=== PATIENT | male | born 1955 | race Hispanic/Latino ===

== ENCOUNTER 2018-09-15 19:46 | Inpatient (IN) | payer BC ==
[2018-09-15 20:17] LABS: Urine Appearance CLOUDY; Urine Bilirubin NEGATIVE (NEG); Urine Blood 3+ (NEG); Urine Color RED; Urine Glucose NEGATIVE (NEG); Urine Protein 1+ (NEG); Urine Urobilinogen 0.2 mg/dL (0.2-1.0); Urine pH 6.5 (5.0-7.0)
[2018-09-15 20:27] LABS: Urine Bacteria 20-50 /HPF (NONE SEEN); Urine RBC LOADED /HPF (NONE SEEN)
[2018-09-15 20:28] LABS: Urine Culture Reflex Order NOT NEEDED
[2018-09-15] MEDS ORDERED: MAGNE/ALUM HYDROXD 30 ML UCUP ONE (20:30)
[2018-09-15] MEDS ORDERED: ONDANSETRON 4 MG/2 ML VIAL ONE (20:30)
[2018-09-15] MEDS ORDERED: LIDOCAINE VISCOUS 2% SOLN 15 ML UDC ONE (20:31)
--- NOTE | 2018-09-15 20:45 | RAD REPORT ---
EXAM DESCRIPTION: [place] Single View09/15/2018 8:30 pm CLINICAL HISTORY: Chest pain COMPARISON: none FINDINGS: The lungs appear clear of acute infiltrate. The heart is normal size IMPRESSION: No acute abnormalities displayed
[2018-09-15] MEDS ORDERED: ONDANSETRON 4 MG (ODT) TAB ONE (20:55)
--- NOTE | 2018-09-15 21:02 | RAD REPORT ---
EXAM DESCRIPTION: CT - Stone Protocol - 09/15/2018 8:50 pm CLINICAL HISTORY: Abdominal pain. Right flank pain. Hematuria COMPARISON: None. TECHNIQUE: Computed axial tomography of the abdomen pelvis was obtained without oral or IV contrast. Lack of IV and oral contrast limits evaluation of solid organs, bowel, and vessels. Coronal reformat mt images were obtained and reviewed. All CT scans are performed using dose optimization technique as appropriate and may include automated exposure control or mA/KV adjustment according to patient size. FINDINGS: Multiple, bilateral renal calculi. Mild right hydronephrosis. Right ureter is mildly dilat ed. Right periureteral stranding is present. There are 2 distal right ureteral calculi. Largest measu res 7 millimeters Hounsfield unit of 1395. 3.9 centimeter low-density left renal mass is nonspecific without IV contrast but probably represents a cyst. This should be confirmed with nonemergent ultrasound The liver, spleen, pancreas and adrenals appear grossly normal Prostate gland is mildly to moderately enlarged There is no evidence of diverticulitis. The gallbladder has been removed. Pneumobilia is present IMPRESSION: Distal right ureteral calculi resulting in mild right hydronephrosis
[2018-09-15 21:32] LABS: Absolute Lymphocytes (CBC) 2.1 K/uL (0.7-4.9); Absolute Monocytes 0.5 K/uL (0.1-1.3); Absolute Neutrophil 6.8 K/uL (1.8-8.0); Basophils % 1.3 % (0-1.3); Eosinophils % 2.2 % (0-4.4); Hematocrit 41.4 % (39.6-49.0); Lymphocytes % 21.5 % (15.3-44.8); MPV 9.1 fL (7.6-11.3); Monocytes % 4.9 % (3.3-12.3); RBC Red Blood Cell Count 4.65 M/uL (4.33-5.43)
[2018-09-15 21:36] LABS: Protime INR 1.01
[2018-09-15 21:51] LABS: ALT/SGPT 33 U/L (12-78); AST/SGOT 26 U/L (15-37); Alkaline Phosphatase 139 U/L (45-117); BUN Blood Urea Nitrogen 20 mg/dL (7-18); Bicarbonate 26 mmol/L (21-32); Bilirubin Direct < 0.1 mg/dL (0-0.2); Bilirubin Total 0.3 mg/dL (0.2-1.0); Glucose Level 92 mg/dL (74-106); Lipase 153 U/L (73-393); Potassium 3.9 mmol/L (3.5-5.1); Protein, Total 8.5 g/dL (6.4-8.2); Sodium Level 138 mmol/L (136-145); Troponin (Emerg Dept Use Only) < 0.02 ng/mL (0.0-0.045)
--- NOTE | 2018-09-15 21:59 | ER ---
Nurse's Notes [facility] Name: Fabian Brenner Age: 63 yrs Sex: Male : 1955 Arrival Date: 09/15/2018 Time: 19:47 Bed 28 Private MD: Diagnosis: Chest pain, unspecified;Hydronephrosis with renal and ureteral calculous obstruction Presentation: 09/15 19:51 Presenting complaint: Patient states: started with right back/flank pain on week ago la1 followed by urinating blood with clots and then chest pain, Has been having intermittent chest pain for a little longer than one week. Chest pain is described as pressure "like someone is sitting on it" flank pain is sharp. Transition of care: patient was not received from another setting of care. Onset of symptoms was September 15, 2018. Risk Assessment: Do you want to hurt yourself or someone else? Patient reports no desire to harm self or others. Initial Sepsis Screen: Does the patient meet any 2 criteria? No. Patient's initial sepsis screen is negative. Does the patient have a suspected source of infection? No. Patient's initial sepsis screen is negative. Care prior to arrival: None. 19:51 Method Of Arrival: Ambulatory la1 19:51 Acuity: LIDA 3 la1 Historical: - Allergies: 19:53 Iodine; la1 - Home Meds: 19:53 None [Active]; la1 - PMHx: 19:53 None; la1 - PSHx: 19:53 Cholecystectomy; Appendectomy; Tonsillectomy; la1 - Immunization history:: Adult Immunizations up to date. - Social history:: Smoking status: Patient/guardian denies using tobacco. - Ebola Screening: : No symptoms or risks identified at this time. - Family history:: not pertinent. - Hospitalizations: : No recent hospitalization is reported. Screenin:52 Abuse screen: Denies threats or abuse. Denies injuries from another. Nutritional rv screening: No deficits noted. Tuberculosis screening: No symptoms or risk factors identified. Fall Risk None identified. Assessment: 20:51 General: Appears in no apparent distress. uncomfortable, Behavior is calm, cooperative. rv Pain: Complains of pain in chest Pain does not radiate. Pain began suddenly. Neuro: Level of Consciousness is awake, alert, obeys commands, Oriented to person, place, time, situation. Cardiovascular: Capillary refill < 3 seconds Rhythm is regular. Respiratory: Airway is patent. GI: No signs and/or symptoms were reported involving the gastrointestinal system. : No signs and/or symptoms were reported regarding the genitourinary system. EENT: No signs and/or symptoms were reported regarding the EENT system. Derm: Skin is intact. Vital Signs: 19:53 BP 124 / 81; Pulse 102; Resp 18; Temp 98.3; Pulse Ox 98% on R/A; Weight 62.14 kg; la1 Height 5 ft. 2 in. (157.48 cm); Pain 8/10; 21:30 BP 129 / 81 LA Supine; Pulse 78; Resp 15 S; Pulse Ox 97% on R/A; rv 22:00 BP 129 / 71 LA Supine; Pulse 80; Resp 14 S; Pulse Ox 97% on R/A; rv 23:00 BP 144 / 88 LA Supine; Pulse 84; Resp 26 S; Pulse Ox 99% on R/A; rv 19:53 Body Mass Index 25.06 (62.14 kg, 157.48 cm) la1 ED Course: 19:47 Patient arrived in ED. do 19:52 Triage completed. la1 19:53 Arm band placed on right wrist. la1 19:55 Gianfranco Paredes MD is Attending Physician. rn 20:04 Greg Chua, MOR is Primary Nurse. rv 20:29 XRAY Chest (1 view) In Process Unspecified. EDMS 20:29 Radiology exam delayed due to pt having iv started to give meds. greg to call when bq pts ready. 20:30 Missed attempt(s): 20 gauge in left antecubital area. 22 gauge in right antecubital rv area. 20:39 Urine Culture Sent. jp3 20:[address] mw3 20:50 CT Stone Protocol In Process Unspecified. EDMS 20:52 Patient has correct armband on for positive identification. Bed in low position. Call rv light in reach. Side rails up X 1. Adult w/ patient. secured entrance monitor on. Pulse ox on. NIBP on. 20:52 Patient maintains SpO2 saturation greater than 95% on room air. rv 21:50 Inserted 18 gauge 10 cm midline to right upper basilic vein on first attempt. Line with fc good blood return and flushes well. 21:57 Nixon Hutson MD is Hospitalizing Provider. rn 23:23 No provider procedures requiring assistance completed. Patient admitted, IV remains in rv place. Administered Medications: 20:30 Drug: GI Cocktail without - (Maalox Suspension 30 ml, Lidocaine Liquid 2 % 15 rv ml) Route: PO; 23:14 Follow up: Response: Pain is unchanged, physician notified rv 22:00 Drug: Zofran 4 mg Route: IVP; Site: right upper arm; rv 23:14 Follow up: Response: Nausea unchanged rv 22:00 Drug: morphine 4 mg Route: IVP; Site: right upper arm; rv 23:14 Follow up: Response: Pain is unchanged, physician notified rv 22:05 Drug: NS 0.9% 1000 ml Route: IV; Rate: 1000 ml; Site: right upper arm; rv 23:13 Follow up: IV Status: Completed infusion; IV Intake: 1000ml rv 22:48 Drug: morphine 4 mg Route: IVP; Site: right upper arm; rv 23:13 Follow up: Response: Pain is decreased rv 22:48 Drug: Phenergan 12.5 mg Route: IVP; Site: right upper arm; rv 23:13 Follow up: Response: Nausea is decreased rv Intake: 23:13 IV: 1000ml; Total: 1000ml. rv Outcome: 21:57 Decision to Hospitalize by Provider. rn 23:23 Admitted to Med/surg accompanied by nurse, via wheelchair, room 206, with chart, Report rv called to [place] 23:23 Condition: good 23:23 Instructed on the need for admit, Demonstrated understanding of instructions. 23:23 Patient left the ED. rv Signatures: Dispatcher [employer] EDMS Vannessa Bone Felicia, RN RN fc Nieto, Roman, MD MD rn Attema, Lee, RN RN la1 [place]ree, Danielle do Willis, Michelle mw3 Greg Chua RN RN rv Tank Younger jp3
--- NOTE | 2018-09-15 21:59 | EDPHYS ---
Physician Documentation [facility] Name: Fabian Brenner Age: 63 yrs Sex: Male : 1955 Arrival Date: 09/15/2018 Time: 19:47 Bed 28 Private MD: ED Physician Gianfranco Paredes HPI: 09/15 20:06 This 63 yrs old Male presents to ER via Ambulatory with complaints of Chest rn Pain, Nausea, Blood In Urine. 20:06 The patient or guardian reports chest pain that is located primarily in the substernal rn area. Onset: 1 week(s) ago. The pain radiates to Associated signs and symptoms: Pertinent positives: abdominal pain, nausea, vomiting, Pertinent negatives: cough, diaphoresis, lower extremity swelling, recent travel, shortness of breath, syncope. The chest pain is described as a heaviness, a pressure. Duration: The patient or guardian reports multiple episodes, that are intermittent. Modifying factors: The symptoms are alleviated by nothing. the symptoms are aggravated by exertion. Severity of pain: At its worst the pain was moderate in the emergency department the pain is unchanged. The patient has not experienced similar symptoms in the past. Reports 1 week of chest and flank pain, seen this past week at other ER for flank pain, has known 6mm stone in ureter, reports "passes stones all the time", reports feels like hasn't be able to pass this one. Also having intermittent chest pain, seems like different issue for him, began around same time but don't seem associated, + nausea/vomiting, no dark stool or blood in stool. + blood in urine. No known cardiac problems. . Historical: - Allergies: 19:53 Iodine; la1 - Home Meds: 19:53 None [Active]; la1 - PMHx: 19:53 None; la1 - PSHx: 19:53 Cholecystectomy; Appendectomy; Tonsillectomy; la1 - Immunization history:: Adult Immunizations up to date. - Social history:: Smoking status: Patient/guardian denies using tobacco. - Ebola Screening: : No symptoms or risks identified at this time. - Family history:: not pertinent. - Hospitalizations: : No recent hospitalization is reported. ROS: 20:06 Constitutional: Negative for fever, chills, and weight loss, Eyes: Negative for injury, rn pain, redness, and discharge, Neck: Negative for injury, pain, and swelling, Cardiovascular: + chest pain, negative for palpitations Respiratory: Negative for shortness of breath, cough, wheezing, and pleuritic chest pain, Abdomen/GI: + nausea/vomiting Back: Negative for injury and pain, : + hematuria and dysuria MS/Extremity: Negative for injury and deformity, Skin: Negative for injury, rash, and discoloration, Neuro: Negative for headache, weakness, numbness, tingling, and seizure. Exam: 20:05 ECG was reviewed by the Attending Physician. rn 20:06 Constitutional: This is a well developed, well nourished patient who is awake, alert, rn clenching chest, ambulatory to room from bathroom. Head/Face: Normocephalic, atraumatic. Eyes: Pupils equal round and reactive to light, extra-ocular motions intact. Lids and lashes normal. Conjunctiva and sclera are non-icteric and not injected. Cornea within normal limits. Periorbital areas with no swelling, redness, or edema. Cardiovascular: tachycardic, regular, no murmur Respiratory: Lungs have equal breath sounds bilaterally, clear to auscultation Abdomen/GI: soft, mild epigastric abd tenderness, no rebound MS/ Extremity: Pulses equal, no cyanosis. Neurovascular intact. Full, normal range of motion. Equal circumference. Neuro: Awake and alert, GCS 15, oriented to person, place, time, and situation. Cranial nerves II-XII grossly intact. Motor strength 5/5 in all extremities. Sensory grossly intact. Cerebellar exam normal. Normal gait. Vital Signs: 19:53 BP 124 / 81; Pulse 102; Resp 18; Temp 98.3; Pulse Ox 98% on R/A; Weight 62.14 kg; la1 Height 5 ft. 2 in. (157.48 cm); Pain 8/10; 21:30 BP 129 / 81 LA Supine; Pulse 78; Resp 15 S; Pulse Ox 97% on R/A; rv 22:00 BP 129 / 71 LA Supine; Pulse 80; Resp 14 S; Pulse Ox 97% on R/A; rv 23:00 BP 144 / 88 LA Supine; Pulse 84; Resp 26 S; Pulse Ox 99% on R/A; rv 19:53 Body Mass Index 25.06 (62.14 kg, 157.48 cm) la1 MDM: 19:55 Patient medically screened. rn 21:17 ED course: Having difficulty getting IV, RN in room attempting u/s IV. . rn 21:52 Differential diagnosis: acute myocardial infarction, acute pericarditis, coronary rn artery disease costochondritis, gastritis, gastroesophageal reflux disease (GERD), pancreatitis, pericarditis, pleurisy, pneumonia, pneumothorax, stable angina. Data reviewed: vital signs, nurses notes, lab test result(s), EKG, radiologic studies, CT scan, plain films, and as a result, I will admit patient. Counseling: I had a detailed discussion with the patient and/or guardian regarding: the historical points, exam findings, and any diagnostic results supporting the discharge/admit diagnosis, lab results, radiology results, the need for further work-up and treatment in the hospital. Response to treatment: the patient's symptoms have mildly improved after treatment, and as a result, I will admit patient. Admission orders: after a detailed discussion of the patient's condition and case, the admit orders are written by me. 21:52 ED course: Pt improved, normal ecg, negative troponin, ct with 2 distal ureteral rn stones, largest 7mm, admitted for chest pain eval as brother just had stents, and father with MIs at his age, and chest pain new for him. . 09/15 19:57 Order name: Urine Culture 09/15 20:05 Order name: Basic Metabolic Panel; Complete Time: 21:52 09/15 20:05 Order name: CBC with Diff; Complete Time: 21:38 09/15 20:05 Order name: LFT's; Complete Time: 21:52 09/15 20:05 Order name: PT-INR; Complete Time: 21:38 09/15 20:05 Order name: Troponin (emerg Dept Use Only); Complete Time: 21:52 09/15 20:05 Order name: Lipase; Complete Time: 21:52 09/15 20:12 Order name: Urinalysis W/Microscopic; Complete Time: 20:44 [facility] 09/15 22:57 Order name: Lipid Profile [facility] 09/15 22:57 Order name: Lipid Profile [facility] 09/15 22:57 Order name: Troponin I [facility] 09/15 22:57 Order name: Troponin I [facility] 09/15 19:57 Order name: EKG; Complete Time: 19:57 rn 09/15 19:57 Order name: EKG - Nurse/Tech; Complete Time: 20:39 rn 09/15 19:57 Order name: XRAY Chest (1 view); Complete Time: 20:46 rn 09/15 20:06 Order name: CT Stone Protocol; Complete Time: 21:09 rn 09/15 22:57 Order name: Heart Healthy [facility] 09/15 22:57 Order name: Echo with Doppler EDMD 09/15 22:57 Order name: Echo with Doppler [facility] 09/15 22:57 Order name: EKG Electrocardiogram EDMD 09/15 22:57 Order name: EKG Electrocardiogram [facility] 09/15 22:57 Order name: Troponin I [facility] 09/15 19:57 Order name: Urine Dipstick-Ancillary (obtain specimen); Complete Time: 20:39 rn 09/15 20:05 Order name: Cardiac monitoring; Complete Time: 20:39 rn 09/15 20:05 Order name: IV Saline Lock; Complete Time: 22:07 rn 09/15 20:05 Order name: Labs collected and sent; Complete Time: 20:39 rn 09/15 20:05 Order name: O2 Per Protocol; Complete Time: 20:39 rn 09/15 20:05 Order name: O2 Sat Monitoring; Complete Time: 20:39 rn 09/15 20:52 Order name: Labs - recollect needed; Complete Time: 21:45 cm6 EC:05 Rate is 96 beats/min. Rhythm is regular. QRS [place] is Normal. MN interval is normal. QRS rn interval is normal. QT interval is normal. No Q waves. T waves are Normal. No ST changes noted. Clinical impression: Normal ECG. Interpreted by me. Administered Medications: 20:30 Drug: GI Cocktail without - (Maalox Suspension 30 ml, Lidocaine Liquid 2 % 15 rv ml) Route: PO; 23:14 Follow up: Response: Pain is unchanged, physician notified rv 22:00 Drug: Zofran 4 mg Route: IVP; Site: right upper arm; rv 23:14 Follow up: Response: Nausea unchanged rv 22:00 Drug: morphine 4 mg Route: IVP; Site: right upper arm; rv 23:14 Follow up: Response: Pain is unchanged, physician notified rv 22:05 Drug: NS 0.9% 1000 ml Route: IV; Rate: 1000 ml; Site: right upper arm; rv 23:13 Follow up: IV Status: Completed infusion; IV Intake: 1000ml rv 22:48 Drug: morphine 4 mg Route: IVP; Site: right upper arm; rv 23:13 Follow up: Response: Pain is decreased rv 22:48 Drug: Phenergan 12.5 mg Route: IVP; Site: right upper arm; rv 23:13 Follow up: Response: Nausea is decreased rv Disposition: 09/15/18 21:57 Hospitalization ordered by Nixon Hutson for Observation. Preliminary diagnosis are Chest pain, unspecified, Hydronephrosis with renal and ureteral calculous obstruction. - Bed requested for Telemetry/MedSurg (observation). - Status is Observation. rv - Condition is Stable. - Problem is an ongoing problem. - Symptoms have improved. UTI on Admission? No Signatures: Dispatcher [employer] EDMD Bebe Salgado RN RN Gianfranco Paredes MD MD rn Attema, Lee RN RN la1 Ge Chua RN RN rv Aliyah Wesley cm6 Corrections: (The following items were deleted from the chart) 20:12 20:11 URINALYSIS+U.LAB.BRZ ordered. EDMD EDMS 20:13 19:58 UA MICROSCOPIC+U.LAB.BRZ ordered. [facility] EDMS 23:01 21:57 Hospitalization Ordered by Nixon Hutson MD for Observation. Preliminary mw diagnosis is Chest pain, unspecified; Hydronephrosis with renal and ureteral calculous obstruction. Bed requested for Telemetry/MedSurg (observation). Status is Observation. Condition is Stable. Problem is an ongoing problem. Symptoms have improved. UTI on Admission? No. rn 23:23 23:01 09/15/2018 21:57 Hospitalization Ordered by Nixon Hutson MD for Observation. rv Preliminary diagnosis is Chest pain, unspecified; Hydronephrosis with renal and ureteral calculous obstruction. Bed requested for Telemetry/MedSurg (observation). Status is Observation. Condition is Stable. Problem is an ongoing problem. Symptoms have improved. UTI on Admission? No. mw
[2018-09-15] MEDS ORDERED: MORPHINE 4 MG/ML SYR ONE ×2 (22:08→22:57)
[2018-09-15] MEDS ORDERED: NA CHLORIDE 0.9% 1,000 ML ONE (22:16)
[2018-09-15] MEDS ORDERED: ACETAMINOPHEN 500 MG TAB PO PRN (22:53)
[2018-09-15] MEDS ORDERED: PROMETHAZINE 25 MG/ML VIAL ONE (22:56)
[2018-09-16] MEDS: ALPRAZOLAM 0.25 MG TABLET PO PRN (00:22)
[2018-09-16] MEDS: MORPHINE 4 MG/ML SYR IV PRN ×6 (02:39→22:50)
[2018-09-16] MEDS ORDERED: NA CHLORIDE 0.9% 1,000 ML IV SCH (07:00)
[2018-09-16] MEDS: ONDANSETRON 4 MG/2 ML VIAL IV PRN ×2 (08:00→20:33)
[2018-09-16] MEDS: CEFTRIAXONE/SWI 1gm 1 GM/10 ML SYR IV SCH (08:01)
[2018-09-16] MEDS: ENOXAPARIN 40 MG/0.4 ML SQ SCH (08:02)
[2018-09-16] MEDS: LISINOPRIL 10 MG TAB PO SCH (08:02)
[2018-09-16] MEDS: ASPIRIN EC 81 MG TAB PO SCH (08:02)
[2018-09-16] MEDS: NA CHLORIDE 0.9% 1,000 ML IV SCH ×3 (08:04→22:50)
[2018-09-16] MEDS: METOPROLOL TAR 50 MG TAB PO SCH ×2 (08:05→20:31)
[2018-09-16] MEDS ORDERED: CEFTRIAXONE 1 GM/NS 50 ML 1 GM/50 ML BAG IV SCH (09:00)
--- NOTE | 2018-09-16 09:57 | P.HP ---
Certification for Inpatient Patient admitted to: Inpatient With expected LOS: >2 Midnights Patient will require the following post-hospital care: None Practitioner: I am a practitioner with admitting privileges, knowledge of patient current condition, hospital course, and medical plan of care. Services: Services provided to patient in accordance with Admission requirements found in Title 42 Section 412.3 of the Code of Federal Regulations Patient History Date of Service: 09/15/18 Reason for admission: Chest pain rule out acute coronary syndrome; obstructive uropathy History of Present Illness: Patient is a 63-year-old gentleman who came to the hospital with chest pain. Patient had been already diagnosed with nephrolithiasis. He has had kidney stones since he was a teenager. He normally passes them because they are very small. He states that this is the toughest time he has had with them. He went to a hospital and was found to have some kidney stones. He also had mild hydronephrosis. He was dealing with this at home however, he started having pain in his sternal region. Has a strong family history of coronary artery disease. He denies any history of hypertension, diabetes, or cholesterol problems. He will probably need to be worked up for his chest pain and cleared for having coronary artery disease prior to any intervention for his nephrolithiasis / obstructive uropathy. Also start him on some antibiotics. Allergies iodine Allergy (Mild, Verified 09/15/18 23:04) Hives/Rash Home Medications: Zolpidem Tartrate [Ambien*] 10 mg PO BEDTIME 09/15/18 - Past Medical/Surgical History Has patient received pneumonia vaccine in the past: Yes -: Nephrolithiasis -: cholecystectomy -: appendectomy -: tonsillectomy -: sphincterotomy - Family History Father Medical History: Heart disease Brother Medical History: Heart disease - Social History Smoking Status: Never smoker Alcohol use: No CD- Drugs: No Caffeine use: Yes Place of Residence: Home Review of Systems 10-point ROS is otherwise unremarkable Physical Examination - Vital Signs Temperature: 97.6 F Blood Pressure: 124/65 Pulse: 68 Respirations: 18 Pulse Ox (%): 96 - Physical Exam General: Alert, In no apparent distress, Oriented x3 HEENT: Atraumatic, PERRLA, Mucous membr. moist/pink, EOMI, Sclerae nonicteric Neck: Supple, 2+ carotid pulse no bruit, No LAD, Without JVD or thyroid abnormality Respiratory: Clear to auscultation bilaterally, Normal air movement Cardiovascular: Regular rate/rhythm, Normal S1 S2, No murmurs Gastrointestinal: Normal bowel sounds, Soft and benign, Non-distended, Tenderness ( flank tender) Musculoskeletal: No clubbing, No swelling, No tenderness Integumentary: No rashes Neurological: Normal gait, Normal speech, Normal strength at 5/5 x4 extr, Normal tone, Sensation intact, Cranial nerves 3-12 intact, Normal affect Lymphatics: No axilla or inguinal lymphadenopathy - Studies Laboratory Data (last 24 hrs) 09/16/18 04:58: Triglycerides 380 H, Cholesterol 255 H, HDL Cholesterol 39 L, Cholesterol/HDL Ratio 6.54 09/16/18 04:58: Troponin I < 0.02 09/15/18 21:25: PT 11.9, INR 1.01 09/15/18 21:25: WBC 9.7, Hgb 14.1, Hct 41.4, Plt Count 278 09/15/18 21:25: Sodium 138, Potassium 3.9, BUN 20 H, Creatinine 1.11, Glucose 92 , Total Bilirubin 0.3, AST 26, ALT 33, Alkaline Phosphatase 139 H, Lipase 153 Assessment & Plan - Problems (Diagnosis) (1) Chest pain, rule out acute myocardial infarction Current Visit: Yes Status: Acute (2) Obstructive uropathy Current Visit: Yes Status: Acute (3) Nephrolithiasis Current Visit: Yes Status: Acute - Plan 1. Serial troponins and EKG 2. Cardiology consultation 3. Echocardiogram and inpatient stress test 4. Anti-platelet therapy, beta-michael, statin, and O2 as needed 5. IV morphine for pain 6. IV hydration to help assist with passing kidney stones 7. Strain urine 8. Urology consultation 9. NPO after midnight 10. GI and DVT prophylaxis Discharge Plan: Home Plan to discharge in: 48 Hours - Advance Directives Does patient have a Living Will: No Does patient have a Durable POA for Healthcare: No - Code Status/Comfort Care Code Status Assessed: Yes Code Status: Full Code Critical Care: No Time Spent Managing PTS Care (In Minutes): 50
[2018-09-16] MEDS ORDERED: KETOROLAC 30 MG/ML INJ IV PRN (11:02)
--- NOTE | 2018-09-16 14:52 | P.PN ---
Subjective Date of Service: 09/16/18 Chief Complaint: Chest pain rule out acute coronary syndrome; obstructive uropathy Subjective: No new changes Patient seen and examined at bedside. No family at bedside. Chart reviewed and case discussed with nursing staff. Review of Systems 10-point ROS is otherwise unremarkable Physical Examination - Vital Signs Temperature: 97.0 F Blood Pressure: 128/65 Pulse: 64 Respirations: 16 Pulse Ox (%): 96 - Physical Exam General: Alert, In no apparent distress, Oriented x3 HEENT: Atraumatic, PERRLA, EOMI Neck: Supple, JVD not distended Respiratory: Clear to auscultation bilaterally, Normal air movement Cardiovascular: Regular rate/rhythm, Normal S1 S2 Gastrointestinal: Normal bowel sounds, No tenderness Musculoskeletal: No tenderness Integumentary: No rashes Neurological: Normal speech, Normal tone, Normal affect Lymphatics: No axilla or inguinal lymphadenopathy - Studies Laboratory Data (last 24 hrs) 09/16/18 04:58: Triglycerides 380 H, Cholesterol 255 H, HDL Cholesterol 39 L, Cholesterol/HDL Ratio 6.54 09/16/18 04:58: Troponin I < 0.02 09/15/18 21:25: PT 11.9, INR 1.01 09/15/18 21:25: WBC 9.7, Hgb 14.1, Hct 41.4, Plt Count 278 09/15/18 21:25: Sodium 138, Potassium 3.9, BUN 20 H, Creatinine 1.11, Glucose 92 , Total Bilirubin 0.3, AST 26, ALT 33, Alkaline Phosphatase 139 H, Lipase 153 Assessment And Plan - Plan Patient Problems: Chest pain, rule out acute myocardial infarction (Acute) R07.9 Serial troponins and EKG Cardiology consultation, recommendations appreciated Echocardiogram and stress test ordered, pending Continue with antiplatelet therapy tolerate beta-michael, statin and oxygen as needed Morphine and nitro as needed for pain Nephrolithiasis (Acute) Obstructive uropathy (Acute) N13.9 Continue with IV hydration Urology consultation, recommendations appreciated DVT prophylaxis: As above GI prophylaxis: None Diet: Heart healthy, NPO after midnight Disposition: Pending stress test for cardiac clearance for possible urologic intervention
[2018-09-16] MEDS ORDERED: TRAMADOL HCL 50 MG TAB PO PRN (15:35)
--- NOTE | 2018-09-16 16:00 | CON ---
History Of Present Illness: A 63-year-old gentleman, who has a long history of kidney stones since he was a teenager. He normally passes them. He has a urologist in [place]. He says, however, this one has been giving him a lot of trouble with right flank pain. He came into the ER with diagnosis of a 7 mm stone in right lower ureter with a smaller stone behind it and multiple kidney stones on both sides, 5 mm or less, one maybe 7 mm. However, I concerned he has this substernal chest pain with radiation to the neck, that is concerning for cardiac disease or acute coronary syndrome. He has seen Dr. Clark, nursing assoc. They would like to run some more tests on the patient. He needs to be ruled out before we can do any kidney stone surgery in the patient. He may even need a stent, so we await for cardiac clearance to take place first. Allergies: IODINE CAUSES HIVES AND RASH. Home Medication: Ambien at bedtime. Past Medical And Surgical History: Kidney stone, cholecystectomy, appendectomy , tonsillectomy, sphincterotomy. Family History: Strong history of heart disease and high cholesterol. Social History: Never smoked. No alcohol use. No drug use. No caffeine use. Resides at home. Review of Systems: Ten-point review of systems otherwise unremarkable. Physical Examination: Vital signs: Temperature 97.6, pulse 68, respirations 18, BP 124/65, 96% sat. General: The patient is alert, oriented, in no acute distress. HEENT: Atraumatic and normocephalic. Respiratory: clear. Cardiovascular: S1, S2. Gastrointestinal: Benign. Musculoskeletal: No clubbing. No swelling. Skin: No rashes. Neurologic: Normal gait. Normal speech normal strength and sensation. Lymphatics: No lymphadenopathy. : Both testicles descended, nontender. No masses. Phallus normal. No lesions. DELMI deferred. Laboratory Studies: Triglycerides high at 380, cholesterol high at 255, HDL cholesterol low at 39. Troponin was low so far. PTT, INR normal. White count normal at 9.7, H and H of 14 and 41, platelet count 278. Electrolytes; sodium 138, potassium 3.9, BUN 20, creatinine 1.1, glucose 92, total bili 0.3, AST 26, ALT 32, alkaline phosphatase 139, lipase 103. Urine study shows red, pH 6.5, specific gravity 1.010, blood 3+, nitrite negative, leukocyte esterase trace, rbc's loaded, wbc's less than 5, bacteria 20 to 50. Microbiology pending. Assessment: A 7 mm stone, right lower ureter, but the patient is having acute coronary syndrome now, so Cardiology will need to rule the patient out and have patient cleared prior to surgery. We will await, see what we need to do. If he is cleared, we can possibly do a stent and lithotripsy on Monday. We will see how the patient does. PRANAY/JUNE Voice ID: [id number] Report ID: [id number] KARUNA
[2018-09-16] MEDS: ZOLPIDEM TARTRATE 10 MG TABLET PO SCH (20:31)
[2018-09-16] MEDS: ATORVASTATIN 80 MG TAB PO SCH (20:31)
[2018-09-17] MEDS: ALPRAZOLAM 0.25 MG TABLET PO PRN ×2 (00:18→11:50)
--- NOTE | 2018-09-17 00:27 | CON ---
Date of Consultation: 09/16/2018 Reason For Consultation: Chest pain. History Of Present Illness: Mr. Brenner is a 63-year-old male without any past cardiac history that he knows about. He actually came in with nephrolithiasis and some hydronephrosis and h is symptoms started with nausea, vomiting and hematuria. He has had kidney stones in the past that h e has passed. This one is about 7 mm and has not passed. He still has some kidney pain but he can d efinitely differentiate that from a substernal chest pressure that he has had with some left arm radi ation. No PND, orthopnea, pedal edema, palpitations, or syncope but he has a very strong family hist ory of heart disease. His lipid profile here shows a triglyceride of 380, cholesterol of 255, LDL of 140 and an HDL of 39. EKG was nonspecific. Troponin was negative. Past Medical History: Otherwise negative. Allergies: IODINE. Review of Systems: Negative. Social History: Negative for tobacco, drugs use. Family History: Positive for heart disease. Medications: At home are negative. Physical Examination: Vital Signs: Stable. He was afebrile. General: He was not having any chest pain but still has some kidney pain. He was in sinus rhythm. HEENT: Negative. Neck: Supple without any bruit, lymphadenopathy, JVD, or thyromegaly. Chest: Clear to auscultation and percussion. Cardiac: Revealed a regular rhythm and rate. No murmurs, gallops, or rubs. Abdomen: Benign. Extremities: Revealed no clubbing, cyanosis, or edema. Diagnostic Data: As stated earlier. Impression And Plan: Mr. Brenner is 63-year-old, has a strong family history of heart disease. He ob viously has dyslipidemia. He should be on statin and aspirin, and he should have a cardiac evaluatio n with an echocardiogram and a pharmacological stress test which will be done in the morning. We obv iously need to rule that out before he has any urological procedures done. The case was discussed wi th the patient. Dr. Pan was also aware of the situation. For now, we will see what the workup aristeo ws in the morning. Continue present regimen. ASHLYN/MODL Voice ID: [id number] Report ID: [id number]
[2018-09-17] MEDS: ONDANSETRON 4 MG/2 ML VIAL IV PRN ×2 (03:44→08:24)
[2018-09-17] MEDS: MORPHINE 4 MG/ML SYR IV PRN ×2 (03:44→08:23)
[2018-09-17] MEDS: NA CHLORIDE 0.9% 1,000 ML IV SCH ×3 (05:55→23:46)
--- NOTE | 2018-09-17 05:55 | EKG ---
Test Date: 2018-09-15 Test Time: 20:02:53 [place]set Repairer: PRETTY MEASUREMENT RESULTS: Intervals: Rate: 96 MN: 136 QRSD: 78 QT: 348 QTc: 439 [place]: P: 59 MN: 136 QRS: 40 T: 52 INTERPRETIVE STATEMENTS: Normal sinus rhythm Normal ECG No previous ECG available for comparison Electronically Signed On 09-17-18 05:54:12 CDT by Riley Giraldo
[2018-09-17] MEDS: CEFTRIAXONE/SWI 1gm 1 GM/10 ML SYR IV SCH (08:24)
[2018-09-17] MEDS: LISINOPRIL 10 MG TAB PO SCH (08:24)
[2018-09-17] MEDS: ASPIRIN EC 81 MG TAB PO SCH (08:24)
[2018-09-17] MEDS: ENOXAPARIN 40 MG/0.4 ML SQ SCH (08:24)
[2018-09-17] MEDS: METOPROLOL TAR 50 MG TAB PO SCH ×2 (08:25→20:13)
[2018-09-17] MEDS ORDERED: REGADENOSON 0.4 MG/5 ML SYR IV ONE (09:01)
--- NOTE | 2018-09-17 10:34 | RAD REPORT ---
EXAM DESCRIPTION: US - Renal Ultrasound-Complete - 09/17/2018 10:28 am CLINICAL HISTORY: . Renal mass COMPARISON: September 15, 2018 cat scan FINDINGS: The right kidney measures 10 cm with a normal echotexture. . 4.6 centimeter simple left re nal cysts The left kidney measures 10 cm with a normal echotexture. Multiple, bilateral renal calculi. Minimal right hydronephrosis Bladder calculus is not seen. Bilateral ureteral jets visualized IMPRESSION: Bilateral renal calculi Minimal right hydronephrosis 4.6 centimeter simple left renal cyst
--- NOTE | 2018-09-17 11:22 | P.PN ---
Subjective Date of Service: 09/17/18 Chief Complaint: Chest pain rule out acute coronary syndrome; obstructive uropathy Patient seen and examined at bedside. No family at bedside. Chart reviewed and case discussed with nursing staff. Continues to endorse left-sided chest pain that radiates into the jaw and is worse with exertion. States it is associated with shortness of breath Also complaining of right flank pain, that is not controlled by morphine. No acute events noted overnight. Does not look to be in any acute distress at the time of my exam. Review of Systems 10-point ROS is otherwise unremarkable Physical Examination - Vital Signs Temperature: 97.2 F Blood Pressure: 131/79 Pulse: 62 Respirations: 18 Pulse Ox (%): 99 - Physical Exam General: Alert, In no apparent distress, Oriented x3 HEENT: Atraumatic, PERRLA, EOMI Neck: Supple, JVD not distended Respiratory: Clear to auscultation bilaterally, Normal air movement Cardiovascular: Regular rate/rhythm, Normal S1 S2 Gastrointestinal: Normal bowel sounds, No tenderness Integumentary: No rashes Neurological: Normal speech, Normal tone, Normal affect Lymphatics: No axilla or inguinal lymphadenopathy Assessment And Plan - Current Problems (Diagnosis) (1) Dyslipidemia Current Visit: Yes Status: Acute (2) Chest pain, rule out acute myocardial infarction Current Visit: Yes Status: Acute (3) Nephrolithiasis Current Visit: Yes Status: Acute (4) Obstructive uropathy Current Visit: Yes Status: Acute - Plan Patient Problems: Chest pain, rule out acute myocardial infarction (Acute) R07.9 Dyslipidemia, mixed Troponins negative x3. Cardiology consultation, recommendations appreciated Echocardiogram and stress test ordered, pending Continue with antiplatelet therapy tolerate beta-michael, statin and oxygen as needed Morphine and nitro as needed for pain Nephrolithiasis (Acute) Obstructive uropathy (Acute) N13.9 Continue with IV hydration Urology consultation, recommendations appreciated DVT prophylaxis: As above GI prophylaxis: None Diet: NPO. Heart healthy diet after cardiac testing. He will need to be again NPO after midnight for potential urologic intervention tomorrow. Disposition: Pending stress test for cardiac clearance for possible urologic intervention Discharge Plan: Home
[2018-09-17] MEDS: HYDROMORPHONE HCL 1 MG/ML INJ IV PRN ×4 (12:12→23:49)
--- NOTE | 2018-09-17 15:01 | RAD REPORT ---
EXAM DESCRIPTION: RAD - Abdomen 1 View (KUB) - 09/17/2018 2:41 pm CLINICAL HISTORY: fu uvj stone Pain COMPARISON: Stone Protocol dated 09/15/2018 FINDINGS: The bowel gas pattern is non-obstructive. No evidence of free air or pneumatosis. Calcific ation inferior right aspect of the pelvis correlating to the distal right UVJ remains unchanged since comparative CT study. Multiple bilateral renal calculi again noted.
--- NOTE | 2018-09-17 15:58 | RAD REPORT ---
EXAM DESCRIPTION: NM - Rest Stress Cardiac Imaging - 09/17/2018 3:51 pm CLINICAL HISTORY: Chest pain. COMPARISON: None. TECHNIQUE: The patient was administered approximately 10mCi of Tc 99m Sestamibi prior to resting SPE CT imaging of the heart. The patient was then administered approximately 30 mCi of Tc 99m Sestamibi f ollowing exercise or pharmacologic stress. Multiplanar SPECT images were reviewed. FINDINGS: There is uniformity of radiotracer uptake involving the entire left ventricular myocardiu m on rest and stress images. The left ventricular ejection fraction equals 70% IMPRESSION: Negative for a myocardial perfusion defect
[2018-09-17] MEDS: ATORVASTATIN 80 MG TAB PO SCH (20:13)
[2018-09-17] MEDS: ZOLPIDEM TARTRATE 10 MG TABLET PO SCH (20:13)
--- NOTE | 2018-09-17 20:19 | PN ---
Subjective: The patient is feeling well, going for a cardiac scan today. Objective: He is afebrile. Vital signs stable. He is making good urine output. Still has pain on the right lower pelvis signifying he may still have a kidney stone. The plan is to order a KUB, do cardiac scan. If the scan is positive, patient may need a cardiac cath and plus or minus a cardiac stent. Once he is anticoagulated, I do not believe the coagulation can be stopped for 6 months, so it will be best to do the stone before then, so we will have to coordinate with Dr. Clark about this. PRANAY/JUNE Voice ID: [id number] Report ID: [id number] KARUNA
[2018-09-18] MEDS: HYDROMORPHONE HCL 1 MG/ML INJ IV PRN ×5 (03:52→20:46)
[2018-09-18] MEDS: ONDANSETRON 4 MG/2 ML VIAL IV PRN ×3 (03:52→20:49)
[2018-09-18] MEDS: NA CHLORIDE 0.9% 1,000 ML IV SCH ×5 (06:15→22:39)
[2018-09-18 06:40] LABS: Absolute Lymphocytes (CBC) 1.5 K/uL (0.7-4.9); Absolute Monocytes 0.5 K/uL (0.1-1.3); Absolute Neutrophil 4.9 K/uL (1.8-8.0); Basophils % 1.1 % (0-1.3); Hematocrit 34.1 % (39.6-49.0); Lymphocytes % 21.1 % (15.3-44.8); MPV 9.3 fL (7.6-11.3); Monocytes % 6.5 % (3.3-12.3); RBC Red Blood Cell Count 3.87 M/uL (4.33-5.43)
[2018-09-18 06:52] LABS: Potassium 3.9 mmol/L (3.5-5.1)
[2018-09-18] MEDS: LISINOPRIL 10 MG TAB PO SCH (07:41)
[2018-09-18] MEDS: METOPROLOL TAR 50 MG TAB PO SCH ×2 (07:41→20:53)
[2018-09-18] MEDS: ASPIRIN EC 81 MG TAB PO SCH (07:41)
[2018-09-18] MEDS: CEFTRIAXONE/SWI 1gm 1 GM/10 ML SYR IV SCH (07:42)
[2018-09-18] MEDS: ENOXAPARIN 40 MG/0.4 ML SQ SCH (07:43)
--- NOTE | 2018-09-18 08:27 | TREADPHA ---
DX: CHEST PAIN Date of Study: 09/17/2018 Ht: 5 2 Wt: 146 lb 4.8 oz Consulting Physician: VIVEK MEDICATIONS: TYLENOL, ASPIRIN, XANAX, LIPITOR, LOVENOX, PRINIVIL HISTORY: 63 YEAR OLD MALE COMPLAINTS OF CHEST PAIN. HISTORY OF CHOLECYSTECTOMY, APPENDECTOMY AND TONSILLECTOMY. PHYSICIAL EXAMINATION: RESTING B.P.: 126/80 RESTING H.R.: 62 RESTING EKG: NORMAL PROTOCOL: LEXISCAN EXERCISE TIME: 3:30 B.P. AT PEAK STRESS: 129/70 IMPRESSION: LEXISCAN INJECTED, FOLLOWED BY CARDIOLITE PER PROTOCOL, SEE NUCLEAR MEDICINE REPORT. NO SUPRAVENTRICULAR TACHYCARDIA, VENTRICULAR TACHYCARDIA, PREMATURE ATRIAL COMPLEXES OR PREMATURE VENTRICULAR COMPLEXES. PATIENT REPORTED 5/10 CHEST PAIN. NON DIAGNOSTIC EKG WITH LEXISCAN STRESS.
--- NOTE | 2018-09-18 08:36 | ECHO ---
HEIGHT: 5 ft 2 in WEIGHT: 146 lb 4.8 oz DATE OF STUDY: 09/17/[address]: Nixon Hutson MD 2-DIMENSIONAL: YES M.MODE: YES DOPPLER: YES COLOR FLOW: YES TDS: NO PORTABLE: NO DEFINITY: NO BUBBLE STUDY: NO DIAGNOSIS: CHEST PAIN, RULE OUT ACS CARDIAC HISTORY: CATHERIZATION: NO SURGERY: NO PROSTHETIC VALVE: NO PACEMAKER: NO MEASUREMENTS (cm) DIASTOLIC (NORMALS) SYSTOLIC (NORMALS) IVSd 0.8 (0.6-1.2) LA Diam 2.7 (1.9-4.0) LVEF 79% LVIDd 4.2 (3.5-5.7) LVIDs 2.2 (2.0-3.5) %FS 48% LVPWd 0.9 (0.6-1.2) Ao Diam 3.0 (2.0-3.7) 2 DIMENSIONAL ASSESSMENT: RIGHT ATRIUM: NORMAL LEFT ATRIUM: NORMAL RIGHT VENTRICLE: NORMAL LEFT VENTRICLE: NORMAL TRICUSPID VALVE: NORMAL MITRAL VALVE: NORMAL PULMONIC VALVE: NORMAL AORTIC VALVE: NORMAL PERICARDIAL EFFUSION: NONE AORTIC ROOT: NORMAL LEFT VENTRICULAR WALL MOTION: NORMAL DOPPLER/COLOR FLOW: MILD MITRAL AND TRICUSPID REGURGITATION. NORMAL RIGHT VENTRICULAR SYSTOLIC PRESSURE. COMMENTS: NORMAL 2D ECHOCARDIOGRAM. MILD MITRAL AND TRICUSPID REGURGITATION. TECHNOLOGIST: Demetrio VANEGAS
[2018-09-18] MEDS ORDERED: FENTANYL CITR 100 MCG/2 ML ONE (13:03)
[2018-09-18] MEDS ORDERED: PROPOFOL 200 MG/20 ML VIAL IV ONE (13:04)
[2018-09-18] MEDS ORDERED: MIDAZOLAM HCL 2 MG/2 ML INJ ONE ×2 (13:04→15:01)
[2018-09-18] MEDS ORDERED: LIDOCAINE 2% MPF 5 ML VIAL ONE (13:04)
[2018-09-18] MEDS ORDERED: ONDANSETRON 4 MG/2 ML VIAL ONE (13:14)
[2018-09-18] MEDS ORDERED: DEXAMETHASONE 10 MG/ML VIAL ONE (13:24)
[2018-09-18] MEDS ORDERED: DIPHENHYDRAMINE 50 MG/ML VIAL ONE (13:24)
[2018-09-18] MEDS ORDERED: EPHEDRINE SULF 50 MG/ML VIAL ONE (13:52)
[2018-09-18] MEDS ORDERED: Mastisol Adhesive Liq ONE (14:01)
[2018-09-18] MEDS: MEPERIDINE HCL 50 MG/ML AMP ONE ×2 (14:26→14:29)
[2018-09-18] MEDS: HYDROMORPHONE HCL 1 MG/ML INJ ONE ×2 (14:33→14:38)
[2018-09-18] MEDS ORDERED: HYDROMORPHONE HCL 1 MG/ML INJ ONE (14:53)
--- NOTE | 2018-09-18 15:04 | PN ---
Date of Progress Note: 09/18/2018 Subjective: The patient was seen and examined. Chart reviewed and case discussed with RN and Dr. Ernst gilbert. The patient denies any chest pain. The patient is still having some flank pain, going for proc edure today. The patient has been cleared from cardiac standpoint. His echocardiogram and stress te st were negative. Physical Examination: Vital Signs: Temperature 98.4, heart rate 85, blood pressure 132/72, respirations 20, O2 95% on room air. General: Awake, alert, oriented x3. No acute distress. CV: S1, S2. Regular rate and rhythm. Peripheral pulses present. Respiratory: Moving air well bilaterally. No wheezing or stridor. No use of accessory muscles. Gastrointestinal: Abdomen is soft, nontender, nondistended. Positive bowel sounds. No guarding or rigidity. Extremities: No clubbing, cyanosis, or edema. Neuro: Cranial nerves 2 through 12 intact grossly. No focal neurological deficits. Speech is godfrey l. Laboratory Data: Sodium 142, potassium 3.9, chloride 110, CO2 25, BUN 12, creatinine 0.96, glucose 9 5, calcium 8.8. WBC 7.1, H and H 11.8 and 34.1, platelets 232. Urine culture shows no growth. Assessment And Plan: 1.Chest pain. Acute coronary syndrome ruled out. Cardiac stress test is negative. Echocardiogram shows normal EF 79%. No further chest pain. I appreciate Dr. Clark's input. The patient is clear ed for procedure by Dr. Pan from a cardiac standpoint. 2.Dyslipidemia. We will continue statin and aspirin. 3.Nephrolithiasis. Continue pain control, IV fluids. Urine culture does not show any growth. The patient is going for removal and stent placement by Dr. Pan today. 4.Obstructive uropathy, improving. Plan: Anticipate procedure today. SA/MODL Voice ID: [id number] Report ID: [id number]
[2018-09-18] MEDS: ALPRAZOLAM 0.25 MG TABLET PO PRN ×2 (15:37→23:21)
[2018-09-18] MEDS: SODIUM CHL 0.9% IRR SOLN 2000 ML IRR PRN ×2 (17:54→18:41)
[2018-09-18] MEDS: OXYBUTYNIN CHLORIDE 5 MG TAB PO SCH ×2 (18:41→20:03)
[2018-09-18] MEDS: ATORVASTATIN 80 MG TAB PO SCH (20:52)
[2018-09-18] MEDS: ZOLPIDEM TARTRATE 10 MG TABLET PO SCH (20:52)
[2018-09-19] MEDS: HYDROMORPHONE HCL 1 MG/ML INJ IV PRN ×6 (00:50→20:55)
[2018-09-19] MEDS: NA CHLORIDE 0.9% 1,000 ML IV SCH ×2 (06:06→14:13)
[2018-09-19 06:32] LABS: Absolute Lymphocytes (CBC) 0.9 K/uL (0.7-4.9); Absolute Monocytes 0.5 K/uL (0.1-1.3); Absolute Neutrophil 11.9 K/uL (1.8-8.0); Basophils % 0.1 % (0-1.3); Hematocrit 33.1 % (39.6-49.0); Lymphocytes % 6.7 % (15.3-44.8); MPV 9.8 fL (7.6-11.3); Monocytes % 3.9 % (3.3-12.3); RBC Red Blood Cell Count 3.77 M/uL (4.33-5.43)
[2018-09-19 06:33] LABS: Potassium 3.6 mmol/L (3.5-5.1)
[2018-09-19] MEDS: METOPROLOL TAR 50 MG TAB PO SCH ×2 (08:42→20:05)
[2018-09-19] MEDS: OXYBUTYNIN CHLORIDE 5 MG TAB PO SCH ×2 (08:42→12:46)
[2018-09-19] MEDS: ASPIRIN EC 81 MG TAB PO SCH (08:43)
[2018-09-19] MEDS: LISINOPRIL 10 MG TAB PO SCH (08:43)
[2018-09-19] MEDS: ONDANSETRON 4 MG/2 ML VIAL IV PRN ×4 (08:44→20:55)
[2018-09-19] MEDS: CEFTRIAXONE/SWI 1gm 1 GM/10 ML SYR IV SCH (08:44)
[2018-09-19 09:33] LABS: Blood Morphology Comment NOT SEEN (NOT SEEN); Platelet Estimate ADEQ
[2018-09-19] MEDS: SODIUM CHL 0.9% IRR SOLN 2000 ML IRR PRN (12:47)
[2018-09-19] MEDS: ALPRAZOLAM 0.25 MG TABLET PO PRN (17:54)
[2018-09-19] MEDS ORDERED: NITROGLYCERIN 0.4 MG/TAB SL ONE ×3 (19:07→19:16)
--- NOTE | 2018-09-19 19:33 | PN ---
Date of Progress Note: 09/19/2018 History: The patient is seen and examined. Chart reviewed and case discussed with RN. The patient is still having some intermittent chest pain. Flank pain has improved. The patient was having signi ficant amount of pain postprocedure yesterday, not controlled with Dilaudid. Medications: List reviewed. Physical Examination: Vital Signs: Temperature 97.1, heart rate 77, blood pressure 118/58, respirations 16, O2 97% on room air. General: Awake, alert, oriented x3, ill-appearing male, in some mild distress due to pain. CV: S1, S2. Regular rate and rhythm. Peripheral pulses present. Respiratory: Moving air well bilaterally. No wheezing or stridor. Gastrointestinal: Abdomen is soft, nontender, nondistended. Positive bowel sounds. No guarding or rigidity. Extremities: No clubbing, cyanosis, or edema. Neurologic: Nonfocal. Laboratory Data: Sodium 141, potassium 3.6, chloride 111, CO2 23, BUN 13, creatinine 0.98, glucose 1 49, calcium 8.6. WBC 13.3, H and H 11.4/33.1, platelets 224. Assessment And Plan: A 63-year-old male with: 1.Chest pain. Acute coronary syndrome ruled out. Cardiac stress test negative. The patient still having some intermittent chest pain. The patient is currently on aspirin, statin, beta-michael. We will discuss further with Cardiology. 2.Nephrolithiasis, status post lithotripsy and stent placement by Dr. Pan. Continue Rocephin. 3.Obstructive uropathy, improved. 4.Neutrophilic leukocytosis likely secondary to above. The patient has not spiked any fevers. We w ill continue to monitor and continue IV antibiotics. 5.Dyslipidemia. Continue with statin. Plan: We will continue antibiotics. Follow up on repeat CBC in a.m. Discharge in the next 24-48 ho urs depending on clinical response. The patient did have significant amount of pain requiring Dilaud id [id number]. Did add antispasmodic, which should help with postprocedure bladder spasms. SA/MODL Voice ID: [id number] Report ID: [id number]
[2018-09-19 19:43] LABS: Creatine Phosphokinase 168 U/L (39-308); Troponin I < 0.02 ng/mL (0.0-0.045)
--- NOTE | 2018-09-19 20:03 | PN ---
Subjective: The patient feels well. Pain is down to about a 4/10 from an 8 preoperatively. Urine i s looking good. He is on the CBI. Objective: Vital Signs: Afebrile, stable. Laboratory Data: White count was up from 7.1 to 13.3, may be due to surgery. He had H and H 11 and 33, platelet count 224. Chemistry shows normal chloride slightly high at 111. GFR is 78, stable. G lucose 184, potassium 3.6. In terms of microbiology, nothing is growing. Assessment: Status post ureteroscopy, laser stone extraction, stent placement, Lord placement. Con tinue pain medication. Hopefully plan for discharge tomorrow. Thank you very much. Case discussed with Dr. Mcdaniels. PRANAY/JUNE Voice ID: [id number] Report ID: [id number]
[2018-09-19] MEDS: ZOLPIDEM TARTRATE 10 MG TABLET PO SCH (20:05)
[2018-09-19] MEDS: ATORVASTATIN 80 MG TAB PO SCH (20:05)
[2018-09-19] MEDS: OXYBUTYNIN CHLORIDE 5 MG TAB PO PRN (20:13)
[2018-09-20] MEDS: NA CHLORIDE 0.9% 1,000 ML IV SCH ×3 (00:11→12:25)
[2018-09-20] MEDS: HYDROMORPHONE HCL 1 MG/ML INJ IV PRN ×6 (01:03→20:43)
[2018-09-20] MEDS: ONDANSETRON 4 MG/2 ML VIAL IV PRN ×4 (05:04→20:42)
[2018-09-20 06:14] LABS: Potassium 4.1 mmol/L (3.5-5.1)
[2018-09-20 06:19] LABS: Absolute Lymphocytes (CBC) 1.5 K/uL (0.7-4.9); Absolute Monocytes 1.2 K/uL (0.1-1.3); Absolute Neutrophil 12.3 K/uL (1.8-8.0); Basophils % 0.5 % (0-1.3); Hematocrit 31.2 % (39.6-49.0); Lymphocytes % 9.8 % (15.3-44.8); MPV 9.9 fL (7.6-11.3); Monocytes % 7.9 % (3.3-12.3); RBC Red Blood Cell Count 3.54 M/uL (4.33-5.43)
[2018-09-20] MEDS: ASPIRIN EC 81 MG TAB PO SCH (08:51)
[2018-09-20] MEDS: METOPROLOL TAR 50 MG TAB PO SCH ×2 (08:52→20:05)
[2018-09-20] MEDS: LISINOPRIL 10 MG TAB PO SCH (08:58)
[2018-09-20] MEDS: SODIUM CHL 0.9% IRR SOLN 2000 ML IRR PRN (09:00)
[2018-09-20] MEDS ORDERED: CEFEPIME 2 GM in NA CHLORIDE 0.9% 100 ML IV SCH (09:00)
--- NOTE | 2018-09-20 09:03 | EKG ---
Test Date: 2018-09-19 Test Time: 19:15:40 Fuel Technician: NANCY MEASUREMENT RESULTS: Intervals: Rate: 120 AK: 128 QRSD: 76 QT: 308 QTc: 435 [place]: P: 55 AK: 128 QRS: 50 T: 34 INTERPRETIVE STATEMENTS: Sinus tachycardia Otherwise normal ECG Compared to ECG 09/15/2018 20:02:53 Sinus rhythm no longer present Electronically Signed On 09-20-18 09:02:02 CDT by Riley Giraldo
[2018-09-20] MEDS: CEFEPIME/SWI 2gm 2 GM/20 ML SYR IV SCH ×2 (09:18→20:05)
--- NOTE | 2018-09-20 09:34 | RAD REPORT ---
EXAM DESCRIPTION: RAD - Cystography - 09/18/2018 1:59 pm CLINICAL HISTORY: ICD N20.0/N20.1. FINDINGS: 21 fluoroscopic spot images obtained. Fluoroscopy time 0.37 minutes. The right ureter cannulated and contrast administered. Subsequently a right ureteral stent was placed . The exam was performed by Dr. Pan.
[2018-09-20] MEDS: ALPRAZOLAM 0.25 MG TABLET PO PRN ×2 (10:26→20:04)
[2018-09-20] MEDS: OXYBUTYNIN CHLORIDE 5 MG TAB PO PRN (10:26)
[2018-09-20] MEDS ORDERED: NITROGLYCERIN 0.4 MG/TAB SL ONE (15:25)
--- NOTE | 2018-09-20 15:44 | CON ---
History Of Present Illness: Mr. Brenner has been having chest pain. He has been in the hospital for about 5 days now. He had a urological procedure. I will have to get all the details from Dr. Pan, but he has had kidney stones. Because of his chest pain, we did a nuclear stress test, it was Monda y about 4 days ago. Everything looked normal on that. His EKG reveals nonspecific changes. His tro ponins are normal, but he continues to have chest pain, and we continued to worry that there may be u nderlying coronary heart disease. Apparently, 7 years ago a cardiac cath was done, and he was told t hat there was minor plaque, no stenosis. The patient does not have diabetes. He does not use any to bacco. He does not have dyslipidemia or hypertension. His only outpatient medication was zolpidem. His only past medical history is numerous kidney stones. His most recent electrocardiogram shows si nus tachycardia, otherwise it is normal. Recommendation: I have recommended that we do a cardiac cath on Mr. Brenner. He seems to understand. He is anxious to do it. He is very concerned he has heart trouble in spite of all the normal nonin vasive tests, so we are going to do a cardiac cath. He ate 2 hours ago, so I do not think we can do it right now. We will set it up for tomorrow. We will make sure he is n.p.o., and I have a discussi on with Dr. Pan about whether he would be a suitable candidate for receiving dual antiplatelet ther apy and Angiomax and high doses of heparin, in case we do need to put a stent. TEJAS/JUNE Voice ID: [id number] Report ID: [id number]
--- NOTE | 2018-09-20 16:13 | PN ---
Date of Progress Note: 09/20/2018 Subjective: The patient is seen and examined. Chart reviewed, and case discussed with RN and Dr. Quan dong. The patient is still having some chest pain. Had rapid response called last night due to ches t pain. EKGs were done, showed sinus tachycardia. The patient felt better after 2 doses of nitro. Medications: List reviewed. Physical Examination: Vital Signs: Temperature 97.4, heart rate 66, blood pressure 116/62, respirations 16, O2 of 97% on r oom air. General: Awake, alert, oriented x3. An ill-appearing male. CV: S1 and S2. Regular rate and rhythm. Peripheral pulses present. Respiratory: Moving air well bilaterally. No wheezing or stridor. No use of accessory muscles. Gastrointestinal: Abdomen is soft, nontender, nondistended. Positive bowel sounds. No guarding or rigidity. Extremities: No clubbing, cyanosis, or edema. Neurologic: Nonfocal. Laboratory Data: WBC 15.3, H and H 10.9 and 31.2, platelets 192, neutrophils 80%. Sodium 142, potas sium 4.1, chloride 110, CO2 of 25, BUN 15, creatinine 1.17, glucose 96, calcium 8. Urine culture, no growth to date. EKG showing sinus tachycardia, rate of 120. Assessment: A 63-year-old male with: 1.Chest pain. Acute coronary syndrome ruled out. Cardiac stress test is negative. The patient con tinues to have chest pain, had episode yesterday, requiring nitro x2. EKG shows sinus tachycardia wi th nonspecific T-wave abnormalities. Spoke with Dr. Giraldo who will re-evaluate the patient for furt her workup. 2.Nephrolithiasis, status post lithotripsy and stent placement by Dr. Pan. White count trending u p. We will change IV antibiotics to cefepime. The patient did have a low-grade fever as well. Urin e cultures negative. 3.Obstructive uropathy, improved. 4.Neutrophilic leukocytosis secondary to above. Antibiotics adjusted. 5.Dyslipidemia. We will continue statin. Plan: The patient may require further cardiac workup. Antibiotics have been adjusted. We will foll ow up on CBC in a.m. /JUNE Voice ID: [id number] Report ID: [id number]
[2018-09-20] MEDS: ATORVASTATIN 80 MG TAB PO SCH (20:05)
[2018-09-20] MEDS: ZOLPIDEM TARTRATE 10 MG TABLET PO SCH (22:09)
--- NOTE | 2018-09-20 22:13 | PN ---
Subjective: The complains about chest pain. Dr. Giradlo called me personally and he has planned to d o an angiogram, possible stent in the a.m. So, we are going to go ahead and remove his Lord cathete r and stent today. There is a string attached to the penis, which I can remove. Laboratory Data: White count is up today to 15.3, H and H is 10.9 and 31.2, platelet count 192. Luisa chase shows GFR 63. Rest of electrolytes within normal limits. Assessment: Status post ureteroscopy, stone removal, and stent placement. Plan: DC stent, DC Lord. So, the patient can have a cardiac stent and then go on his anticoagulati on. PRANAY/MODL Voice ID: [id number] Report ID: [id number]
[2018-09-21] MEDS: NA CHLORIDE 0.9% 1,000 ML IV SCH ×4 (00:37→19:20)
[2018-09-21] MEDS: ONDANSETRON 4 MG/2 ML VIAL IV PRN ×5 (01:42→22:53)
[2018-09-21] MEDS: HYDROMORPHONE HCL 1 MG/ML INJ IV PRN ×6 (01:44→22:53)
--- NOTE | 2018-09-21 06:14 | EKG ---
Test Date: 2018-09-20 Test Time: 15:17:54 Continuous Conveyor Screen Drier: FREDDIE MEASUREMENT RESULTS: Intervals: Rate: 64 MN: 124 QRSD: 76 QT: 422 QTc: 435 [place]: P: 13 MN: 124 QRS: 46 T: 45 INTERPRETIVE STATEMENTS: Normal sinus rhythm Normal ECG Compared to ECG 09/19/2018 19:15:40 Sinus tachycardia no longer present Electronically Signed On 09-21-18 06:13:17 CDT by Riley Giraldo
[2018-09-21 07:00] LABS: Absolute Lymphocytes (CBC) 0.8 K/uL (0.7-4.9); Absolute Monocytes 0.6 K/uL (0.1-1.3); Absolute Neutrophil 5.4 K/uL (1.8-8.0); Basophils % 0.6 % (0-1.3); Hematocrit 31.2 % (39.6-49.0); Lymphocytes % 11.8 % (15.3-44.8); MPV 9.5 fL (7.6-11.3); Monocytes % 8.9 % (3.3-12.3); RBC Red Blood Cell Count 3.61 M/uL (4.33-5.43)
[2018-09-21 07:16] LABS: Albumin 2.8 g/dL (3.4-5.0); Bilirubin Total 0.5 mg/dL (0.2-1.0); Potassium 3.6 mmol/L (3.5-5.1); Protein, Total 6.3 g/dL (6.4-8.2)
[2018-09-21] MEDS ORDERED: HEPA 1000U/500MLS 2,000 UNIT/1,000 ML BAG IV ONE (07:17)
[2018-09-21] MEDS ORDERED: LIDOCAINE 1% 20 ML MDV ONE (07:17)
[2018-09-21] MEDS ORDERED: HEPARIN 5000 UNIT/ML 1 ML VIAL ONE (07:56)
[2018-09-21] MEDS ORDERED: METHYLPREDNISOLONE 125 MG INJ ONE (07:57)
[2018-09-21] MEDS ORDERED: FENTANYL CITR 100 MCG/2 ML ONE ×2 (07:57→08:22)
[2018-09-21] MEDS ORDERED: MIDAZOLAM HCL 2 MG/2 ML INJ ONE ×2 (07:57→08:22)
[2018-09-21] MEDS ORDERED: NICARDIPINE HCL 25 MG/10 ML IV ONE (07:57)
[2018-09-21] MEDS ORDERED: NITROGLYCERIN 100 MCG/ML SYR (for cath lab use only) IV ONE (07:58)
[2018-09-21] MEDS ORDERED: NITROGLYCERIN/D5W 25 MG/250 ML BTL IV ONE (07:58)
[2018-09-21] MEDS ORDERED: DIPHENHYDRAMINE 50 MG/ML VIAL ONE (08:23)
[2018-09-21] MEDS ORDERED: NA CHLORIDE 0.9% 50 ML ONE ×2 (08:23→09:30)
[2018-09-21] MEDS ORDERED: ATROPINE SULF 1 MG/10 ML SYR IV ONE (08:23)
[2018-09-21] MEDS ORDERED: HEPA 1000U/500MLS 1,000 UNIT/500 ML BAG IV ONE (08:49)
[2018-09-21] MEDS: LISINOPRIL 10 MG TAB PO SCH ×2 (09:00→14:19)
[2018-09-21] MEDS: ASPIRIN EC 81 MG TAB PO SCH (09:00)
[2018-09-21] MEDS: METOPROLOL TAR 50 MG TAB PO SCH ×3 (09:00→20:31)
[2018-09-21] MEDS: CEFEPIME/SWI 2gm 2 GM/20 ML SYR IV SCH ×2 (09:00→20:31)
[2018-09-21] MEDS ORDERED: PRASUGREL (EFFIENT) 10 MG TAB ONE (10:08)
--- NOTE | 2018-09-21 10:49 | PN ---
Subjective: The patient still has chest pain. Objective: Urine output is clear, is intermittently a little bit pink, but he is doing well otherwis e. Vital signs were stable. Laboratory Data: White count is still pending this morning. Assessment: Status post ureteroscopy, laser stone extraction, stent placement. Lord catheter has b een removed. Stent has been removed. The patient is ready for his cardiac cath this morning. He ca n follow up with me alicia PIRES/JUNE Voice ID: [id number] Report ID: [id number]
[2018-09-21] MEDS ORDERED: HYDROMORPHONE HCL 1 MG/ML INJ ONE (10:58)
[2018-09-21] MEDS ORDERED: FUROSEMIDE 40 MG/4 ML VIAL IV ONE (12:34)
[2018-09-21] MEDS ORDERED: FUROSEMIDE 20 MG/ 2ML VIAL ONE (12:49)
[2018-09-21 13:09] LABS: Hematocrit 37.1 % (39.6-49.0)
--- NOTE | 2018-09-21 20:17 | PN ---
Date of Progress Note: 09/21/2018 Subjective: Patient is seen and examined. Chart reviewed and case discussed with RN and Dr. Giraldo. The patient went for cardiac catheterization this morning, had a stent placed in the LAD. The jeremy ent feels better, still having some flank pain and some shortness of breath. Medications: List reviewed. Physical Examination: Vital Signs: Temperature 98, heart rate 101, blood pressure 123/73, respirations 18, O2 of 98% on 2 L via nasal cannula. General: Awake, alert, and oriented x3. No acute distress. CV: S1, S2. Regular rate and rhythm. Peripheral pulses present. Respiratory: Moving air well bilaterally. No wheezing or stridor. No use of accessory muscles. Gastrointestinal: Abdomen is soft, nontender, nondistended. Positive bowel sounds. Extremities: No clubbing, cyanosis, or edema. Neurologic: Nonfocal. Skin: Right radial cath site. No hematoma. Sensation intact. Laboratory Data: Sodium 142, potassium 3.6, chloride 111, CO2 of 24, BUN 15, creatinine 0.94, glucos e 96, calcium 8.4. WBC 7.2, H and H 11.2 and 31.1. Repeat hemoglobin is 13.4 and 37.1. Assessment And Plan: A 63-year-old male with: 1.Acute coronary syndrome, status post cardiac catheterization with stent to the left anterior desce nding artery. We will continue with the antiplatelet therapy, statin, aspirin and beta-blockers. Ap preciate Dr. Giraldo' input. 2.Nephrolithiasis, status post lithotripsy, stent placement, and a subsequent removal. Continue IV antibiotics. WBCs have normalized. No further fever. 3.Obstructive uropathy, resolved. 4.Dyslipidemia. We will continue statin. 5.Deep venous thrombosis prophylaxis. SCDs. Plan: Discharge in a.m. once cleared by Cardiology. SA/MODL Voice ID: [id number] Report ID: [id number]
[2018-09-21] MEDS: ATORVASTATIN 80 MG TAB PO SCH (20:31)
[2018-09-21] MEDS: ZOLPIDEM TARTRATE 10 MG TABLET PO SCH (20:32)
[2018-09-21] MEDS: OXYBUTYNIN CHLORIDE 5 MG TAB PO PRN (20:37)
--- NOTE | 2018-09-21 21:10 | OP ---
Surgeon: Riley Giraldo MD Procedures: Left heart catheterization, coronary left ventricular angiography, and percutaneous reta nary intervention of a proximal left anterior descending coronary artery, successful. Procedure Findings: The patient's right coronary, circumflex, and left main were free of any signifi cant disease. Proximal LAD had a smooth 40% narrowing, but just before the trifurcation, it increase d to 80% or more narrowing, so right where the proximal LAD becomes the mid LAD, there was a branch o f the diagonal and a septal, both very large, and the stenosis was just proximal to that trifurcation . Left ventricular ejection fraction was normal. All the pressures were normal. At the end of the stent procedure, the percent stenosis was 0% at the lesion. The proximal LAD still has a 30-40% narr owing right at the left main. A stent was not placed at that point because of its proximity to the l eft main. Procedure In Detail: The patient was brought to the cardiac paving and surfacing labourer in a fasting state, sedated wit h Versed and fentanyl. Prepared and draped in usual sterile fashion. Right radial access was [facility], right radial artery, 1% lidocaine, entered with a 21-gauge needle, cannulated with a 0.021 inch d iameter guidewire, and a [place] radial sheath was placed. We gave a radial cocktail consist ing of nicardipine, heparin, nitroglycerin. We were able to angiogram the right coronary with the TI G, left ventricle with a TIG catheter, but we needed a Heath catheter to angiogram the left coronary. When we saw the lesion, we exchanged for a different guide catheters and an Ikari left failed to en kyleigh the left main at all. An Amplatz AL2 engaged, but did not give good support, too many bends, it was impossible to move catheters. So our third guide catheter we used was an XB 3.5 with side holes , which gave excellent support. We were able to complete the procedure with that. It required sever al wires to cross. There were several very sharp bends that the wire had to make for us to negotiate the wire to be in the distal LAD. Once that was accomplished, the rest of procedure went fairly wel l, but 2 [place] wires were bent, so they were not usable anymore in the attempt. The third wire got into the distal LAD. We used an Emerge 2.5 x 12 balloon to pre-dilate. We then removed the balloon, left the wire in place, and placed a Synergy 3.0 x 16. We placed it 3 or 4 mm beyond the left main ostium, inflated it to 8 atmospheres, did a second inflation without moving the balloon, and removed the balloon, left the stent in place and took orthogonal views. We found an excellent angiographic r esult. The patient will be given a loading dose of Effient, then he will take Plavix every day, a la rge dose of Lipitor, beta-blockers, aspirin. TEJAS/MODWoody Voice ID: [id number] Report ID: [id number]
[2018-09-22] MEDS: ALPRAZOLAM 0.25 MG TABLET PO PRN ×2 (01:02→20:50)
[2018-09-22] MEDS: NA CHLORIDE 0.9% 1,000 ML IV SCH ×2 (02:57→17:38)
[2018-09-22 05:46] LABS: Absolute Lymphocytes (CBC) 1.1 K/uL (0.7-4.9); Absolute Neutrophil 9.8 K/uL (1.8-8.0); Basophils % 0.2 % (0-1.3); Eosinophils % 0.4 % (0-4.4); Lymphocytes % 9.1 % (15.3-44.8); MPV 10.1 fL (7.6-11.3); Monocytes % 8.1 % (3.3-12.3); RBC Red Blood Cell Count 3.91 M/uL (4.33-5.43)
[2018-09-22 05:50] LABS: Albumin 3.1 g/dL (3.4-5.0); Bilirubin Total 0.6 mg/dL (0.2-1.0); Potassium 3.3 mmol/L (3.5-5.1); Protein, Total 6.9 g/dL (6.4-8.2)
[2018-09-22] MEDS ORDERED: NITROGLYCERIN 0.4 MG/TAB SL ONE (06:46)
[2018-09-22] MEDS: LISINOPRIL 10 MG TAB PO SCH (09:00)
[2018-09-22] MEDS: CLOPIDOGREL 75 MG TABLET PO SCH (09:49)
[2018-09-22] MEDS: METOPROLOL TAR 50 MG TAB PO SCH ×2 (09:49→20:50)
[2018-09-22] MEDS: ASPIRIN EC 81 MG TAB PO SCH (09:49)
[2018-09-22] MEDS: CEFEPIME/SWI 2gm 2 GM/20 ML SYR IV SCH (09:50)
[2018-09-22] MEDS ORDERED: NITROGLYCERIN 0.4 MG/TAB SL PRN (10:04)
[2018-09-22] MEDS: MORPHINE 2 MG/ML SYR IV PRN ×3 (11:19→23:44)
--- NOTE | 2018-09-22 13:03 | PN ---
Subjective: The patient had a left coronary stent yesterday and had some gross hematuria after, he w as hydrated. Urine is looking pretty good to me this morning, a little bite on the dark side, but no clots, no blood. Recommendation: I have encouraged him to drink lots of fluids. He is concerned about passing any mo re future stones. With him just having a recent stent, I believe, the anticoagulation will not be wa s stop for at least 6 months, so he can follow up with his urologist about those, but for now he is d oing well and stable. PRANAY/JUNE Voice ID: [id number] Report ID: [id number]
--- NOTE | 2018-09-22 15:53 | PN ---
Date of Progress Note: 09/22/2018 Subjective: The patient is seen and examined, chart reviewed, and case discussed with RN and Dr. Meza. The patient is still having some episodes of chest pain requiring nitro, improved with treatme nt. The patient did have decreased blood pressure, unable to receive Dilaudid that was ordered at at time. Medications: List reviewed. Objective: Vital Signs: Temperature 96, heart rate 70, blood pressure 103/57, respirations 18, O2 9 6% on room air. General: Awake, alert, oriented x3, in some mild distress due to pain. CV: S1, S2. Regular rate and rhythm. Peripheral pulses present. Respiratory: Moving air well bilaterally. No wheezing or stridor. Gastrointestinal: Abdomen is soft, nontender, nondistended. Positive bowel sounds. Extremities: No clubbing, cyanosis, or edema. Neurologic: Nonfocal. Laboratory Data: WBC 12, H and H 11.9 and 34, platelets 209 neutrophils 82%. Sodium 140, potassium 3.3, chloride 107, CO2 26, BUN 21, creatinine 1.18, glucose 103, calcium 8.7. Assessment: A 63-year-old male with: 1.Acute coronary syndrome, status post cardiac catheterization with stent to the left anterior desce nding. Continue anti-platelet therapy, statin, aspirin, beta-michael. Lisinopril has been discontinue d due to low blood pressure. Appreciate Dr. Clark's input. 2.Nephrolithiasis, status post lithotripsy, stent placement and subsequent removal. Urine cultures are negative. We will continue antibiotics. WBC count trended, slightly up today. No fevers. We w ill continue to monitor. 3.Obstructive uropathy, resolved. 4.Dyslipidemia. Continue statin. 5.Hypokalemia. We will replace and monitor. Check magnesium level. 6.Deep venous thrombosis prophylaxis with Lovenox. Plan: Likely discharge in a.m. once chest pain-free. The patient continues to have some episodes. W e will treat with nitro sublingual and morphine as needed. Repeat EKG showed normal sinus rhythm, no acute ST elevations. SA/MODL Voice ID: [id number] Report ID: [id number]
[2018-09-22] MEDS: ZOLPIDEM TARTRATE 10 MG TABLET PO SCH (20:49)
[2018-09-22] MEDS: CEFUROXIME 250 MG TAB PO SCH (20:49)
[2018-09-22] MEDS: ATORVASTATIN 80 MG TAB PO SCH (20:59)
[2018-09-22] MEDS: ONDANSETRON 4 MG/2 ML VIAL IV PRN (23:45)
[2018-09-23] MEDS: NA CHLORIDE 0.9% 1,000 ML IV SCH (04:23)
[2018-09-23 04:49] LABS: Absolute Lymphocytes (CBC) 1.9 K/uL (0.7-4.9); Absolute Monocytes 0.7 K/uL (0.1-1.3); Absolute Neutrophil 4.8 K/uL (1.8-8.0); Basophils % 1.1 % (0-1.3); Eosinophils % 3.6 % (0-4.4); Hematocrit 32.6 % (39.6-49.0); Lymphocytes % 24.4 % (15.3-44.8); MPV 9.9 fL (7.6-11.3); Monocytes % 8.4 % (3.3-12.3); RBC Red Blood Cell Count 3.81 M/uL (4.33-5.43)
[2018-09-23] MEDS: ALPRAZOLAM 0.25 MG TABLET PO PRN (04:59)
[2018-09-23] MEDS: MORPHINE 2 MG/ML SYR IV PRN (04:59)
[2018-09-23 05:07] LABS: Albumin 3.1 g/dL (3.4-5.0); Bilirubin Total 0.5 mg/dL (0.2-1.0); Magnesium 1.7 mg/dL (1.8-2.4); Potassium 3.6 mmol/L (3.5-5.1); Protein, Total 6.6 g/dL (6.4-8.2)
[2018-09-23] MEDS ORDERED: MAGNESIUM SULFATE 1 gm IVPB 1 GM/100 ML BAG IV ONE (05:23)
[2018-09-23] MEDS ORDERED: POTASSIUM 25 MEQ EFFERV TAB PO ONE (05:25)
[2018-09-23] MEDS: METOPROLOL TAR 50 MG TAB PO SCH (09:09)
[2018-09-23] MEDS: CEFUROXIME 250 MG TAB PO SCH (09:10)
[2018-09-23] MEDS: ASPIRIN EC 81 MG TAB PO SCH (09:10)
[2018-09-23] MEDS: CLOPIDOGREL 75 MG TABLET PO SCH (09:11)
[2018-09-23] MEDS ORDERED: FUROSEMIDE 40 MG/4 ML VIAL IV ONE (10:00)
--- NOTE | 2018-09-23 14:02 | PN ---
Subjective: The patient is feeling well. His urine is clear. Objective: Vital Signs: 97.6, pulse 59, respirations 20, BP 124/71, 98% saturations. Urine is clear. Assessment: Status post coronary stent, status post ureteroscopy, laser stone, stent placement and s tent removal, Lord removal. Urine is now clear. Wishes to go home. The patient can follow up with me in about 6 months. We will not be able to stop his anticoagulation for about 6 months due to his recent stent. He is to drink lots of water, lemonade, and take magnesium citrate 400 mg once a day to try to prevent stones. If he has an emergency and things need to be done, it may be better off to be done in a tertiary center if he has to stop his anticoagulation. PRANAY/JUNE Voice ID: [id number] Report ID: [id number]
--- NOTE | 2018-09-23 14:07 | PN ---
Mr. Brenner underwent a heart catheterization by Dr. Giraldo on 09/21/2018 with an LAD stent. This was done through the right wrist approach. Today, the patient's right wrist is intact. He continues to have some soreness over the anterior chest. He has some shortness of breath after the procedure gail t was treated with 40 of Lasix and he diuresed a lot and he feels better. The patient was anxious ab out not going home today and he wanted to wait 1 more day before he goes home. He is not having any telemetry changes. We will continue his present regimen including beta-michael, statin, aspirin, and Plavix. He is still having some hematuria from his nephrolithiasis. We will continue to observe th at. CBC is normal. ASHLYN/JUNE Voice ID: [id number] Report ID: [id number]
--- NOTE | 2018-09-23 18:31 | DS ---
Date of Discharge: 09/23/2018 Consultants: Dr. Pan with Urology, and Dr. Giraldo and Dr. Clark with Cardiology. Procedures: 1.On 09/18/2018, lithotripsy, stent placement, cystoscopy, stone retrieval. 2.On 09/21/2018, cardiac catheterization, left ventricular angiography, percutaneous coronary interv ention of proximal left anterior descending coronary artery, successful. Admitting Diagnoses: 1.Chest pain, rule out acute coronary syndrome. 2.Obstructive uropathy. 3.Nephrolithiasis. Discharge Diagnoses: 1.Acute coronary syndrome, status post cardiac catheterization with stent to the left anterior desce nding. 2.Nephrolithiasis, status post lithotripsy, laser stone removal. 3.Obstructive uropathy, resolved. 4.Dyslipidemia, on high-dose statin. 5.Hypokalemia, replaced. Hospital Course: The patient is a 63-year-old male with past medical history of nephrolithiasis, com es in with chest pain and obstructive uropathy. The patient had already been diagnosed with kidney s tones, came in with mild hydronephrosis, had pain in the sternal region. No history of hypertension, diabetes, or cholesterol problem. The patient was worked up for his chest pain prior to interventio n for his nephrolithiasis and obstructive uropathy. Cardiology was consulted. The patient had echoc ardiogram and stress test, both which were negative. The patient proceeded with procedure by Dr. Michael alvarado as mentioned above. Subsequently, the patient continued to have chest pain despite all normal car diac enzymes and negative stress test. He was taken for cardiac catheterization due to his symptoms. The patient was found to have LAD disease and was stented. The patient had significant improvement in his symptoms post stent. His urine cleared up. Initially, he had bloody urine. The ureteral st ent was removed by Dr. Pan, and the patient was cleared from his standpoint. Overall, the patient did well. He did have some electrolyte abnormalities, which were being replaced. The patient did no t have any further chest pain. He was able to ambulate. No shortness of breath. His urine also thu ared up. The patient was then discharged home in a stable condition. Activity: As tolerated. Medications: As per medication reconciliation list. The patient understands the importance of noel nuing aspirin, Plavix, statin, and beta blockers. He can take nitroglycerin p.r.n. Diet: Heart healthy. Followup: Follow up with primary care physician in 2-3 days. Follow up with director stage, Dr. Bill kyle, in 2 weeks. Follow up with urologist, Dr. Pan, in 2 weeks. Return to ER for worsening conditi on. Physical Examination: General: Awake, alert, oriented x3, not in any acute distress. CV: S1, S2. Regular rate and rhythm. Peripheral pulses present. Respiratory: Moving air well bilaterally. No wheezing. Gastrointestinal: Abdomen is soft, nontender, nondistended. Positive bowel sounds. Extremities: No clubbing, cyanosis, or edema. Neurologic: Nonfocal. Time Spent: Total time spent discharging the patient was 37 minutes. ANDRE Voice ID: [id number] Report ID: [id number]
== END 2018-09-23 12:30 | disposition home or self-care (01) | DRG 247 ==
LOC: ER 19:46 → 2ND 21:57 → OBSVTOIN 09-16 07:50
PROVIDERS: ADMIT Hospitalist; ATTEND Family Medicine
PROC: 0TC68ZZ Extirpation of Matter from Right Ureter, Via Natural or Artificial Opening Endoscopic (ICD-10-PCS; 2018-09-18)
PROC: 0T768DZ Dilation of Right Ureter with Intraluminal Device, Via Natural or Artificial Opening Endoscopic (ICD-10-PCS; 2018-09-18)
PROC: BT1D1ZZ Fluoroscopy of Right Kidney, Ureter and Bladder using Low Osmolar Contrast (ICD-10-PCS; 2018-09-18)
PROC: 027034Z Dilation of Coronary Artery, One Artery with Drug-eluting Intraluminal Device, Percutaneous Approach (ICD-10-PCS; principal; 2018-09-21)
PROC: 4A023N7 Measurement of Cardiac Sampling and Pressure, Left Heart, Percutaneous Approach (ICD-10-PCS; 2018-09-21)
PROC: B2111ZZ Fluoroscopy of Multiple Coronary Arteries using Low Osmolar Contrast (ICD-10-PCS; 2018-09-21)
PROC: B2151ZZ Fluoroscopy of Left Heart using Low Osmolar Contrast (ICD-10-PCS; 2018-09-21)
DX: I24.9 Acute ischemic heart disease, unspecified (principal); N20.1 Calculus of ureter; I25.10 Atherosclerotic heart disease of native coronary artery without angina pectoris; N13.9 Obstructive and reflux uropathy, unspecified; E78.2 Mixed hyperlipidemia; Z82.49 Family history of ischemic heart disease and other diseases of the circulatory system
CPT/HCPCS: 36415; 51600; 71045; 74018; 74176; 74430; 76377; 76770; 78452; 80048; 80053; 80061; 80076; 81001; 82360; 82550; 82553; 82962; 83690; 83735; 84484; 85014; 85018; 85025; 85347; 85610; 87086; 87088; 88300; 92928; 93005; 93017; 93306; 93458; 96361; 96374; 96375; 99285; A9500; C1725; C1893; G0378; J0583; J0692; J0696; J1100; J1170; J1644; J1650; J1940; J2175; J2250; J2270; J2405; J2550; J2704; J2785; J2930; J3010; J3475; J7030; Q9967

== ENCOUNTER 2019-03-27 02:55 | Inpatient (IN) | payer BC ==
[2019-03-27] MEDS ORDERED: NA CHLORIDE 0.9% 1,000 ML ONE ×2 (03:32→04:33)
[2019-03-27 03:54] LABS: Protime INR 1.01
[2019-03-27 04:10] LABS: Absolute Lymphocytes (CBC) 1.9 K/uL (0.7-4.9); Basophils % 1.3 % (0-1.3); Hematocrit 31.7 % (39.6-49.0); Lymphocytes % 29.4 % (15.3-44.8); MPV 9.6 fL (7.6-11.3); RBC Red Blood Cell Count 3.64 M/uL (4.33-5.43)
[2019-03-27 04:24] LABS: ALT/SGPT 48 U/L (12-78); AST/SGOT 32 U/L (15-37); Albumin 3.6 g/dL (3.4-5.0); Alkaline Phosphatase 186 U/L (45-117); BUN Blood Urea Nitrogen 16 mg/dL (7-18); Bicarbonate 28 mmol/L (21-32); Bilirubin Direct < 0.1 mg/dL (0-0.2); Bilirubin Total 0.3 mg/dL (0.2-1.0); Glucose Level 86 mg/dL (74-106); Magnesium 1.8 mg/dL (1.8-2.4); NT PRO-BNP 189 pg/mL (<125); Potassium 3.9 mmol/L (3.5-5.1); Sodium Level 140 mmol/L (136-145); Troponin (Emerg Dept Use Only) < 0.02 ng/mL (0.0-0.045)
[2019-03-27] MEDS ORDERED: FENTANYL CITR 100 MCG/2 ML ONE (04:30)
[2019-03-27 04:41] LABS: CKMB Creatine Kinase MB 1.6 ng/mL (0.3-3.6); Creatine Phosphokinase 133 U/L (39-308)
[2019-03-27] MEDS ORDERED: METHYLPREDNISOLONE 125 MG INJ ONE (04:45)
[2019-03-27] MEDS ORDERED: DIPHENHYDRAMINE 50 MG/ML VIAL ONE (04:45)
--- NOTE | 2019-03-27 05:17 | EDPHYS ---
Physician Documentation [facility] Name: Fabian Brenner Age: 63 yrs Sex: Male : 1955 Arrival Date: 03/27/2019 Time: 02:56 Bed 5 Private MD: ED Physician Jono May HPI: 03/27 05:25 This 63 yrs old Male presents to ER via Wheelchair with complaints of Chest tw4 Pain, Low Blood Pressure. 05:25 The patient or guardian reports chest pain that is located primarily in the substernal tw4 area. Onset: 3 day(s) ago. The pain does not radiate. Associated signs and symptoms: The patient has no apparent associated signs or symptoms. The chest pain is described as dull. Duration: The patient or guardian reports a single episode. Modifying factors: The symptoms are alleviated by nothing. the symptoms are aggravated by nothing. Severity of pain: At its worst the pain was moderate. The patient has not experienced similar symptoms in the past. Historical: - Allergies: 03:09 Iodine; lp1 06:17 Toradol; lp1 06:17 tramadol; lp1 - Home Meds: 03:26 metoprolol tartrate 50 mg Oral tab 1 tab 2 times per day [Active]; atorvastatin 80 mg lp1 oral tab 1 tab nightly [Active]; gabapentin 600 mg oral tab twice a day [Active]; tizanidine oral oral [Active]; promethazine 25 mg Oral tab [Active]; Ambien Oral [Active]; Morphine Oral [Active]; 04:00 clopidogrel 75 mg oral tab 1 tab once daily [Active]; lp1 - PMHx: 03:26 Back pain; Hypertension; Hyperlipidemia; lp1 - PSHx: 03:09 Heart stents; lp1 - Immunization history:: Adult Immunizations up to date. - Social history:: Smoking status: Patient/guardian denies using tobacco. - Ebola Screening: : No symptoms or risks identified at this time. ROS: 05:25 Constitutional: Negative for fever, chills, and weight loss, Eyes: Negative for injury, tw4 pain, redness, and discharge, Respiratory: Negative for shortness of breath, cough, wheezing, and pleuritic chest pain, Abdomen/GI: Negative for abdominal pain, nausea, vomiting, diarrhea, and constipation. 05:25 Back: Negative for injury and pain, MS/Extremity: Negative for injury and deformity, Skin: Negative for injury, rash, and discoloration, Neuro: Negative for headache, weakness, numbness, tingling, and seizure. 05:25 Cardiovascular: Positive for chest pain, Negative for edema, orthopnea, palpitations, paroxysmal nocturnal dyspnea. Exam: 05:25 Constitutional: This is a well developed, well nourished patient who is awake, alert, tw4 and in no acute distress. Head/Face: Normocephalic, atraumatic. Chest/axilla: Normal chest wall appearance and motion. Nontender with no deformity. No lesions are appreciated. Cardiovascular: Regular rate and rhythm with a normal S1 and S2. No gallops, murmurs, or rubs. Normal PMI, no JVD. No pulse deficits. Respiratory: Lungs have equal breath sounds bilaterally, clear to auscultation and percussion. No rales, rhonchi or wheezes noted. No increased work of breathing, no retractions or nasal flaring. Abdomen/GI: Soft, non-tender, with normal bowel sounds. No distension or tympany. No guarding or rebound. No evidence of tenderness throughout. Back: No spinal tenderness. No costovertebral tenderness. Full range of motion. MS/ Extremity: Pulses equal, no cyanosis. Neurovascular intact. Full, normal range of motion. Neuro: Awake and alert, GCS 15, oriented to person, place, time, and situation. Cranial nerves II-XII grossly intact. Motor strength 5/5 in all extremities. Sensory grossly intact. Cerebellar exam normal. Normal gait. Vital Signs: 03:08 BP 97 / 62; Pulse 66; Resp 18; Temp 97.7(O); Pulse Ox 100% on R/A; Weight 62.14 kg; lp1 Height 5 ft. 2 in. (157.48 cm); Pain 7/10; 04:00 BP 98 / 58; Pulse 60; Resp 13; Pulse Ox 96% on R/A; lp1 04:15 BP 83 / 53; Pulse 60; Resp 17; Pulse Ox 98% on R/A; lp1 04:25 BP 93 / 54; Pulse 61; Resp 14; Pulse Ox 100% on R/A; lp1 04:30 BP 87 / 53; Pulse 61; Resp 19; Pulse Ox 98% on R/A; lp1 04:40 BP 97 / 54; Pulse 62; Resp 16; Pulse Ox 99% on R/A; Pain 5/10; lp1 05:00 BP 91 / 62; Pulse 68; Resp 20; Pulse Ox 99% on R/A; lp1 05:30 BP 110 / 71; Pulse 61; Resp 20; Pulse Ox 100% on R/A; lp1 06:00 BP 109 / 90; Pulse 64; Resp 20; Pulse Ox 99% on R/A; lp1 06:23 BP 114 / 74; Pulse 69; Resp 20; Pulse Ox 96% on R/A; lp1 03:08 Body Mass Index 25.06 (62.14 kg, 157.48 cm) lp1 MDM: 03:06 Patient medically screened. tw4 05:21 Differential diagnosis: abnormal EKG, acute myocardial infarction, acute pericarditis, tw4 coronary artery disease pulmonary embolus, stable angina, thoracic aortic disection, unstable angina. The patient was not given aspirin in the Emergency Department. Patient reports taking aspirin within the past 24 hours. Data reviewed: vital signs, nurses notes, lab test result(s), cardiac enzymes, CPK, CK MB, troponin i, CBC, white blood cell count, hemoglobin, hematocrit, platelets, electrolytes, sodium, potassium, chloride, serum bicarbonate, BUN, creatinine, serum glucose, hepatic panel, EKG, radiologic studies, CT scan, plain films. Data interpreted: Pulse oximetry: Interpretation: normal. Test interpretation: by ED physician or midlevel provider: ECG, plain radiologic studies. Counseling: I had a detailed discussion with the patient and/or guardian regarding: the historical points, exam findings, and any diagnostic results supporting the discharge/admit diagnosis, lab results, radiology results. Physician consultation: Nixon Hutson MD was called at 05:15, regarding admission, to the telemetry unit. and will see patient in inpatient room. 03/27 03:21 Order name: Basic Metabolic Panel ea 03/27 03:21 Order name: CBC with Diff; Complete Time: 04:26 ea 03/27 03:21 Order name: LFT's ea 03/27 03:21 Order name: Magnesium ea 03/27 03:21 Order name: NT PRO-BNP ea 03/27 03:21 Order name: PT-INR; Complete Time: 04:26 03/27 03:21 Order name: Troponin (emerg Dept Use Only) 03/27 04:08 Order name: Urine Dipstick--Ancillary (enter results) wi 03/27 04:29 Order name: Creatine Phosphokinase [facility] 03/27 04:29 Order name: CKMB Creatine Kinase MB [facility] 03/27 05:39 Order name: Lipid Profile [facility] 03/27 05:39 Order name: Lipid Profile [facility] 03/27 03:21 Order name: XRAY Chest (1 view) 03/27 03:21 Order name: EKG; Complete Time: 03:22 03/27 03:50 Order name: CT Chest For PE Angio tw4 03/27 05:39 Order name: Echo with Doppler [facility] 03/27 05:39 Order name: Troponin I [facility] 03/27 05:39 Order name: Troponin I [facility] 03/27 05:39 Order name: Troponin I [facility] 03/27 03:21 Order name: Cardiac monitoring; Complete Time: 03:27 03/27 03:21 Order name: EKG - Nurse/Tech; Complete Time: 03:27 03/27 03:21 Order name: IV Saline Lock; Complete Time: 03:27 03/27 03:21 Order name: Labs collected and sent; Complete Time: 03:27 03/27 03:21 Order name: O2 Per Protocol; Complete Time: 03:27 03/27 03:21 Order name: O2 Sat Monitoring; Complete Time: 03:27 03/27 05:39 Order name: CONS Physician Consult [facility] 03/27 05:39 Order name: EKG Electrocardiogram [facility] 03/27 05:39 Order name: EKG Electrocardiogram [facility] Administered Medications: 03:42 Drug: NS 0.9% 1000 ml Route: IV; Rate: 1000 ml; Site: left antecubital; lp1 06:01 Follow up: IV Status: Completed infusion; IV Intake: 1000ml lp1 04:35 Drug: fentaNYL (PF) 25 mcg Route: IVP; Site: left antecubital; lp1 04:57 Follow up: Response: Pain is decreased lp1 04:35 Drug: NS 0.9% 1000 ml Route: IV; Rate: 1000 ml; Site: left antecubital; lp1 06:39 Follow up: IV Status: Infusion continued upon admission lp1 04:46 Drug: Benadryl 25 mg Route: IVP; Site: left antecubital; lp1 06:00 Follow up: Response: No adverse reaction lp1 04:46 Drug: SOLU-Medrol 125 mg Route: IVP; Site: left antecubital; lp1 06:01 Follow up: Response: No adverse reaction lp1 06:16 Not Given (Allergy): TORadol 30 mg IVP once lp1 06:16 Drug: Lovenox 1 mg/kg Route: Sub-Q; Site: right lower abdomen; lp1 06:39 Follow up: Response: No adverse reaction lp1 06:16 Drug: fentaNYL (PF) 25 mcg {Note: RASS 0.} Route: IVP; Site: left forearm; lp1 06:38 Follow up: Response: Pain is decreased; RASS: Alert and Calm (0) lp1 06:18 Not Given (Not given due to low BP): morphine 2 mg IVP once; (PAIN>8) RASS on ADMN: lp1 Combtv4, Very Agttd3, Agttd2, Rstlss1, AlertClm0, Drwsy-1, LtSdtn-2, ModSdtn-3, DpSdtn-4, UnArsble-5 x1 Disposition: 03/27/19 05:16 Hospitalization ordered by Nixon Hutson for Observation. Preliminary diagnosis are Pericarditis in diseases classified elsewhere, Angina pectoris, Angina pectoris, unspecified. - Bed requested for Telemetry/MedSurg (observation). - Status is Observation. lp1 - Condition is Stable. - Problem is new. - Symptoms have improved. UTI on Admission? No Signatures: Dispatcher [employer] EDMS Mervat Ross RN RN lp1 Francie Kendall RN RN Gina Ruiz RN RN ea Wadley, Terrence, MD MD tw4 Corrections: (The following items were deleted from the chart) 04:00 03:26 Home Meds: carvedilol 12.5 mg oral tab daily; lp1 lp1 04:29 04:28 CREATINE PHOSPHOKINASE+C.LAB.BRZ ordered. EDMS EDMS 04:29 04:28 CKMB+C.LAB.BRZ ordered. EDMS EDMS 05:56 05:16 Hospitalization Ordered by Nixon Hutson MD for Observation. Preliminary cg diagnosis is Pericarditis in diseases classified elsewhere; Angina pectoris; Angina pectoris, unspecified. Bed requested for Telemetry/MedSurg (observation). Status is Observation. Condition is Stable. Problem is new. Symptoms have improved. UTI on Admission? No. tw4 06:39 05:56 03/27/2019 05:16 Hospitalization Ordered by Nixon Hutson MD for Observation. lp1 Preliminary diagnosis is Pericarditis in diseases classified elsewhere; Angina pectoris; Angina pectoris, unspecified. Bed requested for Telemetry/MedSurg (observation). Status is Observation. Condition is Stable. Problem is new. Symptoms have improved. UTI on Admission? No. cg
--- NOTE | 2019-03-27 05:17 | ER ---
Nurse's Notes [facility] Name: Fabian Brenner Age: 63 yrs Sex: Male : 1955 Arrival Date: 03/27/2019 Time: 02:56 Bed 5 Private MD: Diagnosis: Pericarditis in diseases classified elsewhere;Angina pectoris;Angina pectoris, unspecified Presentation: 03/27 03:06 Presenting complaint: Patient states: Chest pain on and off x 3-4 days, severe chest lp1 pain that began at 0030, radiating to left arm, short of breath with dizziness, nausea; States taking ASA 81mg x1; states when we went to bathroom this morning, it seemed like he was going to pass out, BP was 90's systolic at home. Transition of care: patient was not received from another setting of care. Onset of symptoms was March 27, 2019 at 00:30. Risk Assessment: Do you want to hurt yourself or someone else? Patient reports no desire to harm self or others. Initial Sepsis Screen: Does the patient meet any 2 criteria? Yes Does the patient have a suspected source of infection? No. Patient's initial sepsis screen is negative. Care prior to arrival: None. 03:06 Method Of Arrival: Wheelchair lp1 03:06 Acuity: LIDA 3 lp1 Historical: - Allergies: 03:09 Iodine; lp1 06:17 Toradol; lp1 06:17 tramadol; lp1 - Home Meds: 03:26 metoprolol tartrate 50 mg Oral tab 1 tab 2 times per day [Active]; atorvastatin 80 mg lp1 oral tab 1 tab nightly [Active]; gabapentin 600 mg oral tab twice a day [Active]; tizanidine oral oral [Active]; promethazine 25 mg Oral tab [Active]; Ambien Oral [Active]; Morphine Oral [Active]; 04:00 clopidogrel 75 mg oral tab 1 tab once daily [Active]; lp1 - PMHx: 03:26 Back pain; Hypertension; Hyperlipidemia; lp1 - PSHx: 03:09 Heart stents; lp1 - Immunization history:: Adult Immunizations up to date. - Social history:: Smoking status: Patient/guardian denies using tobacco. - Ebola Screening: : No symptoms or risks identified at this time. Screenin:09 Abuse screen: Denies threats or abuse. Denies injuries from another. Nutritional lp1 screening: No deficits noted. Tuberculosis screening: No symptoms or risk factors identified. Fall Risk None identified. Assessment: 03:13 General: Appears in no apparent distress. Behavior is calm, cooperative. Pain: lp1 Complains of pain in chest Pain radiates to left arm Pain currently is 7 out of 10 on a pain scale. Quality of pain is described as sharp, Pain began 2-3 days ago. Is intermittent. Neuro: Level of Consciousness is awake, alert, obeys commands, Oriented to person, place, time, situation, Gait is steady. Cardiovascular: Reports chest pain, lightheadedness, nausea, shortness of breath, Patient's skin is warm and dry. Respiratory: Reports shortness of breath Breath sounds are clear bilaterally. GI: Abdomen is non-distended. : No signs and/or symptoms were reported regarding the genitourinary system. EENT: No signs and/or symptoms were reported regarding the EENT system. Derm: Skin is intact, Skin is dry, Skin is pale. Musculoskeletal: No deficits noted. 03:50 Reassessment: Lab at bedside. lp1 04:06 Reassessment: Provider verbal order to increase BP prior to Morphine administration; lp1 Continuing to monitor; Patient continued pain to chest at this time. 04:28 Reassessment: Provider notified of continued BP, verbal order for Fentanyl 25mcg IV. lp1 05:10 Reassessment: Patient returned from CT, IV to L AC infiltrated. lp1 06:00 Reassessment: Patient states feeling better. Patient states symptoms have improved. lp1 General: Appears in no apparent distress. Behavior is calm, cooperative. Neuro: Level of Consciousness is awake, alert, obeys commands. Respiratory: Respiratory effort is even, unlabored. 06:15 Reassessment: Patient states chest pain returning; Verbal order from provider for lp1 Fentanyl 25 mcg IV. Vital Signs: 03:08 BP 97 / 62; Pulse 66; Resp 18; Temp 97.7(O); Pulse Ox 100% on R/A; Weight 62.14 kg; lp1 Height 5 ft. 2 in. (157.48 cm); Pain 7/10; 04:00 BP 98 / 58; Pulse 60; Resp 13; Pulse Ox 96% on R/A; lp1 04:15 BP 83 / 53; Pulse 60; Resp 17; Pulse Ox 98% on R/A; lp1 04:25 BP 93 / 54; Pulse 61; Resp 14; Pulse Ox 100% on R/A; lp1 04:30 BP 87 / 53; Pulse 61; Resp 19; Pulse Ox 98% on R/A; lp1 04:40 BP 97 / 54; Pulse 62; Resp 16; Pulse Ox 99% on R/A; Pain 5/10; lp1 05:00 BP 91 / 62; Pulse 68; Resp 20; Pulse Ox 99% on R/A; lp1 05:30 BP 110 / 71; Pulse 61; Resp 20; Pulse Ox 100% on R/A; lp1 06:00 BP 109 / 90; Pulse 64; Resp 20; Pulse Ox 99% on R/A; lp1 06:23 BP 114 / 74; Pulse 69; Resp 20; Pulse Ox 96% on R/A; lp1 03:08 Body Mass Index 25.06 (62.14 kg, 157.48 cm) lp1 ED Course: 02:56 Patient arrived in ED. ds1 03:06 Jono May MD is Attending Physician. tw4 03:06 Mervat Ross, MOR is Primary Nurse. lp1 03:08 Triage completed. lp1 03:08 Arm band placed on right wrist. lp1 03:09 Patient has correct armband on for positive identification. Placed in gown. Bed in low lp1 position. teletypesetter monitor on. Pulse ox on. NIBP on. 03:09 Patient maintains SpO2 saturation greater than 95% on room air. lp1 03:21 Inserted saline lock: 22 gauge in left antecubital area, using aseptic technique. ea 04:05 XRAY Chest (1 view) In Process Unspecified. EDMS 04:[address] via stretcher. eh 05:05 CT completed. Pt tolerated procedure poorly. Patient moved back from radiology. eh 05:05 Notified Primary Nurse IV INFILTRATED WITH 25 CC OF SALINE. eh 05:13 CT Chest For PE Angio In Process Unspecified. EDMS 05:16 Nixon Hutson MD is Hospitalizing Provider. tw4 05:40 Missed attempt(s): 22 gauge in right antecubital area. Accessed peripheral vein via lp1 ultrasound, utilizing dynamic ultrasound technique using ,sterile technique, per hospital protocol. Clean \T\ dry. Good blood return. Flushes easily. 22g to L FA. 06:00 No provider procedures requiring assistance completed. Patient admitted, IV remains in lp1 place. Administered Medications: 03:42 Drug: NS 0.9% 1000 ml Route: IV; Rate: 1000 ml; Site: left antecubital; lp1 06:01 Follow up: IV Status: Completed infusion; IV Intake: 1000ml lp1 04:35 Drug: fentaNYL (PF) 25 mcg Route: IVP; Site: left antecubital; lp1 04:57 Follow up: Response: Pain is decreased lp1 04:35 Drug: NS 0.9% 1000 ml Route: IV; Rate: 1000 ml; Site: left antecubital; lp1 06:39 Follow up: IV Status: Infusion continued upon admission lp1 04:46 Drug: Benadryl 25 mg Route: IVP; Site: left antecubital; lp1 06:00 Follow up: Response: No adverse reaction lp1 04:46 Drug: SOLU-Medrol 125 mg Route: IVP; Site: left antecubital; lp1 06:01 Follow up: Response: No adverse reaction lp1 06:16 Not Given (Allergy): TORadol 30 mg IVP once lp1 06:16 Drug: Lovenox 1 mg/kg Route: Sub-Q; Site: right lower abdomen; lp1 06:39 Follow up: Response: No adverse reaction lp1 06:16 Drug: fentaNYL (PF) 25 mcg {Note: RASS 0.} Route: IVP; Site: left forearm; lp1 06:38 Follow up: Response: Pain is decreased; RASS: Alert and Calm (0) lp1 06:18 Not Given (Not given due to low BP): morphine 2 mg IVP once; (PAIN>8) RASS on ADMN: lp1 Combtv4, Very Agttd3, Agttd2, Rstlss1, AlertClm0, Drwsy-1, LtSdtn-2, ModSdtn-3, DpSdtn-4, UnArsble-5 x1 Intake: 06:01 IV: 1000ml; Total: 1000ml. lp1 Outcome: 05:16 Decision to Hospitalize by Provider. tw4 06:04 Condition: stable lp1 06:04 Instructed on the need for admit. 06:22 Admitted to Med/surg accompanied by tech, via wheelchair, room 214, on monitor, with lp1 chart, Report called to MOR Call 06:39 Patient left the ED. lp1 Signatures: Dispatcher [employer] Malik Bee Demi ds1 Mervat Ross RN RN lp1 Gina Ruiz RN RN ea Wadley, Terrence, MD MD tw4 Corrections: (The following items were deleted from the chart) 03:13 03:08 BP 97 / 62; Pulse 66bpm; Resp 18bpm; Pulse Ox 100% RA; Temp 97.7F Oral; lp1 lp1 03:27 03:13 Derm: Skin is intact, Skin is dry, Skin is normal, lp1 lp1 04:00 03:26 Home Meds: carvedilol 12.5 mg oral tab daily; lp1 lp1
[2019-03-27 05:25] LABS: Urine Blood NEGATIVE (NEG); Urine Glucose NEGATIVE (NEG); Urine Protein NEGATIVE (NEG); Urine pH 5.5 (5.0-7.0)
[2019-03-27] MEDS ORDERED: ACETAMINOPHEN 500 MG TAB PO PRN (05:33)
[2019-03-27] MEDS ORDERED: ENOXAPARIN 60 MG/0.6 ML SQ ONE (06:10)
--- NOTE | 2019-03-27 07:04 | EKG ---
Test Date: 2019-03-27 Test Time: 03:11:02 Bottom Stainer: KATHERINE MEASUREMENT RESULTS: Intervals: Rate: 64 DC: 162 QRSD: 94 QT: 416 QTc: 429 [place]: P: 48 DC: 162 QRS: 56 T: 58 INTERPRETIVE STATEMENTS: Normal sinus rhythm Septal infarct, age undetermined Abnormal ECG Compared to ECG 09/22/2018 06:58:39 Myocardial infarct finding now present Electronically Signed On 03-27-19 07:03:37 CDT by Hugo Clark
--- NOTE | 2019-03-27 07:17 | P.HP ---
Certification for Inpatient Patient admitted to: Observation With expected LOS: <2 Midnights Patient will require the following post-hospital care: None Practitioner: I am a practitioner with admitting privileges, knowledge of patient current condition, hospital course, and medical plan of care. Services: Services provided to patient in accordance with Admission requirements found in Title 42 Section 412.3 of the Code of Federal Regulations Patient History Date of Service: 03/27/19 Reason for admission: CP r/o ACS History of Present Illness: Pt is a 63yo who was admitted to the hospital with chest pain. Pt had cardiac issues diagnosed in September. Pt had a cardiac cath, and she had an 80% mid-LAD lesion which was stented. Pt also had a proximal LAD lesion as well. This was not stented because it was 30%. Patient states he started having chest pain which radiated to the left arm. He became a little lightheaded. He came into the emergency room for further evaluation. Initial troponins were negative. Patient's pain improved with pain medication in the emergency room. Patient be admitted to the hospital to be worked up for chest pain and possible acute coronary syndrome. Patient does state that he has also had a history of pancreatitis. Patient has sphincterotomy in the past. He also states about 3-4 days ago he had some vomiting which he noticed to have some blood in there. Will get GI evaluation while in the hospital as well. Allergies iodine Allergy (Mild, Verified 09/15/18 23:04) Hives/Rash tramadol Allergy (Verified 09/21/18 14:08) Hives/Rash ketorolac [From Toradol] Adverse Reaction (Verified 09/16/18 15:34) Shortness of breath Home Medications: Zolpidem Tartrate [Ambien*] 10 mg PO BEDTIME 09/15/18 Aspirin [Aspirin EC 81 MG] 81 mg PO DAILY #30 tablet. 09/23/18 Atorvastatin Calcium [Lipitor] 80 mg PO BEDTIME #30 tab 09/23/18 Cefuroxime [Ceftin*] 500 mg PO BID #4 tab 09/23/18 Clopidogrel Bisulfate [Plavix*] 75 mg PO DAILY #30 tablet 09/23/18 Metoprolol Tartrate [Lopressor*] 50 mg PO BID #60 tab 09/23/18 Nitroglycerin [Nitrostat*] 0.4 mg SL UD PRN #30 tab 09/23/18 Oxybutynin Chloride [Ditropan*] 5 mg PO TID PRN #10 tab 09/23/18 - Past Medical/Surgical History -: Nephrolithiasis -: Coronary artery disease -: cholecystectomy -: appendectomy -: tonsillectomy -: sphincterotomy -: Cardiac catheterization with stent placement - Family History Father Medical History: Heart disease Brother Medical History: Heart disease - Social History Alcohol use: No CD- Drugs: No Caffeine use: Yes Review of Systems 10-point ROS is otherwise unremarkable Physical Examination - Vital Signs Temperature: 97.7 F Blood Pressure: 114/74 Pulse: 69 Respirations: 20 Pulse Ox (%): 95 - Physical Exam General: Alert, In no apparent distress, Oriented x3 HEENT: Atraumatic, PERRLA, Mucous membr. moist/pink, EOMI, Sclerae nonicteric Neck: Supple, 2+ carotid pulse no bruit, No LAD, Without JVD or thyroid abnormality Respiratory: Clear to auscultation bilaterally, Normal air movement Cardiovascular: Regular rate/rhythm, Normal S1 S2, No murmurs Gastrointestinal: Normal bowel sounds, Soft and benign, Non-distended, No tenderness Musculoskeletal: No tenderness Integumentary: No rashes Neurological: Normal gait, Normal speech, Normal strength at 5/5 x4 extr, Normal tone, Sensation intact, Cranial nerves 3-12 intact, Normal affect Lymphatics: No axilla or inguinal lymphadenopathy - Studies Laboratory Data (last 24 hrs) 03/27/19 03:52: WBC 6.5, Hgb 11.3 L, Hct 31.7 L, Plt Count 179 03/27/19 03:52: Sodium 140, Potassium 3.9, BUN 16, Creatinine 1.23, Glucose 86, Magnesium 1.8, Total Bilirubin 0.3, AST 32, ALT 48, Alkaline Phosphatase 186 H 03/27/19 03:20: PT 11.9, INR 1.01 Assessment & Plan - Problems (Diagnosis) (1) History of GI bleed Current Visit: Yes Status: Acute (2) History of pancreatitis Current Visit: Yes Status: Acute (3) Presence of stent in coronary artery in patient with coronary artery disease Current Visit: Yes Status: Acute (4) Chest pain, rule out acute myocardial infarction Current Visit: No Status: Acute - Plan 1. Serial troponins and EKG 2. Cardiology consultation 3. Further recommendations as far as interventions per Cardiology 4. Anti-platelet therapy, hold anti coagulation, beta-michael, statin, and O2 as needed 5. IV morphine for pain 6. Nitro p.r.n. 7. Anti-emetics and Pepcid 8. GI consultation and check lipase level & serial H&H Discharge Plan: Home Plan to discharge in: Greater than 2 days - Advance Directives Does patient have a Living Will: No Does patient have a Durable POA for Healthcare: No - Code Status/Comfort Care Code Status Assessed: Yes Code Status: Full Code Critical Care: No Time Spent Managing PTS Care (In Minutes): 45
[2019-03-27 07:51] VITALS: BMI 25.0
[2019-03-27] MEDS: ENOXAPARIN 40 MG/0.4 ML SQ SCH (08:09)
--- NOTE | 2019-03-27 08:12 | RAD REPORT ---
EXAM DESCRIPTION: Fermin Single View03/27/2019 4:05 am CLINICAL HISTORY: Chest pain COMPARISON: September 2018 FINDINGS: The lungs appear clear of acute infiltrate. The heart is normal size IMPRESSION: No acute abnormalities displayed
[2019-03-27] MEDS: ASPIRIN EC 81 MG TAB PO SCH (08:14)
[2019-03-27] MEDS: METOPROLOL TAR 50 MG TAB PO SCH ×2 (08:15→20:42)
--- NOTE | 2019-03-27 08:31 | EKG ---
Test Date: 2019-03-27 Test Time: 03:41:47 Sales Service Coordinator: KATHERINE MEASUREMENT RESULTS: Intervals: Rate: 60 NV: 160 QRSD: 90 QT: 428 QTc: 428 [place]: P: 58 NV: 160 QRS: 62 T: 61 INTERPRETIVE STATEMENTS: Normal sinus rhythm Possible Acute pericarditis, or early repolarization Abnormal ECG Compared to ECG 03/27/2019 03:11:02 no significant change from previous ECG Electronically Signed On 03-27-19 08:30:58 CDT by Riley Giraldo
[2019-03-27 09:10] LABS: HDL Cholesterol 36 mg/dL (40-60); LDL Cholesterol, Calculated 51 (<130); Troponin I < 0.02 ng/mL (0.0-0.045)
[2019-03-27] MEDS: MORPHINE 4 MG/ML SYR IV PRN ×4 (09:21→23:34)
[2019-03-27] MEDS ORDERED: PANTOPRAZOLE 40 MG INJ IVP SCH (09:46)
[2019-03-27] MEDS ORDERED: SODIUM CHLORIDE 0.9% 10ML INJ IV PRN (09:46)
[2019-03-27] MEDS ORDERED: INFLUENZA VACCINE (for 3y+) 0.5 ML DOSE IMVAC ONE (10:00)
[2019-03-27] MEDS ORDERED: PNEUMOCOCCAL VACCINE 0.5 ML IMVAC ONE (10:00)
--- NOTE | 2019-03-27 10:12 | RAD REPORT ---
EXAM DESCRIPTION: CT - Chest For Pe Angio - 03/27/2019 7:05 am CLINICAL HISTORY: The patient is 63 years old and is Male; CHEST PAIN TECHNIQUE: Axial computed tomographic angiography images of the chest with intravenous contrast. S agittal and coronal reformatted images were created and reviewed. This CT exam was performed using one or more of the following dose reduction techniques: automated exposure control, adjustment of t he mA and/or kV according to patient size, and/or use of iterative reconstruction technique. MIP reconstructed images were created and reviewed. COMPARISON: No relevant prior studies available. FINDINGS: ARTIFACTS: The exam is suboptimal secondary to motion artifact. PULMONARY ARTERIES: There are no obvious filling defects identified within the pulmonary arterie s to suggest pulmonary embolism. AORTA: No acute findings. No thoracic aortic aneurysm. LUNGS: Unremarkable. No mass. No consolidation. PLEURAL SPACE: Unremarkable. No significant effusion. No pneumothorax. HEART: Unremarkable. No cardiomegaly. No significant pericardial effusion. No evidence of RV dysfunction. BONES/JOINTS: Minimal degenerative change of the spine is present. No acute fracture. No dis location. SOFT TISSUES: Unremarkable. LYMPH NODES: Unremarkable. No enlarged lymph nodes. IMPRESSION: No evidence of pulmonary embolism. Electronically signed by: Soledad Willard MD 03/27/2019 5:24 AM CDT Due to temporary technical issues with the PACS/Fluency reporting system, reports are being signed by the in house radiologist as a courtesy to ensure prompt reporting. The interpreting radiologist is f ully responsible for the content of the report.
[2019-03-27] MEDS: ONDANSETRON 4 MG/2 ML VIAL IV PRN ×3 (10:26→23:35)
--- NOTE | 2019-03-27 10:29 | ECHO ---
HEIGHT: 5 ft 2 in WEIGHT: 137 lb 0 oz DATE OF STUDY: 03/27/[address]: Nixon Hutson MD 2-DIMENSIONAL: YES M.MODE: YES DOPPLER: YES COLOR FLOW: YES TDS: NO PORTABLE: NO DEFINITY: NO BUBBLE STUDY: NO DIAGNOSIS: CHEST PAIN RULE OUT ACS CARDIAC HISTORY: CATHERIZATION: YES SURGERY: NO PROSTHETIC VALVE: NO PACEMAKER: NO MEASUREMENTS (cm) DIASTOLIC (NORMALS) SYSTOLIC (NORMALS) IVSd 1.0 (0.6-1.2) LA Diam 3.3 (1.9-4.0) LVEF 78% LVIDd 4.2 (3.5-5.7) LVIDs 2.3 (2.0-3.5) %FS 47% LVPWd 1.1 (0.6-1.2) Ao Diam 3.0 (2.0-3.7) 2 DIMENSIONAL ASSESSMENT: RIGHT ATRIUM: NORMAL LEFT ATRIUM: NORMAL RIGHT VENTRICLE: NORMAL LEFT VENTRICLE: NORMAL TRICUSPID VALVE: NORMAL MITRAL VALVE: NORMAL PULMONIC VALVE: NORMAL AORTIC VALVE: NORMAL PERICARDIAL EFFUSION: NONE AORTIC ROOT: NORMAL LEFT VENTRICULAR WALL MOTION: NORMAL DOPPLER/COLOR FLOW: MILD MITRAL AND TRICUSPID REGRUGITATION. NORMAL RIGHT VENTRICULAR SYSTOLIC PRESSURE. COMMENTS: NORMAL 2D ECHOCARDIOGRAM. MILD MITRAL AND TRICUSPID REGRUGITATION. TECHNOLOGIST: Demetrio VANEGAS
[2019-03-27] MEDS: ALPRAZOLAM 0.25 MG TABLET PO PRN (20:45)
[2019-03-27] MEDS ORDERED: GUAIFENESIN/CODEINE 5ML UCUP PO PRN (21:20)
--- NOTE | 2019-03-27 23:46 | PN ---
The patient's history and physical and I took my own history. The patient very likely may have had u pper GI bleeding a few days ago, however he does not have any active bleeding. So far, his cardiac w orkup is negative, however with his history of angioplasty, he may require stress test. I discussed the problem with the GI pci security consultant and if the patient is stable, he will be discharged after passing the stress test and arrange for outpatient EGD. SUSSY/JUNE Voice ID: [id number] Report ID: [id number]
[2019-03-27] MEDS: NITROGLYCERIN 0.4 MG/TAB SL PRN (23:47)
[2019-03-28] MEDS: MORPHINE 4 MG/ML SYR IV PRN ×2 (04:53→09:18)
[2019-03-28] MEDS: ONDANSETRON 4 MG/2 ML VIAL IV PRN ×4 (04:53→22:31)
--- NOTE | 2019-03-28 08:28 | EKG ---
Test Date: 2019-03-27 Test Time: 23:59:11 Chain Puller: RT Lester MEASUREMENT RESULTS: Intervals: Rate: 80 MN: 144 QRSD: 86 QT: 408 QTc: 470 [place]: P: 5 MN: 144 QRS: 27 T: 9 INTERPRETIVE STATEMENTS: Normal sinus rhythm Prolonged QT Abnormal ECG Compared to ECG 03/27/2019 03:41:47 Prolonged QT interval now present Electronically Signed On 03-28-19 08:27:33 CDT by Hugo Clark
--- NOTE | 2019-03-28 08:28 | EKG ---
Test Date: 2019-03-28 Test Time: 07:29:38 Handle And Vent Machine Operator: TODD MEASUREMENT RESULTS: Intervals: Rate: 67 MS: 156 QRSD: 94 QT: 420 QTc: 443 [place]: P: 41 MS: 156 QRS: 39 T: 35 INTERPRETIVE STATEMENTS: Normal sinus rhythm Normal ECG Compared to ECG 03/27/2019 23:59:11 Prolonged QT interval no longer present Electronically Signed On 03-28-19 08:27:17 CDT by Hugo Clark
[2019-03-28] MEDS: METOPROLOL TAR 50 MG TAB PO SCH (09:00)
[2019-03-28] MEDS: ASPIRIN EC 81 MG TAB PO SCH (09:19)
[2019-03-28] MEDS: PANTOPRAZOLE 40MG TABLET PO SCH ×2 (09:19→17:29)
[2019-03-28] MEDS: ENOXAPARIN 40 MG/0.4 ML SQ SCH (09:20)
--- NOTE | 2019-03-28 11:36 | RAD REPORT ---
EXAM DESCRIPTION: US - CP - 03/28/2019 11:26 am CLINICAL HISTORY: tia Headache, drowsiness, CVA symptomology COMPARISON: No comparisons TECHNIQUE: Real-time sonographic evaluation of both carotid systems was performed. Doppler interroga tion was performed with waveform tracing bilaterally. FINDINGS: Normal high resistance waveforms are noted in both external carotid arteries. The common c arotid arteries and internal carotid arteries show normal low resistance waveforms. Minimal hard plaque is seen in both carotid bulbs. Peak systolic and end diastolic velocity values an d the ICA/CCA ratios are in the non-hemodynamically significant range. Antegrade flow seen in both vertebral arteries. IMPRESSION: Minimal carotid bulb hard plaquing bilaterally. No evidence of a hemodynamically significant stenosis.
--- NOTE | 2019-03-28 15:41 | CON ---
Date of Consultation: 03/28/[address] Inman's service on 03/27/2019. Reason For Consultation: Chest pain. History Of Present Illness: Mr. Brenner is a 63-year-old male, who has a history of co ronary artery disease, status post LAD stent in September 2018. He has a history of hypertension and dys lipidemia. He has a history of neuropathy. He came in with GI bleed, mid-epigastric chest pain. He moglobin is 11.2. His BNP was 186. EKG was normal. CTA was normal. Chest x-ray was normal. Tropo ralph and BNP are normal. Echocardiogram had been normal. The patient also complains of being dizzy a nd lightheaded and having low blood pressures at home. During his catheterization in September 2018 had an LAD stent right at the diagonal takeoff. He had a 40% ostial LAD and 40% stenosis I believe in th e circumflex. He has been taking his Plavix and Lipitor 80 mg daily religiously. Allergies: INCLUDE TRAMADOL AND IODINE. Review of Systems: Negative. Social History: Negative. Family History: Negative. Medications: At home include aspirin, Plavix, Lipitor, metoprolol, and Neurontin. Physical Examination: Vital Signs: Stable. He was afebrile. HEENT: Negative. Neck: Supple without any bruit, lymphadenopathy, JVD, or thyromegaly. Chest: Clear to auscultation and percussion. Cardiac: Revealed a regular rhythm and rate. No murmurs, gallops, or rubs. Abdomen: Benign. Extremities: Revealed no clubbing, cyanosis, or edema. Diagnostic Data: Listed earlier. Impression And Plan: Atypical chest pain and possibly gastroesophageal reflux disease. The patient has been having dizziness with low blood pressure and I recommended that we stop the metoprolol. Con tinue the Plavix and Lipitor. He has been seen by GI consult that is planning a GI workup as an outp atient. I am hoping that if we improve his blood pressure, he would feel better. Still continues to have chest pain despite proton pump inhibitors and despite the stopping the metoprolol, then I think we will need to do a heart catheterization on him. I am comfortable with him going home and he will see me in the office next week. His dyslipidemia is well controlled. ASHLYN/JUNE Voice ID: [id number] Report ID: [id number]
[2019-03-28] MEDS: MORPHINE 2 MG/ML SYR IV PRN ×2 (17:35→22:32)
--- NOTE | 2019-03-29 02:42 | PN ---
Patient has intermittent chest pain and his carotid study does not show any evidence of significant a therosclerosis. The patient has been seen by Cardiology Services. The recommendation is if he does not have any more chest pains, he can be discharged and followed up as an outpatient. If he continue s to have chest pain, he will have cardiac cath. SUSSY/JUNE Voice ID: [id number] Report ID: [id number]
[2019-03-29] MEDS: ONDANSETRON 4 MG/2 ML VIAL IV PRN ×4 (03:21→20:20)
[2019-03-29] MEDS: MORPHINE 2 MG/ML SYR IV PRN ×4 (03:21→16:29)
[2019-03-29] MEDS: PANTOPRAZOLE 40MG TABLET PO SCH ×2 (07:47→16:40)
[2019-03-29] MEDS: ASPIRIN EC 81 MG TAB PO SCH (08:30)
[2019-03-29] MEDS: ENOXAPARIN 40 MG/0.4 ML SQ SCH (08:30)
[2019-03-29] MEDS: NITROGLYCERIN 0.4 MG/TAB SL PRN (16:02)
[2019-03-29] MEDS: NITROGLYCERIN 1 GM PKT TD SCH (16:43)
[2019-03-29] MEDS: ALPRAZOLAM 0.25 MG TABLET PO PRN (17:51)
[2019-03-29] MEDS: MORPHINE 4 MG/ML SYR IV PRN (20:20)
[2019-03-30] MEDS: NITROGLYCERIN 1 GM PKT TD SCH ×2 (00:32→05:28)
--- NOTE | 2019-03-30 00:59 | PN ---
Patient continues to have intermittent chest pain, relieved by nitroglycerin. In view of recurrence, patient is started on nitroglycerin paste, 1 inch every q.6 hours. Cardiology consultation, as told , is suggesting cardiac cath as soon as possible. SUSSY/JUNE Voice ID: [id number] Report ID: [id number]
[2019-03-30] MEDS: MORPHINE 4 MG/ML SYR IV PRN ×9 (01:58→22:33)
[2019-03-30] MEDS: ONDANSETRON 4 MG/2 ML VIAL IV PRN ×3 (01:59→19:51)
[2019-03-30] MEDS: NA CHLORIDE 0.9% 1,000 ML IV SCH ×2 (05:29→15:03)
[2019-03-30] MEDS: ENOXAPARIN 40 MG/0.4 ML SQ SCH (08:10)
[2019-03-30] MEDS: ASPIRIN EC 81 MG TAB PO SCH (08:10)
[2019-03-30] MEDS: PANTOPRAZOLE 40MG TABLET PO SCH ×2 (08:10→16:05)
--- NOTE | 2019-03-30 12:29 | EKG ---
Test Date: 2019-03-30 Test Time: 04:42:30 Nurse Consultant: RT MEASUREMENT RESULTS: Intervals: Rate: 68 [place]: 144 QRSD: 88 QT: 418 QTc: 444 [place]: P: 32 CA: 144 QRS: 34 T: 30 INTERPRETIVE STATEMENTS: Normal sinus rhythm Early repolarization Normal ECG Compared to ECG 03/29/2019 16:41:57 ST (T wave) deviation no longer present Electronically Signed On 03-30-19 12:28:14 CDT by Hugo Clark
--- NOTE | 2019-03-30 12:30 | EKG ---
Test Date: 2019-03-29 Test Time: 16:41:57 Education Specialist: KIRTI MEASUREMENT RESULTS: Intervals: Rate: 66 ID: [id number] QRSD: 82 QT: 408 QTc: 427 [place]: P: 39 ID: [id number] QRS: 48 T: 52 INTERPRETIVE STATEMENTS: Normal sinus rhythm ST elevation, probably due to early repolarization Borderline ECG Compared to ECG 03/28/2019 07:29:38 ST (T wave) deviation now present Early repolarization now present Electronically Signed On 03-30-19 12:29:15 CDT by Hugo Clark
--- NOTE | 2019-03-31 00:31 | PN ---
Patient had another episode of chest pain. EKG done during the chest pain did not show any evidence of the ST elevations, however, in view of recurrent chest pain, he is on nitroglycerin paste and he i s scheduled for cardiac cath Monday. SUSSY/JUNE Voice ID: [id number] Report ID: [id number]
[2019-03-31] MEDS: MORPHINE 4 MG/ML SYR IV PRN ×10 (01:00→22:56)
[2019-03-31] MEDS: ENOXAPARIN 40 MG/0.4 ML SQ SCH (08:54)
[2019-03-31] MEDS: ASPIRIN EC 81 MG TAB PO SCH (08:55)
[2019-03-31] MEDS: PANTOPRAZOLE 40MG TABLET PO SCH ×2 (08:55→16:35)
[2019-03-31] MEDS: ONDANSETRON 4 MG/2 ML VIAL IV PRN (13:04)
--- NOTE | 2019-03-31 22:17 | PN ---
Patient has atypical chest pain; however, EKGs did not show any evidence of myocardial injury. [facility] nt is scheduled for cardiac cath in [facility]. SUSSY/JUNE Voice ID: [id number] Report ID: [id number]
[2019-03-31] MEDS: ALPRAZOLAM 0.25 MG TABLET PO PRN (22:55)
--- NOTE | 2019-03-31 23:14 | PN ---
Date of Progress Note: 03/31/2019 Mr. Brenner was admitted with chest pain. MN had ruled out. EKG was normal. Chest x-ray was normal. Troponin was normal. Initially, he was hypotensive and I thought that may be his chest pain was se condary to that. We stop the metoprolol. He continued to have chest pain and hypotension. I took h im off nitroglycerin paste and nitroglycerin. His blood pressure improved. He still have chest pain . I will start him on Protonix. He still have chest pain. Only morphine relieves it. EKG remains normal and so is troponin, but with his history of recent LAD stent and other lesions that were treat ed medically, we will re-cath him again tomorrow. ASHLYN/JUNE Voice ID: [id number] Report ID: [id number]
[2019-04-01] MEDS: MORPHINE 4 MG/ML SYR IV PRN ×4 (01:18→11:23)
[2019-04-01] MEDS ORDERED: NA CHLORIDE 0.9% 1,000 ML ONE (01:25)
--- NOTE | 2019-04-01 03:15 | PN ---
Date of Progress Note: 03/30/2019 Mr. Brenner continues to have severe chest pain, requiring morphine. He had been hypotensive. I held his metoprolol. I took him off nitroglycerin paste and nitroglycerin, and his blood pressures have improved, it is now 131/80, but he continues to have chest pain with and without movement. I recomme nd we start Protonix. Catheterization is planned for Monday. ASHLYN/JUNE Voice ID: [id number] Report ID: [id number]
[2019-04-01] MEDS: ASPIRIN EC 81 MG TAB PO SCH (06:01)
[2019-04-01] MEDS: PANTOPRAZOLE 40MG TABLET PO SCH (06:26)
[2019-04-01] MEDS ORDERED: MIDAZOLAM HCL 2 MG/2 ML INJ ONE ×3 (07:07→08:28)
[2019-04-01] MEDS ORDERED: NA CHLORIDE 0.9% 500 ML ONE (07:07)
[2019-04-01] MEDS ORDERED: HEPA 1000U/500MLS 2,000 UNIT/1,000 ML BAG IV ONE (07:07)
[2019-04-01] MEDS ORDERED: HEPARIN 5000 UNIT/ML 1 ML VIAL ONE (07:07)
[2019-04-01] MEDS ORDERED: FENTANYL CITR 100 MCG/2 ML ONE (07:08)
[2019-04-01] MEDS ORDERED: NITROGLYCERIN/D5W 25 MG/250 ML BTL IV ONE (07:08)
[2019-04-01] MEDS ORDERED: NITROGLYCERIN 100 MCG/ML SYR (for cath lab use only) IV ONE (07:08)
[2019-04-01] MEDS ORDERED: LIDOCAINE 1% MPF 30 ML VIAL ONE (07:08)
[2019-04-01] MEDS ORDERED: ATROPINE SULF 1 MG/10 ML SYR IV ONE (07:08)
[2019-04-01] MEDS ORDERED: NICARDIPINE HCL 25 MG/10 ML IV ONE (07:08)
[2019-04-01] MEDS ORDERED: NA CHLORIDE 0.9% 0 ML ONE (07:08)
--- NOTE | 2019-04-01 07:52 | EKG ---
Test Date: 2019-03-31 Test Time: 15:18:27 Highway Construction Inspector: MELISSA MEASUREMENT RESULTS: Intervals: Rate: 82 SD: 122 QRSD: 78 QT: 394 QTc: 460 [place]: P: 26 SD: 122 QRS: 49 T: 52 INTERPRETIVE STATEMENTS: Normal sinus rhythm Normal ECG Compared to ECG 03/30/2019 04:42:30 Early repolarization no longer present Electronically Signed On 04-01-19 07:51:30 CDT by Riley Giraldo
[2019-04-01] MEDS ORDERED: METHYLPREDNISOLONE 125 MG INJ ONE (08:09)
[2019-04-01] MEDS ORDERED: DIPHENHYDRAMINE 50 MG/ML VIAL ONE (08:09)
[2019-04-01] MEDS ORDERED: TIZANIDINE 4 MG TABLET PO SCH (10:00)
[2019-04-01 15:53] VITALS: BP 124/82; TEMP 98.1; O2SAT 92
[2019-04-01] MEDS ORDERED: ATORVASTATIN 80 MG TAB PO SCH (21:00)
[2019-04-01] MEDS ORDERED: ZOLPIDEM TARTRATE 10 MG TABLET PO SCH (21:00)
[2019-04-01] MEDS ORDERED: GABAPENTIN 300 MG CAP PO SCH (21:00)
--- NOTE | 2019-04-01 21:14 | OP ---
Surgeon: Riley Giraldo MD Identification: A 63-year-old man. Procedure: Left heart catheterization with coronary left ventricular angiography. Procedure Findings: Left ventricular ejection fraction is normal. All of his pressures were normal. He had a proximal and mid LAD stent placed in September 2018, that stent is widely patent. No in-stent restenosis. Proximal portion of the LAD between the left main and the stent is still about 40% narr owed. There is minor lumen irregularity throughout, but no significant stenosis anywhere in the reta nary tree. Left main, mild plaque. Right coronary, diffuse mild plaque. Circumflex obtuse marginal branches. Distal LAD, all mild lumen irregularities. No stenosis. Procedure In Detail: The patient was brought to the cardiac cardiovascular lab director in a fasting state. He gave in formed consent because of a previous history of dye allergy, x-ray contrast allergy, we gave Solu-Med rol 100 mg and 50 mg of IV Benadryl. He was also sedated with Versed and fentanyl. Prepared and simon ped in usual sterile fashion. Right femoral approach was used because of the difficulties doing the radial approach last time, it is very difficult to get the catheter to the ascending aorta and engage d the left main with any catheters. Right femoral approach was used. We anesthetize the tissues cleo und the right femoral artery with 1% lidocaine, entered it using an 18-gauge needle, cannulated it wi th a J-wire and put a 4-Romansh sheath. We flushed the sheath and used this for the remainder of the procedure. At the very end of the procedure, an angiogram was done of the right common femoral arter y using the sheath. Adequate anatomy was seen and the arteriotomy was closed using Angio-Seal. We u sed a JL4 to angiogram the left coronary. A 3DRC to angiogram the right. Angled pigtail to angiogra m the left ventricle. At the end of the procedure, catheters were withdrawn. Angio-Seal device deployed. Complications from the procedure none. Estim ated blood loss 10 cc. TEJAS/MONAL Voice ID: [id number] Report ID: [id number]
[2019-04-02] MEDS ORDERED: ASPIRIN EC 81 MG TAB PO SCH (09:00)
--- NOTE | 2019-04-11 03:15 | DS ---
Date of Discharge: 04/01/2019 Final Diagnoses: 1.Chest pain, recurrent. 2.Known coronary artery disease. 3.Status post angioplasty. 4.History of GI bleeding. 5.History of pancreatitis. Hospital Course: After admission to the hospital, the patient was put on telemetry, had serial EKGs and cardiac enzymes. There was no evidence of myocardial injury; however, he kept on having pain. T he patient had history of dark emesis, based on that a diagnosis of possible GI bleeding was done. T he patient was seen by GI Service and they wanted to have GI studies done after cardiac clearance. I n view of continued pain, eventually the patient underwent cardiac catheterization and the patient di d not have any evidence of coronary artery disease other than the angioplasty. At this point the pat ient was discharged home with advice to follow up with GI service for upper endoscopy. Laboratory Data: Please refer to the chart. SUSSY/JUNE Voice ID: [id number] Report ID: [id number]
== END 2019-04-01 16:03 | disposition home or self-care (01) | DRG 287 ==
LOC: ER 02:55 → ERHOLD 06:01 → 2ND 06:25 → OBSVTOIN 03-29 07:38 → 4TH 03-29 16:20
PROVIDERS: ADMIT Hospitalist; ATTEND Hospitalist
PROC: 4A023N7 Measurement of Cardiac Sampling and Pressure, Left Heart, Percutaneous Approach (ICD-10-PCS; principal; 2019-04-01)
PROC: B201YZZ Plain Radiography of Multiple Coronary Arteries using Other Contrast (ICD-10-PCS; 2019-04-01)
PROC: B205YZZ Plain Radiography of Left Heart using Other Contrast (ICD-10-PCS; 2019-04-01)
DX: R07.9 Chest pain, unspecified (principal); I95.9 Hypotension, unspecified; I25.10 Atherosclerotic heart disease of native coronary artery without angina pectoris; I10 Essential (primary) hypertension; E78.5 Hyperlipidemia, unspecified; Z91.041 Radiographic dye allergy status; Z95.5 Presence of coronary angioplasty implant and graft; Z23 Encounter for immunization
CPT/HCPCS: 36415; 71045; 71275; 80048; 80061; 80076; 81003; 82550; 82553; 83690; 83735; 83880; 84484; 85025; 85610; 90471; 90670; 93005; 93306; 93458; 93880; 96361; 96372; 96374; 96375; 99285; C1760; C1893; C9113; G0378; J0583; J1200; J1644; J1650; J2250; J2270; J2405; J2930; J3010; J7030; J7040; Q2035; Q9967

== ENCOUNTER 2022-05-26 11:14 | Inpatient (IN) | payer OTHER, BC ==
--- OUTSIDE RECORDS SUMMARY | 2022-05-26 11:27 | XMS REPORT | Continuity of Care Document ---
:1955 Author Organization [facility] t Address [address] [place] [address] Care Team Providers Name Role Phone MD DALILA MAYA Primary Care Physician [id number] Attending Clinician Unavailable DALILA MAYA Attending Clinician Unavailable Pippa Cortez Anavella Attending Clinician Unava ilable NURIS MAYA Attending Clinician Unavailable Pam Roman V Attending Clinician Unavailable Chano Clark Attending Clinician Unavailable RONN RODGERS Attending Clinician Unavailable DO IRMA VASQUEZ Attending Clinician Unavailable [id number] Admitting Clinician Unavailable DALILA MAYA Admitting Clinician Unavailable Marilou Cortez, Anav Admitting Clinician Unavailable NURIS MAYA Admitting Clinician Unavailable Chano Clark Admitting Clinician Unavailable IRMA VASQUEZ Admitting Clinician Unavailable DO IRMA VASQUEZ Admitting Clinician Unavailable Payers Payer Name Policy Type Policy Number Effective Date Expiration Date Pankaj [facility] [id number] Medicare A & B [id number] [address] [facility] [address] [facility] 00:[facility]00 Patient [facility] [id number] [address] [facility] [address] [facility] [place] 00:00:00 Patient Medical [facility] [id number] [facility] [id number] [address] [facility] 00:[facility]:00 Patient Medical Center Problems Condition Condition Condition Status Onset Resolution Last Treating Co mments Source Name Details Category Date Date Treatment Clinician Date TIA TIA Disease Active 2019-06 Methodi (transient (transient 2 st ischemic ischemic 00:00: Hospit a attack) attack) 00 l Upper Problem Active [facility] 00:00: Patient hemorrhage 00 [facility] Anemia Problem Active [facility] 00[facility] Urinary Problem Active [facility] tract [facility] infection 00:00: Patient 00 [facility] Center Cough Problem [facility] Patient [facility] Pneumonia Problem Active [facility] Patient [facility] Center Chest pain Problem Active [facility] S t [facility] Patient [facility] Hematemesi Problem Active 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 Coron[facility] Problem Active [facility] artery [facility] disease Patient involving Medical al[facility]na Center coronary artery Hypertensi Problem Active [facility] on [facility] Patient [facility] Hyperlipid Problem Active [facility] emia [facility] Patient [facility] Thyroid Problem Active [facility] nodule [facility] Patient [facility] Gastritis Problem Active [facility] Stricture Problem Active [facility] of [facility] esophagus Patient Medical Center Sliding Problem Active [facility] hiatal [facility] hernia Patient Medical Center Lower Problem Active [facility] gastrointe [facility] st[facility] Patient hemorrhage Medica l Center Colitis Problem Active [facility] St [facility] Patient [facility] Allergies, Adverse Reactions, Alerts Allergy Allergy Status Severity Reaction(s) Onset Inactive Treating Comm ents Source Name Type Date Date Clinician Iodinate Allergy Active [facility]06 [facility] Contrast substanc 00:00: Patien t Media e [address] [place] [address] Iodine Propensi Active Shortness Of 2019-06 HIVES Me thodi And ty to Breath 07-01 st Iodide adverse 00:00: Hospita Containi reaction 00 l ng s to Products drug Butorpha Propensi Active Other (See 2019-06 Chest Me thodi nol ty to Comments) 07-[address] adverse 00:00: Hospita reaction 00 l s to drug TAPE Allergy Active Moderate [facility] to 06[facility]25 [facility] substanc 00:00: Patient e 00 Medical [place] TORADOL DA Active U BREAK [facility] OUT,CHEST 08-04 Clear PAIN 00:00: [place] 00 [facility] VISTARIL DA Active U BREAK [facility] OUT,CHEST 08-04 Clear PAIN 00:00: [place] 00 [facility] .PLASMA DA Active U WHELPS [facility] 3- Clear 00:00: [place] 00 [facility] IVP DYE DA Active U BREAK [facility] OUT,SWEAT,CH 08-04 Kiley r EST PAIN 00:00: [place] 00 [facility] No Known DA Active U [facility] Food 3- Clear Allergie 00:00: [place] 00 [facility] STADOL DA Active U BREAK OUT, [facility] CHEST PAIN - Clear 00:00: [place] 00 [facility] TAPE DA Active U RASH 2006- [facility] 3- Clear 00:00: [place] 00 [facility] iodine DA Active U 2005- [facility] 3- Clear 00:00: [place] 00 [facility] hydroxyz DA Active U 2005- [facility] ine 3- Clear 00:00: [place] 00 [facility] butorpha DA Active U [facility] nol 09-02 Clear 00:00: [place] 00 [facility] ketorola DA Active U 2005-0 [facility] c - Clear 00:00: [place] 00 [facility] Iodinate DA Active [facility] Contrast Patient [facility] Social History Social Habit Start Date Stop Date Quantity Comments Source History [facility] use Patient [facility] Sex Ass[birth year] At [birth year] [facility] 00:00:00 00:00:00 Smoking Status Start Date Stop Date Source Tobacco smoking consumption unknown [facility] Medications Ordered Filled Start Stop Current Ordering Indication Dosage Frequency Signature Comments Components Source Medication Medication Date Date Medication? Clinician (SIG) Name Name Atortania Atorjoytati Yes [address] n Calcium n Calcium 5-15 [facility] (Lipitor) (Lipitor) 09:56: Pat ient 20 Mg 20 Mg 00 Medical TABLET TABLET Center Clonidine Clonidine Yes [address] (Catapres-T (Catapres-T 5-15 Days L ukes ts 1) 0.1 ts 1) 0.1 09:56: Pat ient Mg/24 Hour Mg/24 Hour 00 Med ical PATCH.TDWK PATCH.TDWK Unruly ter Rimegepant Rimegepant Yes [address] Sulfate Sulfate 5-15 needed for Shanique es (Nurtec (Nurtec 09:56: Migraine Pat ient Odt) 75 Mg Odt) 75 Mg 00 Med ical TAB.RAPDIS TAB.RAPDIS Unruly ter zolpidem 2019-06 Yes 20mg QD Take 20 mg Met hodi (AMBIEN) 10 2-[address] mg tablet 19:36: nightly. Hosp jose roberto 39 l promethazin 2019-06 Yes 50mg Q.5D Take 50 mg Methodi e 2-[address] (PHENERGAN) 19:36: (two) Hospi ta 50 MG 39 times a l tablet day. morPHINE 2019-06 Yes [id number] 30mg Q4H Take 30 mg Me thodi immediate-r 2-[address] elease 30 19:36: every 4 Hospi ta MG tablet 39 (four) l hours as needed for severe pain .acute pain. nitroglycer 2019-[address] 0.4 M ethodi in 2-[address] (NITROSTAT) 19:36: the tongue Hospita 0.4 MG SL 39 every 5 l tablet (five) minutes as needed for chest pain. aspirin 2019-06 Yes 81mg QD Take 81 mg Meth dwayne (ECOTRIN) 2-[address] 81 MG 19:36: daily. Hospita enteric 39 l coated tablet atorvastati 2019-06 Yes 80mg QD Take 80 mg Methodi n (LIPITOR) 2-[address] 80 MG 19:36: nightly. Hospita tablet 39 l clopidogreL 2019-06 Yes 75mg QD Take 75 mg Methodi (PLAVIX) 75 2-[address] mg tablet 19:36: nightly. Hosp jose roberto 39 l metoprolol 2019-06 Yes 25mg QD Take 25 mg M ethodi tartrate 2-[address] (LOPRESSOR) 19:36: nightly. Ho spita 25 mg 39 l tablet esomeprazol 2019-06 Yes 20mg QD Take 20 mg Methodi e (NexIUM) 2-[address] 20 MG 19:36: daily Hospita capsule 39 before l breakfast. gabapentin 2019-06 Yes 800mg Q.5D Take 800 Me thodi (NEURONTIN) 2-[address] 800 mg 19:36: mouth 2 Hospita tablet 39 (two) l times a day. tiZANidine 2019-06 Yes 4mg Q.[id number] Take 4 mg Methodi (ZANAFLEX) 2-02 [id number] by mouth 3 [address] 4 MG tablet 19:36: 3D (three) Hos merle 39 times a l day. oxyCODone-a 2019-06 Yes [id number] 1{tbl} Q6H Take 1 M ethodi cetaminophe 2-[address] n 19:36: mouth Hospita (PERCOCET) 39 every 6 l 10-325 mg (six) per tablet hours as needed for moderate pain .acute pain. Aspirin Aspirin Yes [address] (Aspirin (Aspirin [facility]ukes Chew) 81 Mg Chew) 81 Mg P atient CHEW CHEW Medical Center Carvedilol Carvedilol Yes 12.[address] [facility] Clopidogrel Clopidogrel Yes [address] Bisulfate Bisulfate [facility]ukes (Clopidogre (Clopidogre P atient l) 75 Mg l) 75 Mg Medical TABLET TABLET Center Nitroglycer Nitroglycer Yes .[address] in in Minutes as [facility]ukes needed for Patient Chest Pain [facility] Oxycodone Oxycodone Yes 2 [address] Hcl/Acetami Hcl/Acetami Hours as Lukes nophen nophen needed for Patie nt (Oxycodone- (Oxycodone- Moderate Medical Acetaminoph Acetaminoph Pain (4-6) Center en ) en ) 1 Each 1 Each TABLET TABLET Pantoprazol Pantoprazol Yes [address] e Sodium e Sodium Lukes (Protonix) (Protonix) Pat ient 40 Mg 40 Mg Medical TABLET. TABLET.DR Dimas irene Promethazin Promethazin Yes [address] e Hcl e Hcl Times A Lukes Day as Patient needed for Medical Nausea Center Tizanidine Tizanidine Yes [address] Hcl Hcl Times A [facility] Day Patient Medical Center Zolpidem Zolpidem Yes 10 Bedtime [address] C HI [facility] Tartrate Tartrate needed for L ukes (Ambien) 10 (Ambien) 10 Insomnia Patient Mg TABLET Mg TABLET Medic al Center Ranolazine Ranolazine No [address] [facility] (Ranexa) (Ranexa) 05-12 Day [facility]ukes 500 Mg 500 Mg 00:00 Patient TABSR TABSR :00 Medical Center Atorvastati Atorvastati No [address] n Calcium n Calcium 06-06 Luke s (Lipitor) (Lipitor) 00:00 Rossy ent 20 Mg 20 Mg :00 Medical TABLET TABLET Center Esomeprazol Esomeprazol No [address] e Magnesium e Magnesium - Hours [facility] (Nexium) 20 (Nexium) 20 00:00 Patient Mg Mg :00 Medical CAPSULE. CAPSULE.DR [place] ter Gabapentin Gabapentin No [address] (Neurontin) (Neurontin) -02 Times A [facility]ukes 400 Mg 400 Mg 00:00 Day Patient CAPSULE CAPSULE :00 [facility] Isosorbide Isosorbide No [address] Mononitrate Mononitrate 06-06 [facility] (Isosorbide (Isosorbide 00:00 Patient Mononitrate Mononitrate :00 M edical Er) 30 Mg Er) 30 Mg Davidee r TAB.ER.24H TAB.ER.24H Metoprolol Metoprolol No [address] Tartrate Tartrate 06-06 [facility] 00:00 Patient :00 Medical Center Morphine Morphine No [address] Sulfate Sulfate 01-02 Hours as Luke s (Morphine (Morphine 00:00 needed for Patient Sulfate Er) Sulfate Er) :00 Severe Medical 30 Mg 30 Mg Pain Center TABLET.ER TABLET.ER (7-10) Promethazin Promethazin No [address] e Hcl e Hcl 01-02 Hours [facility] 00:00 Patient :00 Medical Center Acetaminoph Acetaminoph No [address] en With en With 06-15 Hours as Luke s Codeine Codeine 00:00 needed for Pa tient (Tylenol (Tylenol :00 Pain Medical With With Center Codeine #3 Codeine #3 Tablet) 1 Tablet) 1 Each TABLET Each TABLET Amphet Amphet [facility] Asp/Amphet/ Asp/Amphet/ 06-15 [facility] D-Amphet D-Amphet 00:00 Patien t (Adderall (Adderall :00 Medic al 20 Mg 20 Mg Center Tablet) 20 Tablet) 20 Mg TABLET Mg TABLET Hydrocodone Hydrocodone [facility] Bit/Acetami Bit/Acetami 06-15 [facility] nophen nophen 00:00 Patient ([place] ([place] :00 Medical 10-325 10-325 Center Tablet) 1 Tablet) 1 Each TABLET Each TABLET Lansoprazol Lansoprazol [facility] e e 06-15 [facility] (Prevacid) (Prevacid) 00:00 Pa tient 30 Mg 30 Mg :00 Medical TAB.RAP. TAB.RAP.DR [place] ter Meperidine Meperidine [facility] Hcl Hcl 06-15 [facility] (Demerol) (Demerol) 00:00 Rossy ent 50 Mg 50 Mg :00 Medical TABLET TABLET Center Metoprolol Metoprolol [address] [facility] Tartrate Tartrate 06-15 Day [facility] 00:00 Patient :00 Medical Center Promethazin Promethazin [facility] e Hcl e Hcl 06-15 [facility] 00:00 Patient :00 Medical Center Vital Signs Vital Name Observation Time Observation Value Comments Source Oxygen saturation by 2021-10-17 10:05:00 98 /min [facility] Pulse oximetry Patient Medic al Center BP Diastolic 2021-10-17 10:05:00 83 mm[Hg] [facility] Patient Medical Center Oxygen saturation by 2021-10-17 09:48:00 98 /min [facility] Pulse oximetry Patient [facility] BP Diastolic 2021-10-17 09:48:00 83 mm[Hg] [facility] Patient [facility] Oxygen saturation by 2021-10-17 05:00:00 98 /min [facility] Pulse oximetry Patient [facility] BP Diastolic 2021-10-17 05:00:00 92 mm[Hg] [facility] Patient [facility] Oxygen saturation by 2021-10-17 01:00:00 98 /min [facility] Pulse oximetry Patient [facility] BP Diastolic 2021-10-17 01:00:00 78 mm[Hg] [facility] Patient [facility] Oxygen saturation by 2021-10-16 21:00:00 95 /min [facility] Pulse oximetry Patient [facility] BP Diastolic 2021-10-16 21:00:00 86 mm[Hg] [facility] Patient [facility] Oxygen saturation by 2021-10-16 18:20:00 98 /min [facility] Pulse oximetry Patient [facility] BP Diastolic 2021-10-16 18:20:00 75 mm[Hg] [facility] Patient [facility] Oxygen saturation by 2021-10-16 14:25:00 99 /min [facility] Pulse oximetry Patient [facility] BP Diastolic 2021-10-16 14:25:00 73 mm[Hg] [facility] Patient [facility] Oxygen saturation by 2021-10-16 10:23:00 95 /min [facility] Pulse oximetry Patient [facility] BP Diastolic 2021-10-16 10:23:00 82 mm[Hg] [facility] Patient [facility] Oxygen saturation by 2021-10-16 10:21:00 95 /min [facility] Pulse oximetry Patient [facility] BP Diastolic 2021-10-16 10:21:00 82 mm[Hg] [facility] Patient [facility] Oxygen saturation by 2021-10-16 05:00:00 98 /min [facility] Pulse oximetry Patient [facility] BP Diastolic 2021-10-16 05:00:00 83 mm[Hg] [facility] Patient [facility] Oxygen saturation by 2021-10-16 01:00:00 98 /min [facility] Pulse oximetry Patient [facility] BP Diastolic 2021-10-16 01:00:00 67 mm[Hg] [facility] Patient [facility] Oxygen saturation by 2021-10-15 22:17:00 99 /min [facility] Pulse oximetry Patient [facility] BP Diastolic 2021-10-15 22:17:00 97 mm[Hg] [facility] Patient [facility] Oxygen saturation by 2021-10-15 21:00:00 99 /min [facility] Pulse oximetry Patient [facility] BP Diastolic 2021-10-15 21:00:00 97 mm[Hg] [facility] Patient [facility] Oxygen saturation by 2021-10-15 17:00:00 100 /min [facility] Pulse oximetry Patient [facility] BP Diastolic 2021-10-15 17:00:00 94 mm[Hg] [facility] Patient [facility] Oxygen saturation by 2021-10-15 16:28:00 99 /min [facility] Pulse oximetry Patient [facility] BP Diastolic 2021-10-15 16:28:00 79 mm[Hg] [facility] Patient [facility] Oxygen saturation by 2021-10-15 16:17:00 97 /min [facility] Pulse oximetry Patient [facility] BP Diastolic 2021-10-15 16:17:00 76 mm[Hg] [facility] Patient [facility] Oxygen saturation by 2021-10-15 16:07:00 96 /min [facility] Pulse oximetry Patient [facility] BP Diastolic 2021-10-15 16:07:00 63 mm[Hg] [facility] Patient [facility] Oxygen saturation by 2021-10-15 13:31:00 100 /min [facility] Pulse oximetry Patient [facility] BP Diastolic 2021-10-15 13:31:00 98 mm[Hg] [facility] Patient [facility] Oxygen saturation by 2021-10-15 11:06:00 100 /min [facility] Pulse oximetry Patient [facility] BP Diastolic 2021-10-15 11:06:00 88 mm[Hg] [facility] Patient [facility] Oxygen saturation by 2021-10-15 09:00:00 100 /min [facility] Pulse oximetry Patient [facility] BP Diastolic 2021-10-15 09:00:00 88 mm[Hg] [facility] Patient Medical Center Oxygen saturation by 2021-10-15 05:00:00 99 /min [facility] Pulse oximetry Patient [facility] BP Diastolic 2021-10-15 05:00:00 83 mm[Hg] [facility] Patient [facility] Oxygen saturation by 2021-10-15 01:00:00 100 /min [facility] Pulse oximetry Patient [facility] BP Diastolic 2021-10-15 01:00:00 89 mm[Hg] [facility] Patient [facility] Oxygen saturation by 2021-10-14 23:01:00 100 /min [facility] Pulse oximetry Patient [facility] BP Diastolic 2021-10-14 23:01:00 94 mm[Hg] [facility] Patient [facility] Oxygen saturation by 2021-10-14 21:00:00 100 /min [facility] Pulse oximetry Patient [facility] BP Diastolic 2021-10-14 21:00:00 94 mm[Hg] [facility] Oxygen saturation by 2021-10-14 18:12:00 98 /min [facility] Pulse oximetry Patient [facility] BP Diastolic 2021-10-14 18:12:00 92 mm[Hg] [facility] Oxygen saturation by 2021-10-14 17:00:00 98 /min [facility] Pulse oximetry Patient [facility] BP Diastolic 2021-10-14 17:00:00 92 mm[Hg] [facility] Weight 2021-10-14 17:00:[id number] [facility] BMI (Body Mass Index) 2021-10-14 17:00:00 27.4 kg/m2 [facility] St [facility] BP Systolic 2021-10-14 16:18:00 152 mm[Hg] [facility] BP Diastolic 2021-10-14 16:18:00 88 mm[Hg] [facility] Oxygen saturation by 2021-10-14 15:59:00 98 /min [facility] Pulse oximetry Patient [facility] Oxygen saturation by 2021-10-14 14:08:00 97 /min [facility] Pulse oximetry Patient [facility] Oxygen saturation by 2021-10-14 12:40:00 99 /min [facility] Pulse oximetry Patient [facility] Height 2021-10-14 12:40:[address] [facility] Patient [facility] Oxygen saturation by 2021-06-18 13:09:00 99 /min [facility] Pulse oximetry Patient [facility] BP Diastolic 2021-06-18 13:09:00 60 mm[Hg] [facility] Patient [facility] Oxygen saturation by 2021-06-18 10:03:00 100 /min [facility] Pulse oximetry Patient [facility] BP Diastolic 2021-06-18 10:03:00 76 mm[Hg] [facility] Patient [facility] Oxygen saturation by 2021-06-18 09:08:00 100 /min [facility] Pulse oximetry Patient [facility] BP Diastolic 2021-06-18 09:08:00 76 mm[Hg] [facility] Patient [facility] Oxygen saturation by 2021-06-18 05:00:00 99 /min [facility] Pulse oximetry Patient [facility] BP Diastolic 2021-06-18 05:00:00 58 mm[Hg] [facility] Oxygen saturation by 2021-06-17 21:00:00 100 /min [facility] Pulse oximetry Patient [facility] BP Diastolic 2021-06-17 21:00:00 56 mm[Hg] [facility] Patient [facility] Oxygen saturation by 2021-06-17 18:34:00 99 /min [facility] Pulse oximetry Patient [facility] BP Diastolic 2021-06-17 18:34:00 64 mm[Hg] [facility] Patient [facility] Oxygen saturation by 2021-06-17 16:32:00 99 /min [facility] Pulse oximetry Patient [facility] BP Diastolic 2021-06-17 16:32:00 64 mm[Hg] [facility] Patient [facility] Oxygen saturation by 2021-06-17 12:40:00 96 /min [facility] Pulse oximetry Patient [facility] BP Diastolic 2021-06-17 12:40:00 71 mm[Hg] [facility] Patient [facility] Oxygen saturation by 2021-06-17 09:09:00 97 /min [facility] Pulse oximetry Patient [facility] BP Diastolic 2021-06-17 09:09:00 79 mm[Hg] [facility] Patient [facility] Oxygen saturation by 2021-06-17 05:00:00 98 /min [facility] Pulse oximetry Patient [facility] BP Diastolic 2021-06-17 05:00:00 80 mm[Hg] [facility] Patient [facility] Oxygen saturation by 2021-06-17 01:00:00 100 /min [facility] Pulse oximetry Patient [facility] BP Diastolic 2021-06-17 01:00:00 75 mm[Hg] [facility] Patient [facility] Oxygen saturation by 2021-06-16 21:00:00 99 /min [facility] Pulse oximetry Patient [facility] BP Diastolic 2021-06-16 21:00:00 72 mm[Hg] [facility] Patient [facility] Oxygen saturation by 2021-06-16 17:14:00 99 /min [facility] Pulse oximetry Patient [facility] BP Diastolic 2021-06-16 17:14:00 72 mm[Hg] [facility] Patient [facility] Oxygen saturation by 2021-06-16 12:29:00 98 /min [facility] Pulse oximetry Patient [facility] BP Diastolic 2021-06-16 12:29:00 87 mm[Hg] [facility] Patient [facility] Oxygen saturation by 2021-06-16 09:13:00 97 /min [facility] Pulse oximetry Patient [facility] BP Diastolic 2021-06-16 09:13:00 78 mm[Hg] [facility] Patient [facility] Oxygen saturation by 2021-06-16 05:00:00 99 /min [facility] Pulse oximetry Patient [facility] BP Diastolic 2021-06-16 05:00:00 76 mm[Hg] [facility] Patient [facility] Oxygen saturation by 2021-06-16 01:00:00 99 /min [facility] Pulse oximetry Patient [facility] BP Diastolic 2021-06-16 01:00:00 77 mm[Hg] [facility] Patient [facility] Oxygen saturation by 2021-06-15 21:00:00 97 /min [facility] Pulse oximetry Patient [facility] BP Diastolic 2021-06-15 21:00:00 81 mm[Hg] [facility] Patient [facility] Oxygen saturation by 2021-06-15 17:53:00 100 /min [facility] Pulse oximetry Patient [facility] BP Diastolic 2021-06-15 17:53:00 86 mm[Hg] [facility] Patient [facility] Oxygen saturation by 2021-06-15 13:23:00 99 /min [facility] Pulse oximetry Patient [facility] BP Diastolic 2021-06-15 13:23:00 95 mm[Hg] [facility] Oxygen saturation by 2021-06-15 10:52:00 99 /min [facility] Pulse oximetry Patient [facility] BP Diastolic 2021-06-15 10:52:00 80 mm[Hg] [facility] [place] Patient [facility] Oxygen saturation by 2021-06-15 10:07:00 99 /min [facility] Pulse oximetry Patient [facility] BP Diastolic 2021-06-15 10:07:00 80 mm[Hg] [facility] Patient [facility] Oxygen saturation by 2021-06-15 05:00:00 98 /min [facility] Pulse oximetry Patient [facility] BP Diastolic 2021-06-15 05:00:00 87 mm[Hg] [facility] Patient [facility] Oxygen saturation by 2021-06-15 01:00:00 98 /min [facility] Pulse oximetry Patient [facility] BP Diastolic 2021-06-15 01:00:00 89 mm[Hg] [facility] [place] Patient [facility] Oxygen saturation by 2021-06-14 21:00:00 98 /min [facility] Pulse oximetry Patient [facility] BP Diastolic 2021-06-14 21:00:00 95 mm[Hg] [facility] [place] Patient [facility] Oxygen saturation by 2021-06-14 19:20:00 96 /min [facility] Pulse oximetry Patient [facility] BP Diastolic 2021-06-14 19:20:00 96 mm[Hg] [facility] Patient [facility] Oxygen saturation by 2021-06-14 18:20:00 99 /min [facility] Pulse oximetry Patient [facility] BP Diastolic 2021-06-14 18:20:00 83 mm[Hg] [facility] Oxygen saturation by 2021-06-14 17:49:00 99 /min [facility] Patient [facility] BP Diastolic 2021-06-14 17:49:00 95 mm[Hg] [facility] Oxygen saturation by 2021-06-14 17:20:00 99 /min [facility]ulse [facility] Patient [facility] BP Diastolic 2021-06-14 17:20:00 90 mm[Hg] [facility] Oxygen saturation by 2021-06-14 17:06:00 100 /min [facility]ulse [facility]xim[facility] Patient [facility] Oxygen saturation by 2021-06-14 16:51:00 100 /min [facility] Patient [facility] BP Diastolic 2021-06-14 16:51:00 98 mm[Hg] [facility] Oxygen saturation by 2021-06-14 16:36:00 98 /min [facility] Patient [facility] BP Diastolic 2021-06-14 16:36:00 84 mm[Hg] [facility] Oxygen saturation by 2021-06-14 16:20:00 100 /min [facility] Patient [facility] BP Diastolic 2021-06-14 16:20:00 81 mm[Hg] [facility] Oxygen saturation by 2021-06-14 12:57:00 99 /min [facility] Patient [facility] BP Diastolic 2021-06-14 12:57:00 78 mm[Hg] [facility] Oxygen saturation by 2021-06-14 09:59:00 98 /min [facility]ulse [facility] Patient [facility] BP Diastolic 2021-06-14 09:59:00 84 mm[Hg] [facility] Oxygen saturation by 2021-06-14 09:36:00 98 /min [facility]ulse [facility]xim[facility] Patient [facility] BP Diastolic 2021-06-14 09:36:00 84 mm[Hg] [facility] Oxygen saturation by 2021-06-14 05:00:00 100 /min [facility]ulse [facility]xim[facility] Patient [facility] BP Diastolic 2021-06-14 05:00:00 94 mm[Hg] [facility] Oxygen saturation by 2021-06-14 01:00:00 98 /min [facility]ulse [facility] Patient [facility] BP Diastolic 2021-06-14 01:00:00 90 mm[Hg] [facility] Oxygen saturation by 2021-06-13 21:00:00 98 /min [facility]ulse [facility] Patient [facility] BP Diastolic 2021-06-13 21:00:00 75 mm[Hg] [facility] Patient [facility] Oxygen saturation by 2021-06-13 16:21:00 98 /min [facility]ulse [facility] Patient [facility] BP Diastolic 2021-06-13 16:21:00 68 mm[Hg] [facility] Oxygen saturation by 2021-06-13 12:39:00 100 /min [facility]ulse [facility] Patient [facility] BP Diastolic 2021-06-13 12:39:00 77 mm[Hg] [facility] Oxygen saturation by 2021-06-13 10:00:00 100 /min [facility] Patient [facility] BP Diastolic 2021-06-13 10:00:00 76 mm[Hg] [facility] Oxygen saturation by 2021-06-13 09:08:00 100 /min [facility] Patient [facility] BP Diastolic 2021-06-13 09:08:00 76 mm[Hg] [facility] Oxygen saturation by 2021-06-13 05:00:00 100 /min [facility] Patient [facility] BP Diastolic 2021-06-13 05:00:00 86 mm[Hg] [facility] Oxygen saturation by 2021-06-13 01:00:00 99 /min [facility] Patient [facility] BP Diastolic 2021-06-13 01:00:00 76 mm[Hg] [facility] Oxygen saturation by 2021-06-12 21:45:00 97 /min [facility] Patient [facility] Oxygen saturation by 2021-06-12 21:00:00 97 /min [facility] Patient [facility] BP Diastolic 2021-06-12 21:00:00 79 mm[Hg] [facility] Oxygen saturation by 2021-06-12 16:28:00 97 /min [facility]ulse [facility] Patient [facility] BP Diastolic 2021-06-12 16:28:00 80 mm[Hg] [facility] Oxygen saturation by 2021-06-12 13:03:00 98 /min [facility]ulse [facility]xim[facility] Patient [facility] Oxygen saturation by 2021-06-12 12:10:00 99 /min [facility] Patient [facility] BP Diastolic 2021-06-12 12:10:00 81 mm[Hg] [facility] Oxygen saturation by 2021-06-12 09:45:00 97 /min [facility]ulse [facility] Patient [facility] BP Diastolic 2021-06-12 09:45:00 74 mm[Hg] [facility] Oxygen saturation by 2021-06-12 09:03:00 97 /min [facility]ulse [facility] Patient [facility] BP Diastolic 2021-06-12 09:03:00 74 mm[Hg] [facility] Oxygen saturation by 2021-06-12 07:00:00 97 /min [facility] Patient [facility] BP Diastolic 2021-06-12 07:00:00 78 mm[Hg] [facility] Oxygen saturation by 2021-06-12 01:18:00 99 /min [facility] Patient [facility] BP Diastolic 2021-06-12 01:18:00 78 mm[Hg] [facility] Oxygen saturation by 2021-06-12 01:03:00 97 /min [facility]ulse [facility] Patient [facility] BP Diastolic 2021-06-12 01:03:00 74 mm[Hg] [facility] Oxygen saturation by 2021-06-11 21:29:00 97 /min [facility]ulse [facility]xim[facility] Patient [facility] BP Diastolic 2021-06-11 21:29:00 74 mm[Hg] [facility] Oxygen saturation by 2021-06-11 20:25:00 97 /min [facility] Pulse oxim[facility] Patient [facility] Oxygen saturation by 2021-06-11 16:08:00 100 /min [facility]ulse [facility]xim[facility] Patient [facility] BP Diastolic 2021-06-11 16:08:00 77 mm[Hg] [facility] Oxygen saturation by 2021-06-11 15:36:00 98 /min [facility] Pulse [facility]xim[facility] Patient [facility] BP Diastolic 2021-06-11 15:36:00 68 mm[Hg] [facility] Oxygen saturation by 2021-06-11 12:24:00 100 /min [facility] Pulse [facility] Patient [facility] BP Diastolic 2021-06-11 12:24:00 79 mm[Hg] [facility] Oxygen saturation by 2021-06-11 09:31:00 98 /min [facility]ulse [facility] Patient [facility] BP Diastolic 2021-06-11 09:31:00 68 mm[Hg] [facility] Oxygen saturation by 2021-06-11 09:08:00 98 /min [facility]ulse [facility] Patient [facility] BP Diastolic 2021-06-11 09:08:00 68 mm[Hg] [facility] BP Systolic 2021-06-11 07:09:00 133 mm[Hg] [facility] BP Diastolic 2021-06-11 07:09:00 87 mm[Hg] [facility] Oxygen saturation by 2021-06-11 05:00:00 98 /min [facility]ulse [facility] Patient [facility] BP Diastolic 2021-06-11 05:00:00 69 mm[Hg] [facility] BP Systolic 2021-06-11 03:00:00 110 mm[Hg] [facility] BP Diastolic 2021-06-11 03:00:00 70 mm[Hg] [facility] Oxygen saturation by 2021-06-11 01:00:00 98 /min [facility]ulse [facility] Patient [facility] BP Diastolic 2021-06-11 01:00:00 53 mm[Hg] [facility] Oxygen saturation by 2021-06-10 22:58:00 98 /min [facility]ulse [facility] Patient [facility] BP Diastolic 2021-06-10 22:58:00 69 mm[Hg] [facility] Oxygen saturation by 2021-06-10 21:15:00 98 /min [facility] Pulse [facility]xim[facility] Patient [facility] Oxygen saturation by 2021-06-10 21:00:00 98 /min [facility] Pulse [facility]xim[facility] Patient [facility] BP Diastolic 2021-06-10 21:00:00 69 mm[Hg] [facility] Oxygen saturation by 2021-06-10 19:37:00 100 /min [facility]ulse [facility] Patient [facility] BP Diastolic 2021-06-10 19:37:00 81 mm[Hg[facility] 2021-06-10 18:49:00 100 /min [facility]ulse [facility] Patient [facility] BP Diastolic 2021-06-10 18:49:00 81 mm[Hg] [facility] Oxygen saturation by 2021-06-10 17:50:00 100 /min [facility]ulse [facility] Patient [facility] BP Diastolic 2021-06-10 17:50:00 81 mm[Hg] [facility] Oxygen saturation by 2021-06-10 16:45:00 98 /min [facility]ulse [facility] Patient [facility] BP Diastolic 2021-06-10 16:45:00 50 mm[Hg] [facility] Oxygen saturation by 2021-06-10 16:35:00 98 /min [facility]ulse [facility] Patient [facility] BP Diastolic 2021-06-10 16:35:00 50 mm[Hg] [facility] Oxygen saturation by 2021-06-10 16:25:00 98 /min [facility] Pulse [facility]xim[facility] Patient [facility] BP Diastolic 2021-06-10 16:25:00 49 mm[Hg] [facility] 2021-06-10 14:34:00 98 /min [facility] Pulse [facility]xim[facility] Patient [facility] BP Diastolic 2021-06-10 14:34:00 63 mm[Hg] [facility] Oxygen saturation by 2021-06-10 11:00:00 98 /min [facility] Pulse oxim[facility] Patient [facility] BP Diastolic 2021-06-10 11:00:00 69 mm[Hg] [facility] Oxygen saturation by 2021-06-10 10:00:00 97 /min [facility] Pulse [facility]xim[facility] Patient [facility] BP Diastolic 2021-06-10 10:00:00 67 mm[Hg] [facility] Oxygen saturation by 2021-06-10 08:21:00 96 /min [facility] Pulse oxim[facility] Patient [facility] BP Diastolic 2021-06-10 08:21:00 88 mm[Hg] [facility] Oxygen saturation by 2021-06-10 08:20:00 96 /min [facility] Pulse oximetry Patient [facility] BP Diastolic 2021-06-10 08:20:00 88 mm[Hg] [facility] Oxygen saturation by 2021-06-10 07:30:00 95 /min [facility] Pulse oxim[facility] Patient [facility] Oxygen saturation by 2021-06-10 07:00:00 97 /min [facility] Pulse oximetry Patient [facility] BP Diastolic 2021-06-10 07:00:00 72 mm[Hg] [facility] Oxygen saturation by 2021-06-10 06:00:00 96 /min [facility] Pulse oximetry Patient [facility] BP Diastolic 2021-06-10 06:00:00 104 mm[Hg] [facility] Oxygen saturation by 2021-06-10 05:00:00 96 /min [facility] Pulse [facility]xim[facility] Patient [facility] BP Diastolic 2021-06-10 05:00:00 75 mm[Hg] [facility] Oxygen saturation by 2021-06-10 04:00:00 96 /min [facility] Pulse oxim[facility] Patient [facility] BP Diastolic 2021-06-10 04:00:00 79 mm[Hg] [facility] Oxygen saturation by 2021-06-10 03:00:00 94 /min [facility] Pulse oximetry Patient [facility] BP Diastolic 2021-06-10 03:00:00 78 mm[Hg] [facility] Oxygen saturation by 2021-06-10 02:00:00 96 /min [facility] Pulse oximetry Patient [facility] BP Diastolic 2021-06-10 02:00:00 80 mm[Hg] [facility] Oxygen saturation by 2021-06-10 01:00:00 94 /min [facility] Pulse oximetry Patient [facility] BP Diastolic 2021-06-10 01:00:00 74 mm[Hg] [facility] Oxygen saturation by 2021-06-10 00:00:00 93 /min [facility] Pulse oximetry Patient [facility] BP Diastolic 2021-06-10 00:00:00 70 mm[Hg] [facility] Oxygen saturation by 2021-06-09 23:00:00 93 /min [facility] Pulse oximetry Patient [facility] BP Diastolic 2021-06-09 23:00:00 66 mm[Hg] [facility] Oxygen saturation by 2021-06-09 22:00:00 93 /min [facility] Pulse oximetry Patient [facility] BP Diastolic 2021-06-09 22:00:00 66 mm[Hg] [facility] Oxygen saturation by 2021-06-09 21:00:00 96 /min [facility] Pulse [facility]xim[facility] Patient [facility] BP Diastolic 2021-06-09 21:00:00 81 mm[Hg] [facility] Oxygen saturation by 2021-06-09 20:35:00 93 /min [facility] Pulse oximetry Patient [facility] Oxygen saturation by 2021-06-09 20:00:00 94 /min [facility] Pulse oximetry Patient [facility] BP Diastolic 2021-06-09 20:00:00 83 mm[Hg] [facility] Oxygen saturation by 2021-06-09 19:24:00 97 /min [facility] Pulse [facility]ximetry Patient [facility] BP Diastolic 2021-06-09 19:24:00 83 mm[Hg] [facility] Oxygen saturation by 2021-06-09 18:00:00 96 /min [facility] Pulse oximetry Patient [facility] BP Diastolic 2021-06-09 18:00:00 79 mm[Hg] [facility] Oxygen saturation by 2021-06-09 16:00:00 96 /min [facility] Pulse oximetry Patient [facility] BP Diastolic 2021-06-09 16:00:00 89 mm[Hg] [facility] Oxygen saturation by 2021-06-09 15:00:00 96 /min [facility] Pulse oximetry Patient [facility] BP Diastolic 2021-06-09 15:00:00 89 mm[Hg] [facility] Oxygen saturation by 2021-06-09 13:00:00 97 /min [facility] Pulse [facility]xim[facility] Patient [facility] BP Diastolic 2021-06-09 13:00:00 91 mm[Hg] [facility] Oxygen saturation by 2021-06-09 12:21:00 98 /min [facility] Pulse oximetry Patient [facility] BP Diastolic 2021-06-09 12:21:00 93 mm[Hg] [facility] Oxygen saturation by 2021-06-09 10:00:00 99 /min [facility] Pulse [facility]ximetry Patient [facility] BP Diastolic 2021-06-09 10:00:00 87 mm[Hg] [facility] Oxygen saturation by 2021-06-09 09:23:00 97 /min [facility] Pulse oxim[facility] Patient [facility] BP Diastolic 2021-06-09 09:23:00 72 mm[Hg] [facility] Oxygen saturation by 2021-06-09 09:00:00 97 /min [facility] Pulse [facility]xim[facility] Patient [facility] BP Diastolic 2021-06-09 09:00:00 72 mm[Hg] [facility] Oxygen saturation by 2021-06-09 08:00:00 93 /min [facility] Pulse oximetry Patient [facility] BP Diastolic 2021-06-09 08:00:00 88 mm[Hg] [facility] Oxygen saturation by 2021-06-09 07:55:00 95 /min [facility] Pulse oximetry Patient [facility] Oxygen saturation by 2021-06-09 07:00:00 94 /min [facility] Pulse [facility]xim[facility] Patient [facility] BP Diastolic 2021-06-09 07:00:00 82 mm[Hg[facility] 2021-06-09 06:00:00 96 /min [facility] Pulse [facility]xim[facility] Patient [facility] BP Diastolic 2021-06-09 06:00:00 82 mm[Hg] [facility] Oxygen saturation by 2021-06-09 05:00:00 100 /min [facility] Pulse [facility]ximetry Patient [facility] BP Diastolic 2021-06-09 05:00:00 87 mm[Hg] [facility] Oxygen saturation by 2021-06-09 04:00:00 94 /min [facility]ulse [facility]xim[facility] Patient [facility] BP Diastolic 2021-06-09 04:00:00 63 mm[Hg] [facility] Oxygen saturation by 2021-06-09 03:00:00 96 /min [facility] Pulse oximetry Patient [facility] BP Diastolic 2021-06-09 03:00:00 72 mm[Hg] [facility] Oxygen saturation by 2021-06-09 02:22:00 95 /min [facility] Pulse oximetry Patient [facility] BP Diastolic 2021-06-09 02:22:00 100 mm[Hg] [facility] Oxygen saturation by 2021-06-09 01:00:00 100 /min [facility] Pulse [facility]ximetry Patient [facility] BP Diastolic 2021-06-09 01:00:00 114 mm[Hg] [facility] Oxygen saturation by 2021-06-09 00:00:00 100 /min [facility] Pulse [facility]ximetry Patient [facility] Oxygen saturation by 2021-06-08 23:00:00 100 /min [facility] Pulse oximetry Patient [facility] BP Diastolic 2021-06-08 23:00:00 119 mm[Hg] [facility] Oxygen saturation by 2021-06-08 22:00:00 100 /min [facility] Pulse [facility]ximetry Patient [facility] BP Diastolic 2021-06-08 22:00:00 78 mm[Hg] [facility] Oxygen saturation by 2021-06-08 21:52:00 100 /min [facility] Pulse oximetry Patient [facility] BP Diastolic 2021-06-08 21:52:00 87 mm[Hg] [facility] Oxygen saturation by 2021-06-08 21:00:00 100 /min [facility] Pulse [facility]ximetry Patient [facility] BP Diastolic 2021-06-08 21:00:00 87 mm[Hg] [facility] Oxygen saturation by 2021-06-08 20:05:00 100 /min [facility] Pulse oximetry Patient [facility] Oxygen saturation by 2021-06-08 20:00:00 100 /min [facility] Pulse oximetry Patient [facility] BP Diastolic 2021-06-08 20:00:00 62 mm[Hg] [facility] Oxygen saturation by 2021-06-08 19:00:00 100 /min [facility]xim[facility] Patient [facility] BP Diastolic 2021-06-08 19:00:00 93 mm[Hg] [facility] Oxygen saturation by 2021-06-08 18:00:00 100 /min [facility] Pulse oximetry Patient [facility] BP Diastolic 2021-06-08 18:00:00 119 mm[Hg] [facility] Oxygen saturation by 2021-06-08 17:00:00 100 /min [facility] Pulse [facility]ximetry Patient [facility] BP Diastolic 2021-06-08 17:00:00 85 mm[Hg] [facility] Oxygen saturation by 2021-06-08 16:01:00 100 /min [facility]ulse [facility]ximetry Patient [facility] BP Diastolic 2021-06-08 16:01:00 102 mm[Hg] [facility] Oxygen saturation by 2021-06-08 15:00:00 100 /min [facility] Patient [facility] BP Diastolic 2021-06-08 15:00:00 86 mm[Hg] [facility] Oxygen saturation by 2021-06-08 14:00:00 99 /min [facility] Patient [facility] BP Diastolic 2021-06-08 14:00:00 92 mm[Hg] [facility] Oxygen saturation by 2021-06-08 13:00:00 99 /min [facility]ulse [facility] Patient [facility] BP Diastolic 2021-06-08 13:00:00 71 mm[Hg[facility] 2021-06-08 12:00:00 99 /min [facility] Patient [facility] BP Diastolic 2021-06-08 12:00:00 98 mm[Hg] [facility] Oxygen saturation by 2021-06-08 11:00:00 100 /min [facility] Patient [facility] BP Diastolic 2021-06-08 11:00:00 97 mm[Hg[facility] 2021-06-08 10:20:00 100 /min [facility] Patient [facility] BP Diastolic 2021-06-08 10:20:00 88 mm[Hg] [facility] Oxygen saturation by 2021-06-08 10:00:00 100 /min [facility] Patient [facility] BP Diastolic 2021-06-08 10:00:00 88 mm[Hg] [facility] Oxygen saturation by 2021-06-08 09:20:00 97 /min [facility]xim[facility] Patient [facility] Oxygen saturation by 2021-06-08 09:00:00 100 /min [facility] Patient [facility] BP Diastolic 2021-06-08 09:00:00 88 mm[Hg] [facility] Oxygen saturation by 2021-06-08 08:00:00 100 /min [facility] Patient [facility] BP Diastolic 2021-06-08 08:00:00 94 mm[Hg[facility] 2021-06-08 07:00:00 100 /min [facility] Patient [facility] BP Diastolic 2021-06-08 07:00:00 107 mm[Hg] [facility] Oxygen saturation by 2021-06-08 06:01:00 96 /min [facility] Patient [facility] BP Diastolic 2021-06-08 06:01:00 62 mm[Hg] [facility] Oxygen saturation by 2021-06-08 06:00:00 100 /min [facility] Patient [facility] BP Diastolic 2021-06-08 06:00:00 95 mm[Hg] [facility] Oxygen saturation by 2021-06-08 05:00:00 99 /min [facility] Patient [facility] BP Diastolic 2021-06-08 05:00:00 89 mm[Hg] [facility] Oxygen saturation by 2021-06-08 04:00:00 97 /min [facility] Patient [facility] BP Diastolic 2021-06-08 04:00:00 83 mm[Hg] [facility] Oxygen saturation by 2021-06-08 03:00:00 97 /min [facility] P[facility] Patient [facility] BP Diastolic 2021-06-08 03:00:00 87 mm[Hg] [facility] Patient [facility] Oxygen saturation by 2021-06-08 02:00:00 96 /min [facility] P[facility] Patient [facility] BP Diastolic 2021-06-08 02:00:00 95 mm[Hg] [facility] Patient [facility] Oxygen saturation by 2021-06-08 01:00:00 93 /min [facility] Patient [facility] BP Diastolic 2021-06-08 01:00:00 93 mm[Hg] [facility] Oxygen saturation by 2021-06-08 00:28:00 96 /min [facility] Patient [facility] BP Diastolic 2021-06-08 00:28:00 69 mm[Hg] [facility] Oxygen saturation by 2021-06-08 00:00:00 97 /min [facility] P[facility] Patient [facility] BP Diastolic 2021-06-08 00:00:00 94 mm[Hg] [facility] Oxygen saturation by 2021-06-07 23:00:00 98 /min [facility] Pulse [facility]xim[facility] Patient [facility] BP Diastolic 2021-06-07 23:00:00 91 mm[Hg] [facility] Oxygen saturation by 2021-06-07 22:00:00 96 /min [facility] Pulse [facility]xim[facility] Patient [facility] BP Diastolic 2021-06-07 22:00:00 78 mm[Hg] [facility] Oxygen saturation by 2021-06-07 21:37:00 97 /min [facility] Pulse oximetry Patient [facility] BP Diastolic 2021-06-07 21:37:00 79 mm[Hg] [facility] Oxygen saturation by 2021-06-07 21:33:00 97 /min [facility] Pulse oximetry Patient [facility] BP Diastolic 2021-06-07 21:33:00 79 mm[Hg] [facility] Oxygen saturation by 2021-06-07 21:00:00 97 /min [facility] Pulse oximetry Patient [facility] BP Diastolic 2021-06-07 21:00:00 68 mm[Hg] [facility] Oxygen saturation by 2021-06-07 20:00:00 98 /min [facility] Pulse oximetry Patient [facility] BP Diastolic 2021-06-07 20:00:00 71 mm[Hg] [facility] Oxygen saturation by 2021-06-07 19:40:00 97 /min [facility] Pulse oximetry Patient [facility] Oxygen saturation by 2021-06-07 19:00:00 98 /min [facility] Pulse oximetry Patient [facility] BP Diastolic 2021-06-07 19:00:00 81 mm[Hg] [facility] Oxygen saturation by 2021-06-07 18:00:00 98 /min [facility] Pulse [facility]xim[facility] Patient [facility] BP Diastolic 2021-06-07 18:00:00 81 mm[Hg[facility] 2021-06-07 17:00:00 97 /min [facility] Pulse [facility]xim[facility] Patient [facility] BP Diastolic 2021-06-07 17:00:00 94 mm[Hg] [facility] Oxygen saturation by 2021-06-07 16:00:00 97 /min [facility] Pulse [facility]xim[facility] Patient [facility] BP Diastolic 2021-06-07 16:00:00 70 mm[Hg] [facility] Oxygen saturation by 2021-06-07 15:00:00 98 /min [facility] Pulse oximetry Patient [facility] BP Diastolic 2021-06-07 15:00:00 60 mm[Hg] [facility] Oxygen saturation by 2021-06-07 14:00:00 97 /min [facility] Pulse oximetry Patient [facility] BP Diastolic 2021-06-07 14:00:00 60 mm[Hg] [facility] Patient [facility] Oxygen saturation by 2021-06-07 13:00:00 95 /min [facility] Pulse oximetry Patient [facility] BP Diastolic 2021-06-07 13:00:00 85 mm[Hg] [facility] Oxygen saturation by 2021-06-07 12:00:00 98 /min [facility] Pulse oximetry Patient [facility] BP Diastolic 2021-06-07 12:00:00 72 mm[Hg] [facility] Oxygen saturation by 2021-06-07 11:21:00 97 /min [facility] Pulse oximetry Patient [facility] BP Diastolic 2021-06-07 11:21:00 63 mm[Hg] [facility] Oxygen saturation by 2021-06-07 11:15:00 97 /min [facility] Pulse oximetry Patient [facility] Oxygen saturation by 2021-06-07 11:00:00 97 /min [facility] Pulse oximetry Patient [facility] BP Diastolic 2021-06-07 11:00:00 63 mm[Hg] [facility] Oxygen saturation by 2021-06-07 10:00:00 97 /min [facility] Pulse oximetry Patient [facility] BP Diastolic 2021-06-07 10:00:00 56 mm[Hg] [facility] Oxygen saturation by 2021-06-07 09:00:00 96 /min [facility] Pulse [facility]ximetry Patient [facility] BP Diastolic 2021-06-07 09:00:00 85 mm[Hg] [facility] O[facility] by 2021-06-07 08:00:00 98 /min [facility] Pulse oximetry Patient [facility] BP Diastolic 2021-06-07 08:00:00 77 mm[Hg] [facility] Patient [facility] Oxygen saturation by 2021-06-07 07:00:00 97 /min [facility] Pulse oximetry Patient [facility] BP Diastolic 2021-06-07 07:00:00 66 mm[Hg] [facility] Patient [facility] Oxygen saturation by 2021-06-07 06:00:00 97 /min [facility] Pulse oximetry Patient [facility] BP Diastolic 2021-06-07 06:00:00 58 mm[Hg] [facility] Heart Rate 2021-06-07 05:39:00 129 /min [facility] Patient [facility] Oxygen saturation by 2021-06-07 05:00:00 97 /min [facility] Pulse oximetry Patient [facility] BP Diastolic 2021-06-07 05:00:00 58 mm[Hg] [facility] Oxygen saturation by 2021-06-07 01:00:00 99 /min [facility] Pulse [facility]ximetry Patient [facility] BP Diastolic 2021-06-07 01:00:00 107 mm[Hg] [facility] Patient [facility] Oxygen saturation by 2021-06-07 00:01:00 98 /min [facility] Pulse oximetry Patient [facility] BP Diastolic 2021-06-07 00:01:00 99 mm[Hg] [facility] Patient [facility] Oxygen saturation by 2021-06-06 23:05:00 98 /min [facility] Pulse oximetry Patient [facility] BP Diastolic 2021-06-06 23:05:00 99 mm[Hg] [facility] Oxygen saturation by 2021-06-06 21:57:00 98 /min [facility] Pulse oximetry Patient [facility] Oxygen saturation by 2021-06-06 21:16:00 98 /min [facility] Pulse oximetry Patient [facility] Oxygen saturation by 2021-06-06 21:00:00 100 /min [facility] Pulse [facility]ximetry Patient [facility] BP Diastolic 2021-06-06 21:00:00 99 mm[Hg] [facility] Oxygen saturation by 2021-06-06 19:05:00 99 /min [facility] Pulse oximetry Patient [facility] Oxygen saturation by 2021-06-06 18:27:00 99 /min [facility] Pulse oximetry Patient [facility] Oxygen saturation by 2021-06-06 17:30:00 99 /min [facility] Pulse oximetry Patient [facility] Oxygen saturation by 2021-06-06 16:15:00 99 /min [facility] Pulse oximetry Patient [facility] Oxygen saturation by 2021-06-06 16:00:00 99 /min [facility] Pulse oximetry Patient [facility] Oxygen saturation by 2021-06-06 15:30:00 99 /min [facility] Pulse oximetry Patient [facility] Oxygen saturation by 2021-06-06 15:18:00 99 /min [facility] Pulse oximetry Patient [facility] BP Diastolic 2021-06-18 12:09:00 60 mm[Hg] [facility] BP Systolic 2021-06-18 12:09:00 90 mm[Hg] [facility] Oxygen saturation by 2021-06-18 12:09:00 99 /min [facility] Pulse [facility]ximetry Patient [facility] Heart Rate 2021-06-18 12:09:00 81 /min [facility] Respiratory rate 2021-06-18 12:09:00 20 /min [facility] Body Temperature 2021-06-18 12:09:00 97.7 [degF] [facility] BP Diastolic 2021-06-18 09:03:00 76 mm[Hg] [facility] BP Systolic 2021-06-18 09:03:00 108 mm[Hg] [facility] Oxygen saturation by 2021-06-18 09:03:00 100 /min [facility] Pulse [facility]ximetry Patient [facility] Heart Rate 2021-06-18 09:03:00 77 /min [facility] Respiratory rate 2021-06-18 09:03:00 18 /min [facility] Body Temperature 2021-06-18 09:03:00 97.7 [degF] [facility] BP Diastolic 2021-06-18 08:08:00 76 mm[Hg] [facility] BP Systolic 2021-06-18 08:08:00 108 mm[Hg] [facility] Oxygen saturation by 2021-06-18 08:08:00 100 /min [facility] Pulse oximetry Patient [facility] Heart Rate 2021-06-18 08:08:00 77 /min [facility] Respiratory rate 2021-06-18 08:08:00 18 /min [facility] Body Temperature 2021-06-18 08:08:00 97.7 [degF] [facility] BP Diastolic 2021-06-18 04:00:00 58 mm[Hg] [facility] BP Systolic 2021-06-18 04:00:00 106 mm[Hg] [facility] Oxygen saturation by 2021-06-18 04:00:00 99 /min [facility] Pulse oximetry Patient [facility] Heart Rate 2021-06-18 04:00:00 74 /min [facility] Respiratory rate 2021-06-18 04:00:00 19 /min [facility] Body Temperature 2021-06-18 04:00:00 97.7 [degF] [facility] BP Diastolic 2021-06-17 20:00:00 56 mm[Hg] [facility] BP Systolic 2021-06-17 20:00:00 96 mm[Hg] [facility] Oxygen saturation by 2021-06-17 20:00:00 100 /min [facility] Pulse oximetry Patient [facility] Heart Rate 2021-06-17 20:00:00 71 /min [facility] Respiratory rate 2021-06-17 20:00:00 18 /min [facility] Body Temperature 2021-06-17 20:00:00 98.0 [degF] [facility] BP Diastolic 2021-06-17 17:34:00 64 mm[Hg] [facility] BP Systolic 2021-06-17 17:34:00 102 mm[Hg] [facility] St [facility] Patient [facility] Oxygen saturation by 2021-06-17 17:34:00 99 /min [facility] Pulse oximetry Patient [facility] Heart Rate 2021-06-17 17:34:00 84 /min [facility] Respiratory rate 2021-06-17 17:34:00 18 /min [facility] Body Temperature 2021-06-17 17:34:00 98.3 [degF] [facility] BP Diastolic 2021-06-17 15:32:00 64 mm[Hg] [facility] BP Systolic 2021-06-17 15:32:00 102 mm[Hg] [facility] Oxygen saturation by 2021-06-17 15:32:00 99 /min [facility] Pulse oximetry Patient [facility] Heart Rate 2021-06-17 15:32:00 84 /min [facility] Respiratory rate 2021-06-17 15:32:00 18 /min [facility] Body Temperature 2021-06-17 15:32:00 98.3 [degF] [facility] BP Diastolic 2021-06-17 11:40:00 71 mm[Hg] [facility] BP Systolic 2021-06-17 11:40:00 132 mm[Hg] [facility] Oxygen saturation by 2021-06-17 11:40:00 96 /min [facility] Pulse oximetry Patient [facility] Heart Rate 2021-06-17 11:40:00 81 /min [facility] Respiratory rate 2021-06-17 11:40:00 18 /min [facility] Body Temperature 2021-06-17 11:40:00 98.5 [degF] [facility] BP Diastolic 2021-06-17 08:09:00 79 mm[Hg] [facility] BP Systolic 2021-06-17 08:09:00 151 mm[Hg] [facility] Oxygen saturation by 2021-06-17 08:09:00 97 /min [facility] Pulse [facility]ximetry Patient [facility] Heart Rate 2021-06-17 08:09:00 90 /min [facility] Respiratory rate 2021-06-17 08:09:00 20 /min [facility] Body Temperature 2021-06-17 08:09:00 98.2 [degF] [facility] BP Diastolic 2021-06-17 04:00:00 80 mm[Hg] [facility] BP Systolic 2021-06-17 04:00:00 146 mm[Hg] [facility] Oxygen saturation by 2021-06-17 04:00:00 98 /min [facility] Patient [facility] Heart Rate 2021-06-17 04:00:00 89 /min [facility] Respiratory rate 2021-06-17 04:00:00 17 /min [facility] Body Temperature 2021-06-17 04:00:00 98.2 [degF] [facility] BP Diastolic 2021-06-17 00:00:00 75 mm[Hg] [facility] BP Systolic 2021-06-17 00:00:00 144 mm[Hg] [facility] Oxygen saturation by 2021-06-17 00:00:00 100 /min [facility] Pulse [facility]ximetry Patient [facility] Heart Rate 2021-06-17 00:00:00 92 /min [facility] Respiratory rate 2021-06-17 00:00:00 18 /min [facility] Body Temperature 2021-06-17 00:00:00 97.3 [degF] [facility] BP Diastolic 2021-06-16 20:00:00 72 mm[Hg] [facility] BP Systolic 2021-06-16 20:00:00 125 mm[Hg] [facility] Oxygen saturation by 2021-06-16 20:00:00 99 /min [facility] Pulse [facility]ximetry Patient [facility] Heart Rate 2021-06-16 20:00:00 77 /min [facility] Respiratory rate 2021-06-16 20:00:00 20 /min [facility] Body Temperature 2021-06-16 20:00:00 98.1 [degF] [facility] BP Diastolic 2021-06-16 16:14:00 72 mm[Hg] [facility] BP Systolic 2021-06-16 16:14:00 126 mm[Hg] [facility] Oxygen saturation by 2021-06-16 16:14:00 99 /min [facility] Pulse oximetry Patient [facility] Heart Rate 2021-06-16 16:14:00 80 /min [facility] St [facility] Patient [facility] Respiratory rate 2021-06-16 16:14:00 20 /min [facility] Body Temperature 2021-06-16 16:14:00 98.7 [degF] [facility] BP Diastolic 2021-06-16 11:29:00 87 mm[Hg] [facility] BP Systolic 2021-06-16 11:29:00 131 mm[Hg] [facility] Oxygen saturation by 2021-06-16 11:29:00 98 /min [facility] Pulse oximetry Patient [facility] Heart Rate 2021-06-16 11:29:00 77 /min [facility] Respiratory rate 2021-06-16 11:29:00 18 /min [facility] Body Temperature 2021-06-16 11:29:00 98.3 [degF] [facility] BP Diastolic 2021-06-16 08:13:00 78 mm[Hg] [facility] BP Systolic 2021-06-16 08:13:00 117 mm[Hg] [facility] Oxygen saturation by 2021-06-16 08:13:00 97 /min [facility] Pulse oximetry Patient [facility] Heart Rate 2021-06-16 08:13:00 84 /min [facility] St [facility] Respiratory rate 2021-06-16 08:13:00 20 /min [facility] Body Temperature 2021-06-16 08:13:00 98.2 [degF] [facility] BP Diastolic 2021-06-16 04:00:00 76 mm[Hg] [facility] BP Systolic 2021-06-16 04:00:00 121 mm[Hg] [facility] Oxygen saturation by 2021-06-16 04:00:00 99 /min [facility] Pulse oximetry Patient [facility] Heart Rate 2021-06-16 04:00:00 87 /min [facility] Respiratory rate 2021-06-16 04:00:00 18 /min [facility] Body Temperature 2021-06-16 04:00:00 98.2 [degF] [facility] BP Diastolic 2021-06-16 00:00:00 77 mm[Hg] [facility] BP Systolic 2021-06-16 00:00:00 130 mm[Hg] [facility] Oxygen saturation by 2021-06-16 00:00:00 99 /min [facility] Pulse oximetry Patient [facility] Heart Rate 2021-06-16 00:00:00 92 /min [facility] Respiratory rate 2021-06-16 00:00:00 18 /min [facility] Body Temperature 2021-06-16 00:00:00 98.5 [degF] [facility] BP Diastolic 2021-06-15 20:00:00 81 mm[Hg] [facility] BP Systolic 2021-06-15 20:00:00 129 mm[Hg] [facility] Oxygen saturation by 2021-06-15 20:00:00 97 /min [facility] Pulse oximetry Patient [facility] Heart Rate 2021-06-15 20:00:00 78 /min [facility] Respiratory rate 2021-06-15 20:00:00 18 /min [facility] Body Temperature 2021-06-15 20:00:00 98.2 [degF] [facility] BP Diastolic 2021-06-15 16:53:00 86 mm[Hg] [facility] BP Systolic 2021-06-15 16:53:00 151 mm[Hg] [facility] St [facility] Patient [facility] Oxygen saturation by 2021-06-15 16:53:00 100 /min [facility] Pulse oximetry Patient [facility] Heart Rate 2021-06-15 16:53:00 82 /min [facility] Respiratory rate 2021-06-15 16:53:00 18 /min [facility] Body Temperature 2021-06-15 16:53:00 98.5 [degF] [facility] BP Diastolic 2021-06-15 12:23:00 95 mm[Hg] [facility] BP Systolic 2021-06-15 12:23:00 146 mm[Hg] [facility] Oxygen saturation by 2021-06-15 12:23:00 99 /min [facility] Pulse oximetry Patient [facility] Heart Rate 2021-06-15 12:23:00 98 /min [facility] Respiratory rate 2021-06-15 12:23:00 20 /min [facility] Body Temperature 2021-06-15 12:23:00 98.6 [degF] [facility] BP Diastolic 2021-06-15 09:52:00 80 mm[Hg] [facility] BP Systolic 2021-06-15 09:52:00 127 mm[Hg] [facility] Oxygen saturation by 2021-06-15 09:52:00 99 /min [facility] Pulse oximetry Patient [facility] Heart Rate 2021-06-15 09:52:00 109 /min [facility] Respiratory rate 2021-06-15 09:52:00 20 /min [facility] Body Temperature 2021-06-15 09:52:00 98.1 [degF] [facility] BP Diastolic 2021-06-15 09:07:00 80 mm[Hg] [facility] BP Systolic 2021-06-15 09:07:00 127 mm[Hg] [facility] Oxygen saturation by 2021-06-15 09:07:00 99 /min [facility] Pulse [facility]ximetry Patient [facility] Heart Rate 2021-06-15 09:07:00 109 /min [facility] Respiratory rate 2021-06-15 09:07:00 20 /min [facility] Body Temperature 2021-06-15 09:07:00 98.1 [degF] [facility] BP Diastolic 2021-06-15 04:00:00 87 mm[Hg] [facility] BP Systolic 2021-06-15 04:00:00 133 mm[Hg] [facility] Oxygen saturation by 2021-06-15 04:00:00 98 /min [facility] Pulse oximetry Patient [facility] Heart Rate 2021-06-15 04:00:00 102 /min [facility] Respiratory rate 2021-06-15 04:00:00 18 /min [facility] Body Temperature 2021-06-15 04:00:00 98.3 [degF] [facility] BP Diastolic 2021-06-15 00:00:00 89 mm[Hg] [facility] BP Systolic 2021-06-15 00:00:00 139 mm[Hg] [facility] Oxygen saturation by 2021-06-15 00:00:00 98 /min [facility] Pulse oximetry Patient [facility] Heart Rate 2021-06-15 00:00:00 128 /min [facility] Respiratory rate 2021-06-15 00:00:00 18 /min [facility] Body Temperature 2021-06-15 00:00:00 98.8 [degF] [facility] Body Temperature 2021-06-14 20:00:00 98.3 [degF] [facility] BP Diastolic 2021-06-14 20:00:00 95 mm[Hg] [facility] BP Systolic 2021-06-14 20:00:00 154 mm[Hg] [facility] Oxygen saturation by 2021-06-14 20:00:00 98 /min [facility] Heart Rate 2021-06-14 20:00:00 103 /min [facility] Patient [facility] Respiratory rate 2021-06-14 20:00:00 18 /min [facility] Patient [facility] BP Diastolic 2021-06-14 18:20:00 96 mm[Hg] [facility] Patient [facility] BP Systolic 2021-06-14 18:20:00 121 mm[Hg] [facility] Patient [facility] Oxygen saturation by 2021-06-14 18:20:00 96 /min [facility] Pulse oximetry Patient [facility] Heart Rate 2021-06-14 18:20:00 84 /min [facility] Respiratory rate 2021-06-14 18:20:00 19 /min [facility] BP Diastolic 2021-06-14 17:20:00 83 mm[Hg] [facility] BP Systolic 2021-06-14 17:20:00 132 mm[Hg] [facility] Oxygen saturation by 2021-06-14 17:20:00 99 /min [facility] Pulse oximetry Patient [facility] Heart Rate 2021-06-14 17:20:00 70 /min [facility] Respiratory rate 2021-06-14 17:20:00 20 /min [facility] BP Diastolic 2021-06-14 16:49:00 95 mm[Hg] [facility] BP Systolic 2021-06-14 16:49:00 145 mm[Hg] [facility] Oxygen saturation by 2021-06-14 16:49:00 99 /min [facility]xim[facility] Heart Rate 2021-06-14 16:49:00 76 /min [facility] Respiratory rate 2021-06-14 16:49:00 17 /min [facility] BP Diastolic 2021-06-14 16:20:00 90 mm[Hg] [facility] BP Systolic 2021-06-14 16:20:00 162 mm[Hg] [facility] Oxygen saturation by 2021-06-14 16:20:00 99 /min [facility] Patient [facility] Heart Rate 2021-06-14 16:20:00 78 /min [facility] Respiratory rate 2021-06-14 16:20:00 16 /min [facility] O[facility] by 2021-06-14 16:06:00 100 /min [facility] Patient [facility] Heart Rate 2021-06-14 16:06:00 73 /min [facility] Patient [facility] Respiratory rate 2021-06-14 16:06:00 18 /min [facility] Patient [facility] BP Diastolic 2021-06-14 15:51:00 98 mm[Hg] [facility] BP Systolic 2021-06-14 15:51:00 165 mm[Hg] [facility] Oxygen saturation by 2021-06-14 15:51:00 100 /min [facility] P[facility] Heart Rate 2021-06-14 15:51:00 77 /min [facility] Respiratory rate 2021-06-14 15:51:00 16 /min [facility] BP Diastolic 2021-06-14 15:36:00 84 mm[Hg] [facility] BP Systolic 2021-06-14 15:36:00 152 mm[Hg] [facility] Oxygen saturation by 2021-06-14 15:36:00 98 /min [facility] Pulse [facility] Patient [facility] Heart Rate 2021-06-14 15:36:00 79 /min [facility] Respiratory rate 2021-06-14 15:36:00 18 /min [facility] BP Diastolic 2021-06-14 15:20:00 81 mm[Hg] [facility] BP Systolic 2021-06-14 15:20:00 141 mm[Hg] [facility] Oxygen saturation by 2021-06-14 15:20:00 100 /min [facility] Pulse [facility]ximetry Patient [facility] Heart Rate 2021-06-14 15:20:00 78 /min [facility] Respiratory rate 2021-06-14 15:20:00 14 /min [facility] BP Diastolic 2021-06-14 11:57:00 78 mm[Hg] [facility] BP Systolic 2021-06-14 11:57:00 136 mm[Hg] [facility] Oxygen saturation by 2021-06-14 11:57:00 99 /min [facility] Pulse oximetry Patient [facility] Heart Rate 2021-06-14 11:57:00 80 /min [facility] Respiratory rate 2021-06-14 11:57:00 18 /min [facility] Body Temperature 2021-06-14 11:57:00 98.1 [degF] [facility] BP Diastolic 2021-06-14 08:59:00 84 mm[Hg] [facility] BP Systolic 2021-06-14 08:59:00 121 mm[Hg] [facility] Oxygen saturation by 2021-06-14 08:59:00 98 /min [facility] Pulse oximetry Patient [facility] Heart Rate 2021-06-14 08:59:00 90 /min [facility] Respiratory rate 2021-06-14 08:59:00 18 /min [facility] Body Temperature 2021-06-14 08:59:00 98.5 [degF] [facility] BP Diastolic 2021-06-14 08:36:00 84 mm[Hg] [facility] BP Systolic 2021-06-14 08:36:00 121 mm[Hg] [facility] Oxygen saturation by 2021-06-14 08:36:00 98 /min [facility] Pulse oximetry Patient [facility] Heart Rate 2021-06-14 08:36:00 90 /min [facility] Respiratory rate 2021-06-14 08:36:00 18 /min [facility] Body Temperature 2021-06-14 08:36:00 98.5 [degF] [facility] BP Systolic 2021-06-14 04:00:00 150 mm[Hg] [facility] Oxygen saturation by 2021-06-14 04:00:00 100 /min [facility] Pulse oximetry Patient [facility] Heart Rate 2021-06-14 04:00:00 93 /min [facility] Respiratory rate 2021-06-14 04:00:00 18 /min [facility] Body Temperature 2021-06-14 04:00:00 98.1 [degF] [facility] BP Diastolic 2021-06-14 04:00:00 94 mm[Hg] [facility] BP Diastolic 2021-06-14 00:00:00 90 mm[Hg] [facility] BP Systolic 2021-06-14 00:00:00 147 mm[Hg] [facility] Oxygen saturation by 2021-06-14 00:00:00 98 /min [facility] Pulse oximetry Patient [facility] Heart Rate 2021-06-14 00:00:00 80 /min [facility] Respiratory rate 2021-06-14 00:00:00 18 /min [facility] Body Temperature 2021-06-14 00:00:00 98.3 [degF] [facility] BP Diastolic 2021-06-13 20:00:00 75 mm[Hg] [facility] BP Systolic 2021-06-13 20:00:00 131 mm[Hg] [facility] Oxygen saturation by 2021-06-13 20:00:00 98 /min [facility] Pulse oximetry Patient [facility] Heart Rate 2021-06-13 20:00:00 78 /min [facility] Respiratory rate 2021-06-13 20:00:00 18 /min [facility] Body Temperature 2021-06-13 20:00:00 98.5 [degF] [facility] BP Diastolic 2021-06-13 15:21:00 68 mm[Hg] [facility] BP Systolic 2021-06-13 15:21:00 116 mm[Hg] [facility] Oxygen saturation by 2021-06-13 15:21:00 98 /min [facility] Pulse [facility] Patient [facility] Heart Rate 2021-06-13 15:21:00 76 /min [facility] Respiratory rate 2021-06-13 15:21:00 18 /min [facility] Body Temperature 2021-06-13 15:21:00 98.6 [degF] [facility] BP Diastolic 2021-06-13 11:39:00 77 mm[Hg] [facility] BP Systolic 2021-06-13 11:39:00 136 mm[Hg] [facility] Oxygen saturation by 2021-06-13 11:39:00 100 /min [facility] P[facility] Patient [facility] Heart Rate 2021-06-13 11:39:00 72 /min [facility] Respiratory rate 2021-06-13 11:39:00 18 /min [facility] Body Temperature 2021-06-13 11:39:00 97.9 [degF] [facility] BP Diastolic 2021-06-13 09:00:00 76 mm[Hg] [facility] BP Systolic 2021-06-13 09:00:00 134 mm[Hg] [facility] Oxygen saturation by 2021-06-13 09:00:00 100 /min [facility] Pulse [facility]xim[facility] Patient [facility] Heart Rate 2021-06-13 09:00:00 75 /min [facility] Respiratory rate 2021-06-13 09:00:00 18 /min [facility] Body Temperature 2021-06-13 09:00:00 98.4 [degF] [facility] BP Diastolic 2021-06-13 08:08:00 76 mm[Hg] [facility] BP Systolic 2021-06-13 08:08:00 134 mm[Hg] [facility] Oxygen saturation by 2021-06-13 08:08:00 100 /min [facility] Pulse [facility]ximetry Patient [facility] Heart Rate 2021-06-13 08:08:00 75 /min [facility] Respiratory rate 2021-06-13 08:08:00 18 /min [facility] Body Temperature 2021-06-13 08:08:00 98.4 [degF] [facility] BP Diastolic 2021-06-13 04:00:00 86 mm[Hg] [facility] BP Systolic 2021-06-13 04:00:00 140 mm[Hg] [facility] Oxygen saturation by 2021-06-13 04:00:00 100 /min [facility] Pulse oximetry Patient [facility] Heart Rate 2021-06-13 04:00:00 73 /min [facility] Respiratory rate 2021-06-13 04:00:00 20 /min [facility] Body Temperature 2021-06-13 04:00:00 98.8 [degF] [facility] BP Diastolic 2021-06-13 00:00:00 76 mm[Hg] [facility] BP Systolic 2021-06-13 00:00:00 136 mm[Hg] [facility] Oxygen saturation by 2021-06-13 00:00:00 99 /min [facility] Pulse [facility]ximetry Patient [facility] Heart Rate 2021-06-13 00:00:00 81 /min [facility] Respiratory rate 2021-06-13 00:00:00 18 /min [facility] Body Temperature 2021-06-13 00:00:00 98.4 [degF] [facility] Oxygen saturation by 2021-06-12 20:45:00 97 /min [facility] Pulse oximetry Patient [facility] Heart Rate 2021-06-12 20:45:00 88 /min [facility] BP Diastolic 2021-06-12 20:00:00 79 mm[Hg] [facility] BP Systolic 2021-06-12 20:00:00 128 mm[Hg] [facility] Oxygen saturation by 2021-06-12 20:00:00 97 /min [facility] Pulse [facility]ximetry Patient [facility] Heart Rate 2021-06-12 20:00:00 80 /min [facility] Respiratory rate 2021-06-12 20:00:00 20 /min [facility] Body Temperature 2021-06-12 20:00:00 98.4 [degF] [facility] BP Diastolic 2021-06-12 15:28:00 80 mm[Hg] [facility] BP Systolic 2021-06-12 15:28:00 121 mm[Hg] [facility] Oxygen saturation by 2021-06-12 15:28:00 97 /min [facility] Pulse oximetry Patient [facility] Heart Rate 2021-06-12 15:28:00 82 /min [facility] Respiratory rate 2021-06-12 15:28:00 20 /min [facility] Body Temperature 2021-06-12 15:28:00 98.3 [degF] [facility] Oxygen saturation by 2021-06-12 12:03:00 98 /min [facility] Pulse oximetry Patient [facility] Heart Rate 2021-06-12 12:03:00 79 /min [facility] Respiratory rate 2021-06-12 12:03:00 18 /min [facility] BP Diastolic 2021-06-12 11:10:00 81 mm[Hg] [facility] BP Systolic 2021-06-12 11:10:00 133 mm[Hg] [facility] Oxygen saturation by 2021-06-12 11:10:00 99 /min [facility] Pulse oximetry Patient [facility] Heart Rate 2021-06-12 11:10:00 86 /min [facility] Respiratory rate 2021-06-12 11:10:00 18 /min [facility] Body Temperature 2021-06-12 11:10:00 98.3 [degF] [facility] BP Diastolic 2021-06-12 08:45:00 74 mm[Hg] [facility] BP Systolic 2021-06-12 08:45:00 120 mm[Hg] [facility] Oxygen saturation by 2021-06-12 08:45:00 97 /min [facility] Pulse [facility]ximetry Patient [facility] Heart Rate 2021-06-12 08:45:00 85 /min [facility] Respiratory rate 2021-06-12 08:45:00 16 /min [facility] Body Temperature 2021-06-12 08:45:00 98.1 [degF] [facility] BP Diastolic 2021-06-12 08:03:00 74 mm[Hg] [facility] BP Systolic 2021-06-12 08:03:00 120 mm[Hg] [facility] Oxygen saturation by 2021-06-12 08:03:00 97 /min [facility] Pulse oximetry Patient [facility] Heart Rate 2021-06-12 08:03:00 85 /min [facility] Respiratory rate 2021-06-12 08:03:00 16 /min [facility] Body Temperature 2021-06-12 08:03:00 98.1 [degF] [facility] BP Diastolic 2021-06-12 06:00:00 78 mm[Hg] [facility] BP Systolic 2021-06-12 06:00:00 151 mm[Hg] [facility] Oxygen saturation by 2021-06-12 06:00:00 97 /min [facility] Patient [facility] Heart Rate 2021-06-12 06:00:00 85 /min [facility] Respiratory rate 2021-06-12 06:00:00 18 /min [facility] Body Temperature 2021-06-12 06:00:00 98.6 [degF] [facility] BP Diastolic 2021-06-12 00:18:00 78 mm[Hg] [facility] BP Systolic 2021-06-12 00:18:00 136 mm[Hg] [facility] Oxygen saturation by 2021-06-12 00:18:00 99 /min [facility] Patient [facility] Heart Rate 2021-06-12 00:18:00 81 /min [facility] Respiratory rate 2021-06-12 00:18:00 18 /min [facility] Body Temperature 2021-06-12 00:18:00 98.5 [degF] [facility] BP Diastolic 2021-06-12 00:03:00 74 mm[Hg] [facility] BP Systolic 2021-06-12 00:03:00 117 mm[Hg] [facility] Oxygen saturation by 2021-06-12 00:03:00 97 /min [facility] Pulse oximetry Patient [facility] Heart Rate 2021-06-12 00:03:00 76 /min [facility] Respiratory rate 2021-06-12 00:03:00 19 /min [facility] Body Temperature 2021-06-12 00:03:00 98.9 [degF] [facility] BP Diastolic 2021-06-11 20:29:00 74 mm[Hg] [facility] BP Systolic 2021-06-11 20:29:00 117 mm[Hg] [facility] Oxygen saturation by 2021-06-11 20:29:00 97 /min [facility] Pulse oximetry Patient [facility] Heart Rate 2021-06-11 20:29:00 76 /min [facility] Respiratory rate 2021-06-11 20:29:00 19 /min [facility] Body Temperature 2021-06-11 20:29:00 98.9 [degF] [facility] Oxygen saturation by 2021-06-11 19:25:00 97 /min [facility] Pulse oximetry Patient [facility] Heart Rate 2021-06-11 19:25:00 82 /min [facility] Respiratory rate 2021-06-11 19:25:00 18 /min [facility] BP Diastolic 2021-06-11 15:08:00 77 mm[Hg] [facility] BP Systolic 2021-06-11 15:08:00 149 mm[Hg] [facility] Oxygen saturation by 2021-06-11 15:08:00 100 /min [facility] Pulse [facility]ximetry Patient [facility] Heart Rate 2021-06-11 15:08:00 81 /min [facility] Respiratory rate 2021-06-11 15:08:00 19 /min [facility] Body Temperature 2021-06-11 15:08:00 98.4 [degF] [facility] BP Diastolic 2021-06-11 14:36:00 68 mm[Hg] [facility] BP Systolic 2021-06-11 14:36:00 111 mm[Hg] [facility] Oxygen saturation by 2021-06-11 14:36:00 98 /min [facility] Pulse oximetry Patient [facility] Heart Rate 2021-06-11 14:36:00 66 /min [facility] Respiratory rate 2021-06-11 14:36:00 18 /min [facility] Body Temperature 2021-06-11 14:36:00 98.1 [degF] [facility] BP Diastolic 2021-06-11 11:24:00 79 mm[Hg] [facility] BP Systolic 2021-06-11 11:24:00 135 mm[Hg] [facility] Oxygen saturation by 2021-06-11 11:24:00 100 /min [facility] Pulse oximetry Patient [facility] Heart Rate 2021-06-11 11:24:00 66 /min [facility] Respiratory rate 2021-06-11 11:24:00 18 /min [facility] Body Temperature 2021-06-11 11:24:00 98.2 [degF] [facility] BP Diastolic 2021-06-11 08:31:00 68 mm[Hg] [facility] BP Systolic 2021-06-11 08:31:00 111 mm[Hg] [facility] Oxygen saturation by 2021-06-11 08:31:00 98 /min [facility] Patient [facility] Heart Rate 2021-06-11 08:31:00 66 /min [facility] Respiratory rate 2021-06-11 08:31:00 18 /min [facility] Body Temperature 2021-06-11 08:31:00 98.1 [degF] [facility] BP Diastolic 2021-06-11 08:08:00 68 mm[Hg] [facility] BP Systolic 2021-06-11 08:08:00 111 mm[Hg] [facility] Oxygen saturation by 2021-06-11 08:08:00 98 /min [facility] Pulse oximetry Patient [facility] Heart Rate 2021-06-11 08:08:00 66 /min [facility] Respiratory rate 2021-06-11 08:08:00 18 /min [facility] Body Temperature 2021-06-11 08:08:00 98.1 [degF] [facility] BP Diastolic 2021-06-11 06:09:00 87 mm[Hg] [facility] BP Systolic 2021-06-11 06:09:00 133 mm[Hg] [facility] Heart Rate 2021-06-11 06:09:00 81 /min [facility] Respiratory rate 2021-06-11 06:09:00 18 /min [facility] BP Diastolic 2021-06-11 04:00:00 69 mm[Hg] [facility] BP Systolic 2021-06-11 04:00:00 97 mm[Hg] [facility] Oxygen saturation by 2021-06-11 04:00:00 98 /min [facility] Pulse oximetry Patient [facility] Heart Rate 2021-06-11 04:00:00 67 /min [facility] Respiratory rate 2021-06-11 04:00:00 18 /min [facility] Body Temperature 2021-06-11 04:00:00 97.8 [degF] [facility] BP Diastolic 2021-06-11 02:00:00 70 mm[Hg] [facility] BP Systolic 2021-06-11 02:00:00 110 mm[Hg] [facility] Heart Rate 2021-06-11 02:00:00 70 /min [facility] Respiratory rate 2021-06-11 02:00:00 18 /min [facility] BP Diastolic 2021-06-11 00:00:00 53 mm[Hg] [facility] BP Systolic 2021-06-11 00:00:00 93 mm[Hg] [facility] Oxygen saturation by 2021-06-11 00:00:00 98 /min [facility] Pulse oximetry Patient [facility] Heart Rate 2021-06-11 00:00:00 74 /min [facility] Respiratory rate 2021-06-11 00:00:00 18 /min [facility] Body Temperature 2021-06-11 00:00:00 98.6 [degF] [facility] BP Diastolic 2021-06-10 21:58:00 69 mm[Hg] [facility] BP Systolic 2021-06-10 21:58:00 116 mm[Hg] [facility] Oxygen saturation by 2021-06-10 21:58:00 98 /min [facility] Pulse oximetry Patient [facility] Heart Rate 2021-06-10 21:58:00 76 /min [facility] Respiratory rate 2021-06-10 21:58:00 18 /min [facility] Body Temperature 2021-06-10 21:58:00 98.3 [degF] [facility] Oxygen saturation by 2021-06-10 20:15:00 98 /min [facility] Pulse oximetry Patient [facility] Heart Rate 2021-06-10 20:15:00 92 /min [facility] Respiratory rate 2021-06-10 20:15:00 18 /min [facility] BP Diastolic 2021-06-10 20:00:00 69 mm[Hg] [facility] BP Systolic 2021-06-10 20:00:00 116 mm[Hg] [facility] Oxygen saturation by 2021-06-10 20:00:00 98 /min [facility] Pulse oximetry Patient [facility] Heart Rate 2021-06-10 20:00:00 76 /min [facility] Respiratory rate 2021-06-10 20:00:00 18 /min [facility] Body Temperature 2021-06-10 20:00:00 98.3 [degF] [facility] BP Diastolic 2021-06-10 18:37:00 81 mm[Hg] [facility] BP Systolic 2021-06-10 18:37:00 93 mm[Hg] [facility] Oxygen saturation by 2021-06-10 18:37:00 100 /min [facility] Pulse oximetry Patient [facility] Respiratory rate 2021-06-10 18:37:00 19 /min [facility] Body Temperature 2021-06-10 18:37:00 97.7 [degF] [facility] BP Diastolic 2021-06-10 17:49:00 81 mm[Hg] [facility] BP Systolic 2021-06-10 17:49:00 93 mm[Hg] [facility] Oxygen saturation by 2021-06-10 17:49:00 100 /min [facility] Pulse oximetry Patient [facility] Respiratory rate 2021-06-10 17:49:00 19 /min [facility] Body Temperature 2021-06-10 17:49:00 97.7 [degF] [facility] BP Diastolic 2021-06-10 16:50:00 81 mm[Hg] [facility] BP Systolic 2021-06-10 16:50:00 93 mm[Hg] [facility] Oxygen saturation by 2021-06-10 16:50:00 100 /min [facility] Pulse oximetry Patient [facility] Heart Rate 2021-06-10 16:50:00 80 /min [facility] Respiratory rate 2021-06-10 16:50:00 19 /min [facility] Body Temperature 2021-06-10 16:50:00 97.7 [degF] [facility] BP Diastolic 2021-06-10 15:45:00 50 mm[Hg] [facility] BP Systolic 2021-06-10 15:45:00 100 mm[Hg] [facility] Oxygen saturation by 2021-06-10 15:45:00 98 /min [facility] Pulse oximetry Patient [facility] Heart Rate 2021-06-10 15:45:00 88 /min [facility] Respiratory rate 2021-06-10 15:45:00 18 /min [facility] BP Diastolic 2021-06-10 15:35:00 50 mm[Hg] [facility] BP Systolic 2021-06-10 15:35:00 83 mm[Hg] [facility] Oxygen saturation by 2021-06-10 15:35:00 98 /min [facility] Pulse oximetry Patient [facility] Heart Rate 2021-06-10 15:35:00 88 /min [facility] Respiratory rate 2021-06-10 15:35:00 18 /min [facility] BP Diastolic 2021-06-10 15:25:00 49 mm[Hg] [facility] BP Systolic 2021-06-10 15:25:00 82 mm[Hg] [facility] Oxygen saturation by 2021-06-10 15:25:00 98 /min [facility] Pulse oximetry Patient [facility] Heart Rate 2021-06-10 15:25:00 89 /min [facility] Respiratory rate 2021-06-10 15:25:00 16 /min [facility] Body Temperature 2021-06-10 15:25:00 96.6 [degF] [facility] BP Diastolic 2021-06-10 13:34:00 63 mm[Hg] [facility] BP Systolic 2021-06-10 13:34:00 117 mm[Hg] [facility] Oxygen saturation by 2021-06-10 13:34:00 98 /min [facility] Pulse oximetry Patient [facility] Heart Rate 2021-06-10 13:34:00 72 /min [facility] Respiratory rate 2021-06-10 13:34:00 20 /min [facility] BP Diastolic 2021-06-10 10:00:00 69 mm[Hg] [facility] BP Systolic 2021-06-10 10:00:00 116 mm[Hg] [facility] Oxygen saturation by 2021-06-10 10:00:00 98 /min [facility] Pulse oximetry Patient [facility] Heart Rate 2021-06-10 10:00:00 72 /min [facility] Respiratory rate 2021-06-10 10:00:00 17 /min [facility] BP Diastolic 2021-06-10 09:00:00 67 mm[Hg] [facility] BP Systolic 2021-06-10 09:00:00 117 mm[Hg] [facility] Oxygen saturation by 2021-06-10 09:00:00 97 /min [facility] Pulse oximetry Patient [facility] Heart Rate 2021-06-10 09:00:00 73 /min [facility] Respiratory rate 2021-06-10 09:00:00 19 /min [facility] BP Diastolic 2021-06-10 07:21:00 88 mm[Hg] [facility] BP Systolic 2021-06-10 07:21:00 126 mm[Hg] [facility] Oxygen saturation by 2021-06-10 07:21:00 96 /min [facility] Pulse oximetry Patient [facility] Heart Rate 2021-06-10 07:21:00 88 /min [facility] Respiratory rate 2021-06-10 07:21:00 17 /min [facility] Body Temperature 2021-06-10 07:21:00 97.8 [degF] [facility] BP Diastolic 2021-06-10 07:20:00 88 mm[Hg] [facility] BP Systolic 2021-06-10 07:20:00 126 mm[Hg] [facility] Patient [facility] Oxygen saturation by 2021-06-10 07:20:00 96 /min [facility] Pulse oximetry Patient [facility] Heart Rate 2021-06-10 07:20:00 88 /min [facility] Respiratory rate 2021-06-10 07:20:00 17 /min [facility] Body Temperature 2021-06-10 07:20:00 97.8 [degF] [facility] Oxygen saturation by 2021-06-10 06:30:00 95 /min [facility] Pulse oximetry Patient [facility] Heart Rate 2021-06-10 06:30:00 82 /min [facility] Respiratory rate 2021-06-10 06:30:00 16 /min [facility] BP Diastolic 2021-06-10 06:00:00 72 mm[Hg] [facility] BP Systolic 2021-06-10 06:00:00 128 mm[Hg] [facility] Oxygen saturation by 2021-06-10 06:00:00 97 /min [facility] Pulse oximetry Patient [facility] Heart Rate 2021-06-10 06:00:00 71 /min [facility] Respiratory rate 2021-06-10 06:00:00 16 /min [facility] BP Diastolic 2021-06-10 05:00:00 104 mm[Hg] [facility] BP Systolic 2021-06-10 05:00:00 139 mm[Hg] [facility] Oxygen saturation by 2021-06-10 05:00:00 96 /min [facility] Pulse oximetry Patient [facility] Heart Rate 2021-06-10 05:00:00 69 /min [facility] Respiratory rate 2021-06-10 05:00:00 16 /min [facility] BP Diastolic 2021-06-10 04:00:00 75 mm[Hg] [facility] BP Systolic 2021-06-10 04:00:00 122 mm[Hg] [facility] Oxygen saturation by 2021-06-10 04:00:00 96 /min [facility] Pulse oximetry Patient [facility] Heart Rate 2021-06-10 04:00:00 71 /min [facility] Respiratory rate 2021-06-10 04:00:00 16 /min [facility] BP Diastolic 2021-06-10 03:00:00 79 mm[Hg] [facility] BP Systolic 2021-06-10 03:00:00 113 mm[Hg] [facility] Oxygen saturation by 2021-06-10 03:00:00 96 /min [facility] Pulse oximetry Patient [facility] Heart Rate 2021-06-10 03:00:00 76 /min [facility] Respiratory rate 2021-06-10 03:00:00 22 /min [facility] BP Diastolic 2021-06-10 02:00:00 78 mm[Hg] [facility] BP Systolic 2021-06-10 02:00:00 124 mm[Hg] [facility] Oxygen saturation by 2021-06-10 02:00:00 94 /min [facility] Pulse oximetry Patient [facility] Heart Rate 2021-06-10 02:00:00 91 /min [facility] Respiratory rate 2021-06-10 02:00:00 22 /min [facility] BP Diastolic 2021-06-10 01:00:00 80 mm[Hg] [facility] BP Systolic 2021-06-10 01:00:00 116 mm[Hg] [facility] Oxygen saturation by 2021-06-10 01:00:00 96 /min [facility] Pulse oximetry Patient [facility] Heart Rate 2021-06-10 01:00:00 80 /min [facility] Respiratory rate 2021-06-10 01:00:00 24 /min [facility] BP Diastolic 2021-06-10 00:00:00 74 mm[Hg] [facility] BP Systolic 2021-06-10 00:00:00 126 mm[Hg] [facility] Oxygen saturation by 2021-06-10 00:00:00 94 /min [facility] Pulse oximetry Patient [facility] Heart Rate 2021-06-10 00:00:00 80 /min [facility] Respiratory rate 2021-06-10 00:00:00 18 /min [facility] BP Diastolic 2021-06-09 23:00:00 70 mm[Hg] [facility] BP Systolic 2021-06-09 23:00:00 110 mm[Hg] [facility] Oxygen saturation by 2021-06-09 23:00:00 93 /min [facility] Pulse oximetry Patient [facility] Heart Rate 2021-06-09 23:00:00 82 /min [facility] Respiratory rate 2021-06-09 23:00:00 22 /min [facility] BP Diastolic 2021-06-09 22:00:00 66 mm[Hg] [facility] BP Systolic 2021-06-09 22:00:00 113 mm[Hg] [facility] Oxygen saturation by 2021-06-09 22:00:00 93 /min [facility] Pulse oximetry Patient [facility] Heart Rate 2021-06-09 22:00:00 86 /min [facility] Respiratory rate 2021-06-09 22:00:00 24 /min [facility] BP Diastolic 2021-06-09 21:00:00 66 mm[Hg] [facility] BP Systolic 2021-06-09 21:00:00 120 mm[Hg] [facility] Oxygen saturation by 2021-06-09 21:00:00 93 /min [facility] Pulse oximetry Patient [facility] Heart Rate 2021-06-09 21:00:00 91 /min [facility] Respiratory rate 2021-06-09 21:00:00 20 /min [facility] BP Diastolic 2021-06-09 20:00:00 81 mm[Hg] [facility] BP Systolic 2021-06-09 20:00:00 131 mm[Hg] [facility] Patient [facility] Oxygen saturation by 2021-06-09 20:00:00 96 /min [facility] Pulse oximetry Patient [facility] Heart Rate 2021-06-09 20:00:00 93 /min [facility] Respiratory rate 2021-06-09 20:00:00 25 /min [facility] Body Temperature 2021-06-09 20:00:00 99.3 [degF] [facility] Oxygen saturation by 2021-06-09 19:35:00 93 /min [facility] Pulse oximetry Patient [facility] Heart Rate 2021-06-09 19:35:00 88 /min [facility] Respiratory rate 2021-06-09 19:35:00 16 /min [facility] BP Diastolic 2021-06-09 19:00:00 83 mm[Hg] [facility] BP Systolic 2021-06-09 19:00:00 119 mm[Hg] [facility] Oxygen saturation by 2021-06-09 19:00:00 94 /min [facility] Pulse oximetry Patient [facility] Heart Rate 2021-06-09 19:00:00 96 /min [facility] Respiratory rate 2021-06-09 19:00:00 22 /min [facility] BP Diastolic 2021-06-09 18:24:00 83 mm[Hg] [facility] BP Systolic 2021-06-09 18:24:00 129 mm[Hg] [facility] Oxygen saturation by 2021-06-09 18:24:00 97 /min [facility] Pulse oximetry Patient [facility] Heart Rate 2021-06-09 18:24:00 96 /min [facility] Respiratory rate 2021-06-09 18:24:00 22 /min [facility] BP Diastolic 2021-06-09 17:00:00 79 mm[Hg] [facility] BP Systolic 2021-06-09 17:00:00 148 mm[Hg] [facility] Oxygen saturation by 2021-06-09 17:00:00 96 /min [facility] Pulse oximetry Patient [facility] Heart Rate 2021-06-09 17:00:00 90 /min [facility] 2021-06-09 17:00:00 22 /min [facility] BP Diastolic 2021-06-09 15:00:00 89 mm[Hg] [facility] BP Systolic 2021-06-09 15:00:00 113 mm[Hg] [facility] Oxygen saturation by 2021-06-09 15:00:00 96 /min [facility] Pulse oximetry Patient [facility] Heart Rate 2021-06-09 15:00:00 91 /min [facility] Respiratory rate 2021-06-09 15:00:00 21 /min [facility] BP Diastolic 2021-06-09 14:00:00 89 mm[Hg] [facility] BP Systolic 2021-06-09 14:00:00 119 mm[Hg] [facility] Oxygen saturation by 2021-06-09 14:00:00 96 /min [facility] Pulse oximetry Patient [facility] Heart Rate 2021-06-09 14:00:00 98 /min [facility] Respiratory rate 2021-06-09 14:00:00 20 /min [facility] BP Diastolic 2021-06-09 12:00:00 91 mm[Hg] [facility] BP Systolic 2021-06-09 12:00:00 149 mm[Hg] [facility] Oxygen saturation by 2021-06-09 12:00:00 97 /min [facility] Pulse oximetry Patient [facility] Heart Rate 2021-06-09 12:00:00 87 /min [facility] Respiratory rate 2021-06-09 12:00:00 12 /min [facility] BP Diastolic 2021-06-09 11:21:00 93 mm[Hg] [facility] BP Systolic 2021-06-09 11:21:00 127 mm[Hg] [facility] Oxygen saturation by 2021-06-09 11:21:00 98 /min [facility] Pulse oximetry Patient [facility] Heart Rate 2021-06-09 11:21:00 81 /min [facility] Respiratory rate 2021-06-09 11:21:00 19 /min [facility] Body Temperature 2021-06-09 11:21:00 99.3 [degF] [facility] BP Diastolic 2021-06-09 09:00:00 87 mm[Hg] [facility] BP Systolic 2021-06-09 09:00:00 114 mm[Hg] [facility] Oxygen saturation by 2021-06-09 09:00:00 99 /min [facility] Pulse oximetry Patient [facility] Respiratory rate 2021-06-09 09:00:00 19 /min [facility] Body Temperature 2021-06-09 09:00:00 98.2 [degF] [facility] BP Diastolic 2021-06-09 08:23:00 72 mm[Hg] [facility] BP Systolic 2021-06-09 08:23:00 110 mm[Hg] [facility] Oxygen saturation by 2021-06-09 08:23:00 97 /min [facility] Pulse oximetry Patient [facility] Heart Rate 2021-06-09 08:23:00 91 /min [facility] Respiratory rate 2021-06-09 08:23:00 22 /min [facility] Body Temperature 2021-06-09 08:23:00 98.8 [degF] [facility] BP Diastolic 2021-06-09 08:00:00 72 mm[Hg] [facility] BP Systolic 2021-06-09 08:00:00 110 mm[Hg] [facility] Oxygen saturation by 2021-06-09 08:00:00 97 /min [facility] Pulse oximetry Patient [facility] Heart Rate 2021-06-09 08:00:00 91 /min [facility] Respiratory rate 2021-06-09 08:00:00 22 /min [facility] BP Diastolic 2021-06-09 07:00:00 88 mm[Hg] [facility] BP Systolic 2021-06-09 07:00:00 138 mm[Hg] [facility] Oxygen saturation by 2021-06-09 07:00:00 93 /min [facility] Pulse oximetry Patient [facility] Heart Rate 2021-06-09 07:00:00 87 /min [facility] Respiratory rate 2021-06-09 07:00:00 15 /min [facility] Body Temperature 2021-06-09 07:00:00 98.8 [degF] [facility] Oxygen saturation by 2021-06-09 06:55:00 95 /min [facility] Pulse oximetry Patient [facility] Heart Rate 2021-06-09 06:55:00 97 /min [facility] Respiratory rate 2021-06-09 06:55:00 18 /min [facility] BP Diastolic 2021-06-09 06:00:00 82 mm[Hg] [facility] BP Systolic 2021-06-09 06:00:00 112 mm[Hg] [facility] Oxygen saturation by 2021-06-09 06:00:00 94 /min [facility] Pulse oximetry Patient [facility] Heart Rate 2021-06-09 06:00:00 89 /min [facility] Respiratory rate 2021-06-09 06:00:00 14 /min [facility] BP Diastolic 2021-06-09 05:00:00 82 mm[Hg] [facility] BP Systolic 2021-06-09 05:00:00 153 mm[Hg] [facility] Oxygen saturation by 2021-06-09 05:00:00 96 /min [facility] Pulse oximetry Patient [facility] Heart Rate 2021-06-09 05:00:00 88 /min [facility] Respiratory rate 2021-06-09 05:00:00 17 /min [facility] BP Diastolic 2021-06-09 04:00:00 87 mm[Hg] [facility] BP Systolic 2021-06-09 04:00:00 131 mm[Hg] [facility] Oxygen saturation by 2021-06-09 04:00:00 100 /min [facility] Pulse oximetry Patient [facility] Heart Rate 2021-06-09 04:00:00 85 /min [facility] Respiratory rate 2021-06-09 04:00:00 17 /min [facility] Body Temperature 2021-06-09 04:00:00 98.4 [degF] [facility] BP Diastolic 2021-06-09 03:00:00 63 mm[Hg] [facility] BP Systolic 2021-06-09 03:00:00 102 mm[Hg] [facility] Oxygen saturation by 2021-06-09 03:00:00 94 /min [facility] Pulse oximetry Patient [facility] Heart Rate 2021-06-09 03:00:00 90 /min [facility] Respiratory rate 2021-06-09 03:00:00 16 /min [facility] BP Diastolic 2021-06-09 02:00:00 72 mm[Hg] [facility] BP Systolic 2021-06-09 02:00:00 108 mm[Hg] [facility] Oxygen saturation by 2021-06-09 02:00:00 96 /min [facility] Pulse oximetry Patient [facility] Heart Rate 2021-06-09 02:00:00 99 /min [facility] Respiratory rate 2021-06-09 02:00:00 16 /min [facility] BP Diastolic 2021-06-09 01:22:00 100 mm[Hg] [facility] BP Systolic 2021-06-09 01:22:00 142 mm[Hg] [facility] Oxygen saturation by 2021-06-09 01:22:00 95 /min [facility] Pulse oximetry Patient [facility] Heart Rate 2021-06-09 01:22:00 105 /min [facility] Respiratory rate 2021-06-09 01:22:00 26 /min [facility] BP Diastolic 2021-06-09 00:00:00 114 mm[Hg] [facility] BP Systolic 2021-06-09 00:00:00 125 mm[Hg] [facility] Oxygen saturation by 2021-06-09 00:00:00 100 /min [facility] Pulse oximetry Patient [facility] Heart Rate 2021-06-09 00:00:00 98 /min [facility] Respiratory rate 2021-06-09 00:00:00 17 /min [facility] Body Temperature 2021-06-09 00:00:00 99.2 [degF] [facility] Oxygen saturation by 2021-06-08 23:00:00 100 /min [facility] Pulse oximetry Patient [facility] Heart Rate 2021-06-08 23:00:00 90 /min [facility] BP Diastolic 2021-06-08 22:00:00 119 mm[Hg] [facility] BP Systolic 2021-06-08 22:00:00 134 mm[Hg] [facility] Oxygen saturation by 2021-06-08 22:00:00 100 /min [facility] Pulse [facility]ximetry Patient [facility] Heart Rate 2021-06-08 22:00:00 88 /min [facility] Respiratory rate 2021-06-08 22:00:00 11 /min [facility] BP Diastolic 2021-06-08 21:00:00 78 mm[Hg] [facility] BP Systolic 2021-06-08 21:00:00 125 mm[Hg] [facility] Oxygen saturation by 2021-06-08 21:00:00 100 /min [facility] Pulse oximetry Patient [facility] Heart Rate 2021-06-08 21:00:00 82 /min [facility] Respiratory rate 2021-06-08 21:00:00 16 /min [facility] BP Diastolic 2021-06-08 20:52:00 87 mm[Hg] [facility] BP Systolic 2021-06-08 20:52:00 158 mm[Hg] [facility] Oxygen saturation by 2021-06-08 20:52:00 100 /min [facility] Pulse oximetry Patient [facility] Heart Rate 2021-06-08 20:52:00 86 /min [facility] Respiratory rate 2021-06-08 20:52:00 14 /min [facility] Body Temperature 2021-06-08 20:52:00 98.1 [degF] [facility] BP Diastolic 2021-06-08 20:00:00 87 mm[Hg] [facility] BP Systolic 2021-06-08 20:00:00 158 mm[Hg] [facility] Oxygen saturation by 2021-06-08 20:00:00 100 /min [facility] Pulse oximetry Patient [facility] Heart Rate 2021-06-08 20:00:00 95 /min [facility] Respiratory rate 2021-06-08 20:00:00 14 /min [facility] Body Temperature 2021-06-08 20:00:00 98.1 [degF] [facility] Oxygen saturation by 2021-06-08 19:05:00 100 /min [facility] Pulse oximetry Patient [facility] Heart Rate 2021-06-08 19:05:00 81 /min [facility] Respiratory rate 2021-06-08 19:05:00 18 /min [facility] BP Diastolic 2021-06-08 19:00:00 62 mm[Hg] [facility] BP Systolic 2021-06-08 19:00:00 146 mm[Hg] [facility] Oxygen saturation by 2021-06-08 19:00:00 100 /min [facility] Pulse oximetry Patient [facility] Heart Rate 2021-06-08 19:00:00 94 /min [facility] Respiratory rate 2021-06-08 19:00:00 18 /min [facility] BP Diastolic 2021-06-08 18:00:00 93 mm[Hg] [facility] BP Systolic 2021-06-08 18:00:00 147 mm[Hg] [facility] Oxygen saturation by 2021-06-08 18:00:00 100 /min [facility] Pulse oximetry Patient [facility] Heart Rate 2021-06-08 18:00:00 95 /min [facility] Respiratory rate 2021-06-08 18:00:00 20 /min [facility] BP Diastolic 2021-06-08 17:00:00 119 mm[Hg] [facility] BP Systolic 2021-06-08 17:00:00 148 mm[Hg] [facility] Oxygen saturation by 2021-06-08 17:00:00 100 /min [facility] Pulse oximetry Patient [facility] Heart Rate 2021-06-08 17:00:00 98 /min [facility] Respiratory rate 2021-06-08 17:00:00 20 /min [facility] BP Diastolic 2021-06-08 16:00:00 85 mm[Hg] [facility] BP Systolic 2021-06-08 16:00:00 129 mm[Hg] [facility] Oxygen saturation by 2021-06-08 16:00:00 100 /min [facility] Pulse oximetry Patient [facility] Heart Rate 2021-06-08 16:00:00 91 /min [facility] Respiratory rate 2021-06-08 16:00:00 20 /min [facility] BP Diastolic 2021-06-08 15:01:00 102 mm[Hg] [facility] BP Systolic 2021-06-08 15:01:00 121 mm[Hg] [facility] Oxygen saturation by 2021-06-08 15:01:00 100 /min [facility] Pulse oximetry Patient [facility] Heart Rate 2021-06-08 15:01:00 87 /min [facility] Respiratory rate 2021-06-08 15:01:00 20 /min [facility] Body Temperature 2021-06-08 15:01:00 99.0 [degF] [facility] BP Diastolic 2021-06-08 14:00:00 86 mm[Hg] [facility] BP Systolic 2021-06-08 14:00:00 122 mm[Hg] [facility] Oxygen saturation by 2021-06-08 14:00:00 100 /min [facility] Pulse oximetry Patient [facility] Heart Rate 2021-06-08 14:00:00 88 /min [facility] Respiratory rate 2021-06-08 14:00:00 20 /min [facility] BP Diastolic 2021-06-08 13:00:00 92 mm[Hg] [facility] BP Systolic 2021-06-08 13:00:00 134 mm[Hg] [facility] Oxygen saturation by 2021-06-08 13:00:00 99 /min [facility] Pulse oximetry Patient [facility] Heart Rate 2021-06-08 13:00:00 91 /min [facility] Respiratory rate 2021-06-08 13:00:00 20 /min [facility] BP Diastolic 2021-06-08 12:00:00 71 mm[Hg] [facility] BP Systolic 2021-06-08 12:00:00 91 mm[Hg] [facility] Oxygen saturation by 2021-06-08 12:00:00 99 /min [facility] Pulse oximetry Patient [facility] Heart Rate 2021-06-08 12:00:00 94 /min [facility] Respiratory rate 2021-06-08 12:00:00 20 /min [facility] BP Diastolic 2021-06-08 11:00:00 98 mm[Hg] [facility] BP Systolic 2021-06-08 11:00:00 140 mm[Hg] [facility] Oxygen saturation by 2021-06-08 11:00:00 99 /min [facility] Pulse oximetry Patient [facility] Heart Rate 2021-06-08 11:00:00 92 /min [facility] Patient [facility] Respiratory rate 2021-06-08 11:00:00 20 /min [facility] Body Temperature 2021-06-08 11:00:00 98.7 [degF] [facility] BP Diastolic 2021-06-08 10:00:00 97 mm[Hg] [facility] BP Systolic 2021-06-08 10:00:00 127 mm[Hg] [facility] Oxygen saturation by 2021-06-08 10:00:00 100 /min [facility] Pulse oximetry Patient [facility] Heart Rate 2021-06-08 10:00:00 88 /min [facility] Respiratory rate 2021-06-08 10:00:00 20 /min [facility] BP Diastolic 2021-06-08 09:20:00 88 mm[Hg] [facility] BP Systolic 2021-06-08 09:20:00 132 mm[Hg] [facility] Oxygen saturation by 2021-06-08 09:20:00 100 /min [facility] Pulse oximetry Patient [facility] Heart Rate 2021-06-08 09:20:00 98 /min [facility] Respiratory rate 2021-06-08 09:20:00 20 /min [facility] Body Temperature 2021-06-08 09:20:00 99.0 [degF] [facility] BP Diastolic 2021-06-08 09:00:00 88 mm[Hg] [facility] BP Systolic 2021-06-08 09:00:00 132 mm[Hg] [facility] Oxygen saturation by 2021-06-08 09:00:00 100 /min [facility] Pulse oximetry Patient [facility] Heart Rate 2021-06-08 09:00:00 98 /min [facility] Respiratory rate 2021-06-08 09:00:00 20 /min [facility] Oxygen saturation by 2021-06-08 08:20:00 97 /min [facility] Pulse oximetry Patient [facility] Heart Rate 2021-06-08 08:20:00 81 /min [facility] Respiratory rate 2021-06-08 08:20:00 19 /min [facility] BP Diastolic 2021-06-08 08:00:00 88 mm[Hg] [facility] BP Systolic 2021-06-08 08:00:00 116 mm[Hg] [facility] Oxygen saturation by 2021-06-08 08:00:00 100 /min [facility] Pulse oximetry Patient [facility] Heart Rate 2021-06-08 08:00:00 118 /min [facility] Respiratory rate 2021-06-08 08:00:00 20 /min [facility] BP Diastolic 2021-06-08 07:00:00 94 mm[Hg] [facility] BP Systolic 2021-06-08 07:00:00 143 mm[Hg] [facility] Oxygen saturation by 2021-06-08 07:00:00 100 /min [facility] Pulse oximetry Patient [facility] Heart Rate 2021-06-08 07:00:00 99 /min [facility] Respiratory rate 2021-06-08 07:00:00 21 /min [facility] Body Temperature 2021-06-08 07:00:00 99.0 [degF] [facility] BP Diastolic 2021-06-08 06:00:00 107 mm[Hg] [facility] BP Systolic 2021-06-08 06:00:00 148 mm[Hg] [facility] Oxygen saturation by 2021-06-08 06:00:00 100 /min [facility] Pulse oximetry Patient [facility] Heart Rate 2021-06-08 06:00:00 88 /min [facility] Respiratory rate 2021-06-08 06:00:00 14 /min [facility] BP Diastolic 2021-06-08 05:01:00 62 mm[Hg] [facility] BP Systolic 2021-06-08 05:01:00 124 mm[Hg] [facility] Oxygen saturation by 2021-06-08 05:01:00 96 /min [facility] Pulse oximetry Patient [facility] Heart Rate 2021-06-08 05:01:00 83 /min [facility] Respiratory rate 2021-06-08 05:01:00 27 /min [facility] Body Temperature 2021-06-08 05:01:00 98.0 [degF] [facility] BP Diastolic 2021-06-08 05:00:00 95 mm[Hg] [facility] BP Systolic 2021-06-08 05:00:00 132 mm[Hg] [facility] Oxygen saturation by 2021-06-08 05:00:00 100 /min [facility] Pulse oximetry Patient [facility] Heart Rate 2021-06-08 05:00:00 90 /min [facility] Respiratory rate 2021-06-08 05:00:00 14 /min [facility] BP Diastolic 2021-06-08 04:00:00 89 mm[Hg] [facility] BP Systolic 2021-06-08 04:00:00 127 mm[Hg] [facility] Oxygen saturation by 2021-06-08 04:00:00 99 /min [facility] Pulse oximetry Patient [facility] Heart Rate 2021-06-08 04:00:00 90 /min [facility] Respiratory rate 2021-06-08 04:00:00 16 /min [facility] Body Temperature 2021-06-08 04:00:00 98.4 [degF] [facility] BP Diastolic 2021-06-08 03:00:00 83 mm[Hg] [facility] BP Systolic 2021-06-08 03:00:00 146 mm[Hg] [facility] Oxygen saturation by 2021-06-08 03:00:00 97 /min [facility] P[facility]xim[facility] Patient [facility] Heart Rate 2021-06-08 03:00:00 86 /min [facility] Respiratory rate 2021-06-08 03:00:00 12 /min [facility] BP Diastolic 2021-06-08 02:00:00 87 mm[Hg] [facility] BP Systolic 2021-06-08 02:00:00 137 mm[Hg] [facility] Oxygen saturation by 2021-06-08 02:00:00 97 /min [facility] Pulse oximetry Patient [facility] Heart Rate 2021-06-08 02:00:00 95 /min [facility] Respiratory rate 2021-06-08 02:00:00 16 /min [facility] BP Diastolic 2021-06-08 01:00:00 95 mm[Hg] [facility] BP Systolic 2021-06-08 01:00:00 119 mm[Hg] [facility] Oxygen saturation by 2021-06-08 01:00:00 96 /min [facility] Pulse oximetry Patient [facility] Heart Rate 2021-06-08 01:00:00 96 /min [facility] Respiratory rate 2021-06-08 01:00:00 16 /min [facility] BP Diastolic 2021-06-08 00:00:00 93 mm[Hg] [facility] BP Systolic 2021-06-08 00:00:00 132 mm[Hg] [facility] Oxygen saturation by 2021-06-08 00:00:00 93 /min [facility] Pulse oximetry Patient [facility] Heart Rate 2021-06-08 00:00:00 93 /min [facility] Respiratory rate 2021-06-08 00:00:00 17 /min [facility] BP Diastolic 2021-06-07 23:28:00 69 mm[Hg] [facility] BP Systolic 2021-06-07 23:28:00 141 mm[Hg] [facility] Oxygen saturation by 2021-06-07 23:28:00 96 /min [facility] P[facility]ximetry Patient [facility] Heart Rate 2021-06-07 23:28:00 97 /min [facility] Patient [facility] Respiratory rate 2021-06-07 23:28:00 24 /min [facility] Body Temperature 2021-06-07 23:28:00 98.3 [degF] [facility] BP Diastolic 2021-06-07 23:00:00 94 mm[Hg] [facility] Patient [facility] BP Systolic 2021-06-07 23:00:00 149 mm[Hg] [facility] Patient [facility] Oxygen saturation by 2021-06-07 23:00:00 97 /min [facility] Pulse oximetry Patient [facility] Heart Rate 2021-06-07 23:00:00 93 /min [facility] Patient [facility] Respiratory rate 2021-06-07 23:00:00 18 /min [facility] Body Temperature 2021-06-07 23:00:00 98.2 [degF] [facility] BP Diastolic 2021-06-07 22:00:00 91 mm[Hg] [facility] BP Systolic 2021-06-07 22:00:00 106 mm[Hg] [facility] Patient [facility] Oxygen saturation by 2021-06-07 22:00:00 98 /min [facility] Pulse oximetry Patient [facility] Heart Rate 2021-06-07 22:00:00 83 /min [facility] Respiratory rate 2021-06-07 22:00:00 16 /min [facility] BP Diastolic 2021-06-07 21:00:00 78 mm[Hg] [facility] BP Systolic 2021-06-07 21:00:00 136 mm[Hg] [facility] Patient [facility] Oxygen saturation by 2021-06-07 21:00:00 96 /min [facility] Pulse oximetry Patient [facility] Heart Rate 2021-06-07 21:00:00 82 /min [facility] Respiratory rate 2021-06-07 21:00:00 16 /min [facility] BP Diastolic 2021-06-07 20:37:00 79 mm[Hg] [facility] BP Systolic 2021-06-07 20:37:00 113 mm[Hg] [facility] Patient [facility] Oxygen saturation by 2021-06-07 20:37:00 97 /min [facility] P[facility]ximetry Patient [facility] Heart Rate 2021-06-07 20:37:00 83 /min [facility] Respiratory rate 2021-06-07 20:37:00 21 /min [facility] Body Temperature 2021-06-07 20:37:00 98.6 [degF] [facility] BP Diastolic 2021-06-07 20:33:00 79 mm[Hg] [facility] BP Systolic 2021-06-07 20:33:00 113 mm[Hg] [facility] [facility] Oxygen saturation by 2021-06-07 20:33:00 97 /min [facility] Patient [facility] Heart Rate 2021-06-07 20:33:00 83 /min [facility] Respiratory rate 2021-06-07 20:33:00 21 /min [facility] Body Temperature 2021-06-07 20:33:00 98.6 [degF] [facility] BP Diastolic 2021-06-07 20:00:00 68 mm[Hg] [facility] BP Systolic 2021-06-07 20:00:00 101 mm[Hg] [facility] Oxygen saturation by 2021-06-07 20:00:00 97 /min [facility] Patient [facility] Heart Rate 2021-06-07 20:00:00 80 /min [facility] Respiratory rate 2021-06-07 20:00:00 18 /min [facility] BP Diastolic 2021-06-07 19:00:00 71 mm[Hg] [facility] BP Systolic 2021-06-07 19:00:00 106 mm[Hg] [facility] Oxygen saturation by 2021-06-07 19:00:00 98 /min [facility] Heart Rate 2021-06-07 19:00:00 81 /min [facility] Respiratory rate 2021-06-07 19:00:00 18 /min [facility] Body Temperature 2021-06-07 19:00:00 98.6 [degF] [facility] Oxygen saturation by 2021-06-07 18:40:00 97 /min [facility] Pulse oximetry Patient [facility] Heart Rate 2021-06-07 18:40:00 79 /min [facility] Respiratory rate 2021-06-07 18:40:00 19 /min [facility] BP Diastolic 2021-06-07 18:00:00 81 mm[Hg] [facility] BP Systolic 2021-06-07 18:00:00 102 mm[Hg] [facility] Oxygen saturation by 2021-06-07 18:00:00 98 /min [facility] Pulse oximetry Patient [facility] Heart Rate 2021-06-07 18:00:00 84 /min [facility] Respiratory rate 2021-06-07 18:00:00 18 /min [facility] BP Diastolic 2021-06-07 17:00:00 81 mm[Hg] [facility] BP Systolic 2021-06-07 17:00:00 117 mm[Hg] [facility] Oxygen saturation by 2021-06-07 17:00:00 98 /min [facility] Pulse oximetry Patient [facility] Heart Rate 2021-06-07 17:00:00 90 /min [facility] Respiratory rate 2021-06-07 17:00:00 18 /min [facility] BP Diastolic 2021-06-07 16:00:00 94 mm[Hg] [facility] BP Systolic 2021-06-07 16:00:00 122 mm[Hg] [facility] Oxygen saturation by 2021-06-07 16:00:00 97 /min [facility] Pulse oximetry Patient [facility] Heart Rate 2021-06-07 16:00:00 88 /min [facility] Respiratory rate 2021-06-07 16:00:00 18 /min [facility] BP Diastolic 2021-06-07 15:00:00 70 mm[Hg] [facility] BP Systolic 2021-06-07 15:00:00 108 mm[Hg] [facility] Oxygen saturation by 2021-06-07 15:00:00 97 /min [facility] Pulse oximetry Patient [facility] Heart Rate 2021-06-07 15:00:00 97 /min [facility] Body Temperature 2021-06-07 15:00:00 98.4 [degF] [facility] BP Diastolic 2021-06-07 14:00:00 60 mm[Hg] [facility] BP Systolic 2021-06-07 14:00:00 92 mm[Hg] [facility] Oxygen saturation by 2021-06-07 14:00:00 98 /min [facility] Pulse oximetry Patient [facility] Heart Rate 2021-06-07 14:00:00 82 /min [facility] Respiratory rate 2021-06-07 14:00:00 18 /min [facility] BP Diastolic 2021-06-07 13:00:00 60 mm[Hg] [facility] BP Systolic 2021-06-07 13:00:00 101 mm[Hg] [facility] Oxygen saturation by 2021-06-07 13:00:00 97 /min [facility] Pulse oximetry Patient [facility] Heart Rate 2021-06-07 13:00:00 91 /min [facility] Respiratory rate 2021-06-07 13:00:00 18 /min [facility] BP Diastolic 2021-06-07 12:00:00 85 mm[Hg] [facility] BP Systolic 2021-06-07 12:00:00 120 mm[Hg] [facility] Oxygen saturation by 2021-06-07 12:00:00 95 /min [facility] Pulse oximetry Patient [facility] Heart Rate 2021-06-07 12:00:00 94 /min [facility] Respiratory rate 2021-06-07 12:00:00 18 /min [facility] BP Diastolic 2021-06-07 11:00:00 72 mm[Hg] [facility] Patient [facility] BP Systolic 2021-06-07 11:00:00 108 mm[Hg] [facility] St [facility] Patient [facility] Oxygen saturation by 2021-06-07 11:00:00 98 /min [facility] Pulse oximetry Patient [facility] Heart Rate 2021-06-07 11:00:00 98 /min [facility] Respiratory rate 2021-06-07 11:00:00 15 /min [facility] Body Temperature 2021-06-07 11:00:00 98.0 [degF] [facility] BP Diastolic 2021-06-07 10:21:00 63 mm[Hg] [facility] BP Systolic 2021-06-07 10:21:00 92 mm[Hg] [facility] Oxygen saturation by 2021-06-07 10:21:00 97 /min [facility] Heart Rate 2021-06-07 10:21:00 100 /min [facility] Respiratory rate 2021-06-07 10:21:00 20 /min [facility] Body Temperature 2021-06-07 10:21:00 97.7 [degF] [facility] Oxygen saturation by 2021-06-07 10:15:00 97 /min [facility] Pulse oximetry Patient [facility] Heart Rate 2021-06-07 10:15:00 101 /min [facility] Respiratory rate 2021-06-07 10:15:00 18 /min [facility] BP Diastolic 2021-06-07 10:00:00 63 mm[Hg] [facility] BP Systolic 2021-06-07 10:00:00 92 mm[Hg] [facility] Oxygen saturation by 2021-06-07 10:00:00 97 /min [facility] Heart Rate 2021-06-07 10:00:00 100 /min [facility] Respiratory rate 2021-06-07 10:00:00 20 /min [facility] BP Diastolic 2021-06-07 09:00:00 56 mm[Hg] [facility] BP Systolic 2021-06-07 09:00:00 103 mm[Hg] [facility] Oxygen saturation by 2021-06-07 09:00:00 97 /min [facility] Pulse oximetry Patient [facility] Heart Rate 2021-06-07 09:00:00 105 /min [facility] Respiratory rate 2021-06-07 09:00:00 20 /min [facility] BP Diastolic 2021-06-07 08:00:00 85 mm[Hg] [facility] BP Systolic 2021-06-07 08:00:00 136 mm[Hg] [facility] Oxygen saturation by 2021-06-07 08:00:00 96 /min [facility] Pulse oximetry Patient [facility] Heart Rate 2021-06-07 08:00:00 123 /min [facility] Respiratory rate 2021-06-07 08:00:00 20 /min [facility] BP Diastolic 2021-06-07 07:00:00 77 mm[Hg] [facility] BP Systolic 2021-06-07 07:00:00 112 mm[Hg] [facility] Oxygen saturation by 2021-06-07 07:00:00 98 /min [facility] Pulse oximetry Patient [facility] Heart Rate 2021-06-07 07:00:00 112 /min [facility] Respiratory rate 2021-06-07 07:00:00 20 /min [facility] Body Temperature 2021-06-07 07:00:00 97.7 [degF] [facility] BP Diastolic 2021-06-07 06:00:00 66 mm[Hg] [facility] BP Systolic 2021-06-07 06:00:00 116 mm[Hg] [facility] Oxygen saturation by 2021-06-07 06:00:00 97 /min [facility] Pulse [facility] Patient [facility] Heart Rate 2021-06-07 06:00:00 116 /min [facility] Respiratory rate 2021-06-07 06:00:00 17 /min [facility] BP Diastolic 2021-06-07 05:00:00 58 mm[Hg] [facility] BP Systolic 2021-06-07 05:00:00 108 mm[Hg] [facility] Oxygen saturation by 2021-06-07 05:00:00 97 /min [facility] Pulse [facility]xim[facility] Patient [facility] Heart Rate 2021-06-07 05:00:00 122 /min [facility] Respiratory rate 2021-06-07 05:00:00 17 /min [facility] Body Temperature 2021-06-07 05:00:00 99.0 [degF] [facility] Heart Rate 2021-06-07 04:39:00 129 /min [facility] BP Diastolic 2021-06-07 04:00:00 58 mm[Hg] [facility] BP Systolic 2021-06-07 04:00:00 105 mm[Hg] [facility] Oxygen saturation by 2021-06-07 04:00:00 97 /min [facility] Pulse [facility]xim[facility] Patient [facility] Heart Rate 2021-06-07 04:00:00 125 /min [facility] Respiratory rate 2021-06-07 04:00:00 10 /min [facility] Body Temperature 2021-06-07 04:00:00 98.4 [degF] [facility] BP Diastolic 2021-06-07 00:00:00 107 mm[Hg] [facility] BP Systolic 2021-06-07 00:00:00 179 mm[Hg] [facility] Oxygen saturation by 2021-06-07 00:00:00 99 /min [facility] Pulse [facility] Patient [facility] Heart Rate 2021-06-07 00:00:00 108 /min [facility] Respiratory rate 2021-06-07 00:00:00 21 /min [facility] Body Temperature 2021-06-07 00:00:00 99.5 [degF] [facility] BP Diastolic 2021-06-06 23:01:00 99 mm[Hg] [facility] BP Systolic 2021-06-06 23:01:00 178 mm[Hg] [facility] Oxygen saturation by 2021-06-06 23:01:00 98 /min [facility] Pulse oximetry Patient [facility] Heart Rate 2021-06-06 23:01:00 96 /min [facility] Respiratory rate 2021-06-06 23:01:00 18 /min [facility] Body Temperature 2021-06-06 23:01:00 99.1 [degF] [facility] BP Diastolic 2021-06-06 22:05:00 99 mm[Hg] [facility] BP Systolic 2021-06-06 22:05:00 178 mm[Hg] [facility] Oxygen saturation by 2021-06-06 22:05:00 98 /min [facility] Pulse [facility]ximetry Patient [facility] Heart Rate 2021-06-06 22:05:00 96 /min [facility] Respiratory rate 2021-06-06 22:05:00 18 /min [facility] Body Temperature 2021-06-06 22:05:00 99.1 [degF] [facility] Oxygen saturation by 2021-06-06 20:57:00 98 /min [facility] Heart Rate 2021-06-06 20:57:00 96 /min [facility] Respiratory rate 2021-06-06 20:57:00 18 /min [facility] Oxygen saturation by 2021-06-06 20:16:00 98 /min [facility] Pulse [facility]ximetry Patient [facility] Heart Rate 2021-06-06 20:16:00 96 /min [facility] Respiratory rate 2021-06-06 20:16:00 18 /min [facility] BP Diastolic 2021-06-06 20:00:00 99 mm[Hg] [facility] BP Systolic 2021-06-06 20:00:00 178 mm[Hg] [facility] Oxygen saturation by 2021-06-06 20:00:00 100 /min [facility] Pulse [facility]ximetry Patient [facility] Heart Rate 2021-06-06 20:00:00 108 /min [facility] Respiratory rate 2021-06-06 20:00:00 20 /min [facility] Body Temperature 2021-06-06 20:00:00 99.1 [degF] [facility] Oxygen saturation by 2021-06-06 18:05:00 99 /min [facility] Pulse [facility]ximetry Patient [facility] Oxygen saturation by 2021-06-06 17:27:00 99 /min [facility] Pulse oximetry Patient [facility] Oxygen saturation by 2021-06-06 16:30:00 99 /min [facility] Pulse [facility]ximetry Patient [facility] Oxygen saturation by 2021-06-06 15:15:00 99 /min [facility] Pulse [facility]ximetry Patient [facility] Oxygen saturation by 2021-06-06 15:00:00 99 /min [facility] Pulse [facility]ximetry Patient [facility] Oxygen saturation by 2021-06-06 14:30:00 99 /min [facility] Pulse [facility]ximetry Patient [facility] Oxygen saturation by 2021-06-06 14:18:00 99 /min [facility] Pulse [facility]ximetry Patient [facility] BP Diastolic 2020-11-26 22:43:00 54 mm[Hg] [facility] BP Systolic 2020-11-26 22:43:00 86 mm[Hg] [facility] Oxygen saturation by 2020-11-26 22:43:00 96 /min [facility] Pulse [facility]ximetry Patient [facility] Heart Rate 2020-11-26 22:43:00 78 /min [facility] Respiratory rate 2020-11-26 22:43:00 20 /min [facility] Body Temperature 2020-11-26 22:43:00 98.0 [degF] [facility] BP Diastolic 2020-11-26 22:30:00 65 mm[Hg] [facility] BP Systolic 2020-11-26 22:30:00 95 mm[Hg] [facility] Oxygen saturation by 2020-11-26 22:30:00 95 /min [facility] Pulse oximetry Patient [facility] Heart Rate 2020-11-26 22:30:00 88 /min [facility] Respiratory rate 2020-11-26 22:30:00 15 /min [facility] Body Temperature 2020-11-26 22:30:00 98.5 [degF] [facility] BP Systolic 2020-11-26 16:36:00 91 mm[Hg] [facility] Patient [facility] Oxygen saturation by 2020-11-26 16:36:00 95 /min [facility] Pulse oximetry Patient [facility] Heart Rate 2020-11-26 16:36:00 88 /min [facility] Patient [facility] Respiratory rate 2020-11-26 16:36:00 15 /min [facility] Body Temperature 2020-11-26 16:36:00 98.5 [degF] [facility] BP Diastolic 2020-11-26 16:36:00 59 mm[Hg] [facility] Patient [facility] Oxygen saturation by 2020-11-26 13:36:00 98 /min [facility] Heart Rate 2020-11-26 13:36:00 66 /min [facility] Respiratory rate 2020-11-26 13:36:00 20 /min [facility] Patient [facility] Oxygen saturation by 2020-11-26 13:35:00 97 /min [facility] Heart Rate 2020-11-26 13:35:00 66 /min [facility] Respiratory rate 2020-11-26 13:35:00 20 /min [facility] Oxygen saturation by 2020-11-26 13:25:00 97 /min [facility]ulse [facility]xim[facility] Heart Rate 2020-11-26 13:25:00 66 /min [facility] Respiratory rate 2020-11-26 13:25:00 20 /min [facility] Patient [facility] BP Diastolic 2020-11-26 12:20:00 62 mm[Hg] [facility] Patient [facility] BP Systolic 2020-11-26 12:20:00 98 mm[Hg] [facility] Patient [facility] Oxygen saturation by 2020-11-26 12:20:00 98 /min [facility] Pulse oximetry Patient [facility] Heart Rate 2020-11-26 12:20:00 84 /min [facility] Patient [facility] Respiratory rate 2020-11-26 12:20:00 19 /min [facility] Body Temperature 2020-11-26 12:20:00 98.6 [degF] [facility] BP Diastolic 2020-11-26 09:03:00 69 mm[Hg] [facility] BP Systolic 2020-11-26 09:03:00 126 mm[Hg] [facility] Patient [facility] Oxygen saturation by 2020-11-26 09:03:00 97 /min [facility] Pulse oximetry Patient [facility] Heart Rate 2020-11-26 09:03:00 88 /min [facility] Respiratory rate 2020-11-26 09:03:00 17 /min [facility] Body Temperature 2020-11-26 09:03:00 98.0 [degF] [facility] BP Diastolic 2020-11-26 08:38:00 69 mm[Hg] [facility] Patient [facility] BP Systolic 2020-11-26 08:38:00 126 mm[Hg] [facility] Patient [facility] Oxygen saturation by 2020-11-26 08:38:00 97 /min [facility] Pulse oximetry Patient [facility] Heart Rate 2020-11-26 08:38:00 88 /min [facility] Patient [facility] Respiratory rate 2020-11-26 08:38:00 17 /min [facility] Body Temperature 2020-11-26 08:38:00 98.0 [degF] [facility] Oxygen saturation by 2020-11-26 06:20:00 97 /min [facility] Pulse oximetry Patient [facility] Heart Rate 2020-11-26 06:20:00 74 /min [facility] Respiratory rate 2020-11-26 06:20:00 20 /min [facility] Oxygen saturation by 2020-11-26 06:19:00 98 /min [facility] Pulse oximetry Patient [facility] Heart Rate 2020-11-26 06:19:00 71 /min [facility] Respiratory rate 2020-11-26 06:19:00 20 /min [facility] Oxygen saturation by 2020-11-26 06:09:00 97 /min [facility] Pulse oximetry Patient [facility] Heart Rate 2020-11-26 06:09:00 71 /min [facility] Respiratory rate 2020-11-26 06:09:00 20 /min [facility] BP Diastolic 2020-11-26 04:00:00 58 mm[Hg] [facility] BP Systolic 2020-11-26 04:00:00 91 mm[Hg] [facility] Oxygen saturation by 2020-11-26 04:00:00 97 /min [facility] Pulse oximetry Patient [facility] Heart Rate 2020-11-26 04:00:00 75 /min [facility] [facility] Respiratory rate 2020-11-26 04:00:00 18 /min [facility] Body Temperature 2020-11-26 04:00:00 97.7 [degF] [facility] BP Diastolic 2020-11-26 00:00:00 78 mm[Hg] [facility] BP Systolic 2020-11-26 00:00:00 132 mm[Hg] [facility] Oxygen saturation by 2020-11-26 00:00:00 97 /min [facility] Pulse [facility]xim[facility] Patient [facility] Heart Rate 2020-11-26 00:00:00 76 /min [facility] Respiratory rate 2020-11-26 00:00:00 20 /min [facility] Body Temperature 2020-11-26 00:00:00 97.7 [degF] [facility] Oxygen saturation by 2020-11-25 20:20:00 96 /min [facility] Pulse o[facility] Heart Rate 2020-11-25 20:20:00 64 /min [facility] Respiratory rate 2020-11-25 20:20:00 18 /min [facility] BP Diastolic 2020-11-25 20:00:00 71 mm[Hg] [facility] BP Systolic 2020-11-25 20:00:00 117 mm[Hg] [facility] Oxygen saturation by 2020-11-25 20:00:00 97 /min [facility] Pulse oximetry Patient [facility] Heart Rate 2020-11-25 20:00:00 71 /min [facility] Respiratory rate 2020-11-25 20:00:00 18 /min [facility] Body Temperature 2020-11-25 20:00:00 98.4 [degF] [facility] Oxygen saturation by 2020-11-25 19:45:00 97 /min [facility] Pulse oximetry Patient [facility] Heart Rate 2020-11-25 19:45:00 94 /min [facility] Respiratory rate 2020-11-25 19:45:00 20 /min [facility] BP Diastolic 2020-11-25 16:46:00 56 mm[Hg] [facility] BP Systolic 2020-11-25 16:46:00 88 mm[Hg] [facility] Oxygen saturation by 2020-11-25 16:46:00 94 /min [facility] Pulse oximetry Patient [facility] Heart Rate 2020-11-25 16:46:00 72 /min [facility] Respiratory rate 2020-11-25 16:46:00 20 /min [facility] Body Temperature 2020-11-25 16:46:00 98.8 [degF] [facility] Oxygen saturation by 2020-11-25 14:44:00 99 /min [facility] Pulse oximetry Patient [facility] Heart Rate 2020-11-25 14:44:00 66 /min [facility] Respiratory rate 2020-11-25 14:44:00 16 /min [facility] BP Diastolic 2020-11-25 12:12:00 79 mm[Hg] [facility] BP Systolic 2020-11-25 12:12:00 124 mm[Hg] [facility] Oxygen saturation by 2020-11-25 12:12:00 97 /min [facility] Pulse oximetry Patient [facility] Heart Rate 2020-11-25 12:12:00 65 /min [facility] Respiratory rate 2020-11-25 12:12:00 20 /min [facility] Body Temperature 2020-11-25 12:12:00 98.9 [degF] [facility] BP Diastolic 2020-11-25 09:00:00 83 mm[Hg] [facility] BP Systolic 2020-11-25 09:00:00 177 mm[Hg] [facility] Oxygen saturation by 2020-11-25 09:00:00 100 /min [facility] Pulse oximetry Patient [facility] Heart Rate 2020-11-25 09:00:00 65 /min [facility] Respiratory rate 2020-11-25 09:00:00 21 /min [facility] Body Temperature 2020-11-25 09:00:00 98.9 [degF] [facility] BP Diastolic 2020-11-25 08:28:00 83 mm[Hg] [facility] BP Systolic 2020-11-25 08:28:00 177 mm[Hg] [facility] BP Diastolic 2020-11-25 08:27:00 60 mm[Hg] [facility] BP Systolic 2020-11-25 08:27:00 169 mm[Hg] [facility] Oxygen saturation by 2020-11-25 08:27:00 100 /min [facility]ulse [facility] Heart Rate 2020-11-25 08:27:00 65 /min [facility] Respiratory rate 2020-11-25 08:27:00 21 /min [facility] Body Temperature 2020-11-25 08:27:00 98.9 [degF] [facility] Oxygen saturation by 2020-11-25 08:16:00 100 /min [facility] Heart Rate 2020-11-25 08:16:00 71 /min [facility] Respiratory rate 2020-11-25 08:16:00 20 /min [facility] Oxygen saturation by 2020-11-25 08:01:00 100 /min [facility] Pulse [facility]ximetry Patient [facility] Heart Rate 2020-11-25 08:01:00 65 /min [facility] Respiratory rate 2020-11-25 08:01:00 21 /min [facility] BP Diastolic 2020-11-25 04:00:00 61 mm[Hg] [facility] BP Systolic 2020-11-25 04:00:00 92 mm[Hg] [facility] Oxygen saturation by 2020-11-25 04:00:00 96 /min [facility] Heart Rate 2020-11-25 04:00:00 70 /min [facility] Respiratory rate 2020-11-25 04:00:00 20 /min [facility] Body Temperature 2020-11-25 04:00:00 98.7 [degF] [facility] BP Diastolic 2020-11-25 00:00:00 87 mm[Hg] [facility] BP Systolic 2020-11-25 00:00:00 142 mm[Hg] [facility] Oxygen saturation by 2020-11-25 00:00:00 94 /min [facility] Heart Rate 2020-11-25 00:00:00 76 /min [facility] Respiratory rate 2020-11-25 00:00:00 20 /min [facility] Patient [facility] Body Temperature 2020-11-25 00:00:00 98.8 [degF] [facility] Patient [facility] Oxygen saturation by 2020-11-24 22:45:00 100 /min [facility] Pulse oximetry Patient [facility] Heart Rate 2020-11-24 22:45:00 72 /min [facility] Respiratory rate 2020-11-24 22:45:00 20 /min [facility] Patient [facility] Oxygen saturation by 2020-11-24 22:30:00 98 /min [facility] Pulse oximetry Patient [facility] Heart Rate 2020-11-24 22:30:00 70 /min [facility] Respiratory rate 2020-11-24 22:30:00 20 /min [facility] BP Diastolic 2020-11-24 20:00:00 96 mm[Hg] [facility] Patient [facility] BP Systolic 2020-11-24 20:00:00 169 mm[Hg] [facility] Oxygen saturation by 2020-11-24 20:00:00 98 /min [facility] Pulse oximetry Patient [facility] Heart Rate 2020-11-24 20:00:00 70 /min [facility] Respiratory rate 2020-11-24 20:00:00 20 /min [facility] Body Temperature 2020-11-24 20:00:00 99.0 [degF] [facility] BP Diastolic 2020-11-24 16:00:00 69 mm[Hg] [facility] BP Systolic 2020-11-24 16:00:00 131 mm[Hg] [facility] St [facility] Patient [facility] Oxygen saturation by 2020-11-24 16:00:00 99 /min [facility] St [facility] Pulse oximetry Patient [facility] Heart Rate 2020-11-24 16:00:00 73 /min [facility] Patient [facility] Respiratory rate 2020-11-24 16:00:00 14 /min [facility] Body Temperature 2020-11-24 16:00:00 98.1 [degF] [facility] Oxygen saturation by 2020-11-24 15:56:00 96 /min [facility] Heart Rate 2020-11-24 15:56:00 75 /min [facility] Respiratory rate 2020-11-24 15:56:00 20 /min [facility] Patient [facility] Oxygen saturation by 2020-11-24 13:35:00 96 /min [facility] Heart Rate 2020-11-24 13:35:00 75 /min [facility] Respiratory rate 2020-11-24 13:35:00 18 /min [facility] Patient [facility] Oxygen saturation by 2020-11-24 13:20:00 96 /min [facility] Pulse [facility]ximetry Patient [facility] Heart Rate 2020-11-24 13:20:00 75 /min [facility] Respiratory rate 2020-11-24 13:20:00 18 /min [facility] by 2020-11-24 07:15:00 96 /min [facility] Pulse [facility] Heart Rate 2020-11-24 07:15:00 76 /min [facility] Respiratory rate 2020-11-24 07:15:00 16 /min [facility] by 2020-11-24 07:00:00 94 /min [facility] Heart Rate 2020-11-24 07:00:00 76 /min [facility] Respiratory rate 2020-11-24 07:00:00 16 /min [facility] Patient [facility] BP Diastolic 2020-11-24 04:00:00 62 mm[Hg] [facility] BP Systolic 2020-11-24 04:00:00 94 mm[Hg] [facility] Oxygen saturation by 2020-11-24 04:00:00 99 /min [facility] Heart Rate 2020-11-24 04:00:00 70 /min [facility] Respiratory rate 2020-11-24 04:00:00 20 /min [facility] Body Temperature 2020-11-24 04:00:00 98.7 [degF] [facility] Oxygen saturation by 2020-11-23 19:30:00 97 /min [facility] Pulse oximetry Patient [facility] Heart Rate 2020-11-23 19:30:00 64 /min [facility] Respiratory rate 2020-11-23 19:30:00 18 /min [facility] BP Diastolic 2020-11-23 08:00:00 67 mm[Hg] [facility] BP Systolic 2020-11-23 08:00:00 111 mm[Hg] [facility] Oxygen saturation by 2020-11-23 08:00:00 97 /min [facility] Pulse oximetry Patient [facility] Heart Rate 2020-11-23 08:00:00 71 /min [facility] Respiratory rate 2020-11-23 08:00:00 18 /min [facility] Body Temperature 2020-11-23 08:00:00 98.5 [degF] [facility] BP Diastolic 2020-11-23 04:00:00 65 mm[Hg] [facility] BP Systolic 2020-11-23 04:00:00 111 mm[Hg] [facility] Oxygen saturation by 2020-11-23 04:00:00 100 /min [facility] Pulse oximetry Patient [facility] Heart Rate 2020-11-23 04:00:00 66 /min [facility] Respiratory rate 2020-11-23 04:00:00 18 /min [facility] Body Temperature 2020-11-23 04:00:00 98.5 [degF] [facility] BP Diastolic 2020-11-23 00:00:00 77 mm[Hg] [facility] BP Systolic 2020-11-23 00:00:00 108 mm[Hg] [facility] Oxygen saturation by 2020-11-23 00:00:00 97 /min [facility] Heart Rate 2020-11-23 00:00:00 65 /min [facility] Respiratory rate 2020-11-23 00:00:00 20 /min [facility] Patient [facility] Body Temperature 2020-11-23 00:00:00 98.2 [degF] [facility] Patient [facility] Oxygen saturation by 2020-11-22 23:05:00 99 /min [facility]xim[facility] Heart Rate 2020-11-22 23:05:00 67 /min [facility] Respiratory rate 2020-11-22 23:05:00 20 /min [facility] Patient [facility] Oxygen saturation by 2020-11-22 22:50:00 97 /min [facility] Pulse [facility]ximetry [facility] Heart Rate 2020-11-22 22:50:00 65 /min [facility] Respiratory rate 2020-11-22 22:50:00 20 /min [facility] BP Diastolic 2020-11-22 20:00:00 74 mm[Hg] [facility] Patient [facility] BP Systolic 2020-11-22 20:00:00 135 mm[Hg] [facility] Oxygen saturation by 2020-11-22 20:00:00 97 /min [facility] Pulse [facility]ximetry Patient [facility] Heart Rate 2020-11-22 20:00:00 66 /min [facility] Respiratory rate 2020-11-22 20:00:00 20 /min [facility] Patient [facility] Body Temperature 2020-11-22 20:00:00 98.3 [degF] [facility] Patient [facility] BP Diastolic 2020-11-22 17:18:00 59 mm[Hg] [facility] BP Systolic 2020-11-22 17:18:00 107 mm[Hg] [facility] Oxygen saturation by 2020-11-22 17:18:00 98 /min [facility] Pulse [facility]ximetry [facility] Heart Rate 2020-11-22 17:18:00 74 /min [facility] Respiratory rate 2020-11-22 17:18:00 19 /min [facility] Body Temperature 2020-11-22 17:18:00 98.1 [degF] [facility] Oxygen saturation by 2020-11-22 15:30:00 96 /min [facility] Pulse [facility]ximetry Patient [facility] Heart Rate 2020-11-22 15:30:00 62 /min [facility] Respiratory rate 2020-11-22 15:30:00 20 /min [facility] Oxygen saturation by 2020-11-22 15:29:00 95 /min [facility] Pulse oximetry Patient [facility] Heart Rate 2020-11-22 15:29:00 58 /min [facility] Respiratory rate 2020-11-22 15:29:00 20 /min [facility] Oxygen saturation by 2020-11-22 15:20:00 95 /min [facility] Patient [facility] Heart Rate 2020-11-22 15:20:00 60 /min [facility] Respiratory rate 2020-11-22 15:20:00 20 /min [facility] BP Diastolic 2020-11-22 11:51:00 63 mm[Hg] [facility] BP Systolic 2020-11-22 11:51:00 107 mm[Hg] [facility] Oxygen saturation by 2020-11-22 11:51:00 98 /min [facility] Pulse [facility]ximetry Patient [facility] Heart Rate 2020-11-22 11:51:00 68 /min [facility] Respiratory rate 2020-11-22 11:51:00 19 /min [facility] Body Temperature 2020-11-22 11:51:00 98.1 [degF] [facility] BP Diastolic 2020-11-22 08:24:00 62 mm[Hg] [facility] BP Systolic 2020-11-22 08:24:00 99 mm[Hg] [facility] Oxygen saturation by 2020-11-22 08:24:00 100 /min [facility] Pulse [facility]ximetry Patient [facility] Heart Rate 2020-11-22 08:24:00 64 /min [facility] Patient [facility] Respiratory rate 2020-11-22 08:24:00 19 /min [facility] Body Temperature 2020-11-22 08:24:00 97.7 [degF] [facility] BP Diastolic 2020-11-22 04:00:00 55 mm[Hg] [facility] BP Systolic 2020-11-22 04:00:00 89 mm[Hg] [facility] Oxygen saturation by 2020-11-22 04:00:00 98 /min [facility] Pulse oximetry Patient [facility] Heart Rate 2020-11-22 04:00:00 76 /min [facility] Respiratory rate 2020-11-22 04:00:00 17 /min [facility] Body Temperature 2020-11-22 04:00:00 98.1 [degF] [facility] BP Diastolic 2020-11-22 00:00:00 57 mm[Hg] [facility] BP Systolic 2020-11-22 00:00:00 89 mm[Hg] [facility] Oxygen saturation by 2020-11-22 00:00:00 96 /min [facility] Pulse oximetry Patient [facility] Heart Rate 2020-11-22 00:00:00 62 /min [facility] Respiratory rate 2020-11-22 00:00:00 18 /min [facility] Body Temperature 2020-11-22 00:00:00 98.3 [degF] [facility] BP Diastolic 2020-11-21 16:44:00 72 mm[Hg] [facility] BP Systolic 2020-11-21 16:44:00 106 mm[Hg] [facility] Oxygen saturation by 2020-11-21 16:44:00 100 /min [facility] P[facility] Patient [facility] Heart Rate 2020-11-21 16:44:00 59 /min [facility] Respiratory rate 2020-11-21 16:44:00 19 /min [facility] Body Temperature 2020-11-21 16:44:00 97.8 [degF] [facility] BP Diastolic 2020-11-21 11:48:00 54 mm[Hg] [facility] BP Systolic 2020-11-21 11:48:00 84 mm[Hg] [facility] Oxygen saturation by 2020-11-21 11:48:00 98 /min [facility] Pulse oximetry Patient [facility] Heart Rate 2020-11-21 11:48:00 60 /min [facility] Respiratory rate 2020-11-21 11:48:00 19 /min [facility] Body Temperature 2020-11-21 11:48:00 97.5 [degF] [facility] BP Diastolic 2020-11-21 09:29:00 84 mm[Hg] [facility] BP Systolic 2020-11-21 09:29:00 130 mm[Hg] [facility] Oxygen saturation by 2020-11-21 09:29:00 98 /min [facility] Pulse oximetry Patient [facility] Heart Rate 2020-11-21 09:29:00 61 /min [facility] Respiratory rate 2020-11-21 09:29:00 19 /min [facility] Body Temperature 2020-11-21 09:29:00 98.3 [degF] [facility] BP Diastolic 2020-11-21 07:52:00 84 mm[Hg] [facility] BP Systolic 2020-11-21 07:52:00 130 mm[Hg] [facility] Oxygen saturation by 2020-11-21 07:52:00 98 /min [facility] Pulse oximetry Patient [facility] Heart Rate 2020-11-21 07:52:00 61 /min [facility] Respiratory rate 2020-11-21 07:52:00 19 /min [facility] Body Temperature 2020-11-21 07:52:00 98.3 [degF] [facility] BP Diastolic 2020-11-21 04:00:00 86 mm[Hg] [facility] BP Systolic 2020-11-21 04:00:00 136 mm[Hg] [facility] Oxygen saturation by 2020-11-21 04:00:00 96 /min [facility] Pulse oximetry Patient [facility] Heart Rate 2020-11-21 04:00:00 83 /min [facility] Respiratory rate 2020-11-21 04:00:00 17 /min [facility] Body Temperature 2020-11-21 04:00:00 98.0 [degF] [facility] BP Diastolic 2020-11-21 00:00:00 54 mm[Hg] [facility] BP Systolic 2020-11-21 00:00:00 84 mm[Hg] [facility] Oxygen saturation by 2020-11-21 00:00:00 98 /min [facility] Pulse oximetry Patient [facility] Heart Rate 2020-11-21 00:00:00 54 /min [facility] Respiratory rate 2020-11-21 00:00:00 17 /min [facility] Body Temperature 2020-11-21 00:00:00 97.6 [degF] [facility] BP Diastolic 2020-11-20 21:00:00 57 mm[Hg] [facility] BP Systolic 2020-11-20 21:00:00 98 mm[Hg] [facility] Oxygen saturation by 2020-11-20 21:00:00 100 /min [facility] Pulse oximetry Patient [facility] Heart Rate 2020-11-20 21:00:00 60 /min [facility] Respiratory rate 2020-11-20 21:00:00 18 /min [facility] Body Temperature 2020-11-20 21:00:00 97.6 [degF] [facility] BP Diastolic 2020-11-20 20:00:00 52 mm[Hg] [facility] BP Systolic 2020-11-20 20:00:00 93 mm[Hg] [facility] Patient [facility] Oxygen saturation by 2020-11-20 20:00:00 100 /min [facility] P[facility] Patient [facility] Heart Rate 2020-11-20 20:00:00 60 /min [facility] Patient [facility] Respiratory rate 2020-11-20 20:00:00 18 /min [facility] Body Temperature 2020-11-20 20:00:00 97.6 [degF] [facility] BP Diastolic 2020-11-20 17:58:00 50 mm[Hg] [facility] Patient [facility] BP Systolic 2020-11-20 17:58:00 82 mm[Hg] [facility] Patient [facility] Heart Rate 2020-11-20 17:58:00 58 /min [facility] BP Diastolic 2020-11-20 17:56:00 68 mm[Hg] [facility] BP Systolic 2020-11-20 17:56:00 112 mm[Hg] [facility] Patient [facility] Heart Rate 2020-11-20 17:56:00 60 /min [facility] Patient [facility] BP Diastolic 2020-11-20 16:33:00 69 mm[Hg] [facility] BP Systolic 2020-11-20 16:33:00 106 mm[Hg] [facility] Oxygen saturation by 2020-11-20 16:33:00 100 /min [facility] P[facility]xim[facility] Patient [facility] Heart Rate 2020-11-20 16:33:00 55 /min [facility] Patient [facility] Center Respiratory rate 2020-11-20 16:33:00 18 /min [facility] Body Temperature 2020-11-20 16:33:00 97.6 [degF] [facility] BP Diastolic 2020-11-20 13:04:00 52 mm[Hg] [facility] Patient [facility] BP Systolic 2020-11-20 13:04:00 86 mm[Hg] [facility] Patient [facility] Oxygen saturation by 2020-11-20 13:04:00 99 /min [facility] P[facility]xim[facility] Patient [facility] Heart Rate 2020-11-20 13:04:00 60 /min [facility] Patient [facility] Respiratory rate 2020-11-20 13:04:00 16 /min [facility] Body Temperature 2020-11-20 13:04:00 97.6 [degF] [facility] BP Diastolic 2020-11-20 08:10:00 67 mm[Hg] [facility] BP Systolic 2020-11-20 08:10:00 105 mm[Hg] [facility] Oxygen saturation by 2020-11-20 08:10:00 98 /min [facility] Pulse oximetry Patient [facility] Heart Rate 2020-11-20 08:10:00 76 /min [facility] Respiratory rate 2020-11-20 08:10:00 16 /min [facility] Body Temperature 2020-11-20 08:10:00 97.9 [degF] [facility] BP Diastolic 2020-11-20 08:08:00 67 mm[Hg] [facility] BP Systolic 2020-11-20 08:08:00 105 mm[Hg] [facility] Oxygen saturation by 2020-11-20 08:08:00 98 /min [facility] Pulse oximetry Patient [facility] Heart Rate 2020-11-20 08:08:00 76 /min [facility] Respiratory rate 2020-11-20 08:08:00 16 /min [facility] Body Temperature 2020-11-20 08:08:00 97.9 [degF] [facility] BP Diastolic 2020-11-20 03:35:00 61 mm[Hg] [facility] BP Systolic 2020-11-20 03:35:00 95 mm[Hg] [facility] Oxygen saturation by 2020-11-20 03:35:00 97 /min [facility] P[facility] Patient [facility] Heart Rate 2020-11-20 03:35:00 68 /min [facility] Respiratory rate 2020-11-20 03:35:00 21 /min [facility] Body Temperature 2020-11-20 03:35:00 97.5 [degF] [facility] BP Diastolic 2020-11-20 00:10:00 59 mm[Hg] [facility] BP Systolic 2020-11-20 00:10:00 92 mm[Hg] [facility] Oxygen saturation by 2020-11-20 00:10:00 100 /min [facility] Pulse oximetry Patient [facility] Heart Rate 2020-11-20 00:10:00 60 /min [facility] Respiratory rate 2020-11-20 00:10:00 22 /min [facility] Body Temperature 2020-11-20 00:10:00 97.3 [degF] [facility] Heart Rate 2020-11-19 21:49:00 52 /min [facility] Body Temperature 2020-11-19 21:49:00 97.5 [degF] [facility] BP Diastolic 2020-11-19 21:19:00 84 mm[Hg] [facility] BP Systolic 2020-11-19 21:19:00 140 mm[Hg] [facility] Oxygen saturation by 2020-11-19 21:19:00 99 /min [facility] Pulse oximetry Patient [facility] Heart Rate 2020-11-19 21:19:00 51 /min [facility] Respiratory rate 2020-11-19 21:19:00 22 /min [facility] Body Temperature 2020-11-19 21:19:00 97.6 [degF] [facility] BP Diastolic 2020-11-19 20:00:00 84 mm[Hg] [facility] BP Systolic 2020-11-19 20:00:00 140 mm[Hg] [facility] Oxygen saturation by 2020-11-19 20:00:00 99 /min [facility] Pulse oximetry Patient [facility] Heart Rate 2020-11-19 20:00:00 51 /min [facility] Respiratory rate 2020-11-19 20:00:00 22 /min [facility] Body Temperature 2020-11-19 20:00:00 97.6 [degF] [facility] BP Diastolic 2020-11-19 18:23:00 70 mm[Hg] [facility] BP Systolic 2020-11-19 18:23:00 113 mm[Hg] [facility] Heart Rate 2020-11-19 18:23:00 63 /min [facility] BP Diastolic 2020-11-19 15:14:00 55 mm[Hg] [facility] BP Systolic 2020-11-19 15:14:00 81 mm[Hg] [facility] Oxygen saturation by 2020-11-19 15:14:00 97 /min [facility] Pulse oximetry Patient [facility] Heart Rate 2020-11-19 15:14:00 58 /min [facility] Respiratory rate 2020-11-19 15:14:00 18 /min [facility] Body Temperature 2020-11-19 15:14:00 97.6 [degF] [facility] BP Diastolic 2020-11-19 11:34:00 47 mm[Hg] [facility] BP Systolic 2020-11-19 11:34:00 70 mm[Hg] [facility] Oxygen saturation by 2020-11-19 11:34:00 97 /min [facility] Pulse oximetry Patient [facility] Heart Rate 2020-11-19 11:34:00 65 /min [facility] Respiratory rate 2020-11-19 11:34:00 16 /min [facility] Body Temperature 2020-11-19 11:34:00 97.6 [degF] [facility] BP Diastolic 2020-11-19 09:38:00 58 mm[Hg] [facility] BP Systolic 2020-11-19 09:38:00 101 mm[Hg] [facility] Oxygen saturation by 2020-11-19 09:38:00 99 /min [facility] Pulse oximetry Patient [facility] Heart Rate 2020-11-19 09:38:00 62 /min [facility] Respiratory rate 2020-11-19 09:38:00 18 /min [facility] Body Temperature 2020-11-19 09:38:00 97.6 [degF] [facility] BP Diastolic 2020-11-19 09:08:00 58 mm[Hg] [facility] BP Systolic 2020-11-19 09:08:00 101 mm[Hg] [facility] Heart Rate 2020-11-19 09:08:00 62 /min [facility] BP Diastolic 2020-11-19 07:58:00 57 mm[Hg] [facility] BP Systolic 2020-11-19 07:58:00 93 mm[Hg] [facility] Oxygen saturation by 2020-11-19 07:58:00 99 /min [facility] Pulse oximetry Patient [facility] Heart Rate 2020-11-19 07:58:00 57 /min [facility] Respiratory rate 2020-11-19 07:58:00 18 /min [facility] Body Temperature 2020-11-19 07:58:00 97.6 [degF] [facility] BP Diastolic 2020-11-19 06:20:00 63 mm[Hg] [facility] BP Systolic 2020-11-19 06:20:00 96 mm[Hg] [facility] Oxygen saturation by 2020-11-19 06:20:00 97 /min [facility] Pulse oximetry Patient [facility] Heart Rate 2020-11-19 06:20:00 61 /min [facility] Respiratory rate 2020-11-19 06:20:00 18 /min [facility] Body Temperature 2020-11-19 06:20:00 97.8 [degF] [facility] BP Diastolic 2020-11-19 05:17:00 75 mm[Hg] [facility] BP Systolic 2020-11-19 05:17:00 98 mm[Hg] [facility] Patient [facility] Oxygen saturation by 2020-11-19 05:17:00 98 /min [facility] Pulse oximetry Patient [facility] Heart Rate 2020-11-19 05:17:00 61 /min [facility] Respiratory rate 2020-11-19 05:17:00 19 /min [facility] Body Temperature 2020-11-19 05:17:00 97.7 [degF] [facility] BP Diastolic 2020-11-18 23:52:00 65 mm[Hg] [facility] BP Systolic 2020-11-18 23:52:00 96 mm[Hg] [facility] Oxygen saturation by 2020-11-18 23:52:00 98 /min [facility] Pulse oximetry Patient [facility] Heart Rate 2020-11-18 23:52:00 76 /min [facility] Respiratory rate 2020-11-18 23:52:00 18 /min [facility] Body Temperature 2020-11-18 23:52:00 98.0 [degF] [facility] BP Diastolic 2020-11-18 20:47:00 72 mm[Hg] [facility] BP Systolic 2020-11-18 20:47:00 107 mm[Hg] [facility] Oxygen saturation by 2020-11-18 20:47:00 97 /min [facility] Pulse oximetry Patient [facility] Heart Rate 2020-11-18 20:47:00 62 /min [facility] Respiratory rate 2020-11-18 20:47:00 18 /min [facility] Body Temperature 2020-11-18 20:47:00 97.7 [degF] [facility] BP Diastolic 2020-11-18 19:54:00 72 mm[Hg] [facility] BP Systolic 2020-11-18 19:54:00 107 mm[Hg] [facility] Oxygen saturation by 2020-11-18 19:54:00 97 /min [facility] Pulse [facility]ximetry Patient [facility] Heart Rate 2020-11-18 19:54:00 62 /min [facility] Respiratory rate 2020-11-18 19:54:00 18 /min [facility] Body Temperature 2020-11-18 19:54:00 97.7 [degF] [facility] BP Diastolic 2020-11-18 18:28:00 71 mm[Hg] [facility] BP Systolic 2020-11-18 18:28:00 119 mm[Hg] [facility] Oxygen saturation by 2020-11-18 18:28:00 97 /min [facility] Pulse oximetry Patient [facility] Heart Rate 2020-11-18 18:28:00 65 /min [facility] Respiratory rate 2020-11-18 18:28:00 18 /min [facility] Body Temperature 2020-11-18 18:28:00 97.7 [degF] [facility] BP Diastolic 2020-11-18 15:13:00 67 mm[Hg] [facility] BP Systolic 2020-11-18 15:13:00 107 mm[Hg] [facility] Oxygen saturation by 2020-11-18 15:13:00 96 /min [facility] Pulse oximetry Patient [facility] Heart Rate 2020-11-18 15:13:00 52 /min [facility] Respiratory rate 2020-11-18 15:13:00 18 /min [facility] Body Temperature 2020-11-18 15:13:00 98.2 [degF] [facility] BP Diastolic 2020-11-18 11:37:00 79 mm[Hg] [facility] BP Systolic 2020-11-18 11:37:00 126 mm[Hg] [facility] Oxygen saturation by 2020-11-18 11:37:00 97 /min [facility] Pulse oximetry Patient [facility] Heart Rate 2020-11-18 11:37:00 80 /min [facility] Respiratory rate 2020-11-18 11:37:00 18 /min [facility] Body Temperature 2020-11-18 11:37:00 98.1 [degF] [facility] BP Diastolic 2020-11-18 09:00:00 87 mm[Hg] [facility] BP Systolic 2020-11-18 09:00:00 121 mm[Hg] [facility] Oxygen saturation by 2020-11-18 09:00:00 97 /min [facility] Pulse oximetry Patient [facility] Heart Rate 2020-11-18 09:00:00 104 /min [facility] Respiratory rate 2020-11-18 09:00:00 16 /min [facility] Body Temperature 2020-11-18 09:00:00 98.6 [degF] [facility] BP Diastolic 2020-11-18 08:11:00 87 mm[Hg] [facility] BP Systolic 2020-11-18 08:11:00 121 mm[Hg] [facility] Oxygen saturation by 2020-11-18 08:11:00 97 /min [facility] Pulse oximetry Patient [facility] Heart Rate 2020-11-18 08:11:00 104 /min [facility] Respiratory rate 2020-11-18 08:11:00 16 /min [facility] Body Temperature 2020-11-18 08:11:00 98.6 [degF] [facility] BP Diastolic 2020-11-18 05:23:00 88 mm[Hg] [facility] BP Systolic 2020-11-18 05:23:00 151 mm[Hg] [facility] Oxygen saturation by 2020-11-18 05:23:00 98 /min [facility] Pulse oximetry Patient [facility] Heart Rate 2020-11-18 05:23:00 154 /min [facility] Respiratory rate 2020-11-18 05:23:00 24 /min [facility] Body Temperature 2020-11-18 05:23:00 98.6 [degF] [facility] BP Diastolic 2020-11-18 01:39:00 84 mm[Hg] [facility] BP Systolic 2020-11-18 01:39:00 136 mm[Hg] [facility] Oxygen saturation by 2020-11-18 01:39:00 98 /min [facility] Pulse oximetry Patient [facility] Heart Rate 2020-11-18 01:39:00 70 /min [facility] Respiratory rate 2020-11-18 01:39:00 20 /min [facility] Body Temperature 2020-11-18 01:39:00 98.2 [degF] [facility] BP Diastolic 2020-11-17 21:30:00 58 mm[Hg] [facility] BP Systolic 2020-11-17 21:30:00 101 mm[Hg] [facility] Oxygen saturation by 2020-11-17 21:30:00 99 /min [facility] Pulse oximetry Patient [facility] Heart Rate 2020-11-17 21:30:00 59 /min [facility] Respiratory rate 2020-11-17 21:30:00 20 /min [facility] Body Temperature 2020-11-17 21:30:00 97.7 [degF] [facility] BP Diastolic 2020-11-17 21:13:00 58 mm[Hg] [facility] BP Systolic 2020-11-17 21:13:00 101 mm[Hg] [facility] Oxygen saturation by 2020-11-17 21:13:00 99 /min [facility] Pulse oximetry Patient [facility] Heart Rate 2020-11-17 21:13:00 59 /min [facility] Respiratory rate 2020-11-17 21:13:00 20 /min [facility] Body Temperature 2020-11-17 21:13:00 97.7 [degF] [facility] BP Diastolic 2020-11-17 15:58:00 91 mm[Hg] [facility] BP Systolic 2020-11-17 15:58:00 120 mm[Hg] [facility] Patient [facility] Oxygen saturation by 2020-11-17 15:58:00 99 /min [facility] Pulse oximetry Patient [facility] Heart Rate 2020-11-17 15:58:00 74 /min [facility] Patient [facility] Respiratory rate 2020-11-17 15:58:00 18 /min [facility] Body Temperature 2020-11-17 15:58:00 97.7 [degF] [facility] BP Diastolic 2020-11-17 12:08:00 51 mm[Hg] [facility] BP Systolic 2020-11-17 12:08:00 94 mm[Hg] [facility] Oxygen saturation by 2020-11-17 12:08:00 100 /min [facility] Pulse oximetry Patient [facility] Heart Rate 2020-11-17 12:08:00 44 /min [facility] Respiratory rate 2020-11-17 12:08:00 18 /min [facility] Body Temperature 2020-11-17 12:08:00 97.4 [degF] [facility] BP Diastolic 2020-11-17 11:52:00 51 mm[Hg] [facility] BP Systolic 2020-11-17 11:52:00 94 mm[Hg] [facility] Oxygen saturation by 2020-11-17 11:52:00 100 /min [facility] Pulse oximetry Patient [facility] Heart Rate 2020-11-17 11:52:00 44 /min [facility] Respiratory rate 2020-11-17 11:52:00 18 /min [facility] Body Temperature 2020-11-17 11:52:00 97.4 [degF] [facility] BP Diastolic 2020-11-17 11:30:00 51 mm[Hg] [facility] BP Systolic 2020-11-17 11:30:00 94 mm[Hg] [facility] Oxygen saturation by 2020-11-17 11:30:00 100 /min [facility] Pulse [facility]ximetry Patient [facility] Heart Rate 2020-11-17 11:30:00 44 /min [facility] Respiratory rate 2020-11-17 11:30:00 18 /min [facility] Body Temperature 2020-11-17 11:30:00 97.4 [degF] [facility] BP Diastolic 2020-11-17 10:08:00 100 mm[Hg] [facility] BP Systolic 2020-11-17 10:08:00 119 mm[Hg] [facility] Oxygen saturation by 2020-11-17 10:08:00 96 /min [facility] Pulse oximetry Patient [facility] Heart Rate 2020-11-17 10:08:00 59 /min [facility] Respiratory rate 2020-11-17 10:08:00 17 /min [facility] Oxygen saturation by 2020-11-17 09:45:00 100 /min [facility] Pulse oximetry Patient [facility] Oxygen saturation by 2020-11-17 09:30:00 99 /min [facility] Pulse oximetry Patient [facility] Oxygen saturation by 2020-11-17 09:15:00 99 /min [facility] Pulse oximetry Patient [facility] Oxygen saturation by 2020-11-17 09:00:00 100 /min [facility] Pulse oximetry Patient [facility] Oxygen saturation by 2020-11-17 08:45:00 100 /min [facility] Pulse oximetry Patient [facility] Oxygen saturation by 2020-11-17 08:30:00 99 /min [facility]ulse oximetry Patient [facility] Oxygen saturation by 2020-11-17 08:15:00 99 /min [facility] Pulse oximetry Patient [facility] Oxygen saturation by 2020-11-17 08:07:00 99 /min [facility] Pulse oximetry Patient [facility] Oxygen saturation by 2020-11-17 07:30:00 96 /min [facility] Pulse oximetry Patient [facility] Oxygen saturation by 2020-11-17 07:22:00 97 /min [facility] Pulse oximetry Patient [facility] Heart Rate 2020-11-17 07:22:00 63 /min [facility] 2020-11-17 07:22:00 20 /min [facility] Oxygen saturation by 2020-11-17 07:15:00 100 /min [facility] Pulse oximetry Patient [facility] Oxygen saturation by 2020-11-17 07:00:00 100 /min [facility] Pulse oximetry Patient [facility] Oxygen saturation by 2020-11-17 06:45:00 100 /min [facility] Pulse oximetry Patient [facility] Oxygen saturation by 2020-11-17 06:30:00 99 /min [facility] Pulse oximetry Patient [facility] Oxygen saturation by 2020-11-17 06:15:00 99 /min [facility] Pulse oximetry Patient [facility] Oxygen saturation by 2020-11-17 06:00:00 99 /min [facility] Pulse oximetry Patient [facility] Oxygen saturation by 2020-11-17 05:49:00 98 /min [facility] Pulse oximetry Patient [facility] Oxygen saturation by 2020-11-17 04:44:00 99 /min [facility] Pulse oximetry Patient [facility] Heart Rate 2020-11-17 04:44:00 52 /min [facility] Respiratory rate 2020-11-17 04:44:00 16 /min [facility] Oxygen saturation by 2020-11-17 03:58:00 98 /min [facility] Pulse oximetry Patient [facility] Oxygen saturation by 2020-11-17 01:25:00 98 /min [facility] Pulse oximetry Patient [facility] Oxygen saturation by 2020-11-17 00:45:00 98 /min [facility] Pulse oximetry Patient [facility] Oxygen saturation by 2020-11-16 23:14:00 100 /min [facility] Pulse oximetry Patient [facility] Procedures Procedure Date / Time Performing Clinician Source Performed Magnetic resonance 2021-10-16 00:00:[address] Noemi kes Patient imaging of [facility] without contrast EGD with biopsy 2021-10-15 00:00:00 [facility] Computed tomography of 2021-10-14 00:00:[facility] radiopaque contrast CT of abdomen and 2021-10-14 00:00:00 OLEGARIO Pereira Patient pelvis without [facility] contrast [id number] 2021-06-30 00:00:00 [facility] Ultrasound, renal 2021-06-10 00:00:[address] [facility]ique [facility] Patient Medical Center EXCISION OF DUODENUM, 2021-06-10 00:00:[address] [facility] Patient ENDO, DIAGN [facility] EXCISION OF STOMACH, 2021-06-10 00:00:[address] Ob[facility] Patient PYLORUS, ENDO, DIAGN Medical [facility] ter EXCISION OF STOMACH, 2021-06-10 00:00:[address] [facility] Patient ENDO, DIAGN Medical Center EXCISION OF ASCENDING 2021-06-10 00:00:00 OLEGARIO Neumann Patient COLON, ENDO, DIAGN [facility] EXCISION OF DESCENDING 2021-06-10 00:00:00 [facility] P[facility] Patient COLON, ENDO, DIAGN [facility] MEASURE OF CARDIAC 2021-06-09 00:00:00 OLEGARIO Martinez Patient SAMPL & PRESSURE, L [facility] HEART, PERC APPROACH FLUOROSCOPY OF MULT 2021-06-09 00:00:00 OLEGARIO Little Patient COR ART USING L OSM [facility] CONTRAST FLUOROSCOPY OF LEFT 2021-06-09 00:00:00 OLEGARIO Little Patient HEART USING LOW [facility] OSMOLAR CONTRAST Computed tomography of 2021-06-06 00:00:00 OLEGARIO Obrien Patient brain without [facility] Center radiopaque contrast Computed tomography of 2021-06-06 00:00:00 OLEGARIO S kurt Obrien Patient chest with contrast [facility] Computed tomography 2021-06-06 00:00:00 OLEGARIO Little Patient angiography of abdomen Medical C enter and pelvis without then with contrast INSERTION OF INFUSION 2021-06-06 00:00:00 OLEGARIO Neumann Patient DEV INTO SUP VENA [facility] CAVA, PERC APPROACH [id number] 2020-12-02 00:00:00 [facility] [id number] 2020-12-02 00:00:00 [facility] [id number] 2020-12-02 00:00:00 [facility] [id number] 2020-12-02 00:00:00 [facility] [id number] 2020-12-02 00:00:00 [facility] [id number] 2020-12-02 00:00:00 [facility] [id number] 2020-12-02 00:00:00 [facility] Plan of Care Planned Activity Planned Date Details Comments Source Future Scheduled Test 2022-05-26 COVID-19 VACCINE (#1) [facility] 11:21:25 [code = COVID-19 VACCINE (#1)] Future Scheduled Test 2022-05-26 Hepatitis C screening [facility] 11:21:25 (procedure) [code = 460403625] Future Scheduled Test 2022-05-26 COLONOSCOPY SCREENING [facility] 11:21:25 [code = COLONOSCOPY SCREENING] Future Scheduled Test 2022-05-26 SHINGLES VACCINES (1 [facility] 11:21:25 of 2) [code = SHINGLES VACCINES (1 of 2)] Future Scheduled Test 2022-05-26 65+ PNEUMOCOCCAL [facility] 11:21:25 VACCINE (2 - PCV) [code = 65+ PNEUMOCOCCAL VACCINE (2 - PCV)] Future Scheduled Test 2022-05-26 INFLUENZA VACCINE [facility] 11:21:25 [code = INFLUENZA VACCINE] Instructions Abdominal [facility] - [facility] Instructions Abdominal [facility] - [facility] Instructions Pneumonia - Viral [facility] Chest Wall Pain [facility] Patient Medical Center Encounters Start End Encounter Admission Attending Care Care Encounter Source Date/Time Date/Time Type Type Clinicians Facility Department ID 2021-07-01 Outpatient 3 [id number] [facility] RE[facility] [id number] [facility] 13:42:19 [facility] 2021-07-01 Outpatient 3 [id number] [facility] REF [id number] [facility] 13:41:47 [facility] [place] [facility] 2021-07-01 Outpatient 3 [id number] [facility] REF [id number] [facility] 12:23:27 [facility] [place] [facility] 2021-07-01 Outpatient 3 [id number] [facility] REF [id number] [facility] 12:22:59 [facility] [place] 2021-07-01 Outpatient 3 [id number] [facility] REF [id number] [facility] 12:22:31 0622 [facility] [place] 2021-07-01 Outpatient 3 [id number] [facility] REF [id number] [facility] 11:05:56 1202 [facility] [place] 2020-11-17 Inpatient [facility] [id number] [facility] 01:37:00 -[id number] [facility] 2020-11-16 Inpatient [facility] [id number] [facility] 23:10:00 -[id number] [facility] 2021-10-14 2021-10-[address] [facility] jenny[facility] A00 [id number] [facility] 15:14:00 11:58:00 [facility] 2021-10-14 2021-10-17 Discharged [facility]'s [id number] 15:14:00 11:58:00 Inpatient Patients [id number] [facility] [id number] Pa dmitriy [id number] [facility] 2021-10-14 2021-10-17 Inpatient [facility] [id number] 14:14:00 10:58:00 -[id number] [facility] 2021-06-18 2021-07-07 Inpatient 3 [facility] ENCPL [id number] [facility] 14:48:00 15:45:00 hez, 0114 [facility] [place] [facility] 2021-06-06 2021-06-18 Discharged [facility]'s [id number] 20:59:00 15:09:00 Inpatient Patients [id number] [facility] [id number] Pa dmitriy [id number] [facility] 2021-06-06 2021-06-18 Discharged 1 MAYA, [facility] [id number] 19:59:00 14:09:00 Inpatient SOUHEIL Patients 49 [facility] 2021-06-06 2021-06-18 Inpatient [facility] [id number] 19:59:00 14:09:00 -[id number] [facility] 2020-12-16 2020-12-16 Outpatient Tony HCAPM LABO [id number] [facility] 14:31:00 14:31:00 Luther, Cintia Jazminclay Orozco [facility] 2020-11-18 2020-11-26 Discharged 1 FRANCESCO, [facility] [id number] 13:42:00 22:43:00 Inpatient S[place]HEIL Patients 13 [facility] 2020-11-18 2020-11-26 Inpatient [facility] [id number] 13:42:00 22:43:00 -[id number] [facility] 2020-05-22 2020-05-22 Outpatient Eduardo, HCACL LABO [id number] [facility] 08:11:00 08:11:00 [place] [facility] 2020-05-22 2020-05-22 Outpatient Eduardo, HCAPM LABO [id number] [facility] 08:06:00 08:06:00 [place] 53 [facility] 2020-05-01 2020-05-06 Inpatient VISHAL [facility] [id number] [place] 00:00:00 00:00:00 RONN Macdonald [facility] 2015-06-25 2015-07-04 Inpatient [facility] [id number] 18:23:00 19:43:00 -[id number] [facility] 2013-12-03 2013-12-05 Inpatient [facility] [id number] 12:04:00 12:45:00 -[id number] [facility] 2007-09-01 2007-09-07 Inpatient [facility] [id number] 20:11:00 18:06:00 -[id number] [facility] 2006-11-28 2006-12-07 Inpatient [facility] [id number] 20:46:00 18:56:00 -[id number] [facility] Results Test Description Test Time Test Comments Results Result Comments Source Serum or plasma sodium measurement (moles/volume) 2021-10-17 05:48:00 Test Item Value Reference Range Interpretation Comme nts Sodium Level (test code = 2951-2) 140 136-145 [facility] (moles/volume)2021-10-17 05:48:00 Test Item Value Reference Range Interpretation Comments Potassium Level (test code = 2823-3) 3.6 3.5-5.1 [facility] chloride measurement (moles/volume)2021-10-17 05:48:00 Test Item Value Reference Range Interpretation Comments Chloride Level (test code = 2075-0) 106 98-107 [facility] carbon dioxide, total measurement (moles/volume)2021-10-17 05:48:00 Test Item Value Reference Range Interpretation Comments Carbon Dioxide Level (test code = 2028-02) [facility] anion [id number] 05:48:00 Test Item Value Reference Range Interpretation Comments Anion Gap (test code = 61327-1) 11.6 8-16 [facility] urea nitrogen measurement (mass/volume)2021-10-17 05:48:00 Test Item Value Reference Range Interpretation Comments Blood Urea Nitrogen (test code = 12-28 3094-0) [facility] creatinine measurement (mass/volume)2021-10-17 05:48:00 Test Item Value Reference Range Interpretation Comments Creatinine (test code = 2160-0) 1.09 0.72-1.25 [facility] urea nitrogen/creatinine mass [id number] 05:48:00 Test Item Value Reference Range Interpretation Comments BUN/Creatinine Ratio (test code = 11-27 3097-3) [facility]ated glomerular filtration rate (GFR) [id number] 05:48:00 Test Item Value Reference Range Interpretation Comments Estimat Glomerular 68 See_Comment [Automat ed message] The Filtration Rate (test system which generated code = [id number]) this resul t transmitted reference range : 60-. The reference r sri was not used to int erpret this result as normal/abnormal . [facility] ClubGlucose [id number] 05:48:00 Test Item Value Reference Range Interpretation Comments Glucose Level (test code = MVW1148) 94 74-118 [facility] calcium measurement (mass/volume)2021-10-17 05:48:00 Test Item Value Reference Range Interpretation Comments Calcium Level (test code = 29678-4) 9.2 8.4-10.2 [facility] magnesium measurement (mass/volume)2021-10-17 05:48:00 Test Item Value Reference Range Interpretation Comments Magnesium Level (test code = 07432-1) 1.8 1.3-2.1 [facility] [id number] 14:48:[facility] 1955 [place] [address] Patient Name: ANDREA MCDANIEL MR #: [id number] : 1955 Age/Sex: 66/M Req #: [id number] Adm Physician: DALILA MAYA MD Ordered by: DALILA MAYA MD Report #: [id number] Location: MED/SURG2 Room/Bed: [facility] Procedure: [id number] MRI/MRI BRAIN WO Exam Date: 10/16/21 Exam Time: 1410 REPORT STATUS: Signed MRI BRAIN WO INDICATION: Intractable headache, history of stroke TECHNIQUE: Multiplanar, multisequence MR imaging of the brain was obtained. COMPARISON: 11/19/2020 FINDINGS: Brain parenchyma is normal in morphology. Midline structures are normally developed. No restricted diffusion tosuggest recent ischemic insult. No abnormal susceptibility. Scattered T2/FLAIR hyperintense foci within the periventricular and subcortical white matter are nonspecific, however, statistically represent chronic microvascular ischemic changes. No hydrocephalus. Orbits are within normal limits. No obstructive paranasal sinus disease. IMPRESSION: No acute intracranial findings Signed by: Patience Serrato 10/16/2021 2:48 PM Dictated By: PATIENCE CHRISTIANSON MD 1450 Transcribed By: GRICELDA on 10/16/21 1448 COPY TO: DALILA MAYA MDBlrodo leukocytes automated count (number/volume)2021-10-16 11:55:00 Test Item Value Reference Range Interpretation Comments White Blood Count (test code = 6690-2) 7.91 4.8-10.8 [facility] erythrocytes automated count (number/volume)2021-10-16 11:55:00 Test Item Value Reference Range Interpretation Comments Red Blood Count (test code = 789-8) 4.57 4.3-5.7 [facility] hemoglobin measurement (moles/volume) 2021-10-16 11:55:00 Test Item Value Reference Range Interpretation Comments Hemoglobin (test code = 67027-8) 14.3 14.0-18.0 [facility] ClubAutomated blood hematocrit (volume fraction) 2021-10-16 11:55:00 Test Item Value Reference Range Interpretation Comments Hematocrit (test code = 4544-3) 41.6 38.2-49.6 [facility] ClubAutomated erythrocyte mean corpuscular volume 2021-10-16 11:55:00 Test Item Value Reference Range Interpretation Comments Mean Corpuscular Volume (test code = 91.0 81-99 787-2) [facility] ClubAutomated erythrocyte mean corpuscular hemoglobin (mass per erythrocyte)2021-10-16 11:55:00 Test Item Value Reference Range Interpretation Comments Mean Corpuscular Hemoglobin (test code 31.3 28-32 = 785-6) [facility] ClubAutomated erythrocyte mean corpuscular hemoglobin concentration measurement (mass/volume)2021-10-16 11:55:00 Test Item Value Reference Range Interpretation Comments Mean Corpuscular Hemoglobin Concent 34.4 31-35 (test code = 786-4) [facility] ClubRDW WlfVg-[id number] 11:55:00 Test Item Value Reference Range Interpretation Comments Red Cell Distribution Width (test code 14.0 11.7-14.4 = 20499-0) [facility] ClubAutom[facility] blood platelet count (count/volume) 2021-10-16 11:55:00 Test Item Value Reference Range Interpretation Comments Platelet Count (test code = 777-3) 260 140-360 [facility] ClubAutomated blood segmented neutrophil count as percentage of total zojrkfbark4755-11-54 11:55:00 Test Item Value Reference Range Interpretation Comments Neutrophils (%) (Auto) (test code = 73.9 38.7-80.0 74204-2) [facility] ClubAutom[facility] blood lymphocyte count as percentage ot total hdcgqzgeds1303-71-10 11:55:00 Test Item Value Reference Range Interpretation Comments Lymphocytes (%) (Auto) (test code = 16.6 18.0-39.1 736-9) [facility] ClubAutomated blood monocyte count as percentage of total oyouqrbxtq8616-48-20 11:55:00 Test Item Value Reference Range Interpretation Comments Monocytes (%) (Auto) (test code = 6.1 4.4-11.3 5905-5) [facility] ClubAutomated blood eosinophil count as percentage of total fmgtxibjii7551-65-03 11:55:00 Test Item Value Reference Range Interpretation Comments Eosinophils (%) (Auto) (test code = 1.8 0.0-6.0 713-8) [facility] ClubAutomated blood basophil count as percentage of total rvfbmcdqqc2011-00-80 11:55:00 Test Item Value Reference Range Interpretation Comments Basophils (%) (Auto) (test code = 1.5 0.0-1.0 706-2) [facility] ClubFluoroscopic procedure less than one hour [id number] 11:55:00 Test Item Value Reference Range Interpretation Comments IM GRANULOCYTES % (test code = IM 0.1 0.0-1.0 GRANULOCYTES %) [facility] ClubAutomated blood neutrophil taxdk2925-54-20 11:55:00 Test Item Value Reference Range Interpretation Comments Neutrophils # (Auto) (test code = 5.9 2.1-6.9 751-8) [facility] ClubBlood lymphocytes count (number/volume) 2021-10-16 11:55:00 Test Item Value Reference Range Interpretation Comments Lymphocytes # (Auto) (test code = 1.3 1.0-3.2 39865-6) [facility]Bl[facility] monocytes automated count (number/volume)2021-10-16 11:55:00 Test Item Value Reference Range Interpretation Comments Monocytes # (Auto) (test code = 742-7) 0.5 0.2-0.8 [facility] ClubAutomated blood eosinophil [id number] 11:55:00 Test Item Value Reference Range Interpretation Comments Eosinophils # (Auto) (test code = 0.1 0.0-0.4 711-2) [facility] ClubAutomated blood basophil count (count/volume) 2021-10-16 11:55:00 Test Item Value Reference Range Interpretation Comments Basophils # (Auto) (test code = 704-7) 0.1 0.0-0.1 [facility] ClubFluoroscopic procedure less than one hour eigtohuc7117-33-79 11:55:00 Test Item Value Reference Range Interpretation Comments Absolute Immature Granulocyte (auto 0.01 0-0.1 (test code = Absolute Immature Granulocyte (auto) [facility] creatine kinase measurement (enzymatic activity/volume)2021-10-15 19:33:00 Test Item Value Reference Range Interpretation Comments Creatine Kinase (test code = 2157-6) 66 30-200 [facility] or plasma creatine kinase MB measurement (mass/volume)2021-10-15 19:33:00 Test Item Value Reference Range Interpretation Comments Creatine Kinase MB (test code = 2.80 0-5.0 56396-9) [facility] ClubTroponin I measurement by highly sensitive enzyme [id number] 19:33:00 Test Item Value Reference Range Interpretation Comments Troponin I (test code = 41279-2) < 0.001 0-0.300 [facility] ClubFluoroscopic procedure less than one hour rqzxyrqv6660-95-26 05:48:00 Test Item Value Reference Range Interpretation Comments Hemoglobin A1c Percent (test code = 5.4 4.0-7.0 Hemoglobin A1c Percent) [facility] plasma total bilirubin measurement (mass/volume)2021-10-15 05:48:00 Test Item Value Reference Range Interpretation Comments Total Bilirubin (test code = 1975-2) 0.2 0.2-1.2 [facility] ClubFluoroscopic procedure less than one hour szpmckkr7328-32-35 05:48:00 Test Item Value Reference Range Interpretation Comments Aspartate Amino Transf (AST/SGOT) (test 23 5-34 code = Aspartate Amino Transf (AST/SGOT)) [facility] plasma alanine aminotransferase measurement (enzymatic activity/volume)2021-10-15 05:48:00 Test Item Value Reference Range Interpretation Comments Alanine Aminotransferase (ALT/SGPT) 20 0-55 (test code = 1742-6) [facility] plasma protein measurement (mass/volume)2021-10-15 05:48:00 Test Item Value Reference Range Interpretation Comments Total Protein (test code = 2885-2) 7.5 6.5-8.1 [facility] plasma albumin measurement (mass/volume)2021-10-15 05:48:00 Test Item Value Reference Range Interpretation Comments Albumin (test code = 1751-7) 3.4 3.5-5.0 [facility] ClubPlasma globulin measurement (mass/volume) 2021-10-15 05:48:00 Test Item Value Reference Range Interpretation Comments Globulin (test code = 81003-5) 4.1 2.3-3.5 [facility] albumin/globulin mass ratio 2021-10-15 05:48:00 Test Item Value Reference Range Interpretation Comments Albumin/Globulin Ratio (test code = 0.8 0.8-2.0 1759-0) [facility] plasma alkaline phosphatase measurement (enzymatic activity/volume)2021-10-15 05:48:00 Test Item Value Reference Range Interpretation Comments Alkaline Phosphatase (test code = 143 40-150 6768-6) [facility] plasma triglyceride measurement (mass/volume)2021-10-15 05:48:00 Test Item Value Reference Range Interpretation Comments Triglycerides Level (test code = 209 0-149 2571-8) [facility] cholesterol measurement (mass/volume)2021-10-15 05:48:00 Test Item Value Reference Range Interpretation Comments Cholesterol Level (test code = 2093-3) 261 0-199 [facility] cholesterol in LDL measurement (mass/volume)2021-10-15 05:48:00 Test Item Value Reference Range Interpretation Comments LDL Cholesterol (test code = 2089-1) 174 60-130 [facility] cholesterol in HDL measurement (mass/volume)2021-10-15 05:48:00 Test Item Value Reference Range Interpretation Comments HDL Cholesterol (test code = 2085-9) 45 40-60 [facility] plasma total cholesterol/cholesterol in HDL mass wcqdu3867-79-69 05:48:00 Test Item Value Reference Range Interpretation Comments Cholesterol/HDL Ratio (test code = 5.8 3.9-4.7 9830-1) [facility] plasma thyroxine (T4) free measurement (mass/volume)2021-10-15 05:48:00 Test Item Value Reference Range Interpretation Comments Free Thyroxine (test code = 3024-7) 0.87 0.8-1.8 [facility] plasma thyrotropin measurement by detection limit <= 0.005 miu/l (units/volume)2021-10-15 05:48:00 Test Item Value Reference Range Interpretation Comments Thyroid Stimulating Hormone (TSH) (test 0.646 0.350-4.940 code = 73990-0) [facility]CT ABDOM[facility]/PELVIS [id number] 13:47:[facility] : 1955 Sex: M [facility] [address] [place] [address] Patient Name: ANDREA MCDANIEL MR #: [id number] : 1955 Age/Sex: 66/M Req #: [id number] [facility] Physician: Ordered by: ASTRID GRANDA DO Report #: [id number] Location: ER Room/Bed: Procedure: [id number] CT/CT ABDOMEN/PELVIS WO Exam Date: 10/14/21 Exam Time: 1255 REPORT STATUS: Signed ABDOMINAL AND PELVIS CT DATED 10/14/2021 CLINICAL INFORMATION: Vomiting blood TECHNIQUE: Axial images of the abdomen and pelvis were obtained from diaphragm to the pubic symphysis without GI or intravenous contrast. This exam was performed according to our departmental dose-optimization program, which includesautomated exposure control, adjustment of the mA and/or kV according to patient size and/or use of interactive reconstruction technique. COMMENT: Liver and spleen are normal in size without focal abnormality. Gallbladder is surgically absent. No biliary dilatation is noted. Pancreas and adrenals are unremarkable. Both kidneys are normal in size. A 4.4 x 4.9 cm cyst is seen in the upper pole left kidney. Severalstones are seen in the right kidney measuring up to 4 mm in size. Several stones are seen i n the left kidney measuring up to 5 mm in size. No hydronephrosis or hydroureter is present. Diverticular disease is seen in the large bowel without diverticulitis. The small bowel is normal in caliber. Appendix is not visualized. The stomach is minimally distended with air and fluid. No wall thickening is seen involving the stomach. Prostate is normal in size. The urinary bladder is minimally distended. No mass, adenopathy or ascites is present. IMPRESSION: 1. Diverticulosis without diverticulitis. 2. Nonobstructive bilateral renal stones and left renal cyst. 3. No mass or adenopathy in the abdomen or pelvis. Signed by: Irma Kolb on 10/14/2021 1:47 PM Dictated By: IRMA KOLB MD 1350 Transcribed By: ANTHONYRIARSH on 10/14/21 4781 COPY TO: ASTRID GRANDA [facility] BRAIN [id number] 12:57:00[facility] : 1955 [facility] [address] [address] Patient Name: ANDREA MCDANIEL MR #: [id number] : 1955 Age/Sex: 66/M Req #: [id number] Adm Physician: Ordered by: ASTRID GRANDA DO Report #: [id number] Location: ER Room/Bed: Procedure: [id number] CT/CT BRAIN WO Exam Date: 10/14/21 Exam Time: 1250 REPORT STATUS: Signed CT BRAIN WO CLINICAL INDICATION: Dizziness COMPARISON: 06/06/2021 TECHNIQUE: Noncontrast axial CT imaging of the brain and skull. DOSE REDUCTION: Dose modulation, iterative reconstruction, and/or weight-based adjustment ofthe mA/kV was utilized to reduce the radiation dose to as low as reasonably achievable. FINDINGS: Nointracranial hemorrhage, midline shift or mass effect. Midline structures are normally developed. Scattered foci of hypoattenuation are present throughout the periventricular and subcortical white matter, and, although nonspecific by imaging, statistically represent mild chronicmicrovascular ischemic changes in this age group. No hydrocephalus. Orbits are within normal limits. No obstructive paranasal sinus disease. IMPRESSION: No acute intracranial findings If there is persistent clinical concern for intracranial pathology, MR examination is recommended for further characterization. Signed by: Patience Christianson on 10/14/2021 12:57 PM Dictated By: PATIENCE CHRISTIANSON MD 1300 Transcribed By: PSCRIBE on 10/14/21 1257 COPY TO: ASTRID GRANDA DOProthrombin time (PT) in platelet poor plasma by coagulation tjkzw1880-88-20 12:48:00 Test Item Value Reference Range Interpretation Comments Prothrombin Time (test code = 5902-2) 13.0 11.9-14.5 [facility] ClubINR in Platelet poor plasma by Coagulation qzlpv9879-20-70 12:48:00 Test Item Value Reference Range Interpretation Comments Prothromb Time International Ratio 0.90 (test code = 6301-6) [facility] ClubActivated partial thromboplastin time (aPTT) in platelet poor plasma by coagulation vdddw7664-55-49 12:48:00 Test Item Value Reference Range Interpretation Comments Activated Partial Thromboplast Time 19.8 23.8-35.5 (test code = 68096-7) [facility] ClubBNP Usa-xTnc8763-36-12 12:48:00 Test Item Value Reference Range Interpretation Comments B-Type Natriuretic Peptide (test code = 36.8 0-100 53957-6) [facility] ([facility]OVID-19) RNA [Presence] in Respiratory specimen by DRAKE with probe jprtvetii6106-50-87 12:48:00 Test Item Value Reference Range Interpretation Comments Coronavirus (PCR) (test code = NOT DETECTED NOTDETECTED 41077-9) [facility] ClubCHEST SINGLE (PORTABLE)2021-10-14 12:21:00 [facility] : 1955 Sex: M [place] [address] PatientName: ANDREA MCDANIEL MR #: [id number] : 1955 Age/Sex: 66/M Req #: [id number] Adm Physician: Ordered by: ASTRID GRANDA DO Report #: [id number] Location: ER Room/Bed: Procedure: [id number] DX/CHEST SINGLE (PORTABLE) Exam Date: 10/14/21 Exam Time: 1200 REPORT STATUS: Signed Chest, 1 view, 10/14/2021 12:00 PM. History: Chest pain. Comparison: 06/09/2021. Discussion: The cardiomediastinal silhouette and pulmonary vasculature are within normal limits for a portable exam. The lungs are clear without evidence of consolidation or effusion. The soft tissues and osseous structures are intact. IMPRESSION: No acute cardiopulmonary abnormality. Signed by: Wan Saravia on 10/14/2021 12:21PM Dictated By: WAN SARAVIA MD 1223 Transcribed By: GRICELDA on 10/14/21 1221 COPY TO: ASTRID GRANDA DO Blood leukocytes automated count (number/volume)2021-06-17 09:30:00 Test Item Value Reference Range Interpretation Comments White Blood Count (test code = 6690-2) 8.25 4.8-10.8 [facility] ClubBlood erythrocytes automated count (number/volume)2021-06-17 09:30:00 Test Item Value Reference Range Interpretation Comments Red Blood Count (test code = 789-8) 3.91 4.3-5.7 [facility] ClubBlood hemoglobin measurement (moles/volume) 2021-06-17 09:30:00 Test Item Value Reference Range Interpretation Comments Hemoglobin (test code = 89940-5) 11.8 14.0-18.0 [facility] ClubAutomated blood hematocrit (volume fraction) 2021-06-17 09:30:00 Test Item Value Reference Range Interpretation Comments Hematocrit (test code = 4544-3) 34.5 38.2-49.6 [facility] ClubAutomated erythrocyte mean corpuscular volume 2021-06-17 09:30:00 Test Item Value Reference Range Interpretation Comments Mean Corpuscular Volume (test code = 88.2 81-99 787-2) [facility] ClubAutomated erythrocyte mean corpuscular hemoglobin (mass per erythrocyte)2021-06-17 09:30:00 Test Item Value Reference Range Interpretation Comments Mean Corpuscular Hemoglobin (test code 30.2 28-32 = 785-6) [facility] ClubAutomated erythrocyte mean corpuscular hemoglobin concentration measurement (mass/volume)2021-06-17 09:30:00 Test Item Value Reference Range Interpretation Comments Mean Corpuscular Hemoglobin Concent 34.2 31-35 (test code = 786-4) [facility] Trophy ClubRDW JveDq-Siy0777-29-13 09:30:00 Test Item Value Reference Range Interpretation Comments Red Cell Distribution Width (test code 14.2 11.7-14.4 = 96915-9) [facility] ClubAutomated blood platelet count (count/volume) 2021-06-17 09:30:00 Test Item Value Reference Range Interpretation Comments Platelet Count (test code = 777-3) 243 140-360 [facility] Trophy ClubAutomated blood segmented neutrophil count as percentage of total kxqpapjyno8351-06-22 09:30:00 Test Item Value Reference Range Interpretation Comments Neutrophils (%) (Auto) (test code = 69.0 38.7-80.0 37386-3) [facility] ClubAutomated blood lymphocyte count as percentage ot total oxparkwwji1946-28-68 09:30:00 Test Item Value Reference Range Interpretation Comments Lymphocytes (%) (Auto) (test code = 18.7 18.0-39.1 736-9) [facility] ClubAutomated blood monocyte count as percentage of total pcfxgpafze9110-14-41 09:30:00 Test Item Value Reference Range Interpretation Comments Monocytes (%) (Auto) (test code = 8.0 4.4-11.3 5905-5) [facility] ClubAutomated blood eosinophil count as percentage of total ifgugvqdje6891-51-57 09:30:00 Test Item Value Reference Range Interpretation Comments Eosinophils (%) (Auto) (test code = 2.1 0.0-6.0 713-8) [facility] ClubAutomated blood basophil count as percentage of total srjdukimbi0911-87-47 09:30:00 Test Item Value Reference Range Interpretation Comments Basophils (%) (Auto) (test code = 1.1 0.0-1.0 706-2) [facility] ClubFluoroscopic procedure less than one hour quuqzwcf7359-43-57 09:30:00 Test Item Value Reference Range Interpretation Comments IM GRANULOCYTES % (test code = IM 1.1 0.0-1.0 GRANULOCYTES %) [facility] ClubAutomated blood neutrophil luyxn3694-49-53 09:30:00 Test Item Value Reference Range Interpretation Comments Neutrophils # (Auto) (test code = 5.7 2.1-6.9 751-8) [facility] ClubBlood lymphocytes count (number/volume) 2021-06-17 09:30:00 Test Item Value Reference Range Interpretation Comments Lymphocytes # (Auto) (test code = 1.5 1.0-3.2 94006-5) [facility] ClubBlood monocytes automated count (number/volume)2021-06-17 09:30:00 Test Item Value Reference Range Interpretation Comments Monocytes # (Auto) (test code = 742-7) 0.7 0.2-0.8 [facility] Trophy ClubAutomated blood eosinophil oagay1047-88-54 09:30:00 Test Item Value Reference Range Interpretation Comments Eosinophils # (Auto) (test code = 0.2 0.0-0.4 711-2) [facility] ClubAutomated blood basophil count (count/volume) 2021-06-17 09:30:00 Test Item Value Reference Range Interpretation Comments Basophils # (Auto) (test code = 704-7) 0.1 0.0-0.1 [facility] ClubFluoroscopic procedure less than one hour ibkpzxxr1194-26-89 09:30:00 Test Item Value Reference Range Interpretation Comments Absolute Immature Granulocyte (auto 0.09 0-0.1 (test code = Absolute Immature Granulocyte (auto) [facility] sodium measurement (moles/volume)2021-06-17 09:30:00 Test Item Value Reference Range Interpretation Comments Sodium Level (test code = 2951-2) 137 136-145 [facility]er[facility] or plasma potassium measurement (moles/volume)2021-06-17 09:30:00 Test Item Value Reference Range Interpretation Comments Potassium Level (test code = 2823-3) 3.6 3.5-5.1 [facility] plasma chloride measurement (moles/volume)2021-06-17 09:30:00 Test Item Value Reference Range Interpretation Comments Chloride Level (test code = 2075-0) 105 98-107 [facility] or plasma carbon dioxide, total measurement (moles/volume)2021-06-17 09:30:00 Test Item Value Reference Range Interpretation Comments Carbon Dioxide Level (test code = 27 -2027-9) [facility] plasma anion [id number] 09:30:00 Test Item Value Reference Range Interpretation Comments Anion Gap (test code = 97632-3) 8.6 8-16 [facility] or plasma urea nitrogen measurement (mass/volume)2021-06-17 09:30:00 Test Item Value Reference Range Interpretation Comments Blood Urea Nitrogen (test code = 14 12-28 3094-0) [facility] plasma creatinine measurement (mass/volume)2021-06-17 09:30:00 Test Item Value Reference Range Interpretation Comments Creatinine (test code = 2160-0) 0.90 0.72-1.25 [facility]er[facility] or plasma urea nitrogen/creatinine mass vafjh5262-11-34 09:30:00 Test Item Value Reference Range Interpretation Comments BUN/Creatinine Ratio (test code = 16 6 3097-3) [facility] Trophy ClubEstimated glomerular filtration rate (GFR) jzubtvltmzkix7181-96-82 09:30:00 Test Item Value Reference Range Interpretation Comments Estimat Glomerular 85 See_Comment [Automat ed message] The Filtration Rate (test system which generated code = 033172392) this resul t transmitted reference range : 60-. The reference r sri was not used to int erpret this result as normal/abnormal . [facility] Trophy ClubGlucose epvocvhhufk2495-76-21 09:30:00 Test Item Value Reference Range Interpretation Comments Glucose Level (test code = LDL6324) 118 74-118 [facility] plasma calcium measurement (mass/volume)2021-06-17 09:30:00 Test Item Value Reference Range Interpretation Comments Calcium Level (test code = 58700-8) 9.1 8.4-10.2 [facility] plasma total bilirubin measurement (mass/volume)2021-06-15 08:25:00 Test Item Value Reference Range Interpretation Comments Total Bilirubin (test code = 1975-2) 0.4 0.2-1.2 [facility] ClubFluoroscopic procedure less than one hour ghwybljp6646-59-29 08:25:00 Test Item Value Reference Range Interpretation Comments Aspartate Amino Transf (AST/SGOT) (test 25 5-34 code = Aspartate Amino Transf (AST/SGOT)) [facility] plasma alanine aminotransferase measurement (enzymatic activity/volume)2021-06-15 08:25:00 Test Item Value Reference Range Interpretation Comments Alanine Aminotransferase (ALT/SGPT) 23 0-55 (test code = 1742-6) [facility] plasma protein measurement (mass/volume)2021-06-15 08:25:00 Test Item Value Reference Range Interpretation Comments Total Protein (test code = 2885-2) 6.3 6.5-8.1 [facility] plasma albumin measurement (mass/volume)2021-06-15 08:25:00 Test Item Value Reference Range Interpretation Comments Albumin (test code = 1751-7) 3.3 3.5-5.0 [facility] ClubPlasma globulin measurement (mass/volume) 2021-06-15 08:25:00 Test Item Value Reference Range Interpretation Comments Globulin (test code = 26894-8) 3.0 2.3-3.5 [facility] or plasma albumin/globulin mass ratio 2021-06-15 08:25:00 Test Item Value Reference Range Interpretation Comments Albumin/Globulin Ratio (test code = 1.1 0.8-2.0 1759-0) [facility] plasma alkaline phosphatase measurement (enzymatic activity/volume)2021-06-15 08:25:00 Test Item Value Reference Range Interpretation Comments Alkaline Phosphatase (test code = 99 40-150 6768-6) [facility] or plasma creatine kinase measurement (enzymatic activity/volume)2021-06-13 06:30:00 Test Item Value Reference Range Interpretation Comments Creatine Kinase (test code = 2157-6) 65 30-200 [facility] or plasma creatine kinase MB measurement (mass/volume)2021-06-13 06:30:00 Test Item Value Reference Range Interpretation Comments Creatine Kinase MB (test code = 1.50 0-5.0 51451-7) [facility] ClubTroponin I measurement by highly sensitive enzyme ifqohnreuim0122-91-93 06:30:00 Test Item Value Reference Range Interpretation Comments Troponin I (test code = 44783-7) 0.168 0-0.300 [facility] Hospitaltool lactoferrin uklsnnbvn8385-19-93 16:00:00 Test Item Value Reference Range Interpretation Comments Stool Lactoferrin (LAB) (test code = NEGATIVE NEGATIVE 05404-0) [facility] Hospitaltool calprotectin measurement (mass/mass) 2021-06-10 16:00:00 Test Item Value Reference Range Interpretation Comments Stool Calprotectin (test code = <16 0-120 23569-1) [facility] ClubClostridium difficile A and B toxin assay 2021-06-10 16:00:00 Test Item Value Reference Range Interpretation Comments Clostridium Difficile Toxin A & B NEGATIVE NEGATIVE (test code = 768030211) [facility] plasma uric acid measurement (mass/volume)2021-06-10 14:23:00 Test Item Value Reference Range Interpretation Comments Uric Acid (test code = 3084-1) 4.5 4.8-8.0 [facility] Trophy ClubUS RENAL RETROPERITONEAL [id number] 11:03:00[facility] : 1955 Sex: M [facility] [address] [address] Patient Name: ANDREA MCDANIEL MR #: [id number] : 1955 Age/Sex: 65/M Req #: [id number] Adm Physician: NURIS MAYA MD Ordered by: PHANI DIGGS, MARK DIGGS Report #: [id number] Location:ICU Room/Bed: [place] [address] Procedure: [id number] US/US RENAL RETROPERITONEAL COMP Exam Date: 06/10/21 Exam Time: 0934 REPORT STATUS: Signed EXAM: Renal Ultrasound INDICATION: Stones COMPARISON: CT dated 06/06/2021 TECHNIQUE: Transverse and longitudinal images of the kidneys and bladder were obtained. FINDINGS: Right Kidney: Length: 9.8 cm Appearance: Increased echogenicity. Collecting system: No hydronephrosis Stones: A 5 mm calculus is identified in the interpolar region. Cyst/Mass: None Left Kidney: Length: 11.8 cm Appearance: Increased echogenicity. Collecting system: No hydronephrosis Stones: A 7 mm c alculus is identified in the interpolar region. Additional smaller lower pole calculi are identified. Cyst/Mass: A 5 cm left upper pole cyst is noted. Bladder: Normal IMPRESSION: Bilateral renal calculi. All of the renal calculi identified on recent CT scan are not well-visualized on this examination. Negative for hydronephrosis. Medical renal disease. Signed by: Nick Kyle MD on 06/10/2021 11:03 AM Dictated By: NICK KYLE MD 1106 Transcribed By: GRICELDA on 06/10/21 1103 COPY TO: MARK JERONIMOPhosphorus hxrjloqnzds0376-35-30 18:58:00 Test Item Value Reference Range Interpretation Comments Phosphorus Level (test code = GXE6660) 3.2 2.3-4.7 [facility] plasma intact pararthyroid hormone measurement (mass/volume)2021-06-09 18:58:00 Test Item Value Reference Range Interpretation Comments Parathyroid Hormone (test code = 42 15-65 2731-8) [facility] plasma calcium measurement (mass/volume)2021-06-09 18:58:00 Test Item Value Reference Range Interpretation Comments Calcium (Send out) (test code = 8.9 8.6-10.2 11715-9) [facility] ClubFluoroscopic procedure less than one hour wgfwvuzh0882-01-77 18:58:00 Test Item Value Reference Range Interpretation Comments Parathyroid Hormone Comment See_Comment [Automa mt message] Interpretation (test code Th e system which = Parathyroid Hormone genera mt this result Interpretation) transmitted reference range: .. The reference range was not used to int erpret this result as normal/abnormal . [facility] ClubUrine color nmwscjazsshxp0726-15-68 14:54:00 Test Item Value Reference Range Interpretation Comments Urine Color (test code = 5778-6) STRAW YELLOW [facility] Trophy ClubUrine sdeztlw3205-44-98 14:54:00 Test Item Value Reference Range Interpretation Comments Urine Clarity (test code = 55178-1) SL CLOUDY CLEAR [facility] Hospitalpecific gravity of Urine by Test strip 2021-06-09 14:54:00 Test Item Value Reference Range Interpretation Comments Urine Specific [place] (test code = 1.025 1.010-1.025 5811-5) [facility] ClubUrine pH measurement by automated test strip 2021-06-09 14:54:00 Test Item Value Reference Range Interpretation Comments Urine pH (test code = 53284-7) 5.5 5-7 [facility] ClubUrine leukocyte esterase detection by automated test wxnkw7290-93-64 14:54:00 Test Item Value Reference Range Interpretation Comments Urine Leukocyte Esterase (test code NEGATIVE NEGATIVE = 06403-1) [facility] Trophy ClubUrine nitrite detection by automated test apeij3093-04-08 14:54:00 Test Item Value Reference Range Interpretation Comments Urine Nitrite (test code = 57546-3) NEGATIVE NEGATIVE [facility] ClubUrine protein detection by automated test hmbno5643-33-34 14:54:00 Test Item Value Reference Range Interpretation Comments Urine Protein (test code = 89563-6) NEGATIVE NEGATIVE [facility] ClubUrine glucose detection by automated test wnolg1471-69-57 14:54:00 Test Item Value Reference Range Interpretation Comments Urine Glucose (UA) (test code = NEGATIVE NEGATIVE 08595-7) [facility] ClubUrine ketones detection by automated test szibx5911-56-56 14:54:00 Test Item Value Reference Range Interpretation Comments Urine Ketones (test code = 55028-0) 1+ NEGATIVE [facility] Trophy ClubUrine urobilinogen measurement by test strip (mass/volume)2021-06-09 14:54:00 Test Item Value Reference Range Interpretation Comments Urine Urobilinogen (test code = 0.2 0.2-1 54644-4) [facility] ClubUrine total bilirubin rqdqtgzjk8599-24-35 14:54:00 Test Item Value Reference Range Interpretation Comments Urine Bilirubin (test code = 1977-8) NEGATIVE NEGATIVE [facility] ClubUrine erythrocytes oogrnbarf7732-42-46 14:54:00 Test Item Value Reference Range Interpretation Comments Urine Blood (test code = 39843-3) NEGATIVE NEGATIVE [facility] Trophy ClubAutomated urine sediment leukocyte count by microscopy (number/high power field)2021-06-09 14:54:00 Test Item Value Reference Range Interpretation Comments Urine WBC (test code = 5821-4) 0-5 0-5 [facility] ClubErythrocytes detection in urine sediment by light golnlpsycr3427-71-74 14:54:00 Test Item Value Reference Range Interpretation Comments Urine RBC (test code = 15603-4) NONE 0-5 [facility] ClubBacteria detection in urine sediment by light sjltanbwov2732-19-36 14:54:00 Test Item Value Reference Range Interpretation Comments Urine Bacteria (test code = 67735-2) NONE NONE [facility] Trophy ClubEpithelial cells detection in urine sediment by light adahyyblsq6295-52-85 14:54:00 Test Item Value Reference Range Interpretation Comments Urine Epithelial Cells (test code = NONE NONE 20062-6) [facility] ClubUrine sodium measurement (moles/volume) 2021-06-09 14:54:00 Test Item Value Reference Range Interpretation Comments Urine Random Sodium (test code = 103 2955-3) [facility] ClubUrine creatinine measurement (mass/volume) 2021-06-09 14:54:00 Test Item Value Reference Range Interpretation Comments Urine Creatinine (test code = 2161-8) 59.71 63-166 [facility] ClubCHEST SINGLE (PORTABLE)2021-06-09 08:46:00 [facility] : 1955 Sex: M [place] [address] Patient Name: ANDREA MCDANIEL MR #: [id number] : 1955 Age/Sex: 65/M Req #: [id number] Adm Physician: NURIS MAYA MD Ordered by: MADDY JULIO MD Report #: [id number] Location:ICU Room/Bed: ICU [facility] Procedure: [id number] DX/CHEST SINGLE (PORTABLE) Exam Date: 06/09/21 Exam Time: 0630 REPORT STATUS: Signed TECHNIQUE: Frontal view of the chest. INDICATION: Cough COMPARISON:06/06/2020 DISCUSSION: Limited evaluation due to portable technique. Lines and hardware: Stable. Heart and mediastinum: Stable. Lungs and pleura: No focal airspace consolidation. No pleural effusion. No pneumothorax. Soft tissues and bones: No acute abnormality. IMPRESSION: Stable exam without acute intrathoracic process Signed by: Nick Kyle MD on 06/09/2021 8:46 AM Dictated By: NICK KYLE MD 0848 Transcribed By: PSCRIBE on 06/09/21 0846 COPY TO: MADDY OH MD, [id number] (COVID-19) RNA [Presence] in Respiratory specimen by DRAKE with probe nxckjrvbf0611-71-75 01:05:00 Test Item Value Reference Range Interpretation Comments Coronavirus (PCR) (test code = NOT DETECTED NEGATIVE 16841-9) [facility] ClubFluoroscopic procedure less than one hour dfpqiyan2310-90-90 01:05:00 Test Item Value Reference Range Interpretation Comments Influenza Virus Type A RNA (test NEGATIVE NEGATIVE code = Influenza Virus Type A RNA) [facility] ClubFluoroscopic procedure less than one hour wxbmhwxe7124-75-80 01:05:00 Test Item Value Reference Range Interpretation Comments Influenza Virus Type B RNA (test NEGATIVE NEGATIVE code = Influenza Virus Type B RNA) [facility] ClubFluoroscopic procedure less than one hour exllrhup6753-98-28 01:05:00 Test Item Value Reference Range Interpretation Comments Resp Syncytial Virus RNA (INAAT) NEGATIVE NEGATIVE (test code = Resp Syncytial Virus RNA (INAAT)) [facility] ClubFibrin D-dimer DDU measurement in platelet poor plasma (mass/volume)2021-06-07 03:48:00 Test Item Value Reference Range Interpretation Comments D-Dimer Quantitative (PE/DVT) (test 1250 0-400 code = 05034-6) [facility] ClubBNP Yve-fJke3975-16-03 02:48:00 Test Item Value Reference Range Interpretation Comments B-Type Natriuretic Peptide (test code = 541.0 0-100 66163-3) [facility] ClubCTA ABD/NWKQVQ7510-28-68 19:45:00 [facility] : 1955 Sex: M [place] [address] Patient Name: ANDREA MCDANIEL MR #: [id number] : 1955 Age/Sex: 65/M Req #: [id number] [facility] Physician: Ordered by: ASTRID GRANDA DO Report #: [id number] Location: ER Room/Bed: Procedure: [id number] CT/CTA ABD/PELVIS Exam Date: 06/06/21 Exam Time: 1744 REPORT STATUS: Signed CLINICAL HISTORY: GI bleed FINDINGS: Multiple axial images of the abdomen and pelvis were performed before and after the uncomplicated administration of IV contrast. Coronal and sagittal reformats were created. 3-Dimaging on an independent workstation was also performed for optimal visualization of the arterial system in accordance with the GI bleed protocol. Oral contrast was not given. This exam was performed according to our departmental dose-optimization program, which includes automated exposure control, adjustment of the mA and/or kV according to patient size and/or use of the iterative reconstruction technique. Comparison: None. There is no aortic dissection or aneurysm. No periaortic hematoma is present. There is no major branch vessel occlusion. The celiac axis and SMA are normal in distribution and appear widely patent. There are single renal arteries bilaterally. The JULISSA, aortic and iliac bifurcations are patent. Abdomen and pelvis: Liver: Hepatic steatosis Gallbladder and biliary tree: Previouscholecystectomy. Trace pneumobilia probably relates to previous intervention. Spleen: No significant findings. Adrenal Glands: No significant findings. Kidneys and ureters: Bilateral nonobstructing kidney stones. The largest is in the midpole left kidney and measures 4 mm. No ureteral stone or CT evidence of obstructive uropathy. 4.7 cm exophytic cyst arising from the superior left kidney. Stomach and Duodenum: No significant findings. No extravasated IV contrast in the lumen of the stomach or duodenum. Pancreas: No significant findings. Bowel: There is circumferential mural thickening of the descending colon and proximal sigmoid colonwith subtle adjacent fat stranding. No bowel obstruction or pneumatosis intestinalis. No extravasation of IV contrast into the bowel lumen. Appendix: Absent Bladder: No significant findings. Reproductive organs: Prominent prostate gland. Other: No free air, fluid or adenopathy Skeleton: No acute bony abnormality. IMPRESSION: Findings suggesting left-sided colitis.Infectious and inflammatory causes are considered. A more aggressive underlying colonic lesion should be excluded on colonoscopy when clinically feasible. No active extravasation of IV contrast into the GI tract lumen to definitively confirm a source of bleeding. Bilateral nonobstructing kidney stones. Hepatic steatosis. Signed by: Dieudonne Chan on 06/06/2021 7:45 PM Dictated By: DIEUDONNE CHAN MD Elect ronically Signed By: DIEUDONNE CHAN MD on 06/06/211946 Transcribed By: GRICELDA on 06/06/211944 COPY TO: ASTRID GRANDA [facility] [id number] 18:46:00 [facility] : 1955 [place] [address] Patient Name: ANDREA MCDANIEL MR #: [id number] : 1955 Age/Sex: 65/M Req #: [id number] Adm Physician: Ordered by: ASTRID GRANDA DO Report #: [id number] Location: ER Room/Bed: Procedure: [id number] CT/CT CHEST W Exam Date: 06/06/21 Exam Time: 1744 REPORT STATUS: Signed CLINICAL HISTORY: Left chest pain, shortness of breath FINDINGS: Multiple axial images of the chest were performed afterthe uncomplicated administration of IV contrast, utilizing a pulmonary embolism protocol. Post-processing coronal reformats were created and interpreted. This exam was performed according to our departmental dose-optimization program, which includes automated exposure control, adjustment of the mA and/or kV according to patient size and/or use of the iterative reconstruction technique. Study quality:Adequate. Comparison:None. Pulmonary arteries: No pulmonary embolism. Lung parenchyma: No significantfindings. Pleural effusion: None. Pneumothorax: None. Tracheobronchial tree: No significant findings. Pulmonary vasculature: No significant findings. Cardiac contours and great vessels: Atheroscleroticcalcification versus vascular stents in the LAD. Mediastinum: No significant findings. Lymph Nodes: No adenopathy in the mediastinum or shreyas. Skeleton: No acute abnormality. Confluent ossification of the anterior longitudinal ligament of a significant portion of the thoracic spine. Other:Left-sided PICC line in place. Limited images of upper abdomen: Please refer to the abdomen and pelvis report performed at the same time. IMPRESSION: No pulmonary embolism or acute cardiopulmonary abnormality. Signed by: Dieudonne Chan on 06/06/2021 6:46 PM Dictated By: DIEUDONNE CHAN MD 47 Transcribed By: GRICELDA on 06/06/211845 COPY TO: ASTRID GRANDAWMCHEALTHT XRAY LINE [id number] 17:20:00 [facility] : 1955 Sex: M [place] [address] Patient Name: ANDREA MCDANIEL MR #: [id number] : 1955 Age/Sex: 65/M Req #: [id number] Adm Physician: Ordered by: ASTRID GRANDA DO Report #: [id number] Location: ER Room/Bed: Procedure: [id number] DX/CHEST XRAY LINE PLACEMENT Exam Date: 06/06/21 Exam Time: 1645 REPORT STATUS: Signed EXAM/TECHNIQUE: Single view frontal radiograph of the chest. INDICATION: PICC PLACEMENT COMPARISON: FINDINGS: Devices/Objects: Left PICC terminates in the lower SVC. Lungs: No focal consolidation. No pleural effusion. No pneumothorax. Heart/Mediastinum: No cardiomegaly. No interstitial thickening. Osseous: No acute osseous process. No suspicious osseous lesion. Upper abdomen: Unremarkable. Impression: Left PICC terminates in the lower SVC. Signed by: Reynaldo Fairchild on 06/06/2021 5:20 PM Dictated By: REYNALDO FAIRCHILD MD 21 Transcribed By: GRICELDA on 06/06/211719 COPY TO: ASTRID GRANDA [facility] [id number] 16:26:00 [facility] : 1955 Sex: M [facility] [address] [place] [address] PatientName: ANDREA MCDANIEL MR #: [id number] : 1955 Age/Sex: 65/M Req #: [id number] Adm Physician: Ordered by: ASTRID GRANDA DO Report #: [id number] Location: Room/Bed: Procedure: [id number] CT/CT BRAIN WO Exam Date: 06/06/21 Exam Time: 1520 REPORT STATUS: Signed EXAM/TECHNIQUE: Noncontrast CT of the head. Dose modulation, iterative reconstruction, and/or weightbased adjustment of the mA/kV was utilized to reduce the radiation dose to as low as reasonably achievable. INDICATION: Dizziness. COMPARISON: CT head from 11/19/2020. FINDINGS: Newton-white differentiation is preserved. No acute intracranial hemorrhage. No extra-axial fluid collection. Ventricles are normal in appearance. Basal cisterns are patent. No midline shift. Cerebellar tonsils are normal in appearance. Orbits are normal. Paranasal sinuses are clear. Mastoid air cells are clear. No acute osseous processes or suspicious osseous lesion. Midline structures are normal. Visualized face and neck areunremarkable. Impression: No acute intracranial process. If clinical concern persists for intracranial process, consider MRI. Signed by: Reynaldo Fairchild on 06/06/2021 4:26 PM Dictated By: REYNALDO FAIRCHILD MD 5827 Transcribed By: GRICELDA on 06/06/211625 COPY TO: ASTRID GRANDA-CoV-2 (COVID-19) RNA [Presence] in Respiratory specimen by DRAKE with probe [id number] 15:49:00 Test Item Value Reference Range Interpretation Comments Coronavirus (PCR) (test code = NOT DETECTED NOTDETECTED 01120-1) [facility] ClubProthrombin time (PT) in platelet poor plasma by coagulation [id number] 15:05:00 Test Item Value Reference Range Interpretation Comments Prothrombin Time (test code = 5902-2) 13.7 11.9-14.5 [facility] ClubINR in Platelet poor plasma by Coagulation rexoe0381-93-81 15:05:00 Test Item Value Reference Range Interpretation Comments Prothromb Time International Ratio 0.97 (test code = 6301-6) [facility] ClubActivated partial thromboplastin time (aPTT) in platelet poor plasma by coagulation dytrz2230-31-55 15:05:00 Test Item Value Reference Range Interpretation Comments Activated Partial Thromboplast Time 29.1 23.8-35.5 (test code = 16734-2) [facility] ClubVQ LUNG PERFUSION [id number] 15:23:00 [facility] : 1955 [place] [address] Patient Name: ANDREA MCDANIEL MR #: [id number] : 1955 Age/Sex: 65/M Req #: [id number] Adm Physician: NURIS MAYA MD Ordered by: NURIS MAYA MD Report #: [id number] Location: MED/[facility] Room/Bed: [facility] Procedure: [id number] NM/VQ LUNG PERFUSION ONLY Exam Date: 11/26/20 Exam Time:0745 REPORT STATUS: Signed PROCEDURE: LUNG SCAN - perfusion only CPT CODE: 28255 INDICATION: Chest pain PROTOCOL: Six mCi of Tc-99m MAA was injected intravenously, and static perfusion images were obtained in in the standard a projections. Ventilation imaging was not performed due to Covid 19 precautions. FINDINGS: Tracer distribution is physiological in the images obtained. IMPRESSION: Normal perfusion lung scan. Signed by: Loi Norton on 11/26/2020 3:23 PM Dictated By: LOI NORTON MD 1526 Transcribed By: GRICELDA on 11/26/20 1523 COPY TO: NURIS MAYA MDBlrodo hemoglobin measurement (moles/volume)2020-11-26 14:11:00 Test Item Value Reference Range Interpretation Comments Hemoglobin (test code = 13671-0) 13.9 14.0-18.0 [facility] ClubAutomated blood hematocrit (volume fraction) 2020-11-26 14:11:00 Test Item Value Reference Range Interpretation Comments Hematocrit (test code = 4544-3) 40.3 38.2-49.6 [facility] 2020-11-26 14:10:00 Test Item Value Reference Range Interpretation Comments Stool Occult Blood (test code = NEGATIVE NEGATIVE 2335-8) [facility] detection 2020-11-26 14:10:00 Test Item Value Reference Range Interpretation Comments Stool Occult Blood (test code = NEGATIVE NEGATIVE 2335-8) [facility]er[facility] or plasma sodium measurement (moles/volume)2020-11-26 05:21:00 Test Item Value Reference Range Interpretation Comments Sodium Level (test code = 2951-2) 133 136-145 [facility] plasma potassium measurement (moles/volume)2020-11-26 05:21:00 Test Item Value Reference Range Interpretation Comments Potassium Level (test code = 2823-3) 4.2 3.5-5.1 [facility] or plasma chloride measurement (moles/volume)2020-11-26 05:21:00 Test Item Value Reference Range Interpretation Comments Chloride Level (test code = 2075-0) 95 98-107 [facility] or plasma carbon dioxide, total measurement (moles/volume)2020-11-26 05:21:00 Test Item Value Reference Range Interpretation Comments Carbon Dioxide Level (test code = 23 22-29 2027-9) [facility] or plasma anion ukq8297-29-98 05:21:00 Test Item Value Reference Range Interpretation Comments Anion Gap (test code = 70052-1) 19.2 8-16 [facility] or plasma urea nitrogen measurement (mass/volume)2020-11-26 05:21:00 Test Item Value Reference Range Interpretation Comments Blood Urea Nitrogen (test code = 22 12-28 3094-0) [facility] plasma creatinine measurement (mass/volume)2020-11-26 05:21:00 Test Item Value Reference Range Interpretation Comments Creatinine (test code = 2160-0) 2.08 0.72-1.25 [facility]erum or plasma urea nitrogen/creatinine mass uwbnk1136-46-96 05:21:00 Test Item Value Reference Range Interpretation Comments BUN/Creatinine Ratio (test code = 11-27 3097-3) [facility] ClubEstimated glomerular filtration rate (GFR) tmwvjodondcjl4883-03-02 05:21:00 Test Item Value Reference Range Interpretation Comments Estimat Glomerular 32 See_Comment [Automat ed message] The Filtration Rate (test system which generated code = 269945691) this resul t transmitted reference range : 60-. The reference r sri was not used to int erpret this result as normal/abnormal . [facility] ClubGlucose qjjfvjibabh3272-32-32 05:21:00 Test Item Value Reference Range Interpretation Comments Glucose Level (test code = YFU2997) 91 74-118 [facility]er[facility] or plasma calcium measurement (mass/volume)2020-11-26 05:21:00 Test Item Value Reference Range Interpretation Comments Calcium Level (test code = 41072-4) 9.9 8.4-10.2 [facility] or plasma total bilirubin measurement (mass/volume)2020-11-26 05:21:00 Test Item Value Reference Range Interpretation Comments Total Bilirubin (test code = 1975-2) 1.1 0.2-1.2 [facility] ClubFluoroscopic procedure less than one hour oxxrecln4057-77-31 05:21:00 Test Item Value Reference Range Interpretation Comments Aspartate Amino Transf (AST/SGOT) (test 45 5-34 code = Aspartate Amino Transf (AST/SGOT)) [facility] or plasma alanine aminotransferase measurement (enzymatic activity/volume)2020-11-26 05:21:00 Test Item Value Reference Range Interpretation Comments Alanine Aminotransferase (ALT/SGPT) 44 0-55 (test code = 1742-6) [facility]er[facility] or plasma protein measurement (mass/volume)2020-11-26 05:21:00 Test Item Value Reference Range Interpretation Comments Total Protein (test code = 2885-2) 8.2 6.5-8.1 [facility]erum or plasma albumin measurement (mass/volume)2020-11-26 05:21:00 Test Item Value Reference Range Interpretation Comments Albumin (test code = 1751-7) 3.7 3.5-5.0 [facility] ClubPlasma globulin measurement (mass/volume) 2020-11-26 05:21:00 Test Item Value Reference Range Interpretation Comments Globulin (test code = 84878-8) 4.5 2.3-3.5 [facility] or plasma albumin/globulin mass ratio 2020-11-26 05:21:00 Test Item Value Reference Range Interpretation Comments Albumin/Globulin Ratio (test code = 0.8 0.8-2.0 1759-0) [facility]erum or plasma alkaline phosphatase measurement (enzymatic activity/volume)2020-11-26 05:21:00 Test Item Value Reference Range Interpretation Comments Alkaline Phosphatase (test code = 195 40-150 6768-6) [facility] ClubBlood leukocytes automated count (number/volume)2020-11-24 08:41:00 Test Item Value Reference Range Interpretation Comments White Blood Count (test code = 6690-2) 9.78 4.8-10.8 [facility] ClubBlood erythrocytes automated count (number/volume)2020-11-24 08:41:00 Test Item Value Reference Range Interpretation Comments Red Blood Count (test code = 789-8) 3.80 4.3-5.7 [facility] ClubAutomated erythrocyte mean corpuscular volume 2020-11-24 08:41:00 Test Item Value Reference Range Interpretation Comments Mean Corpuscular Volume (test code = 86.8 81-99 787-2) [facility] ClubAutomated erythrocyte mean corpuscular hemoglobin (mass per erythrocyte)2020-11-24 08:41:00 Test Item Value Reference Range Interpretation Comments Mean Corpuscular Hemoglobin (test code 30.5 28-32 = 785-6) [facility] ClubAutomated erythrocyte mean corpuscular hemoglobin concentration measurement (mass/volume)2020-11-24 08:41:00 Test Item Value Reference Range Interpretation Comments Mean Corpuscular Hemoglobin Concent 35.2 31-35 (test code = 786-4) [facility] Trophy ClubRDW YmuBs-Wag3587-97-22 08:41:00 Test Item Value Reference Range Interpretation Comments Red Cell Distribution Width (test code 13.8 11.7-14.4 = 64802-6) [facility] ClubAutomated blood platelet count (count/volume) 2020-11-24 08:41:00 Test Item Value Reference Range Interpretation Comments Platelet Count (test code = 777-3) 194 140-360 [facility] ClubAutomated blood segmented neutrophil count as percentage of total qkwqolufbb0626-80-96 08:41:00 Test Item Value Reference Range Interpretation Comments Neutrophils (%) (Auto) (test code = 76.5 38.7-80.0 99530-4) [facility] ClubAutomated blood lymphocyte count as percentage ot total rbbjwstbyz2495-28-04 08:41:00 Test Item Value Reference Range Interpretation Comments Lymphocytes (%) (Auto) (test code = 11.6 18.0-39.1 736-9) [facility] ClubAutomated blood monocyte count as percentage of total thmzxswexo8443-14-17 08:41:00 Test Item Value Reference Range Interpretation Comments Monocytes (%) (Auto) (test code = 9.2 4.4-11.3 5905-5) [facility] ClubAutomated blood eosinophil count as percentage of total juxxrvfzdr6189-00-56 08:41:00 Test Item Value Reference Range Interpretation Comments Eosinophils (%) (Auto) (test code = 1.4 0.0-6.0 713-8) [facility] ClubAutomated blood basophil count as percentage of total seboeezyum1104-15-81 08:41:00 Test Item Value Reference Range Interpretation Comments Basophils (%) (Auto) (test code = 0.8 0.0-1.0 706-2) [facility] ClubFluoroscopic procedure less than one hour itiigljv0198-98-28 08:41:00 Test Item Value Reference Range Interpretation Comments IM GRANULOCYTES % (test code = IM 0.5 0.0-1.0 GRANULOCYTES %) [facility] ClubAutomated blood neutrophil xgqzd7457-35-15 08:41:00 Test Item Value Reference Range Interpretation Comments Neutrophils # (Auto) (test code = 7.5 2.1-6.9 751-8) [facility] ClubBlood lymphocytes count (number/volume) 2020-11-24 08:41:00 Test Item Value Reference Range Interpretation Comments Lymphocytes # (Auto) (test code = 1.1 1.0-3.2 10587-1) [facility] ClubBlood monocytes automated count (number/volume)2020-11-24 08:41:00 Test Item Value Reference Range Interpretation Comments Monocytes # (Auto) (test code = 742-7) 0.9 0.2-0.8 [facility] Trophy ClubAutomated blood eosinophil kikut3526-76-83 08:41:00 Test Item Value Reference Range Interpretation Comments Eosinophils # (Auto) (test code = 0.1 0.0-0.4 711-2) [facility] basophil count (count/volume) 2020-11-24 08:41:00 Test Item Value Reference Range Interpretation Comments Basophils # (Auto) (test code = 704-7) 0.1 0.0-0.1 [facility] ClubFluoroscopic procedure less than one hour jesgvxsx6484-32-35 08:41:00 Test Item Value Reference Range Interpretation Comments Absolute Immature Granulocyte (auto 0.05 0-0.1 (test code = Absolute Immature Granulocyte (auto) [facility] ClubBNP Ujd-hBnt1162-60-21 19:07:00 Test Item Value Reference Range Interpretation Comments B-Type Natriuretic Peptide (test code = 411.3 0-100 23895-9) [facility] Trophy ClubTroponin I measurement by highly sensitive enzyme jtwgoapfina3764-48-32 19:07:00 Test Item Value Reference Range Interpretation Comments Troponin I (test code = 43606-2) 0.035 0-0.300 [facility] ClubCHEST 2 DVVJE0804-14-88 18:57:00 [facility] : 1955 [place] [address] Patient Name: ANDREA MCDANIEL MR #: [id number] : 1955 Age/Sex: 65/M Req #: [id number] Adm Physician: NURIS MAYA MD Ordered by: NURIS MAYA MD Report #: [id number] Location: MED/SURG2 Room/Bed: [facility] Procedure: [id number] DX/CHEST 2 VIEWS Exam Date: 11/24/20 Exam Time: 1816 REPORT STATUS: Signed Chest, 1 view. History: Chest pain. Comparison: 11/17/2020. IMPRESSION: The tracheais midline. Lung volumes are low/there is poor respiratory effort. There is mild bibasilar atelectasis. There is no evidence for large focal consolidation, pneumothorax, or significant volume pleural effusion. The cardiomediastinal silhouette and pulmonary vasculature are within normal limits. No acute osseous abnormalities identified. Signed by: Mg Macedo MD on 11/23/2020 6:57 PM Dictated By: MG MACEDO MD 0305 Transcribed By: PSCRIBE on 11/23/20 527 COPY TO: NURIS MAYA [facility] NZ5846-89-36 21:33:00[facility] : 1955 [facility] [address] [address] Patient Name: ANDREA MCDANIEL MR #: [id number] : 1955 Age/Sex: 65/M Req #: [id number] Adm Physician: NURIS MAYA MD Ordered by: NURIS MAYA MD Report #: [id number] [facility] Room/Bed: [facility] Procedure: [id number] MRI/MRI BRAIN WO Exam Date: 11/19/20 Exam Time: 1630 REPORT STATUS: Signed Examination: MRI BRAIN WO CONTRAST History: Weakness; rule out stroke. Comparison studies: Head CT performed earlier the same day Technique: Sagittal T2; axial DWI, FLAIR, GRE or SWI,T1, Coronal FLAIR. Intravenous contrast: None Findings: Scalp: No abnormal signal. No masses. Bone marrow: Normal in signal intensity. Brain volume: Adequate for age. No volume loss. Ventricles: Normalin size and configuration. No hydrocephalus. Extra-axial spaces: No abnormalities. Parenchyma: No abnormal signal intensities. No masses, hemorrhage, acute or chronic vascular insults. Suprasellar and sellar region: No abnormalities. Craniocervical junction: No abnormalities. The foramen magnum is patent. No Chiari malformations. Vessels: Normal flow-voids in the arteries and sinuses. Additional findings:None. IMPRESSION: No acute intracranial abnormalities, specifically, no acute infarct. Signed by: Dr. Nohemi Mcnulty M.D. on 11/19/2020 9:35 PM Dictated By: ONHEMI CUNHA MD 34 Transcribed By: JEREMY on 11/19/20OPY TO: NURIS MAYA MD CT BRAIN [id number] 11:39:00 [facility] : 1955 [facility] [address] [address] Patient Name: ANDREA MCDANIEL MR #: [id number] : 1955 Age/Sex: 65/M Req #: [id number] Adm Physician: NURIS MAYA MD Ordered by: Leigh Amor MD Report #: [id number] Location: [facility] Room/Bed: [facility] Procedure: [id number] CT/CT BRAIN WO Exam Date: 11/19/20 Exam Time: 1138 REPORT STATUS: Signed CT BRAIN WO HISTORY: Right-sided weakness COMPARISON: None. TECHNIQUE: Noncontrast axial scans were obtained from skull base to the vertex. Coronal and sagittal reconstructions obtained from the axial data. One or more of the following dose reduction techniques were used: Automated exposure control, adjustment of the mA and/or kV according to patient size, and/or utilization of iterative reconstruction technique. DISCUSSION: Scalp/Skull: A few scattered subcutaneous calcificationsin the scalp. Brain sulci: Appropriate for patient's age. Ventricles: Normal in size and configuration. No hydrocephalus. Extra-axial spaces: No masses or fluid collections. Mild carotid siphon calcifications noted Parenchyma: No abnormal densities. No mass, hemorrhage, or large vascular territory acute infarct. Dural sinuses: No abnormal densities. Sellar/Suprasellar region: Intact. Skull base: Intact. Incidental findings: None. IMPRESSION: No acute intracranial abnormalities. Signed by: Dr. Judith M.D. on 11/19/2020 11:42 AM Dictated By: ANDREA VILLASEÑOR MD 1142 Transcribed By: JEREMY on 11/19/20 1142 COPY TO: LEIGH AMOR MDCapillary blood glucose measurement by glucometer (mass/volume)2020-11-19 11:20:00 Test Item Value Reference Range Interpretation Comments Bedside Glucose (test code = 24489-7) 88 70-120 [facility] blood glucose measurement by glucometer (mass/volume)2020-11-19 11:20:00 Test Item Value Reference Range Interpretation Comments Bedside Glucose (test code = 95518-0) 88 70-120 [facility] ClubProthrombin time (PT) in platelet poor plasma by coagulation [id number] 05:37:00 Test Item Value Reference Range Interpretation Comments Prothrombin Time (test code = 5902-2) 11.7 11.9-14.5 [facility] ClubINR in Platelet poor plasma by Coagulation [id number] 05:37:00 Test Item Value Reference Range Interpretation Comments Prothromb Time International Ratio 0.81 (test code = 6301-6) [facility] ClubActivated partial thromboplastin time (aPTT) in platelet poor plasma by coagulation [id number] 05:37:00 Test Item Value Reference Range Interpretation Comments Activated Partial Thromboplast Time 31.3 23.8-35.5 (test code = 74047-9) [facility] ClubFibrin D-dimer DDU measurement in platelet poor plasma (mass/volume)2020-11-18 05:31:00 Test Item Value Reference Range Interpretation Comments D-Dimer Quantitative (PE/DVT) (test 563 0-400 code = 53128-5) [facility] triglyceride measurement (mass/volume)2020-11-18 04:47:00 Test Item Value Reference Range Interpretation Comments Triglycerides Level (test code = 198 0-149 2571-8) [facility] plasma cholesterol measurement (mass/volume)2020-11-18 04:47:00 Test Item Value Reference Range Interpretation Comments Cholesterol Level (test code = 3-3) 304 0-199 [facility] cholesterol in LDL measurement (mass/volume)2020-11-18 04:47:00 Test Item Value Reference Range Interpretation Comments LDL Cholesterol (test code = 9-1) 204 60-130 [facility] cholesterol in HDL measurement (mass/volume)2020-11-18 04:47:00 Test Item Value Reference Range Interpretation Comments HDL Cholesterol (test code = 2085-9) 60 40-60 [facility] or plasma total cholesterol/cholesterol in HDL mass [id number] 04:47:00 Test Item Value Reference Range Interpretation Comments Cholesterol/HDL Ratio (test code = 5.1 3.9-4.7 9830-1) [facility] triglyceride measurement (mass/volume)2020-11-18 04:47:00 Test Item Value Reference Range Interpretation Comments Triglycerides Level (test code = 198 0-149 2571-8) [facility] plasma cholesterol measurement (mass/volume)2020-11-18 04:47:00 Test Item Value Reference Range Interpretation Comments Cholesterol Level (test code = 3-3) 304 0-199 [facility] cholesterol in LDL measurement (mass/volume)2020-11-18 04:47:00 Test Item Value Reference Range Interpretation Comments LDL Cholesterol (test code = 9-1) 204 60-130 [facility] plasma cholesterol in HDL measurement (mass/volume)2020-11-18 04:47:00 Test Item Value Reference Range Interpretation Comments HDL Cholesterol (test code = 2085-9) 60 40-60 [facility] or plasma total cholesterol/cholesterol in HDL mass [id number] 04:47:00 Test Item Value Reference Range Interpretation Comments Cholesterol/HDL Ratio (test code = 5.1 3.9-4.7 9830-1) [facility] plasma creatine kinase measurement (enzymatic activity/volume)2020-11-17 09:06:00 Test Item Value Reference Range Interpretation Comments Creatine Kinase (test code = 2157-6) 97 30-200 [facility] or plasma creatine kinase MB measurement (mass/volume)2020-11-17 09:06:00 Test Item Value Reference Range Interpretation Comments Creatine Kinase MB (test code = 4.10 0-5.0 79723-0) [facility] ([facility]OVID-19) RNA [Presence] in Respiratory specimen by DRAKE with probe [id number] 01:28:00 Test Item Value Reference Range Interpretation Comments Coronavirus (PCR) (test code = NOT DETECTED NOTDETECTED 61191-1) [facility] Club[facility]ST SINGLE (PORTABLE)2020-11-17 00:42:00 [facility] : 1955 [place] [address] [address] Patient Name: ANDREA MCDANIEL MR #: [id number] : 1955 Age/Sex: 65/M Req #: [id number] Adm Physician: Ordered by: JAYY PEARCE DO Report #: [id number] Location: Room/Bed: Procedure: [id number] DX/CHEST SINGLE (PORTABLE) Exam Date: 11/17/20 Exam Time: 0026 REPORT STATUS: Signed EXAMINATION: CHEST SINGLE (PORTABLE) INDICATION: Y cp COMPARISON: None FINDINGS: TUBES and LINES: None. LUNGS: Bronchial wall cuffing. Scattered linear bibasilar opacities, likely atelectasis or scarring. No consolidation. PLEURA: No pleural effusion or pneumothorax. HEART AND MEDIASTINUM: The cardiomediastinal silhouette is unremarkable. BONES AND SOFT TISSUES: No acute osseous lesion. Soft tissues are unremarkable. UPPER ABDOMEN: No free air under the diaphragm. IMPRESSION: Findings suggestive of bronchitis. No consolidative pneumonia. Signed by: Irma Hood MD on 11/17/2020 12:45 AM Dictated By: IRMA HOOD MD Transcribed By: JEREMY on 11/17/2044 COPY TO: JAYY PEARCE DOUR CHLORIDE [id number] 18:07:00 Test Item Value Reference Range Interpretation Comments UR CHLORIDE RANDOM 65 mmol/L Not Estab. Performed At: (test code = CLU) [facility] [id number] [facility] [place], [place] [id number] lynne Mckay MD Ph:[phone] [facility] W/O [id number] 13:49:00 [facility]Name[facility] : 1955 Sex: M FAX: Natasha Tejada MD [phone] Camps: PM St: REG Name: ANDREA MCDANIEL [place] : 1955 Age/S: 64/M [address] Unit #: [id number] Loc: [place] [address] Phys: Natasha Tejada MD Acct: [id number] Dis Date: Status: REG REF PHONE #: [phone] Exam Date: 05/22/2020 1200 FAX #: Reason: CVA EXAMS: CPT: [id number] MRA HEAD W/O CONT 72843 HISTORY: CVA TECHNIQUE: Multiplanar multisequence MR images of the brain were obtained before and after intravenous contrast. 3-D xlfh-iw-sayvlf MRA images of the circleof [place] were obtained. Vyzf-xi-lgiywd MRA images of the neck were obtained as well. FINDINGS: There is no intracranial hemorrhage, mass or mass effect. The ventricular system and sulci are age-appropriate. There is no evidence of acute infarction. After intravenous contrast no abnormal enhancement is demonstrated. No significant signal abnormalities are demonstrated throughout the brain. Appropriate flow- voids are present at the skull base. The visualized orbits and sinuses show no significant abnormalities. MRA: MRA neck: Carotid arteries are patent bilaterally. No area of high-grade stenosis or occlusion. The visualized vertebral arteries are patent throughout the course within the neck. MRA BRAIN: The intracranial internal carotid arteries, anterior cerebral arteries, and middle cerebral arteries show no significant abnormalities. A small anterior communicating artery is present. The distal vertebral arteries, basilar artery, and posterior cerebral arteries show no significant abnormalities. IMPRESSION: 1. No evidence of acute infarction. No other acute intracranial abnormality identified. 2. No area of high-grade stenosis involving the head and neck with no intracranial large vessel occlusion. PAGE 1 Signed Report (CONTINUED) FAX: Natasha Tejada MD [phone] Camps: PM St: REG-------- Name: ANDREA MCDANIEL [facility] : 1955 Age/S: 64/M [address] Unit #: [id number] Loc: [place] [address] Phys: Natasha Tejada MD Acct: [id number] Dis Date: Status: REG REF PHONE #: [phone] Exam Date: 05/22/2020 1200 FAX #: Reason: CVA EXAMS: CPT: [id number] MRA HEAD W/O CONT 30465 (Continued) at 1340 Reported and signed by: Toño Lazaro M.D. CC: Natasha Tejada MD Technologist: RT Cyn(R)(MR) Transcribed Date/Time/By: 05/22/2020 (8756) :[email or web address] Orig Print D/T: S: 05/22/2020 (0401) PAGE 2 Signed Report- MRA NECK W/O [id number] 13:49:00 [facility] : 1955 Sex: M FAX: Natasha Tejada MD [phone] Camps: PM St: REG Name: ANDREA MCDANIEL [place] : 1955 Age/S: 64/M [address] Unit #: [id number] Loc: [place] [address] Phys: Natasha Tejada MD Acct: [id number] Dis Date: Status: REG REF PHONE #: [phone] Exam Date: 05/22/2020 1200 FAX #: Reason: CVA EXAMS: CPT: [id number] MRA NECK W/O CONT 86734 HISTORY: CVA TECHNIQUE: Multiplanar multisequence MR images of the brain were obtained before and after intravenous contrast. 3-D palx-et-xxwdlm MRA images of the [place] were obtained. Csez-xc-ztfrjk MRA images of the neck were obtained as well. FINDINGS: There is no intracranial hemorrhage, mass or mass effect. The ventricular system and sulci are age-appropriate. There is no evidence of acute infarction. After intravenous contrast no abnormal enhancement is demonstrated. No significant signal abnormalities are demonstrated throughout the brain. Appropriate flow- voids are present at the skull base. The visualized orbits and sinuses show no significant abnormalities. MRA: MRA neck: Carotid arteries are patent bilaterally. No area of high-grade stenosisor occlusion. The visualized vertebral arteries are patent throughout the course within the neck. MRA BRAIN: The intracranial internal carotid arteries, anterior cerebral arteries, and middle cerebral arteries show no significant abnormalities. A small anterior communicating artery is present. The distal vertebral arteries, basilar artery, and posterior cerebral arteries show no significant abnormalities. IMPRESSION: 1. No evidence of acute infarction. No other acute intracranial abnormality identified. 2. No area of high-grade stenosis involving the head and neck with no intracranial large vesselocclusion. PAGE 1 Signed Report (CONTINUED) FAX: Natasha Tejada MD [phone] Camps: PM St: REG------ Name: ANDREA MCDANIEL [facility] : 1955 Age/S: 64/M [address] [address] Unit #: [id number] Loc: [place] [address] Phys: Natasha Tejada MD Acct: [id number] Dis Date: Status: REG REF PHONE #: [phone] Exam Date: 05/22/2020 1200 FAX #: Reason: CVA EXAMS: CPT: [id number] MRA NECK W/O CONT 81684 (Continued) at 1967 Reported and signed by: Toño Lazaro M.D. CC: Natasha Tejada MD Technologist: RT Cyn(R)(MR) Transcribed Date/Time/By: 05/22/2020 (7107) :[email or web address] Orig Print D/T: S: 05/22/2020 (5644) PAGE 2 Signed Report- MRI BRAIN W/O [id number] 13:49:00 [facility] : 1955 Sex: M FAX: Natasha Tejada MD [phone] Camps: PM St: REG Name: ANDREA MCDANIEL [place] : 1955 Age/S: 64/M [address] [address] Unit #: [id number] Loc: [place] [address] Phys: Natasha Tejada MD Acct: [id number] Dis Date: Status: REG REF PHONE #: [phone] Exam Date: 05/22/2020 1200 FAX #: Reason: CVA EXAMS: CPT:[id number] MRI BRAIN W/O CONTRAST 58599 HISTORY: CVA TECHNIQUE: Multiplanar multisequence MR images of the brain were obtained before and after intravenous contrast. 3-D derp-qo-ymvtyq MRA images of thecircle of [place] were obtained. Blpm-ff-jvxwsh MRA images of the neck were obtained as well. FINDINGS: There is no intracranial hemorrhage, mass or mass effect. The ventricular system and sulci are age-appropriate. There is no evidence of acute infarction. After intravenous contrast no abnormal enhancement is demonstrated. No significant signal abnormalities are demonstrated throughout the brain. Appropriate flow- voids are present at the skull base. The visualized orbits and sinuses show no significant abnormalities. MRA: MRA neck: Carotid arteries are patent bilaterally. No area of high-grade stenosis or occlusion. The visualized vertebral arteries are patent throughout the course within the neck. MRA BRAIN: The intracranial internal carotid arteries, anterior cerebral arteries, and middle cerebral arteries show no significant abnormalities. A small anterior communicating artery is present. The distal vertebral arteries, basilar artery, and posterior cerebral arteries show no significant abnormalities. IMPRESSION: 1. No evidence of acute infarction. No other acute intracranial abnormality i dentified. 2. No area of high-grade stenosis involving the head and neck with no intracranial large vessel occlusion. PAGE 1 Signed Report (CONTINUED) FAX: Natasha Tejada MD [phone] Camps: PM St: RE G Name: ANGELIA MCDANIEL : 1955 Age/S: 64/M [address] [address] Unit #: [id number] Loc: [place] [address] Phys: Natasha Tejada MD Acct: [id number] Dis Date: Status: REG REF PHONE #: [phone] Exam Date: 05/22/2020 1200 FAX #: Reason: CVA EXAMS: CPT: [id number] MRI BRAIN W/O CONTRAST 12495 (Continued) at 9918 Reported and signed by: Toño Lazaro M.D. CC: Natasha Tejada MD Technologist: RT Cyn(R)(MR) Transcribed Date/Time/By: 05/22/2020 (0313) :[email or web address] Orig Print D/T: S: 05/22/2020 (9946) PAGE 2 Signed ReportUR SODIUM [id number] 10:02:00 Test Item Value Reference Range Interpretation Comments UR SODIUM RANDOM 62 MEQ/L () The Referen ce Range and (test code = ARSLAN) Method Per formance specificationsh ave not been established for this fluid. The test result should be correlated into the clinical context forinte rpretation. UR SODIUM [id number] 10:01:00 Test Item Value Reference Range Interpretation Comments UR SODIUM RANDOM 62 MEQ/L The Referen ce Range and (test code = ARSLAN) Method Per formance specificationsh ave not been established for this fluid. The test result should be correlated into the clinical context forinte rpretation. UA RFLX MICR CULT IF [id number] 08:29:00 Test Item Value Reference Range Interpretation Comments UA COLOR (test code = COLU) YELLOW discript YEL/STRAW UA APPEARANCE (test code = CLEAR discript CLEAR APPU) UA GLUCOSE DIPSTICK (test NEGATIVE mg/dL NEG code = DGLUU) UA BILIRUBIN DIPSTICK (test NEGATIVE mg/dL NEG code = BILU) UA KETONE DIPSTICK (test NEGATIVE mg/dL NEG code = KETU) UA SPECIFIC GRAVITY (test 1.010 SG 1.005-1.030 code = SGU) UA BLOOD DIPSTICK (test NEGATIVE mg/DL NEG code = YOBANI) UA PH DIPSTICK (test code = 6.5 pH UNITS 5.0-7.0 LIV) UA PROTEIN DIPSTICK (test NEGATIVE mg/dL NEG code = PROU) UA UROBILINIOGEN DIPSTICK 0.2 mg/dL <2.0 (test code = URO) UA NITRITE DIPSTICK (test NEGATIVE SCREEN NEG code = BRADLEY) UA LEUKOCYTE ESTERASE NEGATIVE Leuk/mcL NEGATIVE DIPSTICK (test code = LEUU) UR CREATININE [id number] 08:29:00 Test Item Value Reference Range Interpretation Comments UR CREATININE RANDOM (test code = 27.6 MG/DL 30-125 L CREATU) UA RFLX MICR CULT IF [id number] 08:14:00 Test Item Value Reference Range Interpretation Comments UA COLOR (test code = COLU) YELLOW discript YEL/STRAW UA APPEARANCE (test code = CLEAR discript CLEAR APPU) UA GLUCOSE DIPSTICK (test NEGATIVE mg/dL NEG code = DGLUU) UA BILIRUBIN DIPSTICK (test NEGATIVE mg/dL NEG code = BILU) UA KETONE DIPSTICK (test NEGATIVE mg/dL NEG code = KETU) UA SPECIFIC GRAVITY (test 1.010 SG 1.005-1.030 code = SGU) UA BLOOD DIPSTICK (test NEGATIVE mg/DL NEG code = YOBANI) UA PH DIPSTICK (test code = 6.5 pH UNITS 5.0-7.0 LIV) UA PROTEIN DIPSTICK (test NEGATIVE mg/dL NEG code = PROU) UA UROBILINIOGEN DIPSTICK 0.2 mg/dL <2.0 (test code = URO) UA NITRITE DIPSTICK (test NEGATIVE SCREEN NEG code = BRADLEY) UA LEUKOCYTE ESTERASE NEGATIVE Leuk/mcL NEGATIVE DIPSTICK (test code = LEUU) UA CULTURE NEEDED? (test Criteria Culture CHK code = UACULT) UR CREATININE [id number] 08:14:00 Test Item Value Reference Range Interpretation Comments UR CREATININE RANDOM (test code = MG/DL 30-125 CREATU) UA RFLX MICR CULT IF [id number] 08:14:00 Test Item Value Reference Range Interpretation Comments UA COLOR (test code = COLU) YELLOW discript YEL/STRAW UA APPEARANCE (test code = CLEAR discript CLEAR APPU) UA GLUCOSE DIPSTICK (test NEGATIVE mg/dL NEG code = DGLUU) UA BILIRUBIN DIPSTICK (test NEGATIVE mg/dL NEG code = BILU) UA KETONE DIPSTICK (test NEGATIVE mg/dL NEG code = KETU) UA SPECIFIC GRAVITY (test 1.010 SG 1.005-1.030 code = SGU) UA BLOOD DIPSTICK (test NEGATIVE mg/DL NEG code = YOBANI) UA PH DIPSTICK (test code = 6.5 pH UNITS 5.0-7.0 LIV) UA PROTEIN DIPSTICK (test NEGATIVE mg/dL NEG code = PROU) UA UROBILINIOGEN DIPSTICK 0.2 mg/dL <2.0 (test code = URO) UA NITRITE DIPSTICK (test NEGATIVE SCREEN NEG code = BRADLEY) UA LEUKOCYTE ESTERASE NEGATIVE Leuk/mcL NEGATIVE DIPSTICK (test code = LEUU) UR CREATININE [id number] 08:14:00 Test Item Value Reference Range Interpretation Comments UR CREATININE RANDOM (test code = MG/DL 30-125 CREATU) SARS-CoV-2 (COVID-19) RNA [Presence] in Respiratory specimen by DRAKE with probe [id number] 05:32:13 Test Item Value Reference Range Interpretation Comments SARS-CoV-2 (COVID-19) RNA Not detected Not-Detected [Presence] in Respiratory specimen by DRAKE with probe detection (test code = 83707-2) VALERIY KAUR
--- NOTE | 2022-05-26 12:09 | RAD REPORT ---
EXAM DESCRIPTION: RAD - Chest Single View - 05/26/2022 12:03 pm CLINICAL HISTORY: cough, fever, chest pain COMPARISON: Chest Single View dated 03/27/2019; Abdomen 1 View (KUB) dated 09/17/2018; Chest Single V iew dated 09/15/2018 FINDINGS: Lines: None. Lungs: No evidence of edema or pneumonia. Pleural: No significant pleural effusions or pneumothorax. Cardiac: The heart size is within normal limits. Mediastinum: Within normal limits. Bones: No acute fractures. Other: Surgical clips in the right upper quadrant. IMPRESSION: No acute cardiopulmonary disease.
[2022-05-26 12:38] LABS: Hematocrit 38.2 % (39.6-49.0); Lymphocytes % 15.5 % (15.3-44.8); MCV 87.1 fL (80-100); MPV 8.2 fL (7.6-11.3); RBC Red Blood Cell Count 4.38 M/uL (4.33-5.43)
[2022-05-26 12:56] LABS: Magnesium 2.2 mg/dL (1.6-2.4); Potassium 3.4 mmol/L (3.5-5.1); Troponin High Sensitivity 7.4 pg/mL (<58.9)
[2022-05-26 13:28] LABS: SARS-COV-2 RT PCR POSITIVE (NEGATIVE)
[2022-05-26] MEDS ORDERED: NA CHLORIDE 0.9% 500 ML ONE (13:47)
[2022-05-26 14:10] LABS: Urine Blood 1+ (Negative); Urine Glucose Negative (Negative); Urine Protein Trace (Negative); Urine Specific Gravity 1.025 (1.005-1.030); Urine pH 5.5 (5.0-7.0)
--- NOTE | 2022-05-26 15:17 | ER ---
Nurse's Notes [facility] Name: Fabian Brenner Age: 66 yrs Sex: Male : 1955 Arrival Date: 05/26/2022 Time: 11:20 Bed 14 Private MD: Diagnosis: Chest pain, unspecified;Dehydration;Acute Kidney Injury;Coronavirus Presentation: 05/26 11:43 Chief complaint: Patient states: Fever, cough and fatigue x 1 week. Coronavirus screen: ss Client denies travel out of the [place] in the last 14 days. Ebola Screen: Patient denies exposure to infectious person. Patient denies travel to an Ebola-affected area in the 21 days before illness onset. Initial Sepsis Screen: Does the patient meet any 2 criteria? No. Patient's initial sepsis screen is negative. Does the patient have a suspected source of infection? No. Patient's initial sepsis screen is negative. Risk Assessment: Do you want to hurt yourself or someone else? Patient reports no desire to harm self or others. Onset of symptoms was May 19, 2022. 11:43 Method Of Arrival: Ambulatory 11:43 Acuity: LIDA 3 ss Historical: - Allergies: 11:52 Iodine; ss 11:52 Toradol; ss 11:52 tramadol; ss - PMHx: 11:52 Back pain; Hyperlipidemia; Hypertension; ss - Immunization history:: Client reports receiving the 2nd dose of the Covid vaccine. - Social history:: Smoking status: Patient denies any tobacco usage or history of. Screenin:40 [facility] ED Fall Risk Assessment (Adult) History of falling in the last 3 months, db including since admission No falls in past 3 months (0 pts) Confusion or Disorientation No (0 pts) Intoxicated or Sedated No (0 pts) Impaired Gait No (0 pts) Mobility Assist Device Used Yes (1 pt) Altered Elimination No (0 pt) Score/Fall Risk Level 0 - 2 = Low Risk. Abuse screen: Denies threats or abuse. Denies injuries from another. Nutritional screening: No deficits noted. Tuberculosis screening: No symptoms or risk factors identified. Assessment: 12:35 Reassessment: Patient appears in no apparent distress at this time. Patient and/or db family updated on plan of care and expected duration. Pain level reassessed. Patient is alert, oriented x 3, equal unlabored respirations, skin warm/dry/pink. patient states has chest pain, weakness, and flu like symptoms. General: Appears in no apparent distress. comfortable, Behavior is calm, cooperative, appropriate for age, quiet. Pain: Complains of pain in chest Pain currently is 8 out of 10 on a pain scale. Pain began gradually, 2-3 days ago. Neuro: No deficits noted. Level of Consciousness is awake, alert, obeys commands, Oriented to person, place, time, situation, Appropriate for age Speech is normal. Cardiovascular: Reports chest pain, shortness of breath, Capillary refill < 3 seconds. Respiratory: Reports shortness of breath at rest pain with cough. GI: No deficits noted. Abdomen is flat. : No deficits noted. No signs and/or symptoms were reported regarding the genitourinary system. EENT: No deficits noted. No signs and/or symptoms were reported regarding the EENT system. Derm: No deficits noted. No signs and/or symptoms reported regarding the dermatologic system. 13:30 Reassessment: Patient appears in no apparent distress at this time. No changes from db previously documented assessment. Patient and/or family updated on plan of care and expected duration. Pain level reassessed. Patient is alert, oriented x 3, equal unlabored respirations, skin warm/dry/pink. 14:33 Reassessment: Patient and/or family updated on plan of care and expected duration. Pain db level reassessed. AMBULATED PATIENT IN HALLWAY. PATIENT O2 SATURATION 92%. PATIENT STATES TOO WEAK TO AMBULATE FAR. PATIENT ABLE TO AMBULATE IN HALLWAY A FEW STEPS AND THEN RETURNED TO ROOM DUE TO WEAKNESS. Patient states symptoms have improved. Reassessment: Patient appears in no apparent distress at this time. Respiratory: Airway is patent Respiratory effort is even, unlabored, Respiratory pattern is regular, symmetrical. 15:30 Reassessment: Patient appears in no apparent distress at this time. No changes from db previously documented assessment. Patient and/or family updated on plan of care and expected duration. Pain level reassessed. Patient is alert, oriented x 3, equal unlabored respirations, skin warm/dry/pink. 16:30 Reassessment: Patient appears in no apparent distress at this time. No changes from db previously documented assessment. Patient and/or family updated on plan of care and expected duration. Pain level reassessed. Patient is alert, oriented x 3, equal unlabored respirations, skin warm/dry/pink. 17:51 Reassessment: Patient appears in no apparent distress at this time. Patient and/or db family updated on plan of care and expected duration. Pain level reassessed. Patient is alert, oriented x 3, equal unlabored respirations, skin warm/dry/pink. General: Appears in no apparent distress. Behavior is calm, cooperative, appropriate for age. 18:45 Reassessment: Patient appears in no apparent distress at this time. Patient and/or db family updated on plan of care and expected duration. Pain level reassessed. Patient is alert, oriented x 3, equal unlabored respirations, skin warm/dry/pink. Patient states feeling better. Patient states symptoms have improved. 18:53 Reassessment: Patient appears in no apparent distress at this time. Patient and/or db family updated on plan of care and expected duration. Pain level reassessed. Patient is alert, oriented x 3, equal unlabored respirations, skin warm/dry/pink. Patient states feeling better. Patient states symptoms have improved. Cardiovascular: Chest pain pain improved. Vital Signs: 11:43 BP 98 / 67; Pulse 70; Resp 16; Temp 98.9(O); Pulse Ox 98% on R/A; Weight 62.6 kg; ss Height 5 ft. 2 in. (157.48 cm); 12:00 BP 99 / 54; Pulse 67; Resp 16; Pulse Ox 96% on R/A; db 12:13 BP 113 / 61; Pulse 65; Resp 18; Pulse Ox 100% on R/A; db 13:44 BP 113 / 91; Pulse 66; Resp 16; Temp 98.8(O); Pulse Ox 100% ; db 14:00 BP 101 / 78; Pulse 68; Resp 16; Pulse Ox 100% on R/A; db 15:30 BP 105 / 70; Pulse 63; Resp 16; Pulse Ox 99% on R/A; db 17:30 BP 101 / 66; Pulse 68; Resp 18; Pulse Ox 98% on R/A; db 18:30 BP 109 / 70; Pulse 71; Resp 18; Pulse Ox 99% ; db 11:43 Body Mass Index 25.24 (62.60 kg, 157.48 cm) ED Course: 11:20 Patient arrived in ED. mr 11:22 Clyde Gonzalez PA is PHCP. jmm 11:22 Fernandez Arauz MD is Attending Physician. jmm 11:31 Arm band placed on Patient placed in an exam room, on a stretcher. ll1 11:52 Triage completed. ss 12:04 Vicki Barker, RN is Primary Nurse. db 12:05 XRAY Chest (1 view) In Process Unspecified. EDMS 12:30 Initial lab(s) drawn, by me, sent to lab. db 12:40 Patient has correct armband on for positive identification. Bed in low position. Call db light in reach. Side rails up X 1. 13:52 Inserted saline lock: 20 gauge in left wrist, using aseptic technique. ,using aseptic db technique. started by another RNRiya. 15:15 Nabeel Paredes MD is Hospitalizing Provider. jmm 17:15 IV is swollen, IV discontinued, intact, bleeding controlled, removed due to db infiltration. 18:25 Inserted saline lock: 20 gauge in right antecubital area, using aseptic technique. db ,using aseptic technique. started by another Riya JUARES with ultrasound. 19:12 Primary Nurse role handed off by Vicki Barker, RN mw2 20:26 Cristhian Rao, MOR is Primary Nurse. as6 Administered Medications: 13:52 Drug: NS 0.9% 500 ml Route: IV; Rate: bolus; Site: left wrist; db 18:55 Follow up: Response: No adverse reaction; IV Intake: 500ml db 19:11 Follow up: IV Status: Completed infusion db 15:46 Drug: Robitussin Pediatric (dextromethorphan) Liquid 10 mg Route: PO; db 18:55 Follow up: Response: No adverse reaction db 18:31 Drug: morphine 2 mg Route: IVP; Infused Over: 4 mins; Site: right antecubital; db 18:53 Follow up: Response: No adverse reaction; Pain is decreased db 18:31 Drug: Zofran (Ondansetron) 4 mg Route: IVP; Site: right antecubital; db 18:53 Follow up: Response: No adverse reaction db Medication: 13:53 VIS not applicable for this client. db Intake: 18:55 IV: 500ml; Total: 500ml. db Outcome: 15:16 Decision to Hospitalize by Provider. jmm 05/27 12:16 Patient left the ED. Signatures: Dispatcher [employer] EDMS Clyde Gonzalez PA PA jmm Alyce Raman mr CherylRiya chacon, RN RN Krissy Nguyen mw2 Marshall Lyles RN RN ll1 Cristhian Rao RN RN as6 Vicki Barker RN RN db Corrections: (The following items were deleted from the chart) 05/26 13:52 12:30 Initial lab(s) drawn, by me, by EMS personnel. db db
--- NOTE | 2022-05-26 15:17 | EDPHYS ---
Physician Documentation [facility] Name: Fabian Brenner Age: 66 yrs Sex: Male : 1955 Arrival Date: 05/26/2022 Time: 11:20 Bed 14 Private MD: ED Physician Fernandez Arauz HPI: 05/26 11:49 This 66 yrs old Male presents to ER via Ambulatory with complaints of jmm Weakness, Flu Symptoms. 11:49 The patient or guardian reports cough. Onset: The symptoms/episode began/occurred jmm gradually, 4 day(s) ago. Modifying factors: The symptoms are alleviated by nothing. the symptoms are aggravated by nothing. Associated signs and symptoms: Pertinent positives: chest pain. This is a 66 year old male with a history of hlp, htn that presents to the ED with complaints of left sided chest pain which radiates to his jaw and left shoulder. Patient also complains of sob, cough, fatigue, RODRIGUEZ. . Historical: - Allergies: 11:52 Iodine; ss 11:52 Toradol; ss 11:52 tramadol; ss - PMHx: 11:52 Back pain; Hyperlipidemia; Hypertension; ss - Immunization history:: Client reports receiving the 2nd dose of the Covid vaccine. - Social history:: Smoking status: Patient denies any tobacco usage or history of. ROS: 11:49 Constitutional: Negative for fever, chills, and weight loss. jmm 11:49 Constitutional: Positive for body aches, fatigue. 11:49 Cardiovascular: Positive for chest pain. 11:49 Respiratory: Positive for cough. 11:49 All other systems are negative. Exam: 11:49 Constitutional: This is a well developed, well nourished patient who is awake, alert, jmm and in no acute distress. Head/Face: atraumatic. Eyes: EOMI, no conjunctival erythema appreciated ENT: Moist Mucus Membranes Neck: Trachea midline, Supple Chest/axilla: Normal chest wall appearance and motion. Cardiovascular: Regular rate and rhythm. No edema appreciated 11:49 Back: Normal ROM Skin: General appearance color normal MS/ Extremity: Moves all extremities, no obvious deformities appreciated, no edema noted to the lower extremities Neuro: Awake and alert Psych: Behavior is normal, Mood is normal, Patient is cooperative and pleasant 11:49 Cardiovascular: Rate: normal, Rhythm: regular. 11:49 Respiratory: Exam negative for the patient does not display signs of respiratory distress, Respirations: normal, Breath sounds: are clear throughout. 12:31 ECG was reviewed by the Attending Physician. [facility] Vital Signs: 11:43 BP 98 / 67; Pulse 70; Resp 16; Temp 98.9(O); Pulse Ox 98% on R/A; Weight 62.6 kg; ss Height 5 ft. 2 in. (157.48 cm); 12:00 BP 99 / 54; Pulse 67; Resp 16; Pulse Ox 96% on R/A; db 12:13 BP 113 / 61; Pulse 65; Resp 18; Pulse Ox 100% on R/A; db 13:44 BP 113 / 91; Pulse 66; Resp 16; Temp 98.8(O); Pulse Ox 100% ; db 14:00 BP 101 / 78; Pulse 68; Resp 16; Pulse Ox 100% on R/A; db 15:30 BP 105 / 70; Pulse 63; Resp 16; Pulse Ox 99% on R/A; db 17:30 BP 101 / 66; Pulse 68; Resp 18; Pulse Ox 98% on R/A; db 18:30 BP 109 / 70; Pulse 71; Resp 18; Pulse Ox 99% ; db 11:43 Body Mass Index 25.24 (62.60 kg, 157.48 cm) MDM: 11:49 Patient medically screened. [facility] 14:46 Data reviewed: vital signs, nurses notes. Counseling: I had a detailed discussion with [facility] the patient and/or guardian regarding: the historical points, exam findings, and any diagnostic results supporting the discharge/admit diagnosis, lab results, radiology results, the need for further work-up and treatment in the hospital. ED course: I discussed the patient with Anders Paredes whom accepted the patient to his service. . 05/26 11:49 Order name: Basic Metabolic Panel; Complete Time: 12:57 [facility] 05/26 11:49 Order name: CBC with Diff; Complete Time: 12:40 [facility] 05/26 11:49 Order name: Magnesium; Complete Time: 12:57 [facility] 05/26 11:49 Order name: NT PRO-BNP; Complete Time: 12:57 [facility] 05/26 11:49 Order name: Troponin HS; Complete Time: 12:57 [facility] 05/26 11:50 Order name: COVID-19/FLU A+B; Complete Time: 13:29 [facility] 05/26 14:10 Order name: Urine Dipstick-Ancillary; Complete Time: 14:11 [facility] 05/26 15:17 Order name: D-Dimer; Complete Time: 17:04 [facility] 05/26 16:27 Order name: Troponin High Sensitivity [facility] 05/26 16:27 Order name: Troponin High Sensitivity; Complete Time: 08:02 [facility] 05/26 16:27 Order name: Troponin High Sensitivity; Complete Time: 08:02 [facility] 05/26 16:27 Order name: Troponin High Sensitivity; Complete Time: 08:02 [facility] 05/26 16:34 Order name: Lipid Profile; Complete Time: 08:02 [facility] 05/26 16:34 Order name: Potassium; Complete Time: 08:02 [facility] 05/26 11:49 Order name: XRAY Chest (1 view); Complete Time: 12:10 [facility] 05/26 11:49 Order name: EKG; Complete Time: 11:50 [facility] 05/26 11:49 Order name: Cardiac monitoring; Complete Time: 12:34 [facility] 05/26 11:49 Order name: EKG - Nurse/Tech; Complete Time: 12:34 [facility] 05/26 16:34 Order name: Basic Metabolic Panel [facility] 05/26 16:34 Order name: Basic Metabolic Panel; Complete Time: 08:02 [facility] 05/26 16:34 Order name: CBC with Automated Diff [facility] 05/26 16:34 Order name: CBC with Automated Diff; Complete Time: 08:02 [facility] 05/27 07:00 Order name: C-Reactive Protein; Complete Time: 08:02 [facility] 05/27 07:00 Order name: Ferritin; Complete Time: 08:02 [facility] 05/27 07:39 Order name: RAD; Complete Time: 08:02 [facility] 05/27 10:26 Order name: CT; Complete Time: 10:32 [facility] 05/26 11:49 Order name: IV Saline Lock; Complete Time: 12:34 [facility] 05/26 11:49 Order name: Labs collected and sent; Complete Time: 12:34 [facility] 05/26 11:49 Order name: O2 Per Protocol; Complete Time: 12:34 [facility] 05/26 11:49 Order name: O2 Sat Monitoring; Complete Time: 12:34 [facility] 05/26 11:52 Order name: Urine Dipstick-Ancillary (obtain specimen); Complete Time: 14:25 [facility] 05/26 14:11 Order name: Misc. Order: ambulate o2; Complete Time: 14:39 [facility] EC:31 Rate is 65 beats/min. Rhythm is regular. QRS Nuevo is Normal. ND interval is normal. QRS jmm interval is normal. QT interval is normal. No Q waves. T waves are Normal. No ST changes noted. Reviewed by me. Administered Medications: 13:52 Drug: NS 0.9% 500 ml Route: IV; Rate: bolus; Site: left wrist; db 18:55 Follow up: Response: No adverse reaction; IV Intake: 500ml db 19:11 Follow up: IV Status: Completed infusion db 15:46 Drug: Robitussin Pediatric (dextromethorphan) Liquid 10 mg Route: PO; db 18:55 Follow up: Response: No adverse reaction db 18:31 Drug: morphine 2 mg Route: IVP; Infused Over: 4 mins; Site: right antecubital; db 18:53 Follow up: Response: No adverse reaction; Pain is decreased db 18:31 Drug: Zofran (Ondansetron) 4 mg Route: IVP; Site: right antecubital; db 18:53 Follow up: Response: No adverse reaction db Disposition Summary: 05/26/22 15:16 Hospitalization Ordered Hospitalization Status: Observation [facility] Provider: Nabeel Paredes Condition: Stable [facility] Problem: new [facility] Symptoms: are unchanged [facility] Bed/Room Type: Standard [facility] Location: Telemetry/MedSurg (observation)(05/27/22 10:37) eb Room Assignment: [facility](05/27/22 10:37) eb Diagnosis - Chest pain, unspecified jmm - Dehydration jmm - Acute Kidney Injury jmm - Coronavirus [facility] Forms: - Medication Reconciliation Form jmm - SBAR form [facility] Addendum: 06/01/2022 14:38 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 I agree with assessment j r11 and care plan and confirm the diagnosis (es) above. Attestation: The patient's history, exam findings, diagnostics, and a summary of any interventions or procedures was reviewed in detail with Fernandez Arauz MD. Signatures: Dispatcher [employer] EDClyde Wilkerson PA PA jmm Smirch, Shelby, RN RN Fernandez Connolly RN RN ja1 Tiffanie Phelps Jose, MD MD [id number] Vicki Barker RN RN db Corrections: (The following items were deleted from the chart) 05/26 18:14 15:16 Telemetry/MedSurg (observation) [facility] [place] 18:14 15:16 [facility] [place] 05/27 10:37 05/26 18:14 [facility] ER HOLD ja1 eb 05/27 10:37 05/26 18:14 ERHOLD- ja1 eb
[2022-05-26] MEDS ORDERED: guaiFENesin 100 MG/5 ML UCUP ONE ×2 (15:42→22:07)
[2022-05-26] MEDS ORDERED: CODEINE 30MG/APAP 300MG TAB PO PRN (16:30)
[2022-05-26] MEDS ORDERED: POTASSIUM CL SA 10 MEQ TAB PO ONE ×2 (18:00→22:07)
[2022-05-26] MEDS ORDERED: ONDANSETRON 4 MG/2 ML VIAL ONE (18:25)
[2022-05-26] MEDS ORDERED: MORPHINE 2 MG/ML SYR ONE ×2 (18:25→22:06)
--- NOTE | 2022-05-26 19:37 | P.HP ---
Certification for Inpatient Patient admitted to: Observation With expected LOS: <2 Midnights Patient will require the following post-hospital care: None Practitioner: I am a practitioner with admitting privileges, knowledge of patient current condition, hospital course, and medical plan of care. Services: Services provided to patient in accordance with Admission requirements found in Title 42 Section 412.3 of the Code of Federal Regulations <Inderjit Akins - Last Filed: 05/26/22 20:05> Patient History Date of Service: 05/26/22 Reason for admission: COVID-19 positive, Chest pain History of Present Illness: This is a 66 year old male past medical history significant for HTN, CVA, NE with stents x2 who presents to the ER for complaints of cough, fever x 1 week (Tmax 103) and chest pain. Patient states that his cough and fever started on Monday. The cough is nonproductive. He took some cough syrup, which helped alleviate the cough. He also states that his chest pain started on Monday while walking up the stairs. He became short of breath. The pain did not radiate. He took some Aspirin and Advil which did not alleviate the pain. Patient reported associated signs and symptoms headaches, nausea, and back pain. Patient is vaccinated for COVID and received both boosters Home medications list reviewed: Yes - Past Medical/Surgical History Diabetic: No -: Nephrolithiasis -: Coronary artery disease -: HTN -: CVA -: cholecystectomy -: appendectomy -: tonsillectomy -: sphincterotomy -: Cardiac catheterization with stent placement - Family History Father -: Heart disease Brother -: Heart disease - Social History Smoking Status: Never smoker Alcohol use: Yes CD- Drugs: No Caffeine use: Yes <Inderjit Akins - Last Filed: 05/26/22 20:05> Date of Service: 05/26/22 <Nabeel Paredes - Last Filed: 05/26/22 21:55> Allergies iodine Allergy (Mild, Verified 09/15/18 23:04) Hives/Rash tramadol Allergy (Verified 09/21/18 14:08) Hives/Rash ketorolac [From Toradol] Adverse Reaction (Verified 09/16/18 15:34) Shortness of breath Home Medications: Zolpidem Tartrate [Ambien*] 10 mg PO BEDTIME 09/15/18 Aspirin [Aspirin EC 81 MG] 81 mg PO DAILY #30 tablet. 09/23/18 Atorvastatin Calcium [Lipitor] 80 mg PO BEDTIME #30 tab 09/23/18 Clopidogrel Bisulfate [Plavix*] 75 mg PO DAILY #30 tablet 09/23/18 Metoprolol Tartrate [Lopressor*] 50 mg PO BID #60 tab 09/23/18 Nitroglycerin [Nitrostat*] 0.4 mg SL UD PRN #30 tab 09/23/18 Gabapentin 600 mg PO BID 03/27/19 Tizanidine [Zanaflex*] 4 mg PO PRN 03/27/19 Pantoprazole [Protonix Tab] 40 mg PO DAILY 90 Days #90 tab 04/01/19 Review of Systems General: Fever Eyes: Unremarkable ENT: Unremarkable Respiratory: Cough, Shortness of Breath, SOB with Excertion Cardiovascular: Chest Pain Gastrointestinal: Nausea Genitourinary: Unremarkable Musculoskeletal: Unremarkable Integumentary: Unremarkable Neurological: Weakness <Inderjit Akins - Last Filed: 05/26/22 20:05> Physical Examination - Vital Signs Temperature: 98.9 F Blood Pressure: 105/70 Pulse: 70 Respirations: 18 Pulse Ox (%): 99 - Physical Exam General: Alert, Oriented x3 HEENT: Atraumatic, Normocephalic Neck: Supple, 2+ carotid pulse no bruit Respiratory: Diminished Cardiovascular: No edema, Normal pulses Capillary refill: <2 Seconds Gastrointestinal: Normal bowel sounds Musculoskeletal: No clubbing, No swelling Integumentary: No rashes, No breakdown Neurological: Normal speech, Normal strength at 5/5 x4 extr Lymphatics: No axilla or inguinal lymphadenopathy - Studies Laboratory Data (last 24 hrs) 05/26/22 12:29: WBC 6.70, Hgb 13.4 L, Hct 38.2 L, Plt Count 243 05/26/22 12:29: Sodium 133 L, Potassium 3.4 L, BUN 25 H, Creatinine 1.91 H, Glucose 123 H, Magnesium 2.2 <Inderjit Akins - Last Filed: 05/26/22 20:05> - Studies Laboratory Data (last 24 hrs) 05/26/22 12:29: WBC 6.70, Hgb 13.4 L, Hct 38.2 L, Plt Count 243 05/26/22 12:29: Sodium 133 L, Potassium 3.4 L, BUN 25 H, Creatinine 1.91 H, Glucose 123 H, Magnesium 2.2 <Nabeel Paredes - Last Filed: 05/26/22 21:55> Assessment and Plan - Plan Plan COVID-19 Continue droplet precautions Continue supportive care/monitor for any increase in respiratory distress Oxygen therapy as needed Chest pain Trend troponins Q6H x3 D-dimer 725 ASA 81 mg, Atorvastatin Morphine 2 mg PRN, Tylenol #3 PRN for pain Monitor lipids, CBC HAI Creatinine 1.91, BUN 25, GFR 38 NS @ 100 ml/hr BMP in am Hypokalemia K 3.4 Replaced with 40 mEQ x 1 BMP in am Nausea- Zofran PRN Hypotension- hold BP meds as needed DVT prophylatic- Lovenox Discharge Plan: Home Plan to discharge in: 48 Hours - Advance Directives Does patient have a Living Will: No Does patient have a Durable POA for Healthcare: No - Code Status/Comfort Care Code Status Assessed: Yes Code Status: Full Code <Inderjit Akins - Last Filed: 05/26/22 20:05> Time Spent Managing Pts Care (In Minutes): 70 <Nabeel Paredes - Last Filed: 05/26/22 21:55>
[2022-05-26 20:01] LABS: Potassium 3.4 mmol/L (3.5-5.1)
[2022-05-26] MEDS: ATORVASTATIN 10 MG TAB PO SCH (21:00)
[2022-05-26] MEDS ORDERED: ATORVASTATIN 20 MG TAB ONE (22:07)
[2022-05-26] MEDS ORDERED: NA CHLORIDE 0.9% 1,000 ML ONE (22:07)
[2022-05-26] MEDS: NA CHLORIDE 0.9% 1,000 ML IV SCH (22:30)
[2022-05-26] MEDS: MORPHINE 2 MG/ML SYR IV PRN (22:30)
[2022-05-27] MEDS: NA CHLORIDE 0.9% 1,000 ML IV SCH ×3 (03:00→16:38)
[2022-05-27] MEDS ORDERED: MORPHINE 2 MG/ML SYR ONE ×2 (03:49→08:01)
[2022-05-27] MEDS ORDERED: ONDANSETRON 4 MG/2 ML VIAL ONE (03:49)
[2022-05-27] MEDS: MORPHINE 2 MG/ML SYR IV PRN ×5 (03:52→21:28)
[2022-05-27] MEDS: ONDANSETRON 4 MG/2 ML VIAL IV PRN ×2 (03:52→12:16)
[2022-05-27] MEDS ORDERED: CODEINE 30MG/APAP 300MG TAB ONE (06:03)
[2022-05-27 06:13] LABS: Absolute Lymphocytes (CBC) 0.9 K/uL (0.7-4.9); Hematocrit 36.2 % (39.6-49.0); Lymphocytes % 15.1 % (15.3-44.8); MCV 87.1 fL (80-100); MPV 8.2 fL (7.6-11.3); RBC Red Blood Cell Count 4.15 M/uL (4.33-5.43)
[2022-05-27 06:35] LABS: C-Reactive Protein 61.4 mg/L (<3.00); Ferritin 169.4 ng/mL (26-388); Potassium 3.7 mmol/L (3.5-5.1); Troponin High Sensitivity 6.6 pg/mL (<58.9)
--- NOTE | 2022-05-27 07:38 | RAD REPORT ---
EXAM DESCRIPTION: RAD - Chest Single View - 05/27/2022 6:46 am CLINICAL HISTORY: covid, dyspnea COMPARISON: Chest Single View dated 05/26/2022; Chest Single View dated 03/27/2019; Abdomen 1 View ( KUB) dated 09/17/2018; Chest Single View dated 09/15/2018 FINDINGS: Lines: None. Lungs: No evidence of edema or pneumonia. Pleural: No significant pleural effusions or pneumothorax. Cardiac: The heart size is within normal limits. Mediastinum: Within normal limits. Bones: No acute fractures. Other: None IMPRESSION: No acute cardiopulmonary disease.
[2022-05-27] MEDS ORDERED: ASPIRIN EC 81 MG TAB PO ONE (08:01)
[2022-05-27] MEDS: ASPIRIN EC 81 MG TAB PO SCH (08:08)
[2022-05-27] MEDS ORDERED: METHYLPREDNISOLONE 125 MG INJ IV ONE (09:50)
[2022-05-27] MEDS ORDERED: DIPHENHYDRAMINE 50 MG/ML VIAL IV ONE (09:50)
[2022-05-27] MEDS ORDERED: METHYLPREDNISOLONE 125 MG INJ ONE (09:55)
[2022-05-27] MEDS ORDERED: DIPHENHYDRAMINE 50 MG/ML VIAL ONE (09:56)
--- NOTE | 2022-05-27 10:25 | RAD REPORT ---
EXAM DESCRIPTION: CT - Chest For Pe Angio - 05/27/2022 10:18 am CLINICAL HISTORY: r/o PE, covid, chest pain COMPARISON: Chest For Pe Angio dated 03/27/2019 TECHNIQUE: Dynamically enhanced axial 3 mm thick images of the chest were obtained during administra tion of <100> mL Isovue 370 IV contrast. Coronal and oblique reconstruction images were generated and reviewed. Exam utilizes a protocol for optimal evaluation of pulmonary arterial tree. Maximum intensity projections 3D imaging was utilized All CT scans are performed using dose optimization technique as appropriate and may include automated exposure control or mA/KV adjustment according to patient size. FINDINGS: Chest Wall: No suspicious thyroid nodules or pathologic lymphadenopathy. Lungs: No acute abnormality. Pleura: No significant effusions or pneumothorax. Mediastinum/shreyas: No pathologic lymphadenopathy. Pulmonary arteries/Aorta: No filling defect identified. No aortic aneurysm. Heart: No significant pericardial effusion. Normal heart size. Multi-vessel coronary artery disease. LAD stent. Upper abdomen: Pneumobilia which is chronic. Cholecystectomy.Hepatic steatosis Bones: No acute abnormality. Bridging osteophytes in the spine. IMPRESSION: Negative for pulmonary embolism. No other acute findings within the chest.
[2022-05-27] MEDS: guaiFENesin 100 MG/5 ML UCUP PO PRN ×2 (12:16→21:27)
[2022-05-27] MEDS ORDERED: HYDROCODONE/APAP 5/325 MG TAB PO PRN (13:45)
[2022-05-27] MEDS ORDERED: LORazepam 2 MG/ML VIAL IV ONE (15:30)
--- NOTE | 2022-05-27 16:49 | P.PN ---
Date of Service: 05/27/22 Subjective: continues with lower back pain, radiating down right leg denies prior pain like this before, states this began after fall yesterday alleviated partially by pain meds, and by flexing leg at hip movement, straightening leg worsens pain feels like can't take very deep breath ROS: 10 point ROS as noted above, otherwise negative Physical exam GEN: Alert, oriented, uncomfortable appearing HEENT: Normal conjunctiva, sclera anicteric CV: Regular rate and rhythm, no edema Pulm: Nonlabored respirations on room air, diminished bilaterally with shallow respirations ABD: Soft, nontender, nondistended MSK: tenderness along lower lumbar spine, +Straight leg raise, sensation equal/symmetrical in upper/lower extremities; strength testing limited due to pain Neuro: Normal speech, normal affect Problem List Weakness, fall COVID-19 positive Chest pain Lumbar back pain, with radiculopathy; acute Chronic pain HAI Patient reports feeling his legs giving out under him, so somebody kicked them out from under him yesterday, fell "like weight" onto floor afterwards unable to get up on his own or with assistance from family members, continues with significant new pain pain is not worse than on presentation to ED, but no improvement no incontinence, no change in sensation, denies prior radiculopathy, no prior sciatica Given these findings, concern for spinal stenosis or disc herniation, will obtain MRI Chest pain COVID-19 Elevated D-dimer Troponin negative x3 continue aspirin and statin CTA chest negative for acute infectious process, negative for PE premedicated, iodine allergy listed, however patient had CTA previously (After allergy was documented) unclear etiology, ?fall, ?cough HAI prerenal, improved with IV hydration overnight pt hypotensive on initial presentation - improving appetite improved, cutback on IV fluids repeat BMP in AM, now received IV contrast VTE: lovenox Code: full Dispo: home vs SNF pending MRI results, PT, physical limitations Time Spent Managing Pts Care (In Minutes): 35
[2022-05-27] MEDS: ENOXAPARIN 40 MG/0.4 ML SQ SCH (17:16)
--- NOTE | 2022-05-27 18:10 | RAD REPORT ---
EXAM DESCRIPTION: MRI - Lumbar Spine Wo [place] - 05/27/2022 5:22 pm CLINICAL HISTORY: r/o stenosis/hernia COMPARISON: No comparisons TECHNIQUE: Sagittal T1-weighted, T2-weighted and T2-STIR weighted sequences were obtained. Axial T1 -weighted and heavily T2-weighted sequenceswere obtained through the lumbar disc levels. FINDINGS: Lumbar bodies are normal in height. No suspicious marrow signal. No paraspinal masses. Conus is normal with no clumping or thickening of the cauda equina. T12-L1 level: No significant findings. L1-2 level: No significant findings. L2-3 level: Disc desiccation changes are present. No herniation or significant disc bulge. No stenosi s. L3-4 level: Disc is desiccated with very minimal loss in height. No herniation or significant degree of disc bulging seen in the central canal. Minimal foraminal disc bulge changes without resulting for aminal stenosis. L4-5 level: Mild desiccation changes are present. There is a very slight anterior subluxation due to severe facet joint degenerative change. No central spinal stenosis. Mild foraminal stenosis changes a re present. L5-S1 level: No herniation or significant disc bulge. Severe facet joint degenerative change present without spinal stenosis. Mild foraminal stenosis results from facet hypertrophy on the right. IMPRESSION: No disc herniation or significant disc bulge in the central canal. Very advanced L4-5 and L5-S1 facet hypertrophic degenerative change. Foraminal stenosis is mild.
[2022-05-27] MEDS: OXYCODONE HCL 5 MG TAB PO PRN (18:26)
[2022-05-27] MEDS: ATORVASTATIN 10 MG TAB PO SCH (21:28)
[2022-05-28 00:08] VITALS: BMI 25.4
[2022-05-28] MEDS: MORPHINE 2 MG/ML SYR IV PRN ×5 (01:44→20:21)
[2022-05-28] MEDS: ONDANSETRON 4 MG/2 ML VIAL IV PRN ×5 (01:44→20:22)
[2022-05-28] MEDS: NA CHLORIDE 0.9% 1,000 ML IV SCH (05:54)
[2022-05-28 06:40] LABS: Absolute Lymphocytes (CBC) 0.8 K/uL (0.7-4.9); Hematocrit 34.7 % (39.6-49.0); Lymphocytes % 8.5 % (15.3-44.8); MCV 87.7 fL (80-100); MPV 8.7 fL (7.6-11.3); RBC Red Blood Cell Count 3.95 M/uL (4.33-5.43)
[2022-05-28 07:14] LABS: Albumin 2.9 g/dL (3.4-5.0); Bilirubin Total 0.3 mg/dL (0.2-1.0); C-Reactive Protein 43.5 mg/L (<3.00); Magnesium 1.8 mg/dL (1.6-2.4); Potassium 4.1 mmol/L (3.5-5.1); Protein, Total 6.7 g/dL (6.4-8.2)
[2022-05-28] MEDS: ASPIRIN EC 81 MG TAB PO SCH (08:33)
[2022-05-28] MEDS: OXYCODONE HCL 5 MG TAB PO PRN (08:33)
[2022-05-28] MEDS ORDERED: PROMETHAZINE 25 MG TABLET PO PRN (10:13)
--- NOTE | 2022-05-28 10:22 | P.PN ---
Subjective Date of Service: 05/28/22 Chief Complaint: Lower back pain and right thigh discomfort Patient has been complaining of severe pain in the lower back unable to walk able to sit has been having some pain in the medial side of his right thigh experiencing tenderness in the lower back it looks like in the sacroiliac region is all new never had this problem before he does take oxycodone for the shoulder pain Review of Systems General: Weakness Respiratory: Shortness of Breath Musculoskeletal: Back Pain Physical Examination - Vital Signs Temperature: 97.6 F Blood Pressure: 120/65 Pulse: 62 Respirations: 18 Pulse Ox (%): 98 - Physical Exam General: Alert, Moderate distress Respiratory: Clear to auscultation bilaterally Cardiovascular: No edema, Regular rate/rhythm Musculoskeletal: Other (Patient has tenderness in the right sacroiliac region really able to move his right leg) Assessment And Plan - Current Problems (Diagnosis) (1) Lower back pain Current Visit: Yes Status: Acute Plan: Patient's been complaining of lower back pain since admission unable to walk or sit have tenderness in the sacroiliac region MRI of the lumbar spine : No disc herniation or significant disc bulge in the central canal. Very advanced L4-5 and L5-S1 facet hypertrophic degenerative change. Foraminal stenosis is mild. No back problems before he is having a shoulder problem was scheduled for surgery on oxycodone have some radiculopathy ordered high dose of steroids trial orthopedic consult Qualifiers: Chronicity: acute Sciatica presence: with sciatica (2) SARS-CoV-2 positive Current Visit: Yes Status: Acute Plan: Patient tested positive for coronavirus although he has no changes on his x-ray evidence of pneumonia or fever significantly positive
--- NOTE | 2022-05-28 11:07 | RAD REPORT ---
EXAM DESCRIPTION: RAD - Sacrum And Coccyx - 05/28/2022 10:57 am CLINICAL HISTORY: Lower back pain Radiculopathy COMPARISON: No comparisons FINDINGS: Mild lower lumbar spondylosis is present. Minimal anterolisthesis L4 on 5. Moderate facet hypertrophy L4-5 and L5-S1. IMPRESSION: Moderate lower lumbar spondylosis.
[2022-05-28] MEDS ORDERED: dexAMETHasone 4 MG/ML VIAL IV SCH (12:00)
[2022-05-28] MEDS: guaiFENesin 100 MG/5 ML UCUP PO PRN ×2 (15:53→20:22)
[2022-05-28] MEDS: carvediloL 12.5 MG TAB PO SCH (16:59)
[2022-05-28] MEDS: ENOXAPARIN 40 MG/0.4 ML SQ SCH (17:00)
[2022-05-28] MEDS: dexAMETHasone 4 MG/ML VIAL IV SCH (17:00)
--- NOTE | 2022-05-28 17:27 | EKG ---
Test Date: 2022-05-26 Test Time: 12:12:38 Nylon Machine Operator: GOSIA MEASUREMENT RESULTS: Intervals: Rate: 67 ID: [id number] QRSD: 88 QT: 412 QTc: 435 [place]: P: 34 ID: [id number] QRS: 34 T: 50 INTERPRETIVE STATEMENTS: Normal sinus rhythm Normal ECG Compared to ECG 03/31/2019 15:18:27 No significant changes Electronically Signed On 05-28-22 17:25:09 COMPENSATION DIRECTOR by Dilip Gong
[2022-05-28] MEDS: ZOLPIDEM TARTRATE 10 MG TABLET PO SCH (20:22)
[2022-05-28] MEDS: ATORVASTATIN 80 MG TAB PO SCH (20:22)
[2022-05-28] MEDS: TIZANIDINE 4 MG TABLET PO SCH (20:22)
[2022-05-29] MEDS: dexAMETHasone 4 MG/ML VIAL IV SCH ×3 (01:47→17:02)
[2022-05-29] MEDS: ONDANSETRON 4 MG/2 ML VIAL IV PRN ×3 (01:47→20:55)
[2022-05-29] MEDS: MORPHINE 2 MG/ML SYR IV PRN ×5 (01:47→20:55)
[2022-05-29] MEDS: guaiFENesin 100 MG/5 ML UCUP PO PRN ×2 (08:39→20:54)
[2022-05-29] MEDS: carvediloL 12.5 MG TAB PO SCH ×2 (08:39→17:14)
[2022-05-29] MEDS: TIZANIDINE 4 MG TABLET PO SCH ×2 (08:40→20:54)
[2022-05-29] MEDS: CLOPIDOGREL 75 MG TABLET PO SCH (08:40)
[2022-05-29] MEDS: PANTOPRAZOLE 40MG TABLET PO SCH (08:40)
[2022-05-29] MEDS: ASPIRIN EC 81 MG TAB PO SCH (08:40)
[2022-05-29] MEDS ORDERED: carvediloL 12.5 MG TAB PO SCH (09:00)
--- NOTE | 2022-05-29 09:40 | P.PN ---
Subjective Date of Service: 05/29/22 Chief Complaint: Lower back pain and right thigh discomfort Patient's shortness of breath is a little better with the steroid he still complaining of this burning pain in his right thigh no significant change still requiring pain meds Review of Systems Unremarkable Physical Examination - Vital Signs Temperature: 96.9 F Blood Pressure: 111/63 Pulse: 69 Respirations: 18 Pulse Ox (%): 97 - Physical Exam General: Alert, In no apparent distress, Oriented x3 Cardiovascular: No edema, Regular rate/rhythm, Normal S1 S2 Assessment And Plan - Current Problems (Diagnosis) (1) Lower back pain Current Visit: Yes Status: Acute Plan: Patient complaining of this chronic lower back pain in addition to the thigh pain possible recurrent radiculopathy x-rays of the sacrococcygeal area had only showed some spondylolysis that was visible on the MRI will consult orthopedic tomorrow start some physical therapy have also added gabapentin DC IV morphine Qualifiers: Chronicity: acute Sciatica presence: with sciatica (2) SARS-CoV-2 positive Current Visit: Yes Status: Acute Plan: Planing of some shortness of breath on exertion change to p.o. Decadron vital signs oxygenation all satisfactory Discharge Plan: Home Plan to discharge in: 48 Hours
[2022-05-29] MEDS: GABAPENTIN 100 MG CAP PO SCH ×2 (10:20→20:54)
[2022-05-29] MEDS: OXYCODONE HCL 5 MG TAB PO PRN (10:20)
[2022-05-29] MEDS: ALBUTEROL 2.5 MG/3 ML NEB SOL IH SCH ×2 (16:26→20:00)
[2022-05-29] MEDS: NITROGLYCERIN 0.4 MG/TAB SL PRN ×2 (16:41→16:47)
[2022-05-29] MEDS ORDERED: MORPHINE 2 MG/ML SYR IV ONE (16:45)
[2022-05-29] MEDS: ENOXAPARIN 40 MG/0.4 ML SQ SCH (17:02)
--- NOTE | 2022-05-29 17:46 | RAD REPORT ---
EXAM DESCRIPTION: RAD - Chest Single View - 05/29/2022 5:22 pm CLINICAL HISTORY: SOB Chest pain. COMPARISON: Chest Single View dated 05/27/2022; Chest Single View dated 05/26/2022; Chest Single Vie w dated 03/27/2019; Abdomen 1 View (KUB) dated 09/17/2018 FINDINGS: Portable technique limits examination quality. The lungs are grossly clear. The heart is normal in size. No displaced fractures. IMPRESSION: No acute intrathoracic process suspected.
[2022-05-29] MEDS: ZOLPIDEM TARTRATE 10 MG TABLET PO SCH (20:54)
[2022-05-29] MEDS: ATORVASTATIN 80 MG TAB PO SCH (20:54)
[2022-05-29] MEDS ORDERED: dexAMETHasone 4 MG TAB PO SCH (21:00)
[2022-05-30] MEDS: dexAMETHasone 4 MG/ML VIAL IV SCH ×3 (01:00→17:02)
[2022-05-30] MEDS: ALBUTEROL 2.5 MG/3 ML NEB SOL IH SCH ×4 (02:00→20:15)
[2022-05-30] MEDS: ONDANSETRON 4 MG/2 ML VIAL IV PRN ×5 (04:41→20:38)
[2022-05-30] MEDS: MORPHINE 2 MG/ML SYR IV PRN ×5 (04:42→20:37)
[2022-05-30 06:00] LABS: Hematocrit 37.1 % (39.6-49.0); MCV 87.4 fL (80-100); MPV 8.6 fL (7.6-11.3); RBC Red Blood Cell Count 4.25 M/uL (4.33-5.43)
[2022-05-30] MEDS: GABAPENTIN 100 MG CAP PO SCH ×2 (08:48→20:36)
[2022-05-30] MEDS: TIZANIDINE 4 MG TABLET PO SCH ×2 (08:48→20:36)
[2022-05-30] MEDS: ASPIRIN EC 81 MG TAB PO SCH (08:50)
[2022-05-30] MEDS: PANTOPRAZOLE 40MG TABLET PO SCH (08:50)
[2022-05-30] MEDS: carvediloL 12.5 MG TAB PO SCH ×2 (08:50→17:03)
[2022-05-30] MEDS: CLOPIDOGREL 75 MG TABLET PO SCH (08:50)
--- NOTE | 2022-05-30 10:59 | P.PN ---
Date of Service: 05/29/22 I was called around 5:00 started complaining of severe onset of chest pain started shaking EKG ordered stat did not show any acute ST-T changes patient is troponin was also negative and was very anxious and upset pending morphine and nitro tablets also got upset as I reduced his morphine during the daytime requested change of provider
--- NOTE | 2022-05-30 16:06 | EKG ---
Test Date: 2022-05-29 Test Time: 16:37:12 Professor Of Communication And Writing: HENRY MEASUREMENT RESULTS: Intervals: Rate: 86 UT: QRSD: 66 QT: 376 QTc: 449 [place]: P: UT: QRS: 60 T: 86 INTERPRETIVE STATEMENTS: Poor data quality, interpretation may be adversely affected Electronically Signed On 05-30-22 16:04:28 RAILROAD PASSENGER AGENT by Dilip Gong
[2022-05-30] MEDS: ENOXAPARIN 40 MG/0.4 ML SQ SCH (17:03)
[2022-05-30] MEDS: ZOLPIDEM TARTRATE 10 MG TABLET PO SCH (20:36)
[2022-05-30] MEDS: guaiFENesin 100 MG/5 ML UCUP PO PRN (20:36)
[2022-05-30] MEDS: ATORVASTATIN 80 MG TAB PO SCH (20:36)
--- NOTE | 2022-05-30 23:43 | P.PN ---
Subjective Date of Service: 05/30/22 PATIENT STILL HAVING PAIN IN THE LOWER BACK. HAS HARD TIME LIFTING HIS LOWER EXTREMITIES. CONTINUE WITH IV STEROIDS AND PAIN MEDICATION. PHYSICAL THERAPY CONSULTATION. PATIENT MAY NEED [facility] FACILITY PLACEMENT OR SWING BED PLACEMENT. Review of Systems 10-point ROS is otherwise unremarkable Physical Examination - Vital Signs Temperature: 96.9 F Blood Pressure: 122/59 Pulse: 70 Respirations: 19 Pulse Ox (%): 95 - Physical Exam General: Alert, In no apparent distress, Oriented x3 HEENT: Atraumatic, PERRLA, EOMI Neck: Supple, JVD not distended Respiratory: Clear to auscultation bilaterally, Normal air movement Cardiovascular: Regular rate/rhythm, Normal S1 S2 Gastrointestinal: Normal bowel sounds, Soft and benign, Non-distended, No tenderness Musculoskeletal: No clubbing, No swelling, No tenderness Neurological: Sensation intact, Cranial nerves 3-12 intact, Abnormal strength - Studies Medications List Reviewed: Yes Assessment & Plan - Problems (Diagnosis) (1) Radiculopathy Current Visit: Yes Status: Acute Qualifiers: Spinal region: lumbar Qualified Code(s): M54.16 - Radiculopathy, lumbar region (2) Lower back pain Current Visit: Yes Status: Acute Qualifiers: Chronicity: acute Sciatica presence: with sciatica (3) SARS-CoV-2 positive Current Visit: Yes Status: Acute (4) Chest pain, rule out acute myocardial infarction Current Visit: No Status: Acute (5) History of GI bleed Current Visit: No Status: Acute (6) History of pancreatitis Current Visit: No Status: Acute (7) Nephrolithiasis Current Visit: No Status: Acute (8) Obstructive uropathy Current Visit: No Status: Acute (9) Presence of stent in coronary artery in patient with coronary artery disease Current Visit: No Status: Acute - Plan PLAN: 1. CONTINUE WITH IV STEROIDS 3. MONITOR RESPIRATORY STATUS CLOSELY 3. PHYSICAL THERAPY EVALUATION 4. ARRANGE FOR HOME HEALTH FOR SWING BED PLACEMENT PATIENT WITH COVID-19 5. OXYGENATING WELL. 6. CONTINUE WITH CARDIAC MEDS 7. CONTINUE WITH STRICT BLOOD PRESSURE AND BLOOD SUGAR CONTROL 8. GI AND DVT PROPHYLAXIS Discharge Plan: Other (SWING BED) Plan to discharge in: Greater than 2 days - Advance Directives Does patient have a Living Will: No Does patient have a Durable POA for Healthcare: No - Code Status/Comfort Care Code Status: Full Code Critical Care: No Time Spent Managing PTS Care (In Minutes): 35
[2022-05-31] MEDS: HYDROCODONE/APAP 10/325 TAB PO PRN (00:01)
[2022-05-31] MEDS: MORPHINE 2 MG/ML SYR IV PRN ×4 (00:02→14:02)
[2022-05-31] MEDS: ALBUTEROL 2.5 MG/3 ML NEB SOL IH SCH ×4 (01:25→19:50)
[2022-05-31] MEDS: dexAMETHasone 4 MG/ML VIAL IV SCH ×3 (02:53→17:29)
[2022-05-31 04:41] LABS: Absolute Lymphocytes (CBC) 0.6 K/uL (0.7-4.9); Hematocrit 31.7 % (39.6-49.0); Lymphocytes % 14.3 % (15.3-44.8); MCV 88.9 fL (80-100); MPV 8.5 fL (7.6-11.3); RBC Red Blood Cell Count 3.56 M/uL (4.33-5.43)
[2022-05-31 04:54] LABS: Potassium 3.7 mmol/L (3.5-5.1)
[2022-05-31] MEDS: ONDANSETRON 4 MG/2 ML VIAL IV PRN ×3 (05:27→14:02)
--- NOTE | 2022-05-31 07:17 | ECHO ---
HEIGHT: 5 ft 2 in WEIGHT: 139 lb 0 oz DATE OF STUDY: 05/27/[address]: Nabeel Paredes MD 2-DIMENSIONAL: YES M.MODE: YES DOPPLER: YES COLOR FLOW: YES TDS: PORTABLE: YES DEFINITY: BUBBLE STUDY: DIAGNOSIS: CHEST PAIN, DYSPNEA CARDIAC HISTORY: CATHERIZATION: YES SURGERY: NO PROSTHETIC VALVE: NO PACEMAKER: NO MEASUREMENTS (cm) DIASTOLIC (NORMALS) SYSTOLIC (NORMALS) IVSd 1.2 (0.6-1.2) LA Diam 2.3 (1.9-4.0) LVEF 68% LVIDd 3.3 (3.5-5.7) LVIDs 2.1 (2.0-3.5) %FS 37% LVPWd 1.2 (0.6-1.2) Ao Diam 2.8 (2.0-3.7) 2 DIMENSIONAL ASSESSMENT: RIGHT ATRIUM: NORMAL LEFT ATRIUM: NORMAL RIGHT VENTRICLE: NORMAL LEFT VENTRICLE: NORMAL TRICUSPID VALVE: MILD TRICUSPID REGURGITATION MITRAL VALVE: MILD MITRAL REGURGITATION PULMONIC VALVE: NORMAL AORTIC VALVE: NORMAL PERICARDIAL EFFUSION: NONE AORTIC ROOT: NORMAL LEFT VENTRICULAR WALL MOTION: NORMAL DOPPLER/COLOR FLOW: MILD TRICUSPID REGURGITATION/ MITRAL REGURGITATION COMMENTS: 1. NORMAL LEFT VENTRICULAR EJECTION FRACTION 60-65% 2. NORMAL WALL MOTION 3. MILD TRICUSPID REGURGITATION 4. MILD MITRAL REGURGITATION TECHNOLOGIST: FELICIA RODRIGUEZ
[2022-05-31] MEDS: PANTOPRAZOLE 40MG TABLET PO SCH (08:08)
[2022-05-31] MEDS: ASPIRIN EC 81 MG TAB PO SCH (08:08)
[2022-05-31] MEDS: GABAPENTIN 100 MG CAP PO SCH ×2 (08:08→21:42)
[2022-05-31] MEDS: CLOPIDOGREL 75 MG TABLET PO SCH (08:09)
[2022-05-31] MEDS: carvediloL 12.5 MG TAB PO SCH ×2 (08:09→17:29)
[2022-05-31] MEDS: TIZANIDINE 4 MG TABLET PO SCH ×2 (08:09→21:42)
[2022-05-31] MEDS: OXYCODONE HCL 5 MG TAB PO PRN (17:29)
[2022-05-31] MEDS: ENOXAPARIN 40 MG/0.4 ML SQ SCH (17:30)
[2022-05-31] MEDS ORDERED: dexAMETHasone 10 MG/ML VIAL IV SCH (20:00)
[2022-05-31] MEDS: ATORVASTATIN 80 MG TAB PO SCH (21:42)
[2022-05-31] MEDS: ZOLPIDEM TARTRATE 10 MG TABLET PO SCH (21:42)
[2022-06-01] MEDS: OXYCODONE HCL 5 MG TAB PO PRN ×2 (00:42→08:53)
[2022-06-01] MEDS: ALBUTEROL 2.5 MG/3 ML NEB SOL IH SCH (01:20)
[2022-06-01 04:16] VITALS: O2SAT 97
[2022-06-01] MEDS: CLOPIDOGREL 75 MG TABLET PO SCH (08:37)
[2022-06-01] MEDS: dexAMETHasone 4 MG/ML VIAL IV SCH ×2 (08:37)
[2022-06-01] MEDS: TIZANIDINE 4 MG TABLET PO SCH (08:37)
[2022-06-01] MEDS: GABAPENTIN 100 MG CAP PO SCH (08:37)
[2022-06-01] MEDS: ASPIRIN EC 81 MG TAB PO SCH (08:37)
[2022-06-01] MEDS: PANTOPRAZOLE 40MG TABLET PO SCH (08:37)
[2022-06-01] MEDS: carvediloL 12.5 MG TAB PO SCH (08:38)
[2022-06-01 12:18] VITALS: BP 127/76; TEMP 96.9
[2022-06-01] MEDS: HYDROCODONE/APAP 10/325 TAB PO PRN (14:54)
--- NOTE | 2022-06-01 15:02 | P.PN ---
Date of Service: 05/31/22 Subjective Arrangements have been made for inpatient rehab. Plan to DC in the AM Review of Systems 10-point ROS is otherwise unremarkable Physical Examination - Vital Signs reviewed - Physical Exam General: Alert, In no apparent distress, Oriented x3 Respiratory: Clear to auscultation bilaterally, Normal air movement Cardiovascular: Regular rate/rhythm, Normal S1 S2 Gastrointestinal: Normal bowel sounds, Soft and benign, Non-distended, No tenderness Musculoskeletal: No clubbing, No swelling, No tenderness Neurological: Sensation intact, Cranial nerves 3-12 intact, Abnormal strength Assessment & Plan - Problems (Diagnosis) (1) Radiculopathy Current Visit: Yes Status: Acute Spinal region: lumbar Qualified Code(s): M54.16 - Radiculopathy, lumbar region (2) Lower back pain Current Visit: Yes Status: Acute Chronicity: acute Sciatica presence: with sciatica (3) SARS-CoV-2 positive Current Visit: Yes Status: Acute (4) Chest pain, rule out acute myocardial infarction Current Visit: No Status: Acute (5) History of GI bleed Current Visit: No Status: Acute (6) History of pancreatitis Current Visit: No Status: Acute (7) Nephrolithiasis Current Visit: No Status: Acute (8) Obstructive uropathy Current Visit: No Status: Acute (9) Presence of stent in coronary artery in patient with coronary artery disease Current Visit: No Status: Acute - Plan Continue with plan of care as mentioned below: 1. WEAN STEROIDS 2. RESPIRATIONS IMPROVED 3. PHYSICAL THERAPY EVALUATION APPRECIATED; SEVERE PAIN 4. ARRANGE FOR HOME HEALTH FOR SWING BED PLACEMENT PATIENT WITH COVID-19 5. O2 stable 6. CONTINUE WITH CARDIAC MEDS 7. CONTINUE WITH STRICT BP AND BS CONTROL 8. GI AND DVT PROPHYLAXIS
--- NOTE | 2022-06-01 15:08 | P.DS ---
Discharge Date: 06/01/22 Disposition: TRANSFER TO INPATIENT REHAB Discharge Condition: GOOD Reason for Admission: Lower back pain and right thigh discomfort - Problems (1) Radiculopathy Current Visit: Yes Status: Acute Qualifiers: Spinal region: lumbar Qualified Code(s): M54.16 - Radiculopathy, lumbar region (2) Lower back pain Current Visit: Yes Status: Acute Qualifiers: Chronicity: acute Sciatica presence: with sciatica (3) SARS-CoV-2 positive Current Visit: Yes Status: Acute (4) Chest pain, rule out acute myocardial infarction Current Visit: No Status: Acute (5) History of GI bleed Current Visit: No Status: Acute (6) History of pancreatitis Current Visit: No Status: Acute (7) Nephrolithiasis Current Visit: No Status: Acute (8) Obstructive uropathy Current Visit: No Status: Acute (9) Presence of stent in coronary artery in patient with coronary artery disease Current Visit: No Status: Acute Brief History of Present Illness: This is a 66 year old male past medical history significant for HTN, CVA, CT with stents x2 who presents to the ER for complaints of cough, fever x 1 week (Tmax 103) and chest pain. Patient states that his cough and fever started on Monday. The cough is nonproductive. He took some cough syrup, which helped alleviate the cough. He also states that his chest pain started on Monday while walking up the stairs. He became short of breath. The pain did not radiate. He took some Aspirin and Advil which did not alleviate the pain. Patient reported associated signs and symptoms headaches, nausea, and back pain. Patient is vaccinated for COVID and received both boosters Hospital Course: Patient's respiratory status has improved significantly. Patient still having back pain. Pain on ambulation. Patient wanted to go to inpatient rehab but he called the CARGO SURVEYOR himself to make arrangements. Appreciate his assistance and making these arrangements. Patient will continue with inpatient rehab with outpatient follow-up. MRI of the spine and lumbosacral spine x-rays have not shown any acute abnormalities. Vital Signs/Physical Exam: Temp Pulse Resp BP Pulse Ox 96.9 F 72 18 127/76 98 06/01/22 12:00 06/01/22 12:06/01/22 14:54 06/01/22 12:06/01/22 14:54 General: Alert, In no apparent distress, Oriented x3 Laboratory Data at Discharge: WBC 4.20 K/uL (4.3-10.9) L 05/31/22 04:20 Hgb 10.8 g/dL (13.6-17.9) L D 05/31/22 04:20 Hct 31.7 % (39.6-49.0) L 05/31/22 04:20 Plt Count 252 K/uL (152-406) 05/31/22 04:20 Sodium 136 mmol/L (136-145) 05/31/22 04:20 Potassium 3.7 mmol/L (3.5-5.1) 05/31/22 04:20 BUN 10 mg/dL (7-18) 05/31/22 04:20 Creatinine 0.57 mg/dL (0.70-1.30) L 05/31/22 04:20 Glucose 114 mg/dL (74-106) H 05/31/22 04:20 Magnesium 1.8 mg/dL (1.6-2.4) 05/28/22 06:11 Total Bilirubin 0.3 mg/dL (0.2-1.0) 05/28/22 06:11 AST 18 U/L (15-37) 05/28/22 06:11 ALT 18 U/L (16-61) 05/28/22 06:11 Alkaline Phosphatase 127 U/L (45-117) H 05/28/22 06:11 Triglycerides 153 mg/dL (<150) H 05/26/22 19:18 Cholesterol 199 mg/dL (<200) 05/26/22 19:18 HDL Cholesterol 42 mg/dL (40-60) 05/26/22 19:18 Cholesterol/HDL Ratio 4.74 05/26/22 19:18 Home Medications: Zolpidem Tartrate [Ambien*] 10 mg PO BEDTIME 09/15/18 Aspirin [Aspirin EC 81 MG] 81 mg PO DAILY #30 tablet. 09/23/18 Atorvastatin Calcium [Lipitor] 80 mg PO BEDTIME #30 tab 09/23/18 Clopidogrel Bisulfate [Plavix*] 75 mg PO DAILY #30 tablet 09/23/18 Nitroglycerin [Nitrostat*] 0.4 mg SL UD PRN #30 tab 09/23/18 Pantoprazole [Protonix Tab*] 40 mg PO DAILY 90 Days #90 tab 04/01/19 Carvedilol [Coreg] 12.5 mg PO DAILY 05/27/22 Clonidine [Catapres-Tts 1] 1 patch TOP EVERY 7TH DAY 05/27/22 Promethazine Tab [Phenergan*] 12.5 mg PO Q6HP PRN 05/27/22 Tizanidine [Zanaflex*] 4 mg PO BID 05/27/22 Albuterol Neb [Proventil 0.083% Neb Soln] 2.5 mg IH I8IHRYY #0 amp 05/31/22 Azithromycin [Zithromax] 250 mg PO DAILY #5 tab 05/31/22 Cefdinir [Omnicef] 300 mg PO BID #14 cap 05/31/22 Gabapentin [Neurontin*] 200 mg PO BID cap 05/31/22 Oxycodone HCl [Oxyir (Oxycodone HCl Imr)*] 10 mg PO Q8H PRN tab 05/31/22 Pantoprazole [Protonix Tab*] 40 mg PO DAILY #0 tab 05/31/22 guaiFENesin [Robitussin 100MG/5ML*] 5 ml PO QID PRN 05/31/22 predniSONE [Deltasone] 20 mg PO BID #20 tab 05/31/22 New Medications: Cefdinir [Omnicef] 300 mg PO BID #14 cap predniSONE [Deltasone] 20 mg PO BID #20 tab Azithromycin [Zithromax] 250 mg PO DAILY #5 tab Physician Discharge Instructions: -DC IV and DC to inpatient rehab -Follow-up with PCP in 1 to 2 weeks -Follow-up with Spine surgeon in 1 to 2 weeks -Please call Dr. Hutson at [phone] if any questions regarding hospital stay -Please call nursing station at [phone] if any nursing or medication questions -Return to the emergency room if symptoms worsen Diet: AHA Activity: Fall precautions Followup: OOTOOT [Primary Care Provider] - Time spent managing pt's care (in minutes): 35
--- NOTE | 2022-06-02 17:53 | EKG ---
Test Date: 2022-05-29 Test Time: 17:09:54 Community Outreach Director: HENRY MEASUREMENT RESULTS: Intervals: Rate: 79 W[place]: 116 QRSD: 76 QT: 394 QTc: 451 [place]: P: 19 WY: 116 QRS: 28 T: 42 INTERPRETIVE STATEMENTS: Normal sinus rhythm Normal ECG Compared to ECG 05/29/2022 16:37:12 No significant changes Electronically Signed On 06-02-22 17:47:01 SPARK PLUG ASSEMBLER by Dilip Gong
--- NOTE | 2022-06-02 17:54 | EKG ---
Test Date: 2022-05-29 Test Time: 16:55:33 Software Design Analyst: HENRY MEASUREMENT RESULTS: Intervals: Rate: 94 ND: 92 QRSD: 76 QT: 364 QTc: 455 [place]: P: 0 ND: 92 QRS: 47 T: 30 INTERPRETIVE STATEMENTS: Sinus rhythm Artifact Electronically Signed On 06-02-22 17:47:38 BATTERBOARD SETTER by Dilip Gong
== END 2022-06-01 15:26 | DRG 177 ==
LOC: ER 11:14 → ERHOLD 17:40 → 4TH 05-27 11:41 → OBSVTOIN 05-28 10:11
PROVIDERS: ADMIT Hospitalist; ATTEND Hospitalist
DX: U07.1 COVID-19 (principal); I21.9 Acute myocardial infarction, unspecified; N17.9 Acute kidney failure, unspecified; M54.16 Radiculopathy, lumbar region; E87.6 Hypokalemia; E78.5 Hyperlipidemia, unspecified; E86.0 Dehydration; I10 Essential (primary) hypertension; N20.0 Calculus of kidney; M54.40 Lumbago with sciatica, unspecified side; N13.9 Obstructive and reflux uropathy, unspecified; G89.29 Other chronic pain; I25.2 Old myocardial infarction; W18.30XA Fall on same level, unspecified, initial encounter; Z95.5 Presence of coronary angioplasty implant and graft; Z88.5 Allergy status to narcotic agent; Z88.8 Allergy status to other drugs, medicaments and biological substances; Z79.82 Long term (current) use of aspirin; Z90.49 Acquired absence of other specified parts of digestive tract; Z86.73 Personal history of transient ischemic attack (TIA), and cerebral infarction without residual deficits; Z79.02 Long term (current) use of antithrombotics/antiplatelets; Z79.899 Other long term (current) drug therapy
CPT/HCPCS: 0240U; 36415; 71045; 71275; 72148; 72220; 80048; 80053; 80061; 81003; 82728; 83735; 83880; 84132; 84484; 85025; 85027; 85379; 86140; 93005; 93306; 94640; 94760; 96361; 96374; 96375; 97110; 97112; 97116; 97161; 97530; 99284; G0378; J1100; J1200; J1650; J2270; J2405; J2930; J7030; J7040; J7613; Q9967